=== PATIENT | male | born 1975 | race Caucasian/White ===

== ENCOUNTER 2019-02-08 04:47 | Emergency (ER) | payer MEDICARE, OTHER ==
[~2019-02-08] VITALS: Ht 170.2 cm; Wt 106.8 kg
[2019-02-08] MEDS ORDERED: DOXE150C PO (05:13)
[2019-02-08] MEDS ORDERED: INVE3TAB2 PO (05:13)
[2019-02-08] MEDS ORDERED: LAMO100T3 PO (05:13)
[2019-02-08] MEDS ORDERED: ESCI10TA2 PO (05:13)
[2019-02-08 06:04] LABS: HEMATOCRIT 41.2 % (42.0-52.0); HEMOGLOBIN 13.9 g/dl (13.5-17.5); MEAN CORPUSCULAR HEMOGLOBIN 30.1 pg (27.0-33.0); MEAN CORPUSCULAR HGB CONC 33.7 g/dl (32.0-36.5); MEAN CORPUSCULAR VOLUME 89.2 fl (80.0-96.0); PLATELET COUNT, AUTOMATED 274 10^3/uL (150-450); RED BLOOD COUNT 4.62 10^6/uL (4.30-6.10); WHITE BLOOD COUNT 7.4 10^3/uL (4.0-10.0)
[2019-02-08 06:33] LABS: AMPHETAMINES LEVEL URINE NEGATIVE (NEGATIVE); BARBITURATES URINE NEGATIVE (NEGATIVE); BENZODIAZEPINES URINE NEGATIVE (NEGATIVE); CANNABINOIDS URINE NEGATIVE (NEGATIVE); COCAINE METABOLITE URINE NEGATIVE (NEGATIVE); METHADONE URINE NEGATIVE (NEGATIVE); OPIATES URINE NEGATIVE (NEGATIVE); PHENCYCLIDINE URINE NEGATIVE (NEGATIVE)
[2019-02-08 06:37] LABS: ACETAMINOPHEN LEVEL < 2.0 UG/ML (10.0-30.0); ALBUMIN 3.9 GM/DL (3.2-5.2); ALT/SGPT 26 U/L (12-78); BILIRUBIN,DIRECT 0.1 MG/DL (0.0-0.2); BILIRUBIN,TOTAL 0.3 MG/DL (0.2-1.0); BLOOD UREA NITROGEN 10 MG/DL (7-18); CALCIUM LEVEL 8.5 MG/DL (8.5-10.1); CARBON DIOXIDE LEVEL 30 MEQ/L (21-32); CHLORIDE LEVEL 108 MEQ/L (98-107); CREATININE FOR GFR 0.95 MG/DL (0.70-1.30); ETHYL ALCOHOL (ETHANOL) < 0.003 % (0.000-0.010); GLOMERULAR FILTRATION RATE > 60.0 (>60); GLUCOSE, FASTING 95 MG/DL (70-100); POTASSIUM SERUM 4.1 MEQ/L (3.5-5.1); SALICYLATE LEVEL < 1.7 MG/DL (5.0-30.0); SODIUM LEVEL 143 MEQ/L (136-145); TOTAL PROTEIN 7.1 GM/DL (6.4-8.2)
[2019-02-08 10:02] VITALS: BP 127/77
--- NOTE | 2019-02-08 19:29 | ECGEPIP ---
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
[2019-03-22] MEDS ORDERED: LAMO150T3 PO (20:13)
== END 2019-02-08 10:06 ==
LOC: M ED 04:47
DX: R45.851 Suicidal ideations (principal); R44.0 Auditory hallucinations; F20.9 Schizophrenia, unspecified; Z79.899 Other long term (current) drug therapy; Z88.8 Allergy status to other drugs, medicaments and biological substances
CPT/HCPCS: 36415; 80048; 80076; 80307; 84443; 85027; 93005; 99285; G0480

== ENCOUNTER 2019-03-22 18:23 | Emergency (ER) | payer MEDICARE, OTHER ==
[~2019-03-22] VITALS: Ht 170.2 cm; Wt 113.6 kg
[~2019-03-22 18:23] MED LIST: DOXE150C PO; ESCI10TA2 PO; INVE3TAB2 PO; LAMO100T PO
[2019-03-22] MEDS ORDERED: BENZ-52 PO (18:41)
[2019-03-22] MEDS ORDERED: VITA500045 PO (18:41)
[2019-03-22] MEDS ORDERED: INVE117I IM (18:42)
[2019-03-22 19:01] LABS: HEMATOCRIT 40.4 % (42.0-52.0); HEMOGLOBIN 13.6 g/dl (13.5-17.5); MEAN CORPUSCULAR HEMOGLOBIN 30.7 pg (27.0-33.0); MEAN CORPUSCULAR HGB CONC 33.7 g/dl (32.0-36.5); MEAN CORPUSCULAR VOLUME 91.2 fl (80.0-96.0); PLATELET COUNT, AUTOMATED 294 10^3/uL (150-450); RED BLOOD COUNT 4.43 10^6/uL (4.30-6.10); WHITE BLOOD COUNT 8.7 10^3/uL (4.0-10.0)
[2019-03-22 19:28] LABS: AMPHETAMINES LEVEL URINE NEGATIVE (NEGATIVE); BARBITURATES URINE NEGATIVE (NEGATIVE); BENZODIAZEPINES URINE NEGATIVE (NEGATIVE); CANNABINOIDS URINE NEGATIVE (NEGATIVE); COCAINE METABOLITE URINE NEGATIVE (NEGATIVE); METHADONE URINE NEGATIVE (NEGATIVE); OPIATES URINE NEGATIVE (NEGATIVE); PHENCYCLIDINE URINE NEGATIVE (NEGATIVE)
[2019-03-22 19:41] LABS: ACETAMINOPHEN LEVEL < 2.0 UG/ML (10.0-30.0); ALBUMIN 4.1 GM/DL (3.2-5.2); ALT/SGPT 35 U/L (12-78); BILIRUBIN,DIRECT 0.1 MG/DL (0.0-0.2); BILIRUBIN,TOTAL 0.5 MG/DL (0.2-1.0); BLOOD UREA NITROGEN 8 MG/DL (7-18); CALCIUM LEVEL 9.4 MG/DL (8.5-10.1); CARBON DIOXIDE LEVEL 30 MEQ/L (21-32); CHLORIDE LEVEL 103 MEQ/L (98-107); CREATININE FOR GFR 1.04 MG/DL (0.70-1.30); ETHYL ALCOHOL (ETHANOL) < 0.003 % (0.000-0.010); GLOMERULAR FILTRATION RATE > 60.0 (>60); GLUCOSE, FASTING 91 MG/DL (70-100); POTASSIUM SERUM 3.9 MEQ/L (3.5-5.1); SALICYLATE LEVEL < 1.7 MG/DL (5.0-30.0); SODIUM LEVEL 140 MEQ/L (136-145); TOTAL PROTEIN 7.7 GM/DL (6.4-8.2)
[2019-03-22] MEDS ORDERED: LAMO150T2 PO (20:13)
[2019-03-22] MEDS ORDERED: DOXE50CA PO (20:14)
[2019-03-22] MEDS ORDERED: lamoTRIgine 100MG TAB PO ONE (22:45)
[2019-03-22] MEDS ORDERED: BENZTROPINE 1 MG TAB PO ONE (22:45)
[2019-03-22] MEDS ORDERED: DOXEPIN 25 MG CAP PO ONE (22:45)
[2019-03-22] MEDS ORDERED: ESCITALOPRAM OXALATE 10 MG TAB (LEXAPRO) PO ONE (22:45)
[2019-03-23 02:48] VITALS: BP 120/67
--- NOTE | 2019-03-24 08:19 | ECGEPIP ---
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
== END 2019-03-23 03:22 ==
LOC: M ED 18:23
DX: R45.851 Suicidal ideations (principal); R44.0 Auditory hallucinations; F33.9 Major depressive disorder, recurrent, unspecified; F43.10 Post-traumatic stress disorder, unspecified; F20.9 Schizophrenia, unspecified; Z91.5 Personal history of self-harm; Z79.899 Other long term (current) drug therapy; Z88.8 Allergy status to other drugs, medicaments and biological substances
CPT/HCPCS: 36415; 80048; 80076; 80307; 84443; 85027; 93005; 99284; G0480

== ENCOUNTER 2019-04-04 21:14 | Emergency (ER) | payer MEDICARE, OTHER ==
[~2019-04-04] VITALS: Ht 172.7 cm; Wt 115.9 kg
[~2019-04-04 21:14] MED LIST changes: +BENZ-52 PO; +DOXE50CA PO; +INVE117I IM; +LAMO150T2 PO; +VITA500045 PO
[2019-04-04] MEDS ORDERED: INVE3TAB2 PO (21:24)
[2019-04-04 22:13] LABS: HEMATOCRIT 40.9 % (42.0-52.0); HEMOGLOBIN 13.6 g/dl (13.5-17.5); MEAN CORPUSCULAR HGB CONC 33.3 g/dl (32.0-36.5); MEAN CORPUSCULAR VOLUME 93.2 fl (80.0-96.0); PLATELET COUNT, AUTOMATED 281 10^3/uL (150-450); RED BLOOD COUNT 4.39 10^6/uL (4.30-6.10); WHITE BLOOD COUNT 8.7 10^3/uL (4.0-10.0)
[2019-04-04 22:29] LABS: AMPHETAMINES LEVEL URINE NEGATIVE (NEGATIVE); BARBITURATES URINE NEGATIVE (NEGATIVE); BENZODIAZEPINES URINE NEGATIVE (NEGATIVE); CANNABINOIDS URINE NEGATIVE (NEGATIVE); COCAINE METABOLITE URINE NEGATIVE (NEGATIVE); METHADONE URINE NEGATIVE (NEGATIVE); OPIATES URINE NEGATIVE (NEGATIVE); PHENCYCLIDINE URINE NEGATIVE (NEGATIVE)
[2019-04-04 23:10] LABS: ACETAMINOPHEN LEVEL < 2.0 UG/ML (10.0-30.0); ALT/SGPT 37 U/L (12-78); BILIRUBIN,DIRECT < 0.1 MG/DL (0.0-0.2); BILIRUBIN,TOTAL 0.2 MG/DL (0.2-1.0); BLOOD UREA NITROGEN 10 MG/DL (7-18); CALCIUM LEVEL 8.9 MG/DL (8.5-10.1); CARBON DIOXIDE LEVEL 30 MEQ/L (21-32); CHLORIDE LEVEL 103 MEQ/L (98-107); ETHYL ALCOHOL (ETHANOL) < 0.003 % (0.000-0.010); GLOMERULAR FILTRATION RATE > 60.0 (>60); GLUCOSE, FASTING 121 MG/DL (70-100); POTASSIUM SERUM 3.5 MEQ/L (3.5-5.1); SALICYLATE LEVEL < 1.7 MG/DL (5.0-30.0); SODIUM LEVEL 141 MEQ/L (136-145); TOTAL PROTEIN 7.5 GM/DL (6.4-8.2)
[2019-04-05 09:05] VITALS: BP 137/92
--- NOTE | 2019-04-06 18:45 | ECGEPIP ---
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
== END 2019-04-05 09:09 | disposition short-term general hospital (02) ==
LOC: M ED 21:14
DX: R44.0 Auditory hallucinations (principal); R44.2 Other hallucinations; F31.9 Bipolar disorder, unspecified; F43.10 Post-traumatic stress disorder, unspecified; Z88.8 Allergy status to other drugs, medicaments and biological substances
CPT/HCPCS: 36415; 80048; 80076; 80307; 84443; 85027; 93005; 99285; G0480

== ENCOUNTER 2019-05-12 18:22 | Emergency (ER) | payer MEDICARE, OTHER ==
[~2019-05-12] VITALS: Ht 172.7 cm; Wt 120.0 kg
[2019-05-12] MEDS ORDERED: MIRT1TAB15 PO (18:39)
[2019-05-12] MEDS ORDERED: ESOM0.1C PO (18:39)
[2019-05-12 20:43] LABS: BASO # 0.1 10^3/uL (0.0-0.2); BASO % 0.9 % (0.0-1.0); EOS # 0.3 10^3/uL (0.0-0.5); EOS % 2.6 % (0.0-3.0); HEMATOCRIT 41.3 % (42.0-52.0); HEMOGLOBIN 13.7 g/dl (13.5-17.5); LYMPH # 2.3 10^3/uL (1.5-5.0); LYMPH % 24.1 % (24.0-44.0); MEAN CORPUSCULAR HEMOGLOBIN 30.4 pg (27.0-33.0); MEAN CORPUSCULAR HGB CONC 33.2 g/dl (32.0-36.5); MEAN CORPUSCULAR VOLUME 91.6 fl (80.0-96.0); MONO # 0.9 10^3/uL (0.0-0.8); MONO % 9.1 % (0.0-5.0); NEUTROPHILS # 5.9 10^3/uL (1.5-8.5); NEUTROPHILS % 62.5 % (36.0-66.0); PLATELET COUNT, AUTOMATED 300 10^3/uL (150-450); RED BLOOD COUNT 4.51 10^6/uL (4.30-6.10); WHITE BLOOD COUNT 9.5 10^3/uL (4.0-10.0)
[2019-05-12 21:09] LABS: ALBUMIN 4.3 GM/DL (3.2-5.2); ALT/SGPT 36 U/L (12-78); BILIRUBIN,DIRECT < 0.1 MG/DL (0.0-0.2); BILIRUBIN,TOTAL 0.4 MG/DL (0.2-1.0); BLOOD UREA NITROGEN 16 MG/DL (7-18); CALCIUM LEVEL 9.5 MG/DL (8.5-10.1); CARBON DIOXIDE LEVEL 30 MEQ/L (21-32); CHLORIDE LEVEL 102 MEQ/L (98-107); CREATININE FOR GFR 1.03 MG/DL (0.70-1.30); GLOMERULAR FILTRATION RATE > 60.0 (>60); GLUCOSE, FASTING 106 MG/DL (70-100); MAGNESIUM LEVEL 2.3 MG/DL (1.8-2.4); PHOSPHORUS LEVEL 3.4 MG/DL (2.5-4.9); POTASSIUM SERUM 3.8 MEQ/L (3.5-5.1); SODIUM LEVEL 139 MEQ/L (136-145); TOTAL PROTEIN 8.1 GM/DL (6.4-8.2)
--- NOTE | 2019-05-12 21:09 | REPVR ---
PROCEDURE INFORMATION: Exam: CT Head Without Contrast Exam date and time: 05/12/2019 8:03 PM Clinical history: 44 years old, male; Injury or trauma; Fall; Initial encounter; Blunt trauma (contusions or hematomas); Additional info: Trauma with shunt TECHNIQUE: Imaging protocol: Computed tomography of the head without contrast. Radiation optimization: All CT scans at this facility use at least one of these dose optimization techniques: automated exposure control; mA and/or kV adjustment per patient size (includes targeted exams where dose is matched to clinical indication); or iterative reconstruction. COMPARISON: No relevant prior studies available. FINDINGS: Tubes, catheters and devices: Right frontal shunt catheter tip in frontal horn of right lateral ventricle without apparent shunt tubing. Left parietal shunt catheter tip in body of left lateral ventricle with attached shunt tubing. 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 There is enlargement of the third and lateral ventricles. There is no acute cortical infarction, intracranial hemorrhage or mass. Brain: See Tubes, Catheters And Devices Finding. Ventricles: See Tubes, Catheters And Devices Finding. Bones/joints: Unremarkable. No acute fracture. Sinuses: Visualized sinuses are unremarkable. No fluid levels. Mastoid air cells: Visualized mastoid air cells are well aerated. Soft tissues: There is a 1.2 cm probable sebaceous cyst left occipital scalp. IMPRESSION: The right frontal shunt catheter does not appear to have attached tubing however the left parietal shunt catheter does have tubing. Comparison should be made with prior studies since there are non-radiopaque regions apparent. There are no acute intracranial findings. Electronically signed by: Melani Soriano On 05/12/2019 21:09:18 PM
--- NOTE | 2019-05-12 21:35 | REPVR ---
PROCEDURE INFORMATION: Exam: CT Pelvis Without Contrast; Skeletal Exam date and time: 05/12/2019 8:03 PM Clinical history: 44 years old, male; Injury or trauma; Fall; Initial encounter; Blunt trauma (contusions or hematomas); Does not apply; Hip TECHNIQUE: Imaging protocol: Computed tomography images of the pelvis without contrast. Exam focused on the skeletal structures. Radiation optimization: All CT scans at this facility use at least one of these dose optimization techniques: automated exposure control; mA and/or kV adjustment per patient size (includes targeted exams where dose is matched to clinical indication); or iterative reconstruction. COMPARISON: No relevant prior studies available. FINDINGS: Bladder: There are bladder is unremarkable. Reproductive: Prostate gland is not enlarged. Bones/joints: There is fusion of the anterior margin of the left sacroiliac joint. No sacral fracture is detected. No fracture seen in the portion lumbar spine included on the examination. Both hips appear intact. Soft tissues: There is a fat-containing umbilical hernia and bilateral fat-containing inguinal hernias. No body wall hematoma is apparent. IMPRESSION: No acute pelvic fractures are identified. Electronically signed by: Melani Soriano On 05/12/2019 21:35:29 PM
--- NOTE | 2019-05-12 21:37 | REPVR ---
PROCEDURE INFORMATION: Exam: CT Right Lower Extremity Without Contrast, Hip Exam date and time: 05/12/2019 8:03 PM Clinical history: 44 years old, male; Injury or trauma; Fall; Initial encounter; Blunt trauma; Hip; Right TECHNIQUE: Imaging protocol: CT of the Right lower extremity without contrast was performed. Exam focused on the hip. Radiation optimization: All CT scans at this facility use at least one of these dose optimization techniques: automated exposure control; mA and/or kV adjustment per patient size (includes targeted exams where dose is matched to clinical indication); or iterative reconstruction. COMPARISON: No relevant prior studies available. FINDINGS: Bones/joints: No acute fracture or dislocation. Soft tissues: No body wall hematoma. IMPRESSION: No right hip fracture is identified. Electronically signed by: Melani Soriano On 05/12/2019 21:37:20 PM
--- NOTE | 2019-05-12 21:43 | REPVR ---
PROCEDURE INFORMATION: Exam: CT Lumbar Spine Without Contrast Exam date and time: 05/12/2019 8:03 PM Clinical history: 44 years old, male; Injury or trauma; Fall; Initial encounter; Blunt trauma (contusions or hematomas) TECHNIQUE: Imaging protocol: Computed tomography images of the lumbar spine without contrast. Radiation optimization: All CT scans at this facility use at least one of these dose optimization techniques: automated exposure control; mA and/or kV adjustment per patient size (includes targeted exams where dose is matched to clinical indication); or iterative reconstruction. COMPARISON: No relevant prior studies available. FINDINGS: Vertebrae: There is no acute fracture in the lumbar spine through S2. No spondylolisthesis. L1-L2: No disc herniation. No spinal stenosis. No neural foraminal narrowing. L2-L3: No disc herniation. No spinal stenosis. No neural foraminal narrowing. L3-L4: No disc herniation. No spinal stenosis. No neural foraminal narrowing. L4-L5: No disc herniation. No spinal stenosis. No neural foraminal narrowing. L5-S1: No disc herniation. No spinal stenosis. No neural foraminal narrowing. Sacrum/coccyx: There is fusion of the anterior margin of the left sacroiliac joint. Soft tissues: Unremarkable. Other findings: There is no disc space narrowing. IMPRESSION: No compression fracture seen in the lumbar spine. Electronically signed by: Melani Soriano On 05/12/2019 21:43:06 PM
--- NOTE | 2019-05-12 22:04 | REPVR ---
PROCEDURE INFORMATION: Exam: XR Shunt Series With 4 XR Procedures Exam date and time: 05/12/2019 8:36 PM Clinical history: 44 years old, male; Other: Falls, ; dizziness; Other: Shunt series; Additional info: Falls, eval shunt TECHNIQUE: Imaging protocol: XR Shunt Series was performed with skull less than 4 views, neck 1 view, chest 1 view, and abdomen 1 view. COMPARISON: CT Head without contrast 05/12/2019 8:02 PM FINDINGS: Tubes, catheters and devices: Ventriculoperitoneal catheter is present. Ventricular catheter is seen on the left. The right frontal shunt catheter does not appear to have associated shunt tubing. The catheter is seen coursing through the neck and chest. The distal catheter tip in the left upper quadrant. No kinking however there is an area of lucency in the neck measuring 5 cm which could indicate shunt disruption. Sinuses: Visualized paranasal sinuses are well aerated. Airway: Upper airway and trachea are unremarkable in the neck and chest. Lungs: No consolidations. Gastrointestinal tract: Bowel is unremarkable. Bones/joints: Normal. No fracture. No dislocation. Soft tissues: Unremarkable. IMPRESSION: MODERN AND CONTEMPORARY ART CURATOR shunt has a lucency within the lower neck which could indicate shunt disruption. Suggest comparison with prior x-rays. Electronically signed by: Melani Soriano On 05/12/2019 22:04:25 PM
[2019-05-13 00:15] VITALS: BP 134/78
[2019-05-13] MEDS ORDERED: NS 1,000 ML IV SCH (00:22)
== END 2019-05-13 01:16 | disposition short-term general hospital (02) ==
LOC: M ED 18:22
DX: M53.3 Sacrococcygeal disorders, not elsewhere classified (principal); R26.9 Unspecified abnormalities of gait and mobility; T85.09XA Other mechanical complication of ventricular intracranial (communicating) shunt, initial encounter; G91.9 Hydrocephalus, unspecified; G47.33 Obstructive sleep apnea (adult) (pediatric); Z88.1 Allergy status to other antibiotic agents; Z88.9 Allergy status to unspecified drugs, medicaments and biological substances; Z79.810 Long term (current) use of selective estrogen receptor modulators (SERMs); Z79.84 Long term (current) use of oral hypoglycemic drugs; Z79.899 Other long term (current) drug therapy

== ENCOUNTER → 2019-06-13 | Outpatient (REF) | payer MEDICARE ==
[~2019-06-13] MED LIST changes: +ESCI20TA PO; +ESOM0.1C PO; +INVE234I IM; -LAMO100T PO; +LAMO100T3 PO; -LAMO150T2 PO; +LAMO150T3 PO; +LEXA1TAB2 PO; +MIRT1TAB15 PO; +PALI1TAB3 PO; +REME15TA PO; +VITA1CAP25 PO
[2019-06-13 13:41] LABS: CHLAMYDIA DNA AMPLIFICATION NEGATIVE (NEGATIVE); GC DNA AMPLIFICATION NEGATIVE (NEGATIVE)
== END ==
LOC: M SFHCPLAZ 11:21
PROVIDERS: ATTEND Student in an Organized Health Care Education/Training Program
DX: R30.0 Dysuria (principal)
CPT/HCPCS: 81002; 87086; 87661; G0463

== ENCOUNTER 2019-06-27 19:39 | Inpatient (IN) | payer MEDICARE ==
[~2019-06-27] VITALS: Ht 170.2 cm; Wt 118.3 kg
[~2019-06-27 19:39] MED LIST changes: -ESCI20TA PO; -INVE234I IM; -LEXA1TAB2 PO; -PALI1TAB3 PO; -REME15TA PO; -VITA1CAP25 PO
[2019-06-27 20:35] LABS: HEMATOCRIT 48.9 % (42.0-52.0); HEMOGLOBIN 15.3 g/dl (13.5-17.5); MEAN CORPUSCULAR HEMOGLOBIN 28.8 pg (27.0-33.0); MEAN CORPUSCULAR HGB CONC 31.3 g/dl (32.0-36.5); MEAN CORPUSCULAR VOLUME 92.1 fl (80.0-96.0); PLATELET COUNT, AUTOMATED 306 10^3/uL (150-450); RED BLOOD COUNT 5.31 10^6/uL (4.30-6.10)
[2019-06-27 20:41] LABS: AMPHETAMINES LEVEL URINE NEGATIVE (NEGATIVE); BARBITURATES URINE NEGATIVE (NEGATIVE); BENZODIAZEPINES URINE NEGATIVE (NEGATIVE); CANNABINOIDS URINE NEGATIVE (NEGATIVE); COCAINE METABOLITE URINE NEGATIVE (NEGATIVE); METHADONE URINE NEGATIVE (NEGATIVE); OPIATES URINE NEGATIVE (NEGATIVE); PHENCYCLIDINE URINE NEGATIVE (NEGATIVE)
[2019-06-27 21:05] LABS: ACETAMINOPHEN LEVEL < 2.0 UG/ML (10.0-30.0); ALBUMIN 4.3 GM/DL (3.2-5.2); ALT/SGPT 55 U/L (12-78); BILIRUBIN,DIRECT 0.1 MG/DL (0.0-0.2); BILIRUBIN,TOTAL 0.4 MG/DL (0.2-1.0); BLOOD UREA NITROGEN 14 MG/DL (7-18); CALCIUM LEVEL 9.4 MG/DL (8.5-10.1); CARBON DIOXIDE LEVEL 30 MEQ/L (21-32); CHLORIDE LEVEL 104 MEQ/L (98-107); CREATININE FOR GFR 1.04 MG/DL (0.70-1.30); ETHYL ALCOHOL (ETHANOL) < 0.003 % (0.000-0.010); GLOMERULAR FILTRATION RATE > 60.0 (>60); GLUCOSE, FASTING 87 MG/DL (70-100); POTASSIUM SERUM 3.8 MEQ/L (3.5-5.1); SALICYLATE LEVEL < 1.7 MG/DL (5.0-30.0); SODIUM LEVEL 140 MEQ/L (136-145); TOTAL PROTEIN 8.3 GM/DL (6.4-8.2)
[2019-06-27] MEDS ORDERED: MOM 30ML SUSPENSION UDC PO PRN (21:45)
[2019-06-27] MEDS ORDERED: traZODone 50 MG TAB PO PRN (21:45)
[2019-06-27] MEDS ORDERED: ACETAMINOPHEN TAB 650MG DOSE (2X325MG) PO PRN (21:45)
[2019-06-27] MEDS ORDERED: MAALOX 30 ML SUSP *UDC PO PRN (21:45)
[2019-06-27 23:10] VITALS: BP 141/95
[2019-06-27] MEDS ORDERED: VITA1CAP25 PO (23:32)
[2019-06-28] MEDS ORDERED: PILL CUTTER 1 EACH XX PRN (00:45)
[2019-06-28 06:43] VITALS: BP 140/92
[2019-06-28] MEDS: OMEPRAZOLE 20 MG CAP PO SCH (08:21)
[2019-06-28] MEDS: lamoTRIgine 100MG TAB PO SCH ×2 (08:21→20:57)
[2019-06-28 15:55] VITALS: BP 121/77
--- NOTE | 2019-06-28 17:49 | HPEPDOC ---
General Date of Admission Jun 27, 2019 at 21:45 Date of Service: Jun 28, 2019 Chief Complaint The patient is a 44-year-old male admitted with a reason for visit of Unspecified Psychotic Disorder. Source: Patient History of Present Illness This is a 44 year old male admitted to [facility] for Psychosis. He presented to the ED by himself complaining of visual hallucinations. Denied any auditory hallucinations. He was seeing robed people standing by him or passing him. he did not have any suicidal ideas. I am seeing the patient here for medical history and physical. He complains of intermittent heaachd and some itermittent diarrhea, without any abdominal pain, no nausea or vomiting. Today he did not have any diarrhea. Home Medications Scheduled Cholecalciferol (Vitamin D3) (Vitamin D3) 50,000 Unit Capsule, 50,000 UNIT PO 1XWK for , (Reported) TAKES ON SUNDAY Doxepin HCl (Doxepin HCl) 50 Mg Capsule, 50 MG PO QHS for , (Reported) Escitalopram Oxalate (Escitalopram Oxalate) 10 Mg Tablet, 20 MG PO QPM for , (Reported) Esomeprazole Magnesium (Esomeprazole Magnesium) 20 Mg Capsule.dr, 20 MG PO DAILY for acid reflux, (Reported) Lamotrigine (Lamotrigine) 150 Mg Tablet, 150 MG PO BID for , (Reported) Mirtazapine (Mirtazapine) 15 Mg Tab.rapdis, 15 MG PO QHS for , (Reported) Paliperidone (Invega) 3 Mg Tab.er.24, 3 MG PO QHS for , (Reported) Paliperidone Palmitate (Invega Sustenna) 117 Mg/0.75 Ml Syringe, 0.75 ML IM Q30D for , (Reported) Allergies Coded Allergies: divalproex sodium (Verified Allergy, Unknown, 02/08/19) benztropine (Verified Adverse Reaction, Intermediate, hallucinations, 04/04/19) Past Medical History Medical History Depression with suicidal attempts in the past with medication overdoses Hydrocephalus with SPA SUPERVISOR shunt since Obesity with JOHN. GERD PTSD Colitis h/o pancreatitis Paranoid schizophrenia anxiety Surgical History SPA SUPERVISOR shunt since Cholecystectomy Family History Significant Family History: Diabetes (mother) Social History * Smoker: Denies Alcohol: Denies Drugs: denies A-FIB/CHADSVASC A-FIB History Current/History of A-Fib/PAF?: No Review of Systems Constitutional: Denies: Chills, Fever, Night Sweats Eyes: Denies: Pain, Vision change ENT: Denies: Head Aches, Ear Pain, Dysphagia Skin: Denies: Rash, Lesions, Breakdown Pulmonary: Denies: Dyspnea, Cough Cardiovascular: Denies: Chest Pain, Palpitations, Orthopnea, Paroxysmal Noc. Dyspnea, Lt Headedness Gastrointestinal: Denies: Nausea, Vomiting, Abdominal Pain, Diarrhea Genitourinary: Denies: Dysuria, Frequency, Incontinence, Retention Hematologic: Denies: Bruising, Bleeding Excessively Musculoskeletal: Denies: Neck Pain, Back Pain, Joint Pain, Muscle Pain, Spasms Neurological: Denies: Weakness, Numbness, Change in speech, Confusion Physical Examination General Exam: Positive: Alert, Cooperative, No Acute Distress Eye Exam: Positive: PERRLA, Conjunctiva & lids normal, EOMI; Negative: Sclera icteric ENT Exam: Positive: Atraumatic, Mucous membr. moist/pink, Pharynx Normal Neck Exam: Positive: Supple; Negative: JVD, thyromegaly Chest Exam: Positive: Clear to auscultation, Normal air movement Heart Exam: Positive: Rate Normal, Regular Rhythm, Normal S1, Normal S2; Negative: Murmurs, Rubs Abdomen Exam: Positive: Normal bowel sounds, Soft, Other (obese); Negative: Tenderness, Hepatospenomegaly Extremity Exam: Positive: Normal pulses; Negative: Clubbing, Cyanosis, Edema Skin Exam: Positive: Nl turgor and temperature; Negative: Breakdown, Lesion Neuro Exam: Positive: Normal Gait, Normal Speech, Cranial Nerves 3-12 NL, Reflexes 2+ Vital Signs Vital Signs Date Time Temp Pulse Resp B/P (MAP) Pulse Ox O2 Delivery O2 Flow Rate FiO2 06/28/19 06:43 98.2 94 20 140/92 (108) 06/27/19 23:10 Room Air 06/27/19 19:54 98 Laboratory Data Labs 24H Laboratory Tests 2 06/27/19 20:01: Nucleated Red Blood Cells % (auto) 0.0, Anion Gap 6L, Glomerular Filtration Rate > 60.0, Calcium Level 9.4, Total Bilirubin 0.4, Direct Bilirubin 0.1, Aspartate Amino Transf (AST/SGOT) 21, Alanine Aminotransferase (ALT/SGPT) 55, Alkaline Phosphatase 93, Total Protein 8.3H, Albumin 4.3, Albumin/Globulin Ratio 1.08, Th yroid Stimulating Hormone (TSH) 1.420, Salicylates Level < 1.7L, Acetaminophen Level < 2.0L, Ethyl Alcohol Level < 0.003 06/27/19 20:06: Urine Color YELLOW, Urine Appearance CLEAR, Urine pH 6.0, Urine Specific Dolliver 1.006, Urine Protein NEGATIVE, Urine Glucose (UA) NEGATIVE, Urine Ketones NEGATIVE, Urine Blood NEGATIVE, Urine Nitrite NEGATIVE, Urine Bilirubin NEGATIVE, Urine Urobilinogen 0.2, Urine Leukocyte Esterase NEGATIVE, Urine WBC (Auto) 5H, Urine RBC (Auto) 1, Urine Hyaline Casts (Auto) 0, Urine Bacteria (Auto) NEGATIVE, Urine Squamous Epithelial Cells 0, Urine Mucus (Auto) SMALL, Urine Sperm (Auto) , Urine Opiates Screen NEGATIVE, Urine Methadone Screen NEGATIVE, Urine Barbiturates Screen NEGATIVE, Urine Phencyclidine Screen NEGATIVE, Urine Amphetamines Screen NEGATIVE, Urine Benzodiazepines Screen NEGATIVE, Urine Cocaine Metabolite Screen NEGATIVE, Urine Cannabinoids Screen NEGATIVE CBC/BMP Laboratory Tests 06/27/19 20:01 Assessment/Plan This is a 44 year old male admitted to [facility] for Psychosis. He presented to the ED by himself complaining of visual hallucinations. Denied any auditory hallucinations. He was seeing robed people standing by him or passing him. he did not have any suicidal ideas. I am seeing the patient here for medical history and physical. Psychosis as per psychiatry GERD continue omeprazole Headaches continue tylenol prn Plan / VTE VTE Prophylaxis Ordered?: No (freely ambulatory) J CARLOS SUN MD Jun 28, 2019 12:55
[2019-06-28] MEDS: MIRTAZAPINE 15 MG TAB PO SCH (20:57)
[2019-06-28] MEDS: PALIPERIDONE 3 MG ER TAB (INVEGA) PO SCH (20:58)
[2019-06-28] MEDS: DOXEPIN 25 MG CAP PO SCH (20:59)
[2019-06-28] MEDS: ESCITALOPRAM OXALATE 10 MG TAB (LEXAPRO) PO SCH (20:59)
--- NOTE | 2019-06-28 22:16 | MHHPE ---
Unspecified schizophreniaDATE OF ADMISSION: 06/27/2019 DATE OF EVALUATION: 06/28/2019 HISTORY OF PRESENT ILLNESS: This is a 44-year-old who has had many hospitalizations, mostly for problems with depression and suicidal thoughts; however, he says that over the past 2 months he has started to experience for the first time visual hallucinations, he sees people dressed in black and white robes moving around his apartment. He states that they have been worse over the past 4 to 5 days to the point where he started to be afraid that if they got any worse that he might impulsively try to hurt himself. He says that he had not been sleeping good for the last 3 to 4 nights. His appetite has been down. He has been having increased anxiety but states that he is not really depressed. The patient attends [facility] outpatient behavioral health clinic and he sees Dr. Sage, who prescribes Invega 234 mg intramuscular every month. He says that he received it last on 06/16/2019. He is also on oral Invega 30 mg daily, Lexapro 20 mg daily, Lamictal 150 mg four times a day, Remeron 15 mg at night. PAST PSYCHIATRIC HISTORY: He states that his first admission was about 6 years ago for depression and suicidal thoughts. He says that prior to that he had some suicidal thoughts but had never received psychiatric treatment. The patient states that in the past he has made some suicidal attempts via overdosing on medications but none of them were serious. FAMILY HISTORY: There is no psychiatric illness in the family or suicides in the family. MEDICAL HISTORY: The patient was born with congenital hydrocephalus and as a baby he did have a shunt placed in his brain. He says that he has always had some visual problems. 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 ABUSE HISTORY: He denies any history of any physical or sexual abuse. SUBSTANCE ABUSE HISTORY: He denies any problems with alcohol or drugs. REVIEW OF SYSTEMS: VITAL SIGNS: Blood pressure 140/92, pulse 94, respirations 20. APPEARANCE: He did not appear to be in any apparent distress. NEUROMUSCULAR SYSTEM: The patient's gait is normal. There are no involuntary movements. All other systems were reviewed and found to be negative. MENTAL STATUS EXAMINATION: This patient is alert and oriented times three. He is verbally spontaneous. Eye contact is fairly good. There is no formal thought disorder noted. Mood is anxious. He is having what he describes as visual hallucinations. He is stating that he is not suicidal or homicidal. Concentration is fair. Memory is intact. Insight and judgment poor. DIAGNOSES: 1. TREATMENT PLAN: At this point, we will continue to monitor the patient for elevation and stabilization of mood and for continued resolution of suicidal ideation. He is already on a very high dose of antipsychotic, so I would like to further evaluate him for the hallucinations before I further increase is antipsychotics. We will continue Lexapro 20 mg daily and Remeron 15 mg at night. The plan will be to discharge him with appropriate followup once stable. LINGD
[2019-06-29 06:41] VITALS: BP 106/75
[2019-06-29] MEDS: lamoTRIgine 100MG TAB PO SCH ×2 (08:17→21:12)
[2019-06-29] MEDS: OMEPRAZOLE 20 MG CAP PO SCH (08:17)
[2019-06-29 15:50] VITALS: BP 116/68
--- NOTE | 2019-06-29 19:48 | MHIPN ---
DATE: 06/29/2019 The patient today states that he is doing better. He is not experiencing hallucinations today. He said that he slept good and he is not suicidal. MENTAL STATUS EXAMINATION: He is alert and oriented times three. He is verbally spontaneous. Eye contact is fair. There is no formal though disorder noted. Mood better. Affect is full range and appropriate. He is not psychotic, suicidal or homicidal. Concentration is fair. Memory intact. Insight and judgment fair. DIAGNOSES: 1. Unspecified schizophrenia. 2. Other specified depressive disorder. TREATMENT PLAN: At this point, we will continue to monitor the patient for continued elevation and stabilization of his mood and resolution of suicidal ideations.
[2019-06-29] MEDS: PALIPERIDONE 3 MG ER TAB (INVEGA) PO SCH (21:10)
[2019-06-29] MEDS: ESCITALOPRAM OXALATE 10 MG TAB (LEXAPRO) PO SCH (21:11)
[2019-06-29] MEDS: MIRTAZAPINE 15 MG TAB PO SCH (21:11)
[2019-06-29] MEDS: DOXEPIN 25 MG CAP PO SCH (21:11)
[2019-06-30 06:21] VITALS: BP 106/78
[2019-06-30] MEDS: OMEPRAZOLE 20 MG CAP PO SCH (08:50)
[2019-06-30] MEDS: lamoTRIgine 100MG TAB PO SCH (08:51)
--- NOTE | 2019-06-30 09:55 | MHIPNPDOC ---
[facility] Progress Note Progress Note DATE OF SERVICE: 06/30/19 HISTORY: : This is a 44-year-old who has had many hospitalizations, mostly for problems with depression and suicidal thoughts; however, he says that over the past 2 months he has started to experience for the first time visual hallucinations, he sees people dressed in black and white robes moving around his apartment. He states that they have been worse over the past 4 to 5 days to the point where he started to be afraid that if they got any worse that he might impulsively try to hurt himself. He says that he had not been sleeping good for the last 3 to 4 nights. His appetite has been down. He has been having increased anxiety but states that he is not really depressed. The patient attends [facility] outpatient behavioral health clinic and he sees Dr. Sage, who prescribes Invega 234 mg intramuscular every month. He says that he received it last on 06/16/2019. He is also on oral Invega 30 mg daily, Lexapro 20 mg daily, Lamictal 150 mg four times a day, Remeron 15 mg at night. VITAL SIGNS: See below. NEW TEST RESULTS: See below. CURRENT MEDICATIONS: See below. MENTAL STATUS EXAMINATION: Denies hallucinations and is insightful and cooperative Patient is a 44-year old male, who is in unkempt and in hospital scrubs. Speech: Is normal volume, regular rate and rhythm. Language skills are intact. Thought processes including: logical and linear. Thought content: Denies SI, HI, AVH. Abstract reasoning, and computation: intact. Description of associations: denies. Description of abnormal or psychotic thoughts: denies. Judgment: fair. Insight: fair. Orientation: AAOx3. Recent and remote memory:intact. Attention span and concentration: intact. Language: intact. Fund of knowledge: intact. Mood: "Doing much better now that I have been able to sleep." Affect: appropriate. DIAGNOSES: 1. Unspecified schizophrenia. 2. Other specified depressive disorder ASSESSMENT: Pt seen and states he "feels much better now that I have been able to sleep." Pt endorses that he has been able to rest since being admitted and that he no longer is hallucinating. Prior to being admitted he stated he was hallucinating for four or five days and that he was worried about hurting hi mself. He stated that the figures he was seeing were telling him to hurt himself. He no longer hears or sees these figures and is cooperative and insightful. Pt is tolerating his medications and notes that "I had been taking my meds two to three hours before bed but I learned here I need to take them right before I sleep." He is encouraged to attend groups. He denies insomnia, SI/HI, hallucinations, and delusions. Pt feels safe here. MANAGEMENT PLAN: Continue Doxepin 50 mg qhs, Lexapro 20 mg qpm, Remeron 15 mg qhs, Invega 3 mg qhs, Lamictal 150 mg BID. TIME SPENT: 30 minutes. Agree with student note. Dr Mere Spear Vital Signs Vital Signs Date Time Temp Pulse Resp B/P (MAP) Pulse Ox O2 Delivery O2 Flow Rate FiO2 06/30/19 06:21 97.6 104 18 106/78 (87) 06/27/19 23:10 Room Air 06/27/19 19:54 98 Current Medications Current Medications Medications (Trade) Dose Ordered Sig/Rizwan Route PRN Reason Start Time Stop Time Status Last Admin Dose Admin Acetaminophen (Tylenol Tab) 650 mg Q6HP PRN PO HEADACHE or DISCOMFORT 06/27/19 21:45 Al Hydrox/Mg Hydrox/Simethicone (Mylanta) 30 ml Q4HP PRN PO HEARTBURN/INDIGESTION 06/27/19 21:45 Doxepin HCl (SINEquan) 50 mg QHS PO 06/28/19 21:00 06/29/19 21:11 Escitalopram Oxalate (Lexapro) 20 mg QPM PO 06/28/19 21:00 06/29/19 21:11 Home Med (Med Rec Complete!) ASDIRECTED XX 06/27/19 23:45 06/27/19 23:35 DC Lamotrigine (LaMICtal) 150 mg BID PO 06/28/19 09:00 06/30/19 08:51 Magnesium Hydroxide (Milk Of Magnesia) 30 ml DAILYPRN PRN PO CONSTIPATION 06/27/19 21:45 Mirtazapine (Remeron) 15 mg QHS PO 06/28/19 21:00 06/29/19 21:11 Omeprazole (PriLOSEC) 20 mg DAILY PO 06/28/19 09:00 06/30/19 08:50 Paliperidone (Invega) 3 mg QHS PO 06/28/19 21:00 06/29/19 21:10 Trazodone HCl (Desyrel) 50 mg QHSP PRN PO INSOMNIA 06/27/19 21:45 06/29/19 21:11 Allergies Coded Allergies: divalproex sodium (Verified Allergy, Unknown, 02/08/19) benztropine (Verified Adverse Reaction, Intermediate, hallucinations, 04/04/19) ALEJANDRA BOLES OMS-IV Jun 30, 2019 09:44 MERE SPEAR DO Jun 30, 2019 11:47
--- NOTE | 2019-06-30 13:44 | MHDSPDOC ---
[facility] Discharge Summary Discharge Summary DATE OF ADMISSION: Jun 27, 2019 at 21:45 DATE OF DISCHARGE: 06/30/19 Discharge Shaan Ross MRN: N/[id number] Date of : N/A Date of Service: 06/30/2019 Diagnoses Unspecified sleep-wake disorder. Schizophrenia. History of Present Illness The patient, a 44-year-old man who has a history of schizophrenia, well treated on injectable long-acting Invega who sees Dr. Sage as an outpatient, presents with an unusual new symptom of reported visual hallucinations after having difficulty sleeping for the last 4 to 5 days. He is quite concerned about this and he is brought in out of an abundance of caution. The patient, upon presenting to our unit, denied any overt suicidality. However, he was concerned that if his symptoms continued he might become suicidal. The patient does well on the inpatient unit with no modifications to his medication regimen after it was continued. Consultants Involved Hospitalist/PCP screening Treatment and Progress On The Unit The patient is admitted to the inpatient unit where he was observed after a good night of sleep. His visual hallucinations vanish and do not return over his weekend of observation. The patient does have some mild signs of negative symptoms, likely of chronic schizophrenia with some mild slowness in his thinking, which is a common sign of long-term schizophrenia, but does not appear to be demonstrating any psychotic symptoms while on our unit. The patient does well with little interventions and after a weekend of observation requests discharge. He has a fairly normal mental status, minus some mild thought blocking, however observations on our unit indicate that he attends to his ADLs without difficulty. He has been denying suicidal and homicidal ideation and thus must be discharged in good shell. It appears that the patient "as he had stated, needed some sleep." Discharge Assessment The patient, a 44-year-old man with a history of schizophrenia, presents with reported unusual symptoms of visual hallucinations. However, after one night of good sleep, the patient's visual hallucinations vanish without much problem. He has no medication changes and returns to his baseline level of thinking, per the previous charts I had read including his outpatient treatment with Dr. Donaldson. Appears to be primarily suffering from a sleep-wake disorder, likely in the setting of a hypnagogic hallucination or perhaps even a REM shifting disorder. However, his quick resolution highly suggests against a reemergence of schizo phrenia, especially given that these are atypical symptoms for him and in general are atypical for schizophrenia. On the day of discharge, he does not meet involuntary criteria due to the aforementioned factors above and declines voluntary, and is discharged in good shell. Mental Status Examination General: Well dressed with good hygiene Speech: Spontaneous and fluid Thought processes: Linear and logical MSK: Smooth and coordinated gait, no signs of tremors or involuntary orofacial movements Thought content: Future orientated Abstract reasoning, and computation: Intact Description of associations: Intact Description of abnormal or psychotic thoughts: Denies any suicidal or homicidal ideation. Denies any auditory or visual hallucinations. Does not appear to be responding to internal stimuli. Does not appear to be endorsing any bizarre or paranoid ideation. Judgment: fair Insight: fair Orientation: Alert and orientated 3 Cognition: Mild slowing but able to converse at regular speed Recent and remote memory: Intact Attention span and concentration: Intact Fund of knowledge: Adequate Mood: "okay" Affect: Euthymic with a full range Follow Up The social work team worked during the predischarge meeting in order to evaluate for further issues of lethality address them fully before discharge. They worked on safety planning with the patient's family members in order to ensure that the patient will have a safe and effective discharge. Time Spent The amount of time spent in the coordination of care for this patient was approximately 60 minutes. Sunday Vital Signs/I&Os Vital Signs Date Time Temp Pulse Resp B/P (MAP) Pulse Ox O2 Delivery O2 Flow Rate FiO2 06/30/19 06:21 97.6 104 18 106/78 (87) 06/27/19 23:10 Room Air 06/27/19 19:54 98 Medications Scheduled Cholecalciferol (Vitamin D3) (Vitamin D3) 50,000 Unit Capsule, 50,000 UNIT PO 1XWK for , (Reported) TAKES ON SUNDAY Doxepin HCl (Doxepin HCl) 50 Mg Capsule, 50 MG PO QHS for , (Reported) Escitalopram Oxalate (Escitalopram Oxalate) 10 Mg Tablet, 20 MG PO QPM for , (Reported) Esomeprazole Magnesium (Esomeprazole Magnesium) 20 Mg Capsule.dr, 20 MG PO DAILY for acid reflux, (Reported) Lamotrigine (Lamotrigine) 150 Mg Tablet, 150 MG PO BID for , (Reported) Mirtazapine (Mirtazapine) 15 Mg Tab.rapdis, 15 MG PO QHS for , (Reported) Paliperidone (Invega) 3 Mg Tab.er.24, 3 MG PO QHS for , (Reported) Paliperidone Palmitate (Invega Sustenna) 117 Mg/0.75 Ml Syringe, 0.75 ML IM Q30D for , (Reported) Allergies Coded Allergies: divalproex sodium (Verified Allergy, Unknown, 02/08/19) benztropine (Verified Adverse Reaction, Intermediate, hallucinations, 04/04/19) CATALINA GARCIA DO Jun 30, 2019 13:44
== END 2019-06-30 18:00 | disposition home or self-care (01) | DRG 885 ==
LOC: M ED 19:39 → M ED INP 21:45 → M PSY 23:09
PROVIDERS: ADMIT Psychiatry & Neurology Psychiatry; ATTEND Psychiatry & Neurology Psychiatry
DX: F20.9 Schizophrenia, unspecified (principal); F32.9 Major depressive disorder, single episode, unspecified; E66.9 Obesity, unspecified; G47.33 Obstructive sleep apnea (adult) (pediatric); K21.9 Gastro-esophageal reflux disease without esophagitis; F41.9 Anxiety disorder, unspecified; Z79.899 Other long term (current) drug therapy; Z88.8 Allergy status to other drugs, medicaments and biological substances; Q03.9 Congenital hydrocephalus, unspecified; F43.10 Post-traumatic stress disorder, unspecified; Z98.2 Presence of cerebrospinal fluid drainage device; F20.0 Paranoid schizophrenia

== ENCOUNTER 2019-07-09 20:00 | Emergency (ER) | payer MEDICARE ==
[~2019-07-09] VITALS: Ht 170.2 cm; Wt 120.0 kg
[~2019-07-09 20:00] MED LIST changes: +VITA1CAP25 PO
[2019-07-09] MEDS ORDERED: ESCI20TA PO (20:14)
[2019-07-09] MEDS ORDERED: NS 1,000 ML IV ONE (20:30)
[2019-07-09 20:44] LABS: BASO # 0.1 10^3/uL (0.0-0.2); BASO % 0.8 % (0.0-1.0); EOS # 0.3 10^3/uL (0.0-0.5); EOS % 3.9 % (0.0-3.0); HEMATOCRIT 41.3 % (42.0-52.0); HEMOGLOBIN 12.8 g/dl (13.5-17.5); LYMPH % 23.3 % (24.0-44.0); MEAN CORPUSCULAR HEMOGLOBIN 28.8 pg (27.0-33.0); MONO # 0.6 10^3/uL (0.0-0.8); MONO % 7.3 % (0.0-5.0); NEUTROPHILS # 5.4 10^3/uL (1.5-8.5); NEUTROPHILS % 63.6 % (36.0-66.0); PLATELET COUNT, AUTOMATED 283 10^3/uL (150-450); RED BLOOD COUNT 4.44 10^6/uL (4.30-6.10); WHITE BLOOD COUNT 8.4 10^3/uL (4.0-10.0)
[2019-07-09] MEDS ORDERED: ISOVUE-370 76% 100ML VIAL (Q9967) As Ordered ONE (20:56)
[2019-07-09 21:17] LABS: ALBUMIN 3.7 GM/DL (3.2-5.2); ALT/SGPT 32 U/L (12-78); BILIRUBIN,DIRECT < 0.1 MG/DL (0.0-0.2); BILIRUBIN,TOTAL 0.2 MG/DL (0.2-1.0); BLOOD UREA NITROGEN 14 MG/DL (7-18); CALCIUM LEVEL 9.1 MG/DL (8.5-10.1); CARBON DIOXIDE LEVEL 32 MEQ/L (21-32); CHLORIDE LEVEL 103 MEQ/L (98-107); CK-MB VALUE MASS < 1.0 NG/ML (<3.6); CPK CREATINE PHOSPHOKINASE 64 U/L (39-308); CREATININE FOR GFR 0.93 MG/DL (0.70-1.30); GLOMERULAR FILTRATION RATE > 60.0 (>60); GLUCOSE, FASTING 120 MG/DL (70-100); LIPASE 61 U/L (73-393); MB/CK RELATIVE INDEX 1.56 (< OR =4); SODIUM LEVEL 142 MEQ/L (136-145); TOTAL PROTEIN 7.1 GM/DL (6.4-8.2); TROPONIN I < 0.02 NG/ML (< 0.10)
--- NOTE | 2019-07-09 22:23 | REPVR ---
PROCEDURE INFORMATION: Exam: CT Abdomen And Pelvis With Contrast Exam date and time: 07/09/2019 9:04 PM Age: 44 years old Clinical indication: Abdominal pain; Additional info: Luq pain TECHNIQUE: Imaging protocol: Computed tomography of the abdomen and pelvis with intravenous contrast. Radiation optimization: All CT scans at this facility use at least one of these dose optimization techniques: automated exposure control; mA and/or kV adjustment per patient size (includes targeted exams where dose is matched to clinical indication); or iterative reconstruction. Contrast material: ISOVUE 370; Contrast volume: 100 ml; Contrast route: IV; COMPARISON: CT Pelvis without contrast 05/12/2019 8:04 PM FINDINGS: Tubes, catheters and devices: MANAGER PLACEMENT shunt extends from above the hbxij-hr-lhid, entering the upper abdomen just to the left of midline, with its tip in the left upper quadrant. There is no collection around the tip. Visualized portion of the shunt appears intact. Lungs: The visualized lung bases demonstrate minor dependent atelectasis. Pleural space: There are very small bibasilar pleural effusions. Heart: A small pericardial effusion is partially visualized. Liver: The liver is fatty in density. It appears otherwise unremarkable. Gallbladder and bile ducts: No gallstones are evident, but ultrasound would be more sensitive. No gross biliary ductal dilatation. Pancreas: Normal. No ductal dilation. Spleen: Normal. No splenomegaly. Adrenals: Normal. No mass. Kidneys and ureters: Normal. No hydronephrosis. Stomach and bowel: The unopacified small bowel is not significantly distended to suggest obstruction. Appendix: The appendix appears normal. Intraperitoneal space: No free air or significant free fluid. Vasculature: Unremarkable. No abdominal aortic aneurysm. Lymph nodes: There are a few mildly prominent but subcentimeter short axis mesenteric lymph nodes in the central abdomen, with faint haziness of the mesenteric fat in the region. No pathologic lymphadenopathy. Bladder: Grossly unremarkable. Reproductive: Unremarkable as visualized. Bones/joints: Degenerative changes involve the spine and hips. Soft tissues: There are small fat containing bilateral inguinal hernias. IMPRESSION: 1. Very small bibasilar pleural effusions. 2. MANAGER PLACEMENT shunt in the left upper quadrant as above, without collection around the tip. 3. Few mildly prominent but subcentimeter short axis mesenteric lymph nodes in the central abdomen, with faint haziness of the mesenteric fat in the region, could be reactive or related to mesenteric panniculitis/adenitis. 4. Small fat-containing bilateral inguinal hernias. 5. Small pericardial effusion, partially visualized. Electronically signed by: Alberto Felix On 07/09/2019 22:23:26 PM
[2019-07-09 22:46] VITALS: BP 117/80
--- NOTE | 2019-07-10 08:52 | ECGEPIP ---
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
== END 2019-07-09 23:01 | disposition home or self-care (01) ==
LOC: M ED 20:00
DX: I88.0 Nonspecific mesenteric lymphadenitis (principal); Z87.19 Personal history of other diseases of the digestive system; J90 Pleural effusion, not elsewhere classified; K40.20 Bilateral inguinal hernia, without obstruction or gangrene, not specified as recurrent; I31.3 Pericardial effusion (noninflammatory); Z88.8 Allergy status to other drugs, medicaments and biological substances; Z79.899 Other long term (current) drug therapy
CPT/HCPCS: 74177; 80048; 80076; 82550; 82553; 83605; 83690; 84484; 85025; 93005; 93041; 96360; 96361; 99285; Q9967

== ENCOUNTER 2019-07-14 20:11 | Inpatient (IN) | payer MEDICARE ==
[~2019-07-14] VITALS: Ht 172.7 cm; Wt 122.0 kg
[~2019-07-14 20:11] MED LIST changes: +ESCI20TA PO
[2019-07-14 21:02] LABS: HEMATOCRIT 45.8 % (42.0-52.0); HEMOGLOBIN 14.4 g/dl (13.5-17.5); MEAN CORPUSCULAR HGB CONC 31.4 g/dl (32.0-36.5); MEAN CORPUSCULAR VOLUME 92.3 fl (80.0-96.0); PLATELET COUNT, AUTOMATED 310 10^3/uL (150-450); RED BLOOD COUNT 4.96 10^6/uL (4.30-6.10); WHITE BLOOD COUNT 8.5 10^3/uL (4.0-10.0)
[2019-07-14 21:35] LABS: AMPHETAMINES LEVEL URINE NEGATIVE (NEGATIVE); BARBITURATES URINE NEGATIVE (NEGATIVE); BENZODIAZEPINES URINE NEGATIVE (NEGATIVE); CANNABINOIDS URINE NEGATIVE (NEGATIVE); COCAINE METABOLITE URINE NEGATIVE (NEGATIVE); METHADONE URINE NEGATIVE (NEGATIVE); OPIATES URINE NEGATIVE (NEGATIVE); PHENCYCLIDINE URINE NEGATIVE (NEGATIVE)
[2019-07-14 21:51] LABS: ACETAMINOPHEN LEVEL < 2.0 UG/ML (10.0-30.0); ALT/SGPT 38 U/L (12-78); BILIRUBIN,DIRECT < 0.1 MG/DL (0.0-0.2); BILIRUBIN,TOTAL 0.3 MG/DL (0.2-1.0); BLOOD UREA NITROGEN 20 MG/DL (7-18); CALCIUM LEVEL 8.6 MG/DL (8.5-10.1); CARBON DIOXIDE LEVEL 35 MEQ/L (21-32); CHLORIDE LEVEL 106 MEQ/L (98-107); CREATININE FOR GFR 0.98 MG/DL (0.70-1.30); ETHYL ALCOHOL (ETHANOL) < 0.003 % (0.000-0.010); GLOMERULAR FILTRATION RATE > 60.0 (>60); GLUCOSE, FASTING 115 MG/DL (70-100); POTASSIUM SERUM 3.7 MEQ/L (3.5-5.1); SALICYLATE LEVEL < 1.7 MG/DL (5.0-30.0); SODIUM LEVEL 144 MEQ/L (136-145); TOTAL PROTEIN 7.6 GM/DL (6.4-8.2)
[2019-07-14] MEDS ORDERED: INVE234I IM (22:29)
[2019-07-14] MEDS ORDERED: REME15TA PO (22:29)
[2019-07-14] MEDS ORDERED: PALI1TAB3 PO (22:29)
[2019-07-14] MEDS ORDERED: ACETAMINOPHEN TAB 650MG DOSE (2X325MG) PO PRN (22:30)
[2019-07-14] MEDS ORDERED: OLANZapine 5 MG TAB PO PRN (22:30)
[2019-07-14] MEDS ORDERED: MAALOX 30 ML SUSP *UDC PO PRN (22:30)
[2019-07-14] MEDS ORDERED: MOM 30ML SUSPENSION UDC PO PRN (22:30)
[2019-07-14] MEDS ORDERED: NICOTINE 21MG/24HR 1 EA TRANSDERMAL TD PRN (22:30)
[2019-07-14] MEDS ORDERED: traZODone 50 MG TAB PO PRN (22:30)
[2019-07-14 23:07] VITALS: BP 130/90
[2019-07-15 06:31] VITALS: BP 136/88
--- NOTE | 2019-07-15 09:05 | MHHPEPDOC ---
General Date Of Admission: Jul 14, 2019 Legal Status: 9.39 Chief Complaint "Last night I began hallucinating seeing my 6 year old daughter in my room with a suitcase that she was packing and telling me 'Caitlin lets go' after that I could not stop hearing her voice telling me to leave with her so I called crisis services who connected me to 911 and brought me here." History of Present Illness HISTORY OF THE PRESENT ILLNESS: Patient is a 44 -year-old , male, who was brought to the ED by law enforcement yesterday evening after calling crisis services stating he was hallucinating. He states that he is hearing the voice of his middle daughter telling him the he should "go with her" and reported seeing her standing in his room packing up a suitcase. He states that he has had these auditory and visual hallucinations in the past but they are more intense now and will not leave him. He states that the auditory hallucinations are still occurring and that they are quite bothersome to him. He states the voice of his daughter is coming from the outside world and are not his own thoughts. He states that later this week will be the one year anniversary of him seeing his daughter and that he has had significant stress over the thought of that anniversary. He admits that he has not been sleeping well since his last admission on 06/29/2019 for unspecified sleep-wake disorder. He states that on average he has been sleeping 3 to 4 hours a night with difficulty falling and staying asleep. Pt admits that he has had fleeting suicidal thoughts due to the distress of his hallucinations. He states that voices are not telling him to hurt himself but he has thought about killing himself to end the voices. Denies a suicidal plan. Denied homicidal ideation/plan. Psychiatric Review of Systems Depression (2 or more weeks): depressed mood, insomnia/hypersomnia (insomnia), feelings of excess/guilt (guilt), decreased energy, difficulty concentrating, psychomotor changes, suicidal thoughts Danika (4 or more days of): denies Psychosis: auditory hallucination, visual hallucination PTSD: intrusive memories Anxiety: stressor related anxiety Anxiety/ 6 months or more of: easily fatigued, difficulty concentrating, irritability, sleep disturbance Past Psychiatric History Previous Psychiatric Diagnosis: MDD, SAHARA, bipolar, PTSD, Schizophrenia, unspecified sleep-wake disorder Previous Psychiatric Admissions: 06/27/2019, 04/04/2019, 03/22/2019, 02/08/2019 to [facility] Suicide Attempts: No Psychiatric Follow-up: [facility] Psychiatric medications: remeron 15mg qhs, doxepin 50mg qhs, invega 6mg qhs, last received invega sustenna during last [facility] admission 06/27/2019, lexapro 20mg qhs Past Medical History Medical Problems Congenital Hydrocephalus w/ PROBATION AND PATROL AGENT shunt JOHN Obesity GERD H/o pancreatitis Head Injury: No Seizures: No Surgeries: Yes (PROBATION AND PATROL AGENT shunt, Cholecycectomy) Family Medical/Psychiatric HX Medical Problems Daughter with Mary Psychiatric Disorders: No Addiction: No Suicide Attemps/Completions: No Addiction History denies Social History Childhood: 2 parent household. Grew up in [place]. No longer in contact with parents or sister after a falling out 15yrs ago. Good, "normal" childhood. No in contact with his middle daughter for 1yr and anniversary on no contact this month Abuse/Trauma: Denies Current Living Situation: Alone Education: High school and community college. Employment: Unemployed, last worked 2yrs ago while living in [place] Social Support: Eldest daughter lives local, good support. Legal: Denied. Marital: Single. Mental Status Examination General Appearance: unkempt, disheveled, ds/not appear stated age (Older), hospital scubs/clothing Build: overweight Demeanor: average, withdrawn Eye Contact: avoidant, other (Horizontal nystagmus ) Activity: slowed Behavior: cooperative, withdrawn Speech: clear, spontaneous, reg/rate,rhythm,volume Mood: depressed, anxious Mood "Stressed about these hallucinations" Affect: constricted, flat Thought Process: logical/linear, concrete, depressed, slow Thought Content (Delusions): other (fleeting SI w/o plan, AH and VH of his middle daughter ) Thought Content (Other): appropriate, coherent Thought Content (Aggressive): none reported Perception (Hallucinations): auditory (of middle daughter outside of his head), visual (of middle daughter during the night) Perception (Other): none reported Cognition (Impairment of): none reported Cognition(Intelligence Est.): average Oriented: Awake, Alert, Oriented times three Insight: fair Judgment: Fair Psychosis: Psychotic Perceptions Diagnoses Schizophrenia undifferentiated type R/o major depressive d/o recurrent severe w/psychosis Unspecified sleep-wake disorder r/o complicated bereavement A-FIB/CHADSVASC A-FIB History Current/History of A-Fib/PAF?: No Assessment Pt seen and states he here b/c "I'm sick and tired of the hallucinations... I'm out of here a few weeks and then something happens and they're back." He appears to be a schizophrenic man who is having a decompensation secondary to the acute stress due to the upcoming anniversary of him being from his middle and youngest (6 and 4 yrs old) daughters who is in [place] with her mother currently and states he misses them. He also endorses sleep cycle irregularities. Endorses difficulties with his short term memory as is "think about my daughters a lot b/c I haven't seen them for over 2 years." States he's depressed. He reports that his auditory hallucinations are coming from outside of his head and do not appear to be his own thoughts. In addition his is having visual hallucinations in which he sees in good detail in the center of his visual field his daughter mostly at night. While in the ER pt was found to have an elevated TSH. Will order thyroid panel to R/o hypothyroidism causing depressive symptoms and psychosis. Pt states he's been complaint on his out patient meds but feels they aren't working as well as they were previously. He is agreeable to changing his lexapro to during the day dosing to see if that aids his nightly insomnia and increasing it to 30mg daily for mood. He is agreeable to increasing his remeron to 30mg qhs. Agreeable to restarting doxepin and invega. States he's tolerating all his medications well. Initial Treatment Plan 1. Patient was admitted on a 9.39 status. 2. Complete history was obtained. 3. With patients permission, family will be contacted and database will be expanded. 4. Patients medication regimen will be reviewed and changed accordingly. 5. Patient will be provided with protected environment. 6. Patient will be treated with individual, group, and milieu therapies. 7. Patient will receive supportive psych-education. 8. Discharge planning will commence immediately. 9. Outpatient follow-up treatment will be strongly recommended. 10. The initial treatment plan will focus initially on: * Depression. * Risk for suicide. * R/o thyroid dysfunction 11. thyroid profile, increase remeron to 30mg qhs, restart doxepin 50mg qhs and invega 6mg qhs, change lexapro to 30mg daily ESTIMATED LENGTH OF STAY: 7-10 DAYS. TIME SPENT COUNSELING AND COORDINATING INITIAL CARE: 60 minutes. Vital Signs Vital Signs Date Time Temp Pulse Resp B/P (MAP) Pulse Ox O2 Delivery O2 Flow Rate FiO2 07/15/19 06:31 99.2 104 18 136/88 (104) 07/14/19 23:07 100 Room Air Laboratory Data 24H Labs Laboratory Tests 2 07/14/19 20:50: Nucleated Red Blood Cells % (auto) 0.0, Anion Gap 3L, Glomerular Filtration Rate > 60.0, Calcium Level 8.6, Total Bilirubin 0.3, Direct Bilirubin < 0.1, Aspartate Amino Transf (AST/SGOT) 21, Alanine Aminotransferase (ALT/SGPT) 38, Alkaline Phosphatase 87, Total Protein 7.6, Albumin 4.0, Albumin/Globulin Ratio 1.11, Thyroid Stimulating Hormone (TSH) 7.080H, Salicylates Level < 1.7L, Urine Opiates Screen NEGATIVE, Urine Methadone Screen NEGATIVE, Acetaminophen Level < 2.0L, Urine Barbiturates Screen NEGATIVE, Urine Phencyclidine Screen NEGATIVE, Urine Amphetamines Screen NEGATIVE, Urine Benzodiazepines Screen NEGATIVE, Urine Cocaine Metabolite Screen NEGATIVE, Urine Cannabinoids Screen NEGATIVE, Ethyl Alcohol Level < 0.003 CBC/BMP Laboratory Tests 07/14/19 20:50 Medications Scheduled Doxepin HCl (Doxepin HCl) 50 Mg Capsule, 50 MG PO QHS, (Reported) Escitalopram Oxalate (Escitalopram Oxalate) 20 Mg Tablet, 20 MG PO QHS, (Reported) Esomeprazole Magnesium (Esomeprazole Magnesium) 20 Mg Capsule.dr, 20 MG PO DAILY, (Reported) Lamotrigine (Lamotrigine) 150 Mg Tablet, 150 MG PO BID, (Reported) Mirtazapine (Remeron) 15 Mg Tablet, 15 MG PO QHS, (Reported) Paliperidone (Paliperidone ER) 6 Mg Tab.er.24, 6 MG PO QHS, (Reported) Paliperidone Palmitate (Invega Sustenna) 234 Mg/1.5 Ml Syringe, 234 MG IM QMONTH, (Reported) LAST DOSE WAS AROUND 2018 Allergies Coded Allergies: divalproex sodium (Verified Allergy, Unknown, 07/09/19) benztropine (Verified Adverse Reaction, Intermediate, hallucinations, 07/09/19) GME ATTESTATION GME ATTESTATION My faculty preceptor for this patient encounter was physically present during the encounter and was fully available. All aspects of the patient interview, examination, medical decision making process, and medical care plan development were reviewed and approved by the faculty preceptor. The faculty preceptor is aware and concurs with the plan as stated in the body of this note and will attest to such by his/her cosignature. ATTENDING NOTE Pt seen with student and agree with student note. BANDAR SOLIZ OMS-3 Jul 15, 2019 9:05 am TONI CLARKE DO Jul 15, 2019 10:06 am
[2019-07-15] MEDS ORDERED: ESCITALOPRAM OXALATE 10 MG TAB (LEXAPRO) PO ONE (10:30)
[2019-07-15 11:39] LABS: FREE THYROXINE INDEX 2.6 % (1.4-3.8); THYROID STIMULATING HORMONE 6.84 uIU/ML (0.358-3.740); THYROXINE (T4) 8.9 UG/DL (4.5-12.0)
[2019-07-15 16:32] VITALS: BP 115/72
[2019-07-15] MEDS: DOXEPIN 25 MG CAP PO SCH (20:56)
[2019-07-15] MEDS: MIRTAZAPINE 15 MG TAB PO SCH (20:56)
[2019-07-15] MEDS: PALIPERIDONE 6 MG ER TAB (INVEGA) PO SCH (20:56)
[2019-07-15] MEDS ORDERED: MIRTAZAPINE 15 MG TAB PO SCH (21:00)
[2019-07-15] MEDS ORDERED: ESCITALOPRAM OXALATE 10 MG TAB (LEXAPRO) PO SCH (21:00)
[2019-07-16 06:07] VITALS: BP 125/69
[2019-07-16] MEDS: ESCITALOPRAM OXALATE 10 MG TAB (LEXAPRO) PO SCH (08:14)
--- NOTE | 2019-07-16 09:26 | MHIPNPDOC ---
[facility] Progress Note Progress Note DATE OF SERVICE: 07/16/19 HISTORY: Patient is a 44 -year-old , male, who was brought to the ED by law enforcement yesterday evening after calling crisis services stating he was hallucinating. He states that he is hearing the voice of his middle daughter telling him the he should "go with her" and reported seeing her standing in his room packing up a suitcase. He states that he has had these auditory and visual hallucinations in the past but they are more intense now and will not leave him. He states that the auditory hallucinations are still occurring and that they are quite bothersome to him. He states the voice of his daughter is coming from the outside world and are not his own thoughts. He states that later this week will be the one year anniversary of him seeing his daughter and that he has had sign ificant stress over the thought of that anniversary. He admits that he has not been sleeping well since his last admission on 06/29/2019 for unspecified sleep- wake disorder. He states that on average he has been sleeping 3 to 4 hours a night with difficulty falling and staying asleep. Pt admits that he has had fleeting suicidal thoughts due to the distress of his hallucinations. He states that voices are not telling him to hurt himself but he has thought about killing himself to end the voices. Denies a suicidal plan. Denied homicidal ideation/plan. Pt seen and states he here b/c "I'm sick and tired of the hallucinations... I'm out of here a few weeks and then something happens and they're back." He appears to be a schizophrenic man who is having a decompensation secondary to the acute stress due to the upcoming anniversary of him being from his middle and youngest (6 and 4 yrs old) daughters who is in [place] with her mother currently and states he misses them. He also endorses sleep cycle irreg ularities. Endorses difficulties with his short term memory as is "think about my daughters a lot b/c I haven't seen them for over 2 years." States he's depressed. He reports that his auditory hallucinations are coming from outside of his head and do not appear to be his own thoughts. In addition his is having visual hallucinations in which he sees in good detail in the center of his visual field his daughter mostly at night. While in the ER pt was found to have an elevated TSH. Will order thyroid panel to R/o hypothyroidism causing depressive symptoms and psychosis. Pt states he's been complaint on his out patient meds but feels they aren't working as well as they were previously. He is agreeable to changing his lexapro to during the day dosing to see if that aids his nightly insomnia and increasing it to 30mg daily for mood. He is agreeable to increasing his remeron to 30mg qhs. Agreeable to restarting doxepin and invega. States he's tolerating all his medications well. VITAL SIGNS: See below. NEW TEST RESULTS: Thyroid panel shows a high TSH: 6.840, normal T4 index: 2.6, normal thyroxine: 8.9, and a decreased T3 uptake: 29. CURRENT MEDICATIONS: See below. MENTAL STATUS EXAMINATION: General Appearance: unkempt, disheveled, ds/not appear stated age (Older), hospital scubs/clothing Build: overweight Demeanor: average, withdrawn Eye Contact: avoidant, other (Horizontal nystagmus) looks at the floor predominately Activity: slowed Behavior: cooperative Speech: clear, spontaneous, reg/rate,rhythm,volume Mood: less depressed, anxious Mood "Feeling better" Affect: constricted, flat Thought Process: logical/linear, concrete, depressed, slow Thought Content (Delusions): Denies SI/HI, improved AH and VH of his middle daughter) Thought Content (Other): appropriate, coherent Thought Content (Aggressive): none reported Perception (Hallucinations): improved auditory (of middle daughter outside of his head), visual (of middle daughter during the night) Perception (Other): none reported Cognition (Impairment of): none reported Cognition(Intelligence Est.): average Oriented: Awake, Alert, Oriented times three Insight: fair Judgment: Fair Psychosis: Psychotic Perceptions improved DIAGNOSES: Schizophrenia undifferentiated type R/o major depressive d/o recurrent severe w/psychosis R/o major depression secondary to medical illness:hypothyroidism Unspecified sleep-wake disorder r/o complicated bereavement ASSESSMENT: Shaan appears to be doing better today. He states that he was able to sleep for approximately 8 hours last night and had no difficulty falling asleep. He states that his hallucinations persisted until bed last night but that he has not had any the AM. He states that moving the lexapro to an AM dose allowed him to sleep better. He appeared in a better mood today and reports that he is enjoying not hearing any voices. Denies SI today. The adjustment to his lexapro dosing as schedule as well as the increase in remeron appear to have improved his sleep quality and mood. He reports no side effects from the medication. He states that he has more energy today. Pt will be monitored for today to see if the hallucinations return. Pt's lab values showed evidence of hypothyroidism. Medicine team will see be consulted for treatment of hypothyroidism. MANAGEMENT PLAN: continue plan. medicine to follow-up with pt today regarding treatment of hypothyroidism remeron 30mg qhs doxepin 50mg qhs invega 6mg qhs lexapro 30mg daily lamictal 150mg bid TIME SPENT: 30 minutes. Vital Signs Vital Signs Date Time Temp Pulse Resp B/P (MAP) Pulse Ox O2 Delivery O2 Flow Rate FiO2 07/16/19 06:07 97.8 84 12 125/69 (87) 07/14/19 23:07 100 Room Air Laboratory Data 24H Labs Laboratory Tests 2 07/15/19 10:31: Thyroid Stimulating Hormone (TSH) 6.840H, Free Thyroxine Index 2.6, Thyroxine (T4) 8.9, Triiodothyronine (T3) Uptake 29L Current Medications Current Medications Medications (Trade) Dose Ordered Sig/Rizwan Route PRN Reason Start Time Stop Time Status Last Admin Dose Admin Acetaminophen (Tylenol Tab) 650 mg Q6HP PRN PO HEADACHE or DISCOMFORT 07/14/19 22:30 Al Hydrox/Mg Hydrox/Simethicone (Mylanta) 30 ml Q4HP PRN PO HEARTBURN/INDIGESTION 07/14/19 22:30 Doxepin HCl (SINEquan) 50 mg QHS PO 07/15/19 21:00 07/15/19 20:56 Escitalopram Oxalate (Lexapro) 20 mg QHS PO 07/15/19 21:00 Cancel Escitalopram Oxalate (Lexapro) 30 mg DAILY PO 07/16/19 09:00 Home Med (Med Rec Complete!) ASDIRECTED XX 07/14/19 22:30 07/14/19 22:31 DC Magnesium Hydroxide (Milk Of Magnesia) 30 ml DAILYPRN PRN PO CONSTIPATION 07/14/19 22:30 Mirtazapine (Remeron) 15 mg QHS PO 07/15/19 21:00 Cancel Mirtazapine (Remeron) 30 mg QHS PO 07/15/19 21:00 07/15/19 20:56 Nicotine (Nicoderm Cq 21mg) 1 patch DAILY PRN TD Nicotine withdrawal 07/14/19 22:30 Cancel Olanzapine (ZyPREXA) 5 mg Q4HP PRN PO AGITATION 07/14/19 22:30 Paliperidone (Invega) 6 mg QHS PO 07/15/19 21:00 07/15/19 20:56 Trazodone HCl (Desyrel) 50 mg QHSP PRN PO INSOMNIA 07/14/19 22:30 Cancel Allergies Coded Allergies: divalproex sodium (Verified Allergy, Unknown, 07/09/19) benztropine (Verified Adverse Reaction, Intermediate, hallucinations, 07/09/19) GME ATTESTATION GME ATTESTATION My faculty preceptor for this patient encounter was physically present during the encounter and was fully available. All aspects of the patient interview, examination, medical decision making process, and medical care plan development were reviewed and approved by the faculty preceptor. The faculty preceptor is aware and concurs with the plan as stated in the body of this note and will attest to such by his/her cosignature. ATTENDING NOTE Pt seen with student and agree with student note. BANDAR SOLIZ-3 Jul 16, 2019 8:30 am TONI CLARKE DO Jul 16, 2019 9:26 am
[2019-07-16] MEDS ORDERED: lamoTRIgine 100MG TAB PO ONE (10:45)
--- NOTE | 2019-07-16 13:54 | HPEPDOC ---
General Date of Admission Jul 14, 2019 at 22:26 Date of Service: Jul 15, 2019 Chief Complaint The patient is a 44-year-old male admitted with a reason for visit of Schizophrenia. Source: Patient History of Present Illness 44 year old male [facility] with some suicidal thoughts from the distress of the hallucinations. Today he complained of some pain in the tail bone which has been bothering him for some time , dull aching about 3/10 in intensiy difficult to sit on it for long periods. Denied any fall or injury recently. does not have any problem walking. Home Medications Scheduled Doxepin HCl (Doxepin HCl) 50 Mg Capsule, 50 MG PO QHS, (Reported) Escitalopram Oxalate (Escitalopram Oxalate) 20 Mg Tablet, 20 MG PO QHS, (Reported) Esomeprazole Magnesium (Esomeprazole Magnesium) 20 Mg Capsule.dr, 20 MG PO DAILY, (Reported) Lamotrigine (Lamotrigine) 150 Mg Tablet, 150 MG PO BID, (Reported) Mirtazapine (Remeron) 15 Mg Tablet, 15 MG PO QHS, (Reported) Paliperidone (Paliperidone ER) 6 Mg Tab.er.24, 6 MG PO QHS, (Reported) Paliperidone Palmitate (Invega Sustenna) 234 Mg/1.5 Ml Syringe, 234 MG IM QMONTH, (Reported) LAST DOSE WAS AROUND 2018 Allergies Coded Allergies: divalproex sodium (Verified Allergy, Unknown, 07/09/19) benztropine (Verified Adverse Reaction, Intermediate, hallucinations, 07/09/19) Past Medical History Medical History Depression with suicidal attempts in the past with medication overdoses Hydrocephalus with [employer] shunt since Obesity with JOHN. GERD PTSD Colitis h/o pancreatitis Paranoid schizophrenia anxiety Cholecystectomy Family History Significant Family History: Diabetes (mother) Social History * Smoker: Denies Alcohol: Denies Drugs: denies A-FIB/CHADSVASC A-FIB History Current/History of A-Fib/PAF?: No Review of Systems Constitutional: Denies: Chills, Fever, Night Sweats Eyes: Denies: Pain, Vision change ENT: Denies: Head Aches, Ear Pain, Dysphagia Skin: Denies: Rash, Lesions, Breakdown Pulmonary: Denies: Dyspnea, Cough Cardiovascular: Denies: Chest Pain, Palpitations, Orthopnea, Paroxysmal Noc. Dyspnea, Lt Headedness Gastrointestinal: Denies: Nausea, Vomiting, Abdominal Pain, Diarrhea Hematologic: Denies: Bruising, Bleeding Excessively Musculoskeletal: Reports: Back Pain Neurological: Denies: Weakness, Numbness, Change in speech, Confusion Physical Examination General Exam: Positive: Alert, Cooperative, No Acute Distress Eye Exam: Positive: PERRLA, Conjunctiva & lids normal, EOMI; Negative: Sclera icteric ENT Exam: Positive: Atraumatic, Mucous membr. moist/pink, Pharynx Normal Neck Exam: Positive: Supple; Negative: JVD, thyromegaly Chest Exam: Positive: Clear to auscultation, Normal air movement Heart Exam: Positive: Rate Normal, Regular Rhythm, Normal S1, Normal S2; Negative: Murmurs, Rubs Abdomen Exam: Positive: Normal bowel sounds, Soft, Other (obese); Negative: Tenderness, Hepatospenomegaly Extremity Exam: Positive: Normal pulses; Negative: Clubbing, Cyanosis, Edema Skin Exam: Positive: Nl turgor and temperature; Negative: Breakdown, Lesion Vital Signs Vital Signs Date Time Temp Pulse Resp B/P (MAP) Pulse Ox O2 Delivery O2 Flow Rate FiO2 07/16/19 06:07 97.8 84 12 125/69 (87) 07/14/19 23:07 100 Room Air Laboratory Data Labs 24H Laboratory Tests 2 07/15/19 10:31: Thyroid Stimulating Hormone (TSH) 6.840H, Free Thyroxine Index 2.6, Thyroxine (T4) 8.9, Triiodothyronine (T3) Uptake 29L Assessment/Plan This is a 44 year old male [facility], Psychosis. I am seeing the patient here for medical history and physical. Psychosis as per psychiatry Pain in low back CT lumber spine in 04/2019 normal will get a sacum and coccygeal xray tylenol/ motrin prn GERD continue omeprazole Headaches continue tylenol prn Elevated TSH with normal F T4 and slightly low T3 patient has subclinical hypothyroidism we do not need to treat it if TSH<10 follow up with PMD with intermittent thyroid tests. Obesity discussed diet and exercise. follow up with PMD Plan / VTE VTE Prophylaxis Ordered?: No J CARLOS SUN MD Jul 16, 2019 07:42
--- NOTE | 2019-07-16 15:04 | REP ---
Sacrum and coccyx three views: On the lateral view the coccyx is mildly displaced posteriorly. This is nonspecific and could be congenital variation or could be post-traumatic. Correlation with clinical point tenderness is recommended. Mineralization is normal. There are pelvic calcifications on the left, nonspecific, phleboliths versus ureteral. The study is otherwise unremarkable. Electronically Signed by Jose Eduardo Post MD 07/16/2019 02:56 P
[2019-07-16 16:02] VITALS: BP 130/79
[2019-07-16] MEDS: PALIPERIDONE 6 MG ER TAB (INVEGA) PO SCH (20:49)
[2019-07-16] MEDS: DOXEPIN 25 MG CAP PO SCH (20:49)
[2019-07-16] MEDS: MIRTAZAPINE 15 MG TAB PO SCH (20:49)
[2019-07-16] MEDS: lamoTRIgine 100MG TAB PO SCH (20:49)
[2019-07-16] MEDS: PILL CUTTER 1 EACH XX PRN (20:50)
[2019-07-17 06:52] VITALS: BP 136/82
--- NOTE | 2019-07-17 07:53 | MHIPNPDOC ---
[facility] Progress Note Progress Note DATE OF SERVICE: 07/17/19 HISTORY:Patient is a 44 -year-old , male, who was brought to the ED by law enforcement yesterday evening after calling crisis services stating he was hallucinating. He states that he is hearing the voice of his middle daughter telling him the he should "go with her" and reported seeing her standing in his room packing up a suitcase. He states that he has had these auditory and visual hallucinations in the past but they are more intense now and will not leave him. He states that the auditory hallucinations are still occurring and that they are quite bothersome to him. He states the voice of his daughter is coming from the outside world and are not his own thoughts. He states that later this week will be the one year anniversary of him seeing his daughter and that he has had signi ficant stress over the thought of that anniversary. He admits that he has not been sleeping well since his last admission on 06/29/2019 for unspecified sleep- wake disorder. He states that on average he has been sleeping 3 to 4 hours a night with difficulty falling and staying asleep. Pt admits that he has had fleeting suicidal thoughts due to the distress of his hallucinations. He states that voices are not telling him to hurt himself but he has thought about killing himself to end the voices. Denies a suicidal plan. Denied homicidal ideation/plan. Pt seen and states he here b/c "I'm sick and tired of the hallucinations... I'm out of here a few weeks and then something happens and they're back." He appears to be a schizophrenic man who is having a decompensation secondary to the acute stress due to the upcoming anniversary of him being from his middle and youngest (6 and 4 yrs old) daughters who is in [place] with her mother currently and states he misses them. He also endorses sleep cycle irregu larities. Endorses difficulties with his short term memory as is "think about my daughters a lot b/c I haven't seen them for over 2 years." States he's depressed. He reports that his auditory hallucinations are coming from outside of his head and do not appear to be his own thoughts. In addition his is having visual hallucinations in which he sees in good detail in the center of his visual field his daughter mostly at night. While in the ER pt was found to have an elevated TSH. Thyroid panel showed subclinical hypothyroidism. Medicine team was consulted and elected not to treat at this current time and recommends follow up with PCP and repeat testing in the outpatient setting. Lexapro was increased to 30mg and switched to AM dosing in which the patient states has helped him sleep. In addition remeron was increased to 30mg qhs. Pt was restarted on his home medications including doxepin 50mg qhs, invega 6mg qhs, and lamictal 150mg bid. States he's tolerating all his medications well. VITAL SIGNS: See below. NEW TEST RESULTS: None CURRENT MEDICATIONS: See below. MENTAL STATUS EXAMINATION: General Appearance: unkempt, disheveled, ds/not appear stated age (Older), hospital scrubs/clothing Build: overweight Demeanor: average Eye Contact: fair, other (Horizontal nystagmus) Activity: more average Behavior: cooperative Speech: clear, spontaneous, reg/rate,rhythm,volume Mood: less depressed, less anxious Mood "Feeling better" Affect: less constricted, flat Thought Process: logical/linear, concrete, less depressed Thought Content (Delusions): Denies SI/HI, improved AH and VH of his middle daughter Thought Content (Other): appropriate, coherent Thought Content (Aggressive): none reported Perception (Hallucinations): improved auditory (of middle daughter outside of his head), visual (of middle daughter during the night) Perception (Other): none reported Cognition (Impairment of): none reported Cognition(Intelligence Est.): average Oriented: Awake, Alert, Oriented times three Insight: fair Judgment: Fair Psychosis: Psychotic Perceptions improved but still present DIAGNOSES: Schizophrenia undifferentiated type R/o major depressive d/o recurrent severe w/psychosis Unspecified sleep-wake disorder r/o complicated bereavement ASSESSMENT:Shaan appears to be doing better today. He states that he was able to sleep once again for proximately 8-9 hours last night and had no difficulty falling asleep. He states that his hallucinations reoccurred yesterday shortly after meeting with physician team but were not as bad. He states he was having both auditory and visual hallucinations between [id number] yesterday. States during the times he experiences AH and VH of his daughter occurring when he's think and remembering his daughter and that hallucinations may be related to just remembering and missing her. Denies SI today. States he's tolerating his medication and feels they are beneficial. Is sleeping well at night with increase in remeron. He states that he has more energy today. States he's attending groups and finds them beneficial especially the relaxation groups. Feels safe here. Pt will be monitored for today to see if the hallucinations return. Pt's lab values showed evidence of subclinical hypothyroidism. Medicine team will see be consulted who ruled that the pt's subclinical findings do not reach the threshold to treat currently and recommend follow up with PCP Dr. Schroeder and retesting in the future. MANAGEMENT PLAN: continue plan. remeron 30mg qhs doxepin 50mg qhs invega 6mg qhs lexapro 30mg daily lamictal 150mg bid TIME SPENT: 30 minutes. Vital Signs Vital Signs Date Time Temp Pulse Resp B/P (MAP) Pulse Ox O2 Delivery O2 Flow Rate FiO2 07/17/19 06:52 97.7 80 14 136/82 (100) Room Air 07/14/19 23:07 100 Current Medications Current Medications Medications (Trade) Dose Ordered Sig/Rizwan Route PRN Reason Start Time Stop Time Status Last Admin Dose Admin Acetaminophen (Tylenol Tab) 650 mg Q6HP PRN PO HEADACHE or DISCOMFORT 07/14/19 22:30 Al Hydrox/Mg Hydrox/Simethicone (Mylanta) 30 ml Q4HP PRN PO HEARTBURN/INDIGESTION 07/14/19 22:30 Doxepin HCl (SINEquan) 50 mg QHS PO 07/15/19 21:00 07/16/19 20:49 Escitalopram Oxalate (Lexapro) 20 mg QHS PO 07/15/19 21:00 Cancel Escitalopram Oxalate (Lexapro) 30 mg DAILY PO 07/16/19 09:00 07/16/19 08:14 Home Med (Med Rec Complete!) ASDIRECTED XX 07/14/19 22:30 07/14/19 22:31 DC Lamotrigine (LaMICtal) 150 mg BID PO 07/16/19 21:00 07/16/19 20:49 Magnesium Hydroxide (Milk Of Magnesia) 30 ml DAILYPRN PRN PO CONSTIPATION 07/14/19 22:30 Mirtazapine (Remeron) 15 mg QHS PO 07/15/19 21:00 Cancel Mirtazapine (Remeron) 30 mg QHS PO 07/15/19 21:00 07/16/19 20:49 Nicotine (Nicoderm Cq 21mg) 1 patch DAILY PRN TD Nicotine withdrawal 07/14/19 22:30 Cancel Olanzapine (ZyPREXA) 5 mg Q4HP PRN PO AGITATION 07/14/19 22:30 Paliperidone (Invega) 6 mg QHS PO 07/15/19 21:00 07/16/19 20:49 Trazodone HCl (Desyrel) 50 mg QHSP PRN PO INSOMNIA 07/14/19 22:30 Cancel Allergies Coded Allergies: divalproex sodium (Verified Allergy, Unknown, 07/09/19) benztropine (Verified Adverse Reaction, Intermediate, hallucinations, 07/09/19) GME ATTESTATION GME ATTESTATION My faculty preceptor for this patient encounter was physically present during the encounter and was fully available. All aspects of the patient interview, e xamination, medical decision making process, and medical care plan development were reviewed and approved by the faculty preceptor. The faculty preceptor is aware and concurs with the plan as stated in the body of this note and will attest to such by his/her cosignature. ATTENDING NOTE Pt seen with student and agree with note. BANDAR SOLIZ OMS-3 Jul 17, 2019 7:53 am TONI CLARKE DO Jul 17, 2019 10:31 am
[2019-07-17] MEDS: PILL CUTTER 1 EACH XX PRN ×2 (08:05→21:07)
[2019-07-17] MEDS: lamoTRIgine 100MG TAB PO SCH ×2 (08:05→21:06)
[2019-07-17] MEDS: ESCITALOPRAM OXALATE 10 MG TAB (LEXAPRO) PO SCH (08:06)
[2019-07-17 16:23] VITALS: BP 118/82
[2019-07-17] MEDS: PALIPERIDONE 6 MG ER TAB (INVEGA) PO SCH (21:05)
[2019-07-17] MEDS: DOXEPIN 25 MG CAP PO SCH (21:05)
[2019-07-17] MEDS: MIRTAZAPINE 15 MG TAB PO SCH (21:07)
[2019-07-18 07:07] VITALS: BP 128/72
[2019-07-18] MEDS: PILL CUTTER 1 EACH XX PRN ×2 (08:17→20:35)
[2019-07-18] MEDS: lamoTRIgine 100MG TAB PO SCH ×2 (08:17→20:36)
[2019-07-18] MEDS: ESCITALOPRAM OXALATE 10 MG TAB (LEXAPRO) PO SCH (08:17)
--- NOTE | 2019-07-18 10:40 | MHIPNPDOC ---
[facility] Progress Note Progress Note DATE OF SERVICE: 07/18/19 HISTORY:Patient is a 44 -year-old , male, who was brought to the ED by law enforcement yesterday evening after calling crisis services stating he was hallucinating. He states that he is hearing the voice of his middle daughter telling him the he should "go with her" and reported seeing her standing in his room packing up a suitcase. He states that he has had these auditory and visual hallucinations in the past but they are more intense now and will not leave him. He states that the auditory hallucinations are still occurring and that they are quite bothersome to him. He states the voice of his daughter is coming from the outside world and are not his own thoughts. He states that later this week will be the one year anniversary of him seeing his daughter and that he has had signi ficant stress over the thought of that anniversary. He admits that he has not been sleeping well since his last admission on 06/29/2019 for unspecified sleep- wake disorder. He states that on average he has been sleeping 3 to 4 hours a night with difficulty falling and staying asleep. Pt admits that he has had fleeting suicidal thoughts due to the distress of his hallucinations. He states that voices are not telling him to hurt himself but he has thought about killing himself to end the voices. Denies a suicidal plan. Denied homicidal ideation/plan. Pt seen and states he here b/c "I'm sick and tired of the hallucinations... I'm out of here a few weeks and then something happens and they're back." He appears to be a schizophrenic man who is having a decompensation secondary to the acute stress due to the upcoming anniversary of him being from his middle and youngest (6 and 4 yrs old) daughters who is in [place] with her mother currently and states he misses them. He also endorses sleep cycle irregu larities. Endorses difficulties with his short term memory as is "think about my daughters a lot b/c I haven't seen them for over 2 years." States he's depressed. He reports that his auditory hallucinations are coming from outside of his head and do not appear to be his own thoughts. In addition his is having visual hallucinations in which he sees in good detail in the center of his visual field his daughter mostly at night. While in the ER pt was found to have an elevated TSH. Thyroid panel showed subclinical hypothyroidism. Medicine team was consulted and elected not to treat at this current time and recommends follow up with PCP and repeat testing in the outpatient setting. Lexapro was increased to 30mg and switched to AM dosing in which the patient states has helped him sleep. In addition remeron was increased to 30mg qhs. Pt was restarted on his home medications including doxepin 50mg qhs, invega 6mg qhs, and lamictal 150mg bid. States he's tolerating all his medications well. Today pt states that his auditory and visual hallucinations have increased and he began conversing with them, which he had not been doing before. VITAL SIGNS: See below. NEW TEST RESULTS: None. CURRENT MEDICATIONS: See below. MENTAL STATUS EXAMINATION: General Appearance: clean, ds/not appear stated age (Older), hospital scrubs/clothing Build: overweight Demeanor: average Eye Contact: fair, other (Horizontal nystagmus), looks at ground during interview Activity: average Behavior: cooperative Speech: clear, spontaneous, reg/rate,rhythm,volume Mood: less depressed, less anxious Mood "Feeling ok" Affect: less constricted, flat Thought Process: logical/linear, concrete, less depressed Thought Content (Delusions): Denies SI/HI, improved AH and VH of his middle daughter Thought Content (Other): appropriate, coherent Thought Content (Aggressive): none reported Perception (Hallucinations): auditory have gotten worse. Began conversing with them yesterday. (of middle daughter outside of his head), visual (of middle daughter during the night) Perception (Other): none reported Cognition (Impairment of): none reported Cognition(Intelligence Est.): average Oriented: Awake, Alert, Oriented times three Insight: fair Judgment: Fair Psychosis: Psychotic Perceptions improved initial but have acutely gotten worse DIAGNOSES: Schizophrenia undifferentiated type R/o major depressive d/o recurrent severe w/psychosis Unspecified sleep-wake disorder r/o complicated bereavement ASSESSMENT:Shaan appears to be having worse hallucinations today and yesterday afternoon. He states that he was able to sleep once again for proximately 8-9 hours last night and had no difficulty falling asleep. He states that his hallucinations reoccurred yesterday afternoon. He states that for 2-3 minutes he was talking and conversing with his daughter during a hallucination. He reportedly never talked or engaged with his hallucinations but yesterday he felt compelled to. Denies SI today. States he's tolerating his medication and feels they are beneficial. Agreeable to increasing lexapro for mood today Is sleeping well at night. States he's attending groups and finds them beneficial especially the relaxation groups. Feels safe here. Pt will be monitored for today to see if the hallucinations return. Per [facility] outpatient behavioral health center his last Invega Sustenna 234mg injection was 06/19/2019. He is due for another dose which will be given today in hopes to decrease his hallucinations that are possibly related to his depression as worsen when pt more depressed and could be memories of his daughters rather than AH when pt describes them. MANAGEMENT PLAN: continue plan. give invega sustenna 234mg x1 today as it's due. increase lexapro for mood. remeron 30mg qhs doxepin 50mg qhs invega 6mg qhs lexapro 40mg daily lamictal 150mg bid Invega Sustenna injection 234mg once. TIME SPENT: 30 minutes. Vital Signs Vital Signs Date Time Temp Pulse Resp B/P (MAP) Pulse Ox O2 Delivery O2 Flow Rate FiO2 07/18/19 08:10 Room Air 07/18/19 07:07 97.5 85 14 128/72 (90) 07/14/19 23:07 100 Current Medications Current Medications Medications (Trade) Dose Ordered Sig/Rizwan Route PRN Reason Start Time Stop Time Status Last Admin Dose Admin Acetaminophen (Tylenol Tab) 650 mg Q6HP PRN PO HEADACHE or DISCOMFORT 07/14/19 22:30 Al Hydrox/Mg Hydrox/Simethicone (Mylanta) 30 ml Q4HP PRN PO HEARTBURN/INDIGESTION 07/14/19 22:30 Doxepin HCl (SINEquan) 50 mg QHS PO 07/15/19 21:00 07/17/19 21:05 Escitalopram Oxalate (Lexapro) 20 mg QHS PO 07/15/19 21:00 Cancel Escitalopram Oxalate (Lexapro) 30 mg DAILY PO 07/16/19 09:00 07/18/19 08:17 Home Med (Med Rec Complete!) ASDIRECTED XX 07/14/19 22:30 07/14/19 22:31 DC Lamotrigine (LaMICtal) 150 mg BID PO 07/16/19 21:00 07/18/19 08:17 Magnesium Hydroxide (Milk Of Magnesia) 30 ml DAILYPRN PRN PO CONSTIPATION 07/14/19 22:30 Mirtazapine (Remeron) 15 mg QHS PO 07/15/19 21:00 Cancel Mirtazapine (Remeron) 30 mg QHS PO 07/15/19 21:00 07/17/19 21:07 Nicotine (Nicoderm Cq 21mg) 1 patch DAILY PRN TD Nicotine withdrawal 07/14/19 22:30 Cancel Olanzapine (ZyPREXA) 5 mg Q4HP PRN PO AGITATION 07/14/19 22:30 Paliperidone (Invega) 6 mg QHS PO 07/15/19 21:00 07/17/19 21:05 Trazodone HCl (Desyrel) 50 mg QHSP PRN PO INSOMNIA 07/14/19 22:30 Cancel Allergies Coded Allergies: divalproex sodium (Verified Allergy, Unknown, 07/09/19) benztropine (Verified Adverse Reaction, Intermediate, hallucinations, 07/09/19) GME ATTESTATION GME ATTESTATION My faculty preceptor for this patient encounter was physically present during the encounter and was fully available. All aspects of the patient interview, examination, medical decision making process, and medical care plan development were reviewed and approved by the faculty preceptor. The faculty preceptor is aware and concurs with the plan as stated in the body of this note and will attest to such by his/her cosignature. ATTENDING NOTE Pt seen with student and agree with student note. BANDAR SOLIZ-3 Jul 18, 2019 10:40 am TONI CLARKE DO Jul 18, 2019 11:01 am
[2019-07-18] MEDS ORDERED: PALIPERIDONE PALMITATE 234MG/1.5ML INJ (INVEGA)(J2426)(FREE PSY INPT ONLY) IM ONE (11:00)
[2019-07-18] MEDS ORDERED: ESCITALOPRAM OXALATE 10 MG TAB (LEXAPRO) PO ONE (12:00)
[2019-07-18 17:09] VITALS: BP 120/73
[2019-07-18] MEDS: MIRTAZAPINE 15 MG TAB PO SCH (20:34)
[2019-07-18] MEDS: PALIPERIDONE 6 MG ER TAB (INVEGA) PO SCH (20:34)
[2019-07-18] MEDS: DOXEPIN 25 MG CAP PO SCH (20:35)
[2019-07-19 06:33] VITALS: BP 131/82
[2019-07-19] MEDS: lamoTRIgine 100MG TAB PO SCH ×2 (09:09→21:15)
[2019-07-19] MEDS: ESCITALOPRAM OXALATE 10 MG TAB (LEXAPRO) PO SCH (09:09)
[2019-07-19 16:32] VITALS: BP 135/77
[2019-07-19] MEDS: PILL CUTTER 1 EACH XX PRN (21:13)
[2019-07-19] MEDS: MIRTAZAPINE 15 MG TAB PO SCH (21:14)
[2019-07-19] MEDS: PALIPERIDONE 6 MG ER TAB (INVEGA) PO SCH (21:15)
[2019-07-19] MEDS: DOXEPIN 25 MG CAP PO SCH (21:15)
[2019-07-20 06:26] VITALS: BP 111/55
[2019-07-20] MEDS: PILL CUTTER 1 EACH XX PRN ×2 (08:08→20:35)
[2019-07-20] MEDS: lamoTRIgine 100MG TAB PO SCH ×2 (08:08→20:37)
[2019-07-20] MEDS: ESCITALOPRAM OXALATE 10 MG TAB (LEXAPRO) PO SCH (08:08)
[2019-07-20 16:51] VITALS: BP 118/78
[2019-07-20] MEDS: MIRTAZAPINE 15 MG TAB PO SCH (20:36)
[2019-07-20] MEDS: DOXEPIN 25 MG CAP PO SCH (20:36)
[2019-07-20] MEDS: PALIPERIDONE 6 MG ER TAB (INVEGA) PO SCH (20:37)
[2019-07-21 06:30] VITALS: BP 135/95
[2019-07-21] MEDS: lamoTRIgine 100MG TAB PO SCH ×2 (08:33→20:34)
[2019-07-21] MEDS: ESCITALOPRAM OXALATE 10 MG TAB (LEXAPRO) PO SCH (08:33)
--- NOTE | 2019-07-21 10:20 | MHIPNPDOC ---
[facility] Progress Note Progress Note DATE OF SERVICE: 07/21/19 HISTORY:Patient is a 44 -year-old , male, who was brought to the ED by law enforcement yesterday evening after calling crisis services stating he was hallucinating. He states that he is hearing the voice of his middle daughter telling him the he should "go with her" and reported seeing her standing in his room packing up a suitcase. He states that he has had these auditory and visual hallucinations in the past but they are more intense now and will not leave him. He states that the auditory hallucinations are still occurring and that they are quite bothersome to him. He states the voice of his daughter is coming from the outside world and are not his own thoughts. He states that later this week will be the one year anniversary of him seeing his daughter and that he has had signi ficant stress over the thought of that anniversary. He admits that he has not been sleeping well since his last admission on 06/29/2019 for unspecified sleep- wake disorder. He states that on average he has been sleeping 3 to 4 hours a night with difficulty falling and staying asleep. Pt admits that he has had fleeting suicidal thoughts due to the distress of his hallucinations. He states that voices are not telling him to hurt himself but he has thought about killing himself to end the voices. Denies a suicidal plan. Denied homicidal ideation/plan. Pt seen and states he here b/c "I'm sick and tired of the hallucinations... I'm out of here a few weeks and then something happens and they're back." He appears to be a schizophrenic man who is having a decompensation secondary to the acute stress due to the upcoming anniversary of him being from his middle and youngest (6 and 4 yrs old) daughters who is in [place] with her mother currently and states he misses them. He also endorses sleep cycle irregu larities. Endorses difficulties with his short term memory as is "think about my daughters a lot b/c I haven't seen them for over 2 years." States he's depressed. He reports that his auditory hallucinations are coming from outside of his head and do not appear to be his own thoughts. In addition his is having visual hallucinations in which he sees in good detail in the center of his visual field his daughter mostly at night. While in the ER pt was found to have an elevated TSH. Thyroid panel showed subclinical hypothyroidism. Medicine team was consulted and elected not to treat at this current time and recommends follow up with PCP and repeat testing in the outpatient setting. Lexapro was increased to 30mg and switched to AM dosing in which the patient states has helped him sleep. In addition remeron was increased to 30mg qhs. Pt was restarted on his home medications including doxepin 50mg qhs, invega 6mg qhs, and lamictal 150mg bid. States he's tolerating all his medications well. Today pt states that he has not had any auditory and visual hallucinations for the past three days. He states that he is relieved to know they are gone. He states that both his mood and sleep have continued to improve since the hallucinations went away. VITAL SIGNS: See below. NEW TEST RESULTS: None CURRENT MEDICATIONS: See below. MENTAL STATUS EXAMINATION: General Appearance: clean, ds/not appear stated age (Older), hospital scrubs/clothing Build: overweight Demeanor: average Eye Contact: fair, other (Horizontal nystagmus), looks at ground during interview Activity: average Behavior: cooperative Speech: clear, spontaneous, reg/rate,rhythm,volume Mood: less depressed, less anxious Mood: "Feeling good" Affect: appropriate Thought Process: logical/linear, concrete, less depressed Thought Content (Delusions): Denies SI/HI, improved AH and VH of his middle daughter. Hallucinations have not been present for 3 days. Thought Content (Other): appropriate, coherent Thought Content (Aggressive): none reported Perception (Hallucinations): Hallucinations have improved. Hallucinations have not been present for 3 days. Perception (Other): none reported Cognition (Impairment of): none reported Cognition(Intelligence Est.): average Oriented: Awake, Alert, Oriented times three Insight: good Judgment: good Psychosis: Psychotic Perceptions improved. DIAGNOSES: Schizophrenia undifferentiated type R/o major depressive d/o recurrent severe w/psychosis Unspecified sleep-wake disorder r/o complicated bereavement ASSESSMENT:[place] hallucinations have improved and are no longer present. He states that he has not had any hallucinations for the past three days. He appears to have improved substantially. His affect is more appropriate today and his mood is improved. He states that he has been able to sleep well and that he feels rested upon awakening. Currently denies SI today. States he's tolerating his medication and feels they are beneficial. He has been attending groups and finds them beneficial especially the relaxation groups. Denies SI/HI, hallucinations, delusions. Feels safe here. Pt will be monitored for today to see if the hallucinations return and plan for discharge tomorrow. MANAGEMENT PLAN: D/c planning for tomorrow remeron 30mg qhs doxepin 50mg qhs invega 6mg qhs lexapro 40mg daily lamictal 150mg bid TIME SPENT: 30 minutes. Vital Signs Vital Signs Date Time Temp Pulse Resp B/P (MAP) Pulse Ox O2 Delivery O2 Flow Rate FiO2 07/21/19 06:30 99.2 97 16 135/95 (108) 07/18/19 08:10 Room Air Current Medications Current Medications Medications (Trade) Dose Ordered Sig/Rizwan Route PRN Reason Start Time Stop Time Status Last Admin Dose Admin Acetaminophen (Tylenol Tab) 650 mg Q6HP PRN PO HEADACHE or DISCOMFORT 07/14/19 22:30 Al Hydrox/Mg Hydrox/Simethicone (Mylanta) 30 ml Q4HP PRN PO HEARTBURN/INDIGESTION 07/14/19 22:30 Doxepin HCl (SINEquan) 50 mg QHS PO 07/15/19 21:00 07/20/19 20:36 Escitalopram Oxalate (Lexapro) 20 mg QHS PO 07/15/19 21:00 Cancel Escitalopram Oxalate (Lexapro) 30 mg DAILY PO 07/16/19 09:00 07/18/19 11:56 DC 07/18/19 08:17 Escitalopram Oxalate (Lexapro) 40 mg DAILY PO 07/19/19 09:00 07/21/19 08:33 Home Med (Med Rec Complete!) ASDIRECTED XX 07/14/19 22:30 07/14/19 22:31 DC Lamotrigine (LaMICtal) 150 mg BID PO 07/16/19 21:00 07/21/19 08:33 Magnesium Hydroxide (Milk Of Magnesia) 30 ml DAILYPRN PRN PO CONSTIPATION 07/14/19 22:30 Mirtazapine (Remeron) 15 mg QHS PO 07/15/19 21:00 Cancel Mirtazapine (Remeron) 30 mg QHS PO 07/15/19 21:00 07/20/19 20:36 Nicotine (Nicoderm Cq 21mg) 1 patch DAILY PRN TD Nicotine withdrawal 07/14/19 22:30 Cancel Olanzapine (ZyPREXA) 5 mg Q4HP PRN PO AGITATION 07/14/19 22:30 Paliperidone (Invega) 6 mg QHS PO 07/15/19 21:00 07/20/19 20:37 Trazodone HCl (Desyrel) 50 mg QHSP PRN PO INSOMNIA 07/14/19 22:30 Cancel Allergies Coded Allergies: divalproex sodium (Verified Allergy, Unknown, 07/09/19) benztropine (Verified Adverse Reaction, Intermediate, hallucinations, 07/09/19) TONI CLARKE DO Jul 21, 2019 10:20 am
[2019-07-21 17:00] VITALS: BP 122/84
[2019-07-21] MEDS: PALIPERIDONE 6 MG ER TAB (INVEGA) PO SCH (20:34)
[2019-07-21] MEDS: DOXEPIN 25 MG CAP PO SCH (20:34)
[2019-07-21] MEDS: PILL CUTTER 1 EACH XX PRN (20:34)
[2019-07-21] MEDS: MIRTAZAPINE 15 MG TAB PO SCH (20:35)
[2019-07-22 06:14] VITALS: BP 122/75
[2019-07-22] MEDS ORDERED: INVE234I IM (08:35)
[2019-07-22] MEDS ORDERED: LAMO150T3 PO (08:35)
[2019-07-22] MEDS ORDERED: REME15TA PO (08:35)
[2019-07-22] MEDS ORDERED: DOXE50CA PO (08:35)
[2019-07-22] MEDS ORDERED: LEXA1TAB2 PO (08:35)
[2019-07-22] MEDS ORDERED: PALI1TAB3 PO (08:35)
[2019-07-22] MEDS: ESCITALOPRAM OXALATE 10 MG TAB (LEXAPRO) PO SCH (09:09)
[2019-07-22] MEDS: lamoTRIgine 100MG TAB PO SCH (09:09)
--- NOTE | 2019-07-22 10:43 | MHIPNPDOC ---
[facility] Progress Note Vital Signs Vital Signs Date Time Temp Pulse Resp B/P (MAP) Pulse Ox O2 Delivery O2 Flow Rate FiO2 07/22/19 08:24 Room Air 07/22/19 06:14 97.2 96 16 122/75 (91) Current Medications Current Medications Medications (Trade) Dose Ordered Sig/Rizwan Route PRN Reason Start Time Stop Time Status Last Admin Dose Admin Acetaminophen (Tylenol Tab) 650 mg Q6HP PRN PO HEADACHE or DISCOMFORT 07/14/19 22:30 Al Hydrox/Mg Hydrox/Simethicone (Mylanta) 30 ml Q4HP PRN PO HEARTBURN/INDIGESTION 07/14/19 22:30 Doxepin HCl (SINEquan) 50 mg QHS PO 07/15/19 21:00 07/21/19 20:34 Escitalopram Oxalate (Lexapro) 20 mg QHS PO 07/15/19 21:00 Cancel Escitalopram Oxalate (Lexapro) 30 mg DAILY PO 07/16/19 09:00 07/18/19 11:56 DC 07/18/19 08:17 Escitalopram Oxalate (Lexapro) 40 mg DAILY PO 07/19/19 09:00 07/22/19 09:09 Home Med (Med Rec Complete!) ASDIRECTED XX 07/14/19 22:30 07/14/19 22:31 DC Lamotrigine (LaMICtal) 150 mg BID PO 07/16/19 21:00 07/22/19 09:09 Magnesium Hydroxide (Milk Of Magnesia) 30 ml DAILYPRN PRN PO CONSTIPATION 07/14/19 22:30 Mirtazapine (Remeron) 15 mg QHS PO 07/15/19 21:00 Cancel Mirtazapine (Remeron) 30 mg QHS PO 07/15/19 21:00 07/21/19 20:35 Nicotine (Nicoderm Cq 21mg) 1 patch DAILY PRN TD Nicotine withdrawal 07/14/19 22:30 Cancel Olanzapine (ZyPREXA) 5 mg Q4HP PRN PO AGITATION 07/14/19 22:30 Paliperidone (Invega) 6 mg QHS PO 07/15/19 21:00 07/21/19 20:34 Trazodone HCl (Desyrel) 50 mg QHSP PRN PO INSOMNIA 07/14/19 22:30 Cancel Allergies Coded Allergies: divalproex sodium (Verified Allergy, Unknown, 07/09/19) benztropine (Verified Adverse Reaction, Intermediate, hallucinations, 07/09/19) CATALINA GARCIA DO Jul 22, 2019 10:43
== END 2019-07-22 10:20 | disposition home or self-care (01) | DRG 885 ==
LOC: M ED 20:11 → M ED INP 22:26 → M PSY 22:59
PROVIDERS: ADMIT Psychiatry & Neurology Psychiatry; ATTEND Psychiatry & Neurology Psychiatry
DX: F20.3 Undifferentiated schizophrenia (principal); F33.2 Major depressive disorder, recurrent severe without psychotic features; G47.33 Obstructive sleep apnea (adult) (pediatric); K21.9 Gastro-esophageal reflux disease without esophagitis; E66.9 Obesity, unspecified; Q03.9 Congenital hydrocephalus, unspecified; Z79.899 Other long term (current) drug therapy; Z88.8 Allergy status to other drugs, medicaments and biological substances; Z98.2 Presence of cerebrospinal fluid drainage device; Z63.4 Disappearance and death of family member; E02 Subclinical iodine-deficiency hypothyroidism

== ENCOUNTER 2019-09-29 17:21 | Emergency (ER) | payer MEDICARE ==
[~2019-09-29] VITALS: Ht 172.7 cm; Wt 124.8 kg
[~2019-09-29 17:21] MED LIST changes: -ESCI20TA; -INVE6TAB3; -LAMI1TAB8; -MIRT1TAB16
[2019-09-29] MEDS ORDERED: ESCI20TA (17:31)
[2019-09-29] MEDS ORDERED: MIRT1TAB16 (17:31)
[2019-09-29] MEDS ORDERED: INVE6TAB3 (17:31)
[2019-09-29] MEDS ORDERED: LAMI1TAB8 (17:31)
--- NOTE | 2019-09-29 18:40 | REP ---
Chest x-ray: Two views. History: Leg swelling. Comparison chest x-ray: July 07, 2019. Findings: The lungs are symmetrically aerated and free of infiltrate. Pleural angles are sharp. Heart size is normal. Pulmonary vasculature is not increased. No bony abnormality is appreciated. Impression: Negative chest x-ray. Electronically Signed by Nikhil De Luna MD 09/29/2019 07:17 P
--- NOTE | 2019-09-29 18:48 | REPVR ---
PROCEDURE INFORMATION: Exam: US Duplex Lower Extremity Veins Exam date and time: 09/29/2019 6:33 PM Age: 44 years old Clinical indication: Pain; Leg, lower; Bilateral; Additional info: Leg swelling, pain TECHNIQUE: Imaging protocol: Real-time duplex ultrasound of the Lower Extremities with 2-D guerrero scale, color Doppler flow and spectral waveform analysis with image documentation. Complete exam focused on the bilateral lower extremity veins. COMPARISON: No relevant prior studies available. FINDINGS: Right deep veins: Unremarkable. The common femoral, femoral, proximal profunda femoral and popliteal veins are patent without thrombus. Normal Doppler waveforms. Normal compressibility and/or augmentation response. Right superficial veins: Saphenofemoral junction is patent without thrombus. Left deep veins: Unremarkable. The common femoral, femoral, proximal profunda femoral and popliteal veins are patent without thrombus. Normal Doppler waveforms. Normal compressibility and/or augmentation response. Left superficial veins: Saphenofemoral junction is patent without thrombus. Soft tissues: Unremarkable. IMPRESSION: No deep venous thrombus demonstrated in either lower extremity. Electronically signed by: Alberto Felix On 09/29/2019 18:48:08 PM
[2019-09-29 18:50] LABS: BASO # 0.1 10^3/uL (0.0-0.2); BASO % 1.3 % (0.0-1.0); EOS # 0.6 10^3/uL (0.0-0.5); EOS % 5.4 % (0.0-3.0); HEMATOCRIT 40.9 % (42.0-52.0); HEMOGLOBIN 13.2 g/dl (13.5-17.5); LYMPH # 2.2 10^3/uL (1.5-5.0); MEAN CORPUSCULAR HEMOGLOBIN 29.1 pg (27.0-33.0); MEAN CORPUSCULAR HGB CONC 32.3 g/dl (32.0-36.5); MEAN CORPUSCULAR VOLUME 90.1 fl (80.0-96.0); MONO # 0.9 10^3/uL (0.0-0.8); MONO % 8.8 % (0.0-5.0); NEUTROPHILS # 6.6 10^3/uL (1.5-8.5); NEUTROPHILS % 61.6 % (36.0-66.0); PLATELET COUNT, AUTOMATED 277 10^3/uL (150-450); RED BLOOD COUNT 4.54 10^6/uL (4.30-6.10); WHITE BLOOD COUNT 10.6 10^3/uL (4.0-10.0)
[2019-09-29 19:14] LABS: CK-MB VALUE MASS < 1.0 NG/ML (<3.6); CPK CREATINE PHOSPHOKINASE 57 U/L (39-308); MB/CK RELATIVE INDEX 1.75 (< OR =4); TROPONIN I < 0.02 NG/ML (< 0.10)
[2019-09-29 19:41] VITALS: BP 132/81
--- NOTE | 2019-09-30 08:43 | ECGEPIP ---
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
== END 2019-09-29 19:43 | disposition home or self-care (01) ==
LOC: M ED 17:49
DX: I87.2 Venous insufficiency (chronic) (peripheral) (principal); R22.43 Localized swelling, mass and lump, lower limb, bilateral; G91.9 Hydrocephalus, unspecified; K52.9 Noninfective gastroenteritis and colitis, unspecified; F41.9 Anxiety disorder, unspecified; F20.9 Schizophrenia, unspecified; Z88.8 Allergy status to other drugs, medicaments and biological substances; Z79.899 Other long term (current) drug therapy
CPT/HCPCS: 36415; 71046; 80048; 82550; 82553; 83880; 84439; 84443; 84484; 85025; 93005; 93970; 99284; G0463

== ENCOUNTER → 2019-09-29 | Outpatient (REF) | payer MEDICARE ==
[~2019-09-29] MED LIST changes: +ESCI20TA; +INVE234I IM; +INVE6TAB3; +LAMI1TAB8; +LEXA1TAB2 PO; +MIRT1TAB16; +PALI1TAB3 PO; +REME15TA PO
[2019-09-29 14:43] LABS: BLOOD UREA NITROGEN 15 MG/DL (7-18); CALCIUM LEVEL 9.3 MG/DL (8.5-10.1); CARBON DIOXIDE LEVEL 31 MEQ/L (21-32); CHLORIDE LEVEL 104 MEQ/L (98-107); CREATININE FOR GFR 0.87 MG/DL (0.70-1.30); FREE T4 0.81 NG/DL (0.76-1.46); GLOMERULAR FILTRATION RATE > 60.0 (>60); GLUCOSE, FASTING 125 MG/DL (70-100); NT-PRO BNP < 5 PG/ML (<125); SODIUM LEVEL 138 MEQ/L (136-145)
== END ==
LOC: M SFHCPLAZ 10:19
PROVIDERS: ATTEND Internal Medicine
DX: M79.89 Other specified soft tissue disorders (principal); R00.0 Tachycardia, unspecified

== ENCOUNTER → 2019-10-24 | Outpatient (CLI) | payer MEDICARE ==
[~2019-10-24] MED LIST changes: +ESCI20TA; +INVE6TAB3; +LAMI1TAB8; +MIRT1TAB16
--- NOTE | 2019-10-24 10:20 | REPPI ---
LEFT FOOT, FOUR VIEWS: Four views of the left foot are performed. No acute fracture or dislocation is seen. Accessory ossicle is seen adjacent to the medial aspect of the navicular bone. There is very mild joint space narrowing and subchondral sclerosis at the first metatarsophalangeal joint. IMPRESSION: Very mild degenerative changes 1st metatarsophalangeal joint. Electronically Signed by Jose Eduardo Malin MD 10/24/2019 10:30 A
== END ==
LOC: M PLAIMG 09:36
PROVIDERS: ATTEND Family Medicine
DX: M19.072 Primary osteoarthritis, left ankle and foot (principal); M79.675 Pain in left toe(s)
CPT/HCPCS: 73630; G0463

== ENCOUNTER 2019-11-15 19:22 | Inpatient (IN) | payer MEDICARE ==
[~2019-11-15] VITALS: Ht 172.7 cm; Wt 128.5 kg
[~2019-11-15 19:22] MED LIST changes: -ESCI20TA; -INVE6TAB3; +INVE6TAB3 PO; -LAMI1TAB8; +LAMI1TAB8 PO; -MIRT1TAB16; +MIRT1TAB16 PO
[2019-11-15] MEDS ORDERED: CHARCOAL ACTIVATED LIQUID 25 GM/120 ML BTL PO ONE (19:45)
[2019-11-15 19:53] LABS: BASO # 0.1 10^3/uL (0.0-0.2); EOS # 0.3 10^3/uL (0.0-0.5); HEMATOCRIT 43.4 % (42.0-52.0); HEMOGLOBIN 14.3 g/dl (13.5-17.5); LYMPH # 2.4 10^3/uL (1.5-5.0); LYMPH % 27.7 % (24.0-44.0); MEAN CORPUSCULAR HEMOGLOBIN 29.9 pg (27.0-33.0); MEAN CORPUSCULAR HGB CONC 32.9 g/dl (32.0-36.5); MEAN CORPUSCULAR VOLUME 90.8 fl (80.0-96.0); MONO # 0.8 10^3/uL (0.0-0.8); MONO % 8.8 % (0.0-5.0); NEUTROPHILS # 5.1 10^3/uL (1.5-8.5); PLATELET COUNT, AUTOMATED 308 10^3/uL (150-450); RED BLOOD COUNT 4.78 10^6/uL (4.30-6.10); WHITE BLOOD COUNT 8.6 10^3/uL (4.0-10.0)
[2019-11-15 20:18] LABS: OSMOLALITY SERUM 291 MOSM/KG (275-295)
[2019-11-15 20:22] LABS: ACETAMINOPHEN LEVEL < 2.0 UG/ML (10.0-30.0); ALT/SGPT 33 U/L (12-78); BILIRUBIN,DIRECT 0.1 MG/DL (0.0-0.2); BILIRUBIN,TOTAL 0.3 MG/DL (0.2-1.0); BLOOD UREA NITROGEN 15 MG/DL (7-18); CALCIUM LEVEL 8.5 MG/DL (8.5-10.1); CARBON DIOXIDE LEVEL 28 MEQ/L (21-32); CHLORIDE LEVEL 103 MEQ/L (98-107); CPK CREATINE PHOSPHOKINASE 92 U/L (39-308); CREATININE FOR GFR 1.09 MG/DL (0.70-1.30); ETHYL ALCOHOL (ETHANOL) < 0.003 % (0.000-0.010); GLOMERULAR FILTRATION RATE > 60.0 (>60); GLUCOSE, FASTING 109 MG/DL (70-100); SALICYLATE LEVEL < 1.7 MG/DL (5.0-30.0); SODIUM LEVEL 140 MEQ/L (136-145); TOTAL PROTEIN 7.9 GM/DL (6.4-8.2)
[2019-11-15 20:36] LABS: AMPHETAMINES LEVEL URINE NEGATIVE (NEGATIVE); BARBITURATES URINE NEGATIVE (NEGATIVE); BENZODIAZEPINES URINE NEGATIVE (NEGATIVE); CANNABINOIDS URINE NEGATIVE (NEGATIVE); COCAINE METABOLITE URINE NEGATIVE (NEGATIVE); METHADONE URINE NEGATIVE (NEGATIVE); OPIATES URINE NEGATIVE (NEGATIVE); PHENCYCLIDINE URINE NEGATIVE (NEGATIVE)
[2019-11-15] MEDS ORDERED: REME15TA PO (21:29)
[2019-11-15] MEDS ORDERED: INVE234I IM (21:29)
--- NOTE | 2019-11-15 22:01 | HPEPDOC ---
[facility] Medical History & Physical Date of Admission November 15, 2019 Date of Service: November 15, 2019 Primary Care Physician: DARY DING DO Attending Physician: Cathy Braxton MD History and Physical CHIEF COMPLAINT: Overdose HISTORY OF PRESENT ILLNESS: Patient is a 44 M with PMH of depression with prior suicide attempts, PTSD, anxiety, bipolar disorder, paranoid schizophrenia, hydrocephalus with DIRECTOR MBA shunt, GERD who presented to ER after purposely taking multiple medications at home to kill himself. As per patient, he says that he got into an argument with his ex at 1-2 PM this afternoon. The argument was about him not seeing his children. At approx 6:30-7 PM the patient states he purposefully took lexapro (at least 20 pills), lamotrigine (7-8), mirtazipine (4-5). After he took the medications, he realized what he did and became regretful. He called 911. EMS then brought him to the ER. He has history of depression, suicidal ideation and attempts, prior admissions to [facility] here. Last suicide attempt according to him was 3-4 months. He has prior admission to the mental health unit. Patient denies feelings of increased hopelessness, crying often, homicidal ideation. Patient denies chest pain, shortness of breath, n/v/d, lightheadedness, dizziness, abdominal pain, fevers, chills, palpitations. In ER, patient's VS were stable. Labs unremarkable. He was given charcoal. Poison control was called. On exam, patient was AAOx3, regretful of decision to have taken medications. Patient was admitted for drug overdose, suicide attempt. Psychiatry consulted. PAST MEDICAL HISTORY: 1. Hydrocephalus with DIRECTOR MBA shunt 2. Depression with history of suicidal attempts in past, medication overdoses 3. Bipolar disorder 4. PTSD 5. Anxiety 6. Obesity 7. GERD 8. H/o pancreatitis 9. Paranoid schizophrenia 10. Hx of colitis PAST SURGICAL HISTORY: 1. Cholecystectomy 2. DIRECTOR MBA shunt at around SOCIAL HISTORY: Denies smoking, alcohol or drug use. Lives alone in the local area. PCP- Dr. Ding, [facility]- Dr. Sage, FAMILY HISTORY: Father: no medical issues, alive Mother: DM type II, alive ALLERGIES: Please see below. VITAL SIGNS: Please see below PHYSICAL EXAMINATION: CONSTITUTIONAL: No acute distress, resting comfortably, AAO x 3 EYES: PERRLA, chronic eye disorder HENT, MOUTH: Normocephalic, atraumatic, moist mucous membranes, NECK: SUPPLE, no JVD, no lymphadenopathy, no carotid bruit CV: Regular rate and rhythm, S1S2 normal, no murmurs/rubs/gallops RESPIRATORY: Clear to auscultation bilaterally, no rales/rhonchi/wheezes GI: BS positive in 4 quadrants, soft, nontender, nondistended, no rebound or guarding, no organomegaly : Deferred MUSCULOSKELETAL: Normal ROM. No cyanosis, clubbing, swelling, joint deformity, extremity edema INTEGUMENTARY: Intact, no rashes, no lesions, no erythema NEUROLOGIC: Cranial Nerves II-XII are intact, no focal deficits PSYCHIATRIC: Mood and affect are normal LABORATORY DATA: Please see below IMAGING: CXR: No acute findings Right LE doppler to r/o DVT: pending ASSESSMENT: 44 y/o M admitted for drug overdose, suicide attempt. PLAN: 1. Drug overdose with lexapro (at least 20 pills), lamotrigine (7-8 pills), mirtazipine (4-5 pills. ), suicide attempt. Hx of suicide attempts, depression in past with admission to [facility]. S/p charcoal administration today, currently AAOx 3 and HD stable. C/w IVFs at 125 cc/hr, monitor on tele, 1:1 sitter, seizure precautions, psychiatry consult. 2. RLE swelling, chronic per patient. No pain, erythema but noticeably larger than left. F/u doppler to r/o DVT. 3. Hydrocephalus with DIRECTOR MBA shunt. AAOx3. Stable. 4. Depression/Bipolar disorder/paranoid schizophrenia/anxiety/PTSD. Holding all meds for now. Pyschiatry consulted. 5. GERD. Not on home meds. 6. DVT px. SC lovenox. DISPOSITION: Admitted as acute inpatient. Psychiatry consult to be called in AM by oncoming provider. Plan is undetermined for discharge, as inpatient mental health stay may be offered to patient. Vital Signs Vital Signs Date Time Temp Pulse Resp B/P (MAP) Pulse Ox O2 Delivery O2 Flow Rate FiO2 11/15/19 21:22 85 18 92 Room Air 11/15/19 21:15 125/74 (91) 11/15/19 20:54 97.8 Laboratory Data Labs 24H Laboratory Tests 2 11/15/19 19:37: Immature Granulocyte % (Auto) 0.5, Neutrophils (%) (Auto) 59.0, Lymphocytes (%) (Auto) 27.7, Monocytes (%) (Auto) 8.8H, Eosinophils (%) (Auto) 3.0, Basophils (%) (Auto) 1.0, Neutrophils # (Auto) 5.1, Lymphocytes # (Auto) 2.4, Monocytes # (Auto) 0.8, Eosinophils # (Auto) 0.3, Basophils # (Auto) 0.1, Nucleated Red Blood Cells % (auto) 0.0, Anion Gap 9, Glomerular Filtration Rate > 60.0, Os molality 291, Calcium Level 8.5, Total Bilirubin 0.3, Direct Bilirubin 0.1, Aspartate Amino Transf (AST/SGOT) 14, Alanine Aminotransferase (ALT/SGPT) 33, Alkaline Phosphatase 80, Total Creatine Kinase 92, Total Protein 7.9, Albumin 4.0, Albumin/Globulin Ratio 1.0, Thyroid Stimulating Hormone (TSH) 1.730, Salicylates Level < 1.7L, Acetaminophen Level < 2.0L, Ethyl Alcohol Level < 0.003 11/15/19 19:38: Lactic Acid Level 2.6*H, Urine Opiates Screen NEGATIVE, Urine Methadone Screen NEGATIVE, Urine Barbiturates Screen NEGATIVE, Urine Phencyclidine Screen NEGATIVE, Urine Amphetamines Screen NEGATIVE, Urine Benzodiazepines Screen NEGATIVE, Urine Cocaine Metabolite Screen NEGATIVE, Urine Cannabinoids Screen NEGATIVE 11/15/19 19:54: Bedside Glucose (Misc Panel) 96 CBC/BMP Laboratory Tests 11/15/19 19:37 Home Medications Scheduled Escitalopram Oxalate (Escitalopram Oxalate) 20 Mg Tablet, 40 MG PO DAILY Lamotrigine (Lamictal) 150 Mg Tablet, 150 MG PO BID Mirtazapine (Mirtazapine) 30 Mg Tab.rapdis, 30 MG PO QHS Mirtazapine (Remeron) 15 Mg Tablet, 15 MG PO QHS Paliperidone (Invega) 6 Mg Tab.er.24, 6 MG PO QHS Paliperidone Palmitate (Invega Sustenna) 234 Mg/1.5 Ml Syringe, 234 MG IM QMONTH NEXT DOSE DUE AROUND 11/18/19 Allergies Coded Allergies: divalproex sodium (Verified Allergy, Unknown, 07/09/19) benztropine (Verified Adverse Reaction, Intermediate, hallucinations, 07/09/19) A-FIB/CHADSVASC A-FIB History Current/History of A-Fib/PAF?: No Current PO Anticoag Therapy: No Age/Risk Factor Scoring CHADSVASC: CHADSVASC Response (Comments) Value Age Risk Factor Age < 65 years old 0 Gender Risk Factor Male 0 Hx of CHF No 0 Hx of HTN No 0 Hx of Stroke/TIA/or VTE No 0 Hx of Diabetes No 0 Hx of Vascular Disease No 0 Total 0 Treatment Treatment ordered: Other Other anticoagulant ordered: enoxaparin Cathy Braxton MD November 15, 2019 22:01
[2019-11-15 22:54] VITALS: BP 139/83
[2019-11-15] MEDS: NS 1,000 ML IV SCH (23:13)
[2019-11-15 23:39] LABS: INR 0.99; PROTHROMBIN TIME 12.8 SECONDS (11.8-14.0)
[2019-11-15 23:40] LABS: PARTIAL THROMBOPLASTIN TIME 27.7 SECONDS (25.0-38.4)
--- NOTE | 2019-11-15 23:55 | REPVR ---
PROCEDURE INFORMATION: Exam: US Duplex Right Lower Extremity Veins, Limited Exam date and time: 11/15/2019 11:45 PM Age: 44 years old Clinical indication: Pain; Leg, lower; Right; Additional info: Rle swelling > R/O dvt TECHNIQUE: Imaging protocol: Real-time Duplex ultrasound of the Right Lower Extremity with 2-D guerrero scale, color Doppler flow and spectral waveform analysis with image documentation. Limited exam was focused on the right lower extremity veins. COMPARISON: US Duplex, Ext LOWER veins, bilat 09/29/2019 6:17 PM FINDINGS: Right deep veins: Unremarkable. The common femoral, femoral, and popliteal veins are patent without thrombus. Normal compressibility, augmentation response and Doppler waveforms. Right superficial veins: Unremarkable. Saphenofemoral junction is patent without thrombus. Soft tissues: Unremarkable. IMPRESSION: No deep vein thrombosis in the veins imaged in the right lower extremity. Electronically signed by: Atif Epps On 11/15/2019 23:54:25 PM
[2019-11-16 06:00] VITALS: BP 140/82
[2019-11-16 06:05] LABS: HEMATOCRIT 41.1 % (42.0-52.0); HEMOGLOBIN 13.7 g/dl (13.5-17.5); MEAN CORPUSCULAR HGB CONC 33.3 g/dl (32.0-36.5); MEAN CORPUSCULAR VOLUME 90.1 fl (80.0-96.0); PLATELET COUNT, AUTOMATED 277 10^3/uL (150-450); RED BLOOD COUNT 4.56 10^6/uL (4.30-6.10); WHITE BLOOD COUNT 7.4 10^3/uL (4.0-10.0)
[2019-11-16 06:30] LABS: ALBUMIN 3.7 GM/DL (3.2-5.2); ALT/SGPT 32 U/L (12-78); BILIRUBIN,TOTAL 0.4 MG/DL (0.2-1.0); BLOOD UREA NITROGEN 13 MG/DL (7-18); CALCIUM LEVEL 8.5 MG/DL (8.5-10.1); CARBON DIOXIDE LEVEL 28 MEQ/L (21-32); CHLORIDE LEVEL 106 MEQ/L (98-107); CREATININE FOR GFR 1.03 MG/DL (0.70-1.30); GLOMERULAR FILTRATION RATE > 60.0 (>60); GLUCOSE, FASTING 92 MG/DL (70-100); SODIUM LEVEL 139 MEQ/L (136-145); TOTAL PROTEIN 7.2 GM/DL (6.4-8.2)
[2019-11-16] MEDS: NS 1,000 ML IV SCH ×2 (07:38→16:01)
--- NOTE | 2019-11-16 08:12 | ECGEPIP ---
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
[2019-11-16] MEDS ORDERED: ENOXAPARIN 40MG/0.4ML SYRINGE (J1650 PER 10MG) SC SCH (09:00)
--- NOTE | 2019-11-16 10:50 | IPNPDOC ---
Subjective Date Seen The patient was seen on 11/16/19. Subjective Chief Complaint/HPI AMENDMENT Pt was assessed by Dr. Sage who accepted the pt transfer to [facility]; she has asked that he be resumed on his at-home medications and his Invega will be supplied to him as prescribed on Sunday when it is due. Mr. Ross is a 44 year old male who presented to [facility] ED following an overdose on 11/15/2019. Pt reportedly took Lexapro (at least 20 pills), Lamotrigine (7- 8) and Mirtazipine (4-5). Pt was treated with activated charcoal in the ED, poison control consulted, labs WNL. Pt seen sitting up in bed this morning with a sheepish look on his face. Pt reported he fully understands his actions were ill-advised. He has a history of suicide attempts; we discussed considering the consequences prior to making further attempts as he may suffer more severe consequences including . He is reportedly typically compliant with his medications Rx. Pt is willing to be assessed by [facility] and agrees to an inpatient stay should he need it. Pt denied HI/current SI. General: Denies: Chills, Night Sweats, Fatigue, Malaise Constitutional: Denies: Chills, Fever, Night Sweats Eyes: Denies: Pain, Vision change ENT: Denies: Head Aches, Ear Pain, Dysphagia Skin: Denies: Rash Pulmonary: Denies: Dyspnea, Cough Cardiovascular: Denies: Chest Pain, Palpitations, Orthopnea, Lt Headedness Gastrointestinal: Denies: Nausea, Vomiting, Abdominal Pain, Diarrhea, Constipation Genitourinary: Denies: Dysuria Hematologic: Denies: Bruising Musculoskeletal: Denies: Neck Pain, Back Pain Neurological: Denies: Weakness, Numbness Psych: Reports: Mood Normal, Depression; Denies: Thoughts of Self Harm, Thoughts of Harming Other Objective Physical Examination General Exam: Positive: Alert, Cooperative, No Acute Distress Eye Exam: Positive: PERRLA, Conjunctiva & lids normal, Other Eye Symptoms (strabismus ); Negative: Sclera icteric ENT Exam: Positive: Atraumatic, Mucous membr. moist/pink, Pharynx Normal Chest Exam: Positive: Clear to auscultation, Normal air movement Heart Exam: Positive: Rate Normal, Regular Rhythm, Normal S1, Normal S2; Negative: Murmurs, Rubs Telemetry: Positive: No significant arrhythmia Abdomen Exam: Positive: Normal bowel sounds, Soft; Negative: Tenderness Extremity Exam: Positive: Edema (2+ RLE; no pain, erythema ); Negative: Clubbing, Cyanosis Skin Exam: Positive: Nl turgor and temperature Neuro Exam: Positive: Normal Speech, Cranial Nerves 3-12 NL Psych Exam: Positive: Mood NL, Oriented x 3 Assessment /Plan Assessment 1. Suicidal Ideation, with drug overdose - s/p activated charcoal. Labs remain WNL. - continue NS 125mls/hour/1:1 sitter/telemetry/currently on seizure precautions - Consulted Dr. Sage who will Zoom with the pt around 3pm today. Appreciate recs. 2. Behavioral/Mental Health - history includes: Depression/Bipolar disorder/paranoid schizophrenia/anxiety/PTSD. - All medications remain on hold pending psych consultation 3. 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 Pedal edema, RLE - reportedly chronic per pt Duplex, Ext,LOWER veins,unilat RIGHT IMPRESSION: No deep vein thrombosis in the veins imaged in the right lower extremity. - continue SC Lovenox for DVT prophy. 5. GERD - Asymptomatic, no home medications. Plan/VTE VTE Prophylaxis Ordered?: Yes (Lovenox ) VS, I&O, 24H, Fishbone Vital Signs/I&O Vital Signs Date Time Temp Pulse Resp B/P (MAP) Pulse Ox O2 Delivery O2 Flow Rate FiO2 11/16/19 06:00 98.1 81 20 140/82 (101) 91 Room Air I&O- Last 24 Hours up to 6 AM 11/16/19 05:59 Intake Total 0 ml Output Total 300 ml Balance -300 ml Laboratory Data 24H LABS Laboratory Tests 2 11/15/19 19:37: Immature Granulocyte % (Auto) 0.5, Neutrophils (%) (Auto) 59.0, Lymphocytes (%) (Auto) 27.7, Monocytes (%) (Auto) 8.8H, Eosinophils (%) (Auto) 3.0, Basophils (%) (Auto) 1.0, Neutrophils # (Auto) 5.1, Lymphocytes # (Auto) 2.4, Monocytes # (Auto) 0.8, Eosinophils # (Auto) 0.3, Basophils # (Auto) 0.1, Nucleated Red Blood Cells % (auto) 0.0, Anion Gap 9, Glomerular Filtration Rate > 60.0, Osmolality 291, Calcium Level 8.5, Total Bilirubin 0.3, Direct Bilirubin 0.1, Aspartate Amino Transf (AST/SGOT) 14, Alanine Aminotransferase (ALT/SGPT) 33, Alkaline Phosphatase 80, Total Creatine Kinase 92, Total Protein 7.9, Albumin 4.0, Albumin/Globulin Ratio 1.0, Thyroid Stimulating Hormone (TSH) 1.730, Salicylates Level < 1.7L, Acetaminophen Level < 2.0L, Ethyl Alcohol Level < 0.003 11/15/19 19:38: Lactic Acid Level 2.6*H, Urine Opiates Screen NEGATIVE, Urine Methadone Screen NEGATIVE, Urine Barbiturates Screen NEGATIVE, Urine Phencyclidine Screen NEGATIVE, Urine Amphetamines Screen NEGATIVE, Urine Benzodiazepines Screen NEGATIVE, Urine Cocaine Metabolite Screen NEGATIVE, Urine Cannabinoids Screen NEGATIVE 11/15/19 19:54: Bedside Glucose (Misc Panel) 96 11/15/19 23:18: Prothrombin Time 12.8, Prothromb Time International Ratio 0.99, Activated Partial Thromboplast Time 27.7 11/16/19 00:40: Lactic Acid Followup at 4 Hours 2.1*H 11/16/19 05:38: Nucleated Red Blood Cells % (auto) 0.0, Anion Gap 5L, Glomerular Filtration Rate > 60.0, Calcium Level 8.5, Total Bilirubin 0.4, Aspartate Amino Transf (AST/SGOT) 18, Alanine Aminotransferase (ALT/SGPT) 32, Alkaline Phosphatase 74, Total Protein 7.2, Albumin 3.7, Albumin/Globulin Ratio 1.1 CBC/BMP Laboratory Tests 11/15/19 19:37 11/16/19 05:38 JO LINARES PA-C November 16, 2019 10:50
[2019-11-16 14:00] VITALS: BP 119/86
--- NOTE | 2019-11-16 18:07 | MHIPNPDOC ---
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 As per patient, he says that he got into an argument with his ex at 1-2 PM this afternoon. The argument was about him not seeing his children. At approx 6:30-7 PM the patient states he purposefully took lexapro (at least 20 pills), lamotrigine (7-8), mirtazipine (4-5). After he took the medications, he realized what he did and became regretful. He called 911. EMS then brought him to the ER. He has history of depression, suicidal ideation and attempts, prior admissions to [facility] here. Last suicide attempt according to him was 3-4 months. He has prior admission to the mental health unit. Patient denies feelings of increased hopelessness, crying often, homicidal ideation. Patient denies chest pain, shortness of breath, n/v/d, lightheadedness, dizziness, abdominal pain, fevers, chills, palpitations." VITAL SIGNS: See below. NEW TEST RESULTS: See below CURRENT MEDICATIONS: See below. MENTAL STATUS EXAMINATION: Patient is a 44-year old male, who is alert, dessed in hospital clothes, laying in bed, disheveled Speech: Is slow, normal tone and volume. Spontaneous. Language skills are fair Thought processes including: Slow, depressed, Thought content: Depressive thoughts, cognitive distortions, angry thoughts, guilty thoughts, thoughts of , fleeting suicidal ideation. Denies thought delusions. Description of associations: fair Description of abnormal or psychotic thoughts: he is still disorganized, he has cognitive decline as a result of his chronic psychotic disorder. He admits feeling paranoid at times and hearing voices occasionally. Judgment: Impaired Insight: Poor Orientation: X 3 Recent and remote memory: Limited Attention span and concentration: fair Language: adequate Fund of knowledge: average Mood: depressed, sad, frustrated Affect: congruent with mood DIAGNOSES: 1. Schizophrenia, paranoid type 2. R/O schizoaffective disorder 3. Depression ASSESSMENT: the patient recently overdosed, he has very little family and social support in this area. He is very vulnerable at this time. He needs to be transferred to [facility]. He realizes he made a big mistake by taking a handful of medications to overdose but the fact is, he has done it several times now. MANAGEMENT PLAN: Transfer to [facility] TIME SPENT: 10 minutes. Vital Signs Vital Signs Date Time Temp Pulse Resp B/P (MAP) Pulse Ox O2 Delivery O2 Flow Rate FiO2 11/16/19 14:00 98.1 83 17 119/86 (97) 93 Room Air Laboratory Data 24H Labs Laboratory Tests 2 11/15/19 19:37: Immature Granulocyte % (Auto) 0.5, Neutrophils (%) (Auto) 59.0, Lymphocytes (%) (Auto) 27.7, Monocytes (%) (Auto) 8.8H, Eosinophils (%) (Auto) 3.0, Basophils (%) (Auto) 1.0, Neutrophils # (Auto) 5.1, Lymphocytes # (Auto) 2.4, Monocytes # (Auto) 0.8, Eosinophils # (Auto) 0.3, Basophils # (Auto) 0.1, Nucleated Red Blood Cells % (auto) 0.0, Anion Gap 9, Glomerular Filtration Rate > 60.0, Osmolality 291, Calcium Level 8.5, Total Bilirubin 0.3, Direct Bilirubin 0.1, Aspartate Amino Transf (AST/SGOT) 14, Alanine Aminotransferase (ALT/SGPT) 33, Alkaline Phosphatase 80, Total Creatine Kinase 92, Total Protein 7.9, Albumin 4.0, Albumin/Globulin Ratio 1.0, Thyroid Stimulating Hormone (TSH) 1.730, Salicylates Level < 1.7L, Acetaminophen Level < 2.0L, Ethyl Alcohol Level < 0.003 11/15/19 19:38: Lactic Acid Level 2.6*H, Urine Opiates Screen NEGATIVE, Urine Methadone Screen NEGATIVE, Urine Barbiturates Screen NEGATIVE, Urine Phencyclidine Screen NEGATIVE, Urine Amphetamines Screen NEGATIVE, Urine Benzodiazepines Screen NEGATIVE, Urine Cocaine Metabolite Screen NEGATIVE, Urine Cannabinoids Screen NEGATIVE 11/15/19 19:54: Bedside Glucose (Misc Panel) 96 11/15/19 23:18: Prothrombin Time 12.8, Prothromb Time International Ratio 0.99, Activated Partial Thromboplast Time 27.7 11/16/19 00:40: Lactic Acid Followup at 4 Hours 2.1*H 11/16/19 05:38: Nucleated Red Blood Cells % (auto) 0.0, Anion Gap 5L, Glomerular Filtration Rate > 60.0, Calcium Level 8.5, Total Bilirubin 0.4, Aspartate Amino Transf (AST/SGOT) 18, Alanine Aminotransferase (ALT/SGPT) 32, Alkaline Phosphatase 74, Total Protein 7.2, Albumin 3.7, Albumin/Globulin Ratio 1.1 CBC/BMP Laboratory Tests 11/15/19 19:37 11/16/19 05:38 Current Medications Current Medications Medications (Trade) Dose Ordered Sig/Rizwan Route PRN Reason Start Time Stop Time Status Last Admin Dose Admin Enoxaparin Sodium (Lovenox) 40 mg DAILY SC 11/16/19 09:00 11/16/19 08:59 Home Med (Med Rec Complete!) ASDIRECTED XX 11/15/19 21:30 11/15/19 21:33 DC Sodium Chloride 1,000 ml @ 125 mls/hr Q8H IV 11/15/19 21:45 11/16/19 16:01 Allergies Coded Allergies: divalproex sodium (Verified Allergy, Unknown, 07/09/19) benztropine (Verified Adverse Reaction, Intermediate, hallucinations, 07/09/19) MULU CHAHAL MD November 16, 2019 17:17
[2019-11-16 21:00] VITALS: BP 125/86
[2019-11-16] MEDS ORDERED: lamoTRIgine 100MG TAB PO SCH (21:00)
[2019-11-16] MEDS ORDERED: MIRTAZAPINE 15 MG TAB PO SCH (21:00)
[2019-11-16] MEDS ORDERED: ESCITALOPRAM OXALATE 10 MG TAB (LEXAPRO) PO SCH (21:00)
[2019-11-16] MEDS ORDERED: PALIPERIDONE 6 MG ER TAB (INVEGA) PO SCH (21:00)
[2019-11-20] MEDS ORDERED: PALIPERIDONE PALMITATE 234MG/1.5ML INJ (INVEGA)(FREE PSY INPT ONLY) IM SCH (09:00)
== END 2019-11-16 21:29 | DRG 918 ==
LOC: EDBD 19:22 → M ED 19:22 → M ED INP 21:40 → ENRESERV 22:06 → M MSPAV 22:54
PROVIDERS: ADMIT Internal Medicine; ATTEND Internal Medicine
DX: T43.292A Poisoning by other antidepressants, intentional self-harm, initial encounter (principal); F20.0 Paranoid schizophrenia; G91.9 Hydrocephalus, unspecified; F31.9 Bipolar disorder, unspecified; K21.9 Gastro-esophageal reflux disease without esophagitis; Z98.2 Presence of cerebrospinal fluid drainage device; F43.10 Post-traumatic stress disorder, unspecified; Z79.899 Other long term (current) drug therapy; Z88.8 Allergy status to other drugs, medicaments and biological substances

== ENCOUNTER 2019-11-16 19:55 | Inpatient (IN) | payer MEDICARE ==
[2019-11-16] MEDS ORDERED: traZODone 50 MG TAB PO PRN (20:45)
[2019-11-16] MEDS ORDERED: MAALOX 30 ML SUSP *UDC PO PRN (20:45)
[2019-11-16] MEDS ORDERED: NICOTINE 21MG/24HR 1 EA TRANSDERMAL TD PRN (20:45)
[2019-11-16] MEDS ORDERED: MOM 30ML SUSPENSION UDC PO PRN (20:45)
[2019-11-16] MEDS ORDERED: ACETAMINOPHEN TAB 650MG DOSE (2X325MG) PO PRN (20:45)
[2019-11-16 21:28] VITALS: BP 134/90
[2019-11-17 05:52] VITALS: BP 132/97
[2019-11-17] MEDS: OLANZapine ORAL DISINTEGRATING TAB 5MG PO PRN ×3 (08:38→20:40)
--- NOTE | 2019-11-17 09:18 | MHHPEPDOC ---
General Legal Status: 9.39 Chief Complaint "I made a mistake" History of Present Illness The patient a 44-year-old man with a history of schizoaffective disorder presents after overdosing on several different medications. After discussion, the patient reveals that he had had multiple stressors in the form of his him from his children and him becoming fairly upset. He reported that after an argument related to his children he became upset and despondent overdosing on several different medications. He reports that this was an ill- advised action and realizes the gravity of his decision. He reports that he is other is been taking his medications and seeing his outpatient psychiatrist, he reports that his psychosis and other symptoms of schizoaffective have been under control at this time and that the presenting issue is primarily situational. Psychiatric Review of Systems Depression (2 or more weeks): depressed mood, insomnia/hypersomnia, feelings of excess/guilt, feelings of worthlesness Danika (4 or more days of): denies Psychosis: denies PTSD: denies Anxiety: situational anxiety Past Psychiatric History History of schizoafffective disorder, currently treated [facility] with multiple previouss admissions including most recent June 2019. Currently on a combbinnation of Lexapro, mirtazapine and and Acuna. Reports compliant. Past Medical History Medical Problems Cardiovascular comorbidities Addiction History denies Social History Current Living Situation: alone separate sabra children. Education: no changes. Employment: unemployed. Social Support: few. Legal: no significant changes. Marital: currently pending divorce.Current Living Situation: . Mental Status Examination General Appearance: well groomed Build: average Demeanor: average Eye Contact: average Activity: average Behavior: cooperative Speech: clear Mood: depressed Mood "I made a mistake" Thought Content (Delusions): none reported Thought Content (Other): none reported Thought Content (Aggressive): none reported Perception (Hallucinations): none reported Perception (Other): none reported Cognition (Impairment of): none reported Cognition(Intelligence Est.): average Oriented: Awake Insight: fair Judgment: Fair Assessment 44-year-old man with a history of schizoaffective disorder presents primarily for a situational problem, his schizoaffective disorder is well-controlled at this time and thus changed his medications would not be judicious. He would likely be well adjusted to treatment with addressing his social problems as a appear to be the primary reason for his presentation. His depression appears to be primarily situational. Problem List Problems: (1) Adjustment disorder Status: Acute Response to Treatment: Improving Discussed With: Nurse, Other Discussed With: (will discuss with outpatient on sunday ) Problem Specific Plan: Monitor Clinically Problem Text: Situational in nature, likely needs supportive care only (2) Stress due to family tension Status: Acute Response to Treatment: Controlled Problem Text: will attempt to determine how to mitgate these stressors to reduce risk of decompensation (3) Overdose Status: Resolved Response to Treatment: Improving Discussed With: Nurse, Patient Problem Text: monitor for EKG changes, resume meds slowly (4) Schizo-affective schizophrenia, in remission Status: Chronic Response to Treatment: Stable Discussed With: Nurse Problem Specific Plan: Monitor Clinically Problem Text: Stable with no signs of psychosis, will we continue medications once patient has washout and has a normal EKG. Initial Treatment Plan 1. Patient was admitted on a [9.39] status. 2. Complete history was obtained. 3. With patients permission, family will be contacted and database will be expanded. 4. Patients medication regimen will be reviewed and changed accordingly. 5. Patient will be provided with protected environment. 6. Patient will be treated with individual, group, and milieu therapies. 7. Patient will receive supportive psych-education. 8. Discharge planning will commence immediately. 9. Outpatient follow-up treatment will be strongly recommended. 10. The initial treatment plan will focus initially on: * Depression. * Risk for suicide. ESTIMATED LENGTH OF STAY: - DAYS. TIME SPENT COUNSELING AND COORDINATING INITIAL CARE: minutes. Vital Signs Vital Signs Date Time Temp Pulse Resp B/P (MAP) Pulse Ox O2 Delivery O2 Flow Rate FiO2 11/17/19 05:52 98.3 101 18 132/97 (109) 11/16/19 21:28 96 Room Air Medications Scheduled Escitalopram Oxalate (Escitalopram Oxalate) 20 Mg Tablet, 40 MG PO DAILY, (Reported) Lamotrigine (Lamictal) 150 Mg Tablet, 150 MG PO BID, (Reported) Mirtazapine (Mirtazapine) 30 Mg Tab.rapdis, 30 MG PO QHS, (Reported) Paliperidone (Invega) 6 Mg Tab.er.24, 6 MG PO QHS, (Reported) Paliperidone Palmitate (Invega Sustenna) 234 Mg/1.5 Ml Syringe, 234 MG IM QMONTH, (Reported) NEXT DOSE DUE AROUND 11/18/19 Allergies Coded Allergies: divalproex sodium (Verified Allergy, Unknown, 07/09/19) benztropine (Verified Adverse Reaction, Intermediate, hallucinations, 07/09/19) CATALINA GARCIA DO November 17, 2019 09:18
[2019-11-17 18:00] VITALS: BP 155/81
--- NOTE | 2019-11-17 19:04 | HPEPDOC ---
[facility] Medical History & Physical Date of Admission November 17, 2019 Date of Service: November 17, 2019 History and Physical CHIEF COMPLAINT: Admitted to inpatient mental health unit for suicide attempt HISTORY OF PRESENT ILLNESS: 44-year-old male with past medical history of schizophrenia, depression, bipolar, and hydrocephalus is admitted to inpatient went to health unit after suicide attempt by overdosing on his psychiatric medications. Patient was initially admitted to hospitalist service for observation, now transferred to inpatient with a half unit. Patient is without any complaints at this time, reports he overdosed because he had an argument with his ex. He has no suicidal ideation at this time, denies any short of breath, chest pain, nausea, vomiting, diarrhea or aspiration. 10 point review of systems is negative except for above PAST MEDICAL HISTORY: 1. Schizophrenia. 2. Bipolar depression. 3. Hydrocephalus. PAST SURGICAL HISTORY: 1. METAL TESTER shunt. SOCIAL HISTORY: Denies smoking. Denies alcohol use Denies drug use FAMILY HISTORY: Negative for cancer or heart disease ALLERGIES: Please see below. HOME MEDICATIONS: Please see below. PHYSICAL EXAMINATION: VITAL SIGNS: Please see below. GENERAL: No distress HEENT: Normocephalic, atraumatic, moist mucous membranes NECK: Supple CARDIOVASCULAR EXAMINATION: S1, S2, no murmurs RESPIRATORY EXAMINATION: Clear to auscultation, no wheezing ABDOMINAL EXAMINATION: Soft, nontender, nondistended, positive bowel sounds EXTREMITIES: Range of motion intact SKIN: No rash NEUROLOGICAL EXAMINATION: Alert and oriented 3, no focal deficits PSYCHIATRIC EXAMINATION: Calm and cooperative LABORATORY DATA: See below. MICROBIOLOGY: Please see below. ASSESSMENT: 44-year-old male with multiple psychiatric conditions is admitted to inpatient went to [facility] unit after suicide attempt by overdosing on medication. PLAN: 1. Suicide attempt. Overdosed on psychiatric medication, was admitted to medical service for observation, now medically stable, further management as per psychiatric team. Patient has no other active medical issues at this time, please reconsult as needed. Vital Signs Vital Signs Date Time Temp Pulse Resp B/P (MAP) Pulse Ox O2 Delivery O2 Flow Rate FiO2 11/17/19 18:00 97.8 99 16 155/81 (105) 11/16/19 21:28 96 Room Air Home Medications Scheduled Escitalopram Oxalate (Escitalopram Oxalate) 20 Mg Tablet, 40 MG PO DAILY Lamotrigine (Lamictal) 150 Mg Tablet, 150 MG PO BID Mirtazapine (Mirtazapine) 30 Mg Tab.rapdis, 30 MG PO QHS Paliperidone (Invega) 6 Mg Tab.er.24, 6 MG PO QHS Paliperidone Palmitate (Invega Sustenna) 234 Mg/1.5 Ml Syringe, 234 MG IM QMONTH NEXT DOSE DUE AROUND 11/18/19 Allergies Coded Allergies: divalproex sodium (Verified Allergy, Unknown, 07/09/19) benztropine (Verified Adverse Reaction, Intermediate, hallucinations, 07/09/19) A-FIB/CHADSVASC A-FIB History Current/History of A-Fib/PAF?: No DOMENIC REESE MD November 17, 2019 19:04
[2019-11-18 06:10] VITALS: BP 152/88
--- NOTE | 2019-11-18 09:05 | MHIPNPDOC ---
[facility] Progress Note Progress Note DATE OF SERVICE: 11/18/19 HISTORY: . VITAL SIGNS: See below. NEW TEST RESULTS: . CURRENT MEDICATIONS: See below. MENTAL STATUS EXAMINATION: Patient is a -year old male, who is . Speech: Is . Language skills are . Thought processes including: . Thought content: . Abstract reasoning, and computation: . Description of associ ations: . Description of abnormal or psychotic thoughts: . Judgment: . Insight: [very limited, good, fair. poor]. Orientation: . Recent and remote memory: . Attention span and concentration: . Language: . Fund of knowledge: . Mood: . Affect: . DIAGNOSES: 1. . 2. . 3. . ASSESSMENT: MANAGEMENT PLAN: . TIME SPENT: minutes. Vital Signs Vital Signs Date Time Temp Pulse Resp B/P (MAP) Pulse Ox O2 Delivery O2 Flow Rate FiO2 11/18/19 06:10 98.3 97 14 152/88 (109) 11/16/19 21:28 96 Room Air Current Medications Current Medications Medications (Trade) Dose Ordered Sig/Rizwan Route PRN Reason Start Time Stop Time Status Last Admin Dose Admin Acetaminophen (Tylenol Tab) 650 mg Q6HP PRN PO HEADACHE or DISCOMFORT 11/16/19 20:45 Al Hydrox/Mg Hydrox/Simethicone (Mylanta) 30 ml Q4HP PRN PO HEARTBURN/INDIGESTION 11/16/19 20:45 Magnesium Hydroxide (Milk Of Magnesia) 30 ml DAILYPRN PRN PO CONSTIPATION 11/16/19 20:45 Nicotine (Nicoderm Cq 21mg) 1 patch DAILY PRN TD Nicotine withdrawl 11/16/19 20:45 Olanzapine (ZyPREXA ZYDIS) 5 mg Q4HP PRN PO AGITATION 11/16/19 20:45 11/17/19 20:40 Trazodone HCl (Desyrel) 50 mg QHSP PRN PO INSOMNIA 11/16/19 20:45 11/17/19 20:40 Allergies Coded Allergies: divalproex sodium (Verified Allergy, Unknown, 07/09/19) benztropine (Verified Adverse Reaction, Intermediate, hallucinations, 07/09/19) CATALINA GARCIA DO November 18, 2019 09:05
[2019-11-18] MEDS: OLANZapine ORAL DISINTEGRATING TAB 5MG PO PRN (09:07)
--- NOTE | 2019-11-18 10:08 | MHDSPDOC ---
[facility] Discharge Summary Discharge Summary DATE OF ADMISSION: November 16, 2019 at 21:39 DATE OF DISCHARGE: November 18, 2019 at 14:55 DISCHARGE DIAGNOSES: 1. Adjustment disorder with disruption of mood and conduct 2. Schizoaffective disorder, in remission. REASON FOR ADMISSION: 44-year-old man with a history of schizoaffective disorder presents after entering a state of reactive depression and overdosing, in the setting of psychosocial stressor. The patient reports that he made a mistake and reports that the thoughts were ill advised. CONSULTANTS INVOLVED: hospitalist screening TREATMENT AND PROGRESS ON THE UNIT : patient was admitted to the inpatient unit and initially screened for any EKG problems, his EKG was normal. He was given his next dose of injection of paliperidone 234 mg. I discuss the case with his outpatient provider, Dr. Sage, who reported that the patient actually had been doing quite well and his psychosis had been under control. His observation of howard him doing better than he is done in quite some time with no psychotic symptoms, he demonstrated improved insight into the situation and no signs of behavioral problems her suicidal thoughts. After 48 hours of observation. He was discharged at his request as he no longer met involuntary criteria. He was recommended to continue with his outpatient medications, now that he had been observed off of them and had no ill effects from the overdose. DISCHARGE ASSESSMENT: 44-year-old man with history of schizoaffective disorder presents for overdose, it's likely adjustment reaction this time and not related to his underlying schizoaffective disorder. The patient at the time of discharge did not meet criteria for involuntary admission/extension due to having a normal mental status exam, fair insight into the situation, They are engaged in the discharge process, as well as being friendly and amenable in behavioral control and havent been engaging in any observed concerning behavior or ideation recently. They decline voluntary extension/admission at this time and must be discharged in good shell, as Im unable to make a case for holding the patient against their will. They may have historical risk factors of admissions and other interactions with psychiatry however, those are not modifiable from a clinical perspective. The patient will need to be discharged in good shell. MENTAL STATUS EXAMINATION ON DISCHARGE: General: Well dressed with good hygiene Speech: Spontaneous and fluid Thought processes: Linear and logical Thought content: Future orientated Abstract reasoning, and computation: Intact Description of associations: Intact Description of abnormal or psychotic thoughts:Denies any suicidal or homicidal ideation. Denies any auditory or visual hallucinations. Does not appear to be responding to internal stimuli. Does not appear to be endorsing any bizarre or paranoid ideation. Judgment: fair Insight: fair Orientation: Alert and orientated 3 Recent and remote memory: Intact Attention span and concentration: Intact Fund of knowledge: Adequate Mood: "okay" Affect: Euthymic with a full range PLAN/FOLLOWUP ARRANGEMENTS: follow-up with [facility]. The amount of time spent in the coordination of care for this patient was approximately 45 minutes. Vital Signs/I&Os Vital Signs Date Time Temp Pulse Resp B/P (MAP) Pulse Ox O2 Delivery O2 Flow Rate FiO2 11/18/19 06:10 98.3 97 14 152/88 (109) 11/16/19 21:28 96 Room Air Medications Scheduled Escitalopram Oxalate (Escitalopram Oxalate) 20 Mg Tablet, 40 MG PO DAILY, (R eported) Lamotrigine (Lamictal) 150 Mg Tablet, 150 MG PO BID, (Reported) Mirtazapine (Mirtazapine) 30 Mg Tab.rapdis, 30 MG PO QHS, (Reported) Paliperidone (Invega) 6 Mg Tab.er.24, 6 MG PO QHS, (Reported) Paliperidone Palmitate (Invega Sustenna) 234 Mg/1.5 Ml Syringe, 234 MG IM QMONTH, (Reported) NEXT DOSE DUE AROUND 11/18/19 Allergies Coded Allergies: divalproex sodium (Verified Allergy, Unknown, 07/09/19) benztropine (Verified Adverse Reaction, Intermediate, hallucinations, 07/09/19) CATALINA GARCIA DO November 18, 2019 10:07
[2019-11-18] MEDS ORDERED: PALIPERIDONE PALMITATE 234MG/1.5ML INJ (INVEGA)(FREE PSY INPT ONLY) IM ONE (14:30)
--- NOTE | 2019-11-18 18:44 | ECGEPIP ---
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 Electronically Signed on 11-18-2019 18:43:56 EDT by Jam Boone
== END 2019-11-18 14:55 | disposition home or self-care (01) | DRG 882 ==
LOC: M PSY 21:39
PROVIDERS: ADMIT Psychiatry & Neurology Psychiatry; ATTEND Psychiatry & Neurology Addiction Medicine
DX: F43.20 Adjustment disorder, unspecified (principal); G91.9 Hydrocephalus, unspecified; F31.9 Bipolar disorder, unspecified; Z98.2 Presence of cerebrospinal fluid drainage device; Z79.899 Other long term (current) drug therapy; Z88.8 Allergy status to other drugs, medicaments and biological substances; Z63.8 Other specified problems related to primary support group

== ENCOUNTER 2019-11-27 18:45 | Inpatient (IN) | payer MEDICARE ==
[~2019-11-27] VITALS: Ht 172.7 cm; Wt 127.5 kg
[2019-11-27 19:51] LABS: HEMATOCRIT 40.2 % (42.0-52.0); MEAN CORPUSCULAR HEMOGLOBIN 28.7 pg (27.0-33.0); MEAN CORPUSCULAR HGB CONC 32.3 g/dl (32.0-36.5); MEAN CORPUSCULAR VOLUME 88.7 fl (80.0-96.0); PLATELET COUNT, AUTOMATED 293 10^3/uL (150-450); RED BLOOD COUNT 4.53 10^6/uL (4.30-6.10); WHITE BLOOD COUNT 8.6 10^3/uL (4.0-10.0)
[2019-11-27 20:14] LABS: AMPHETAMINES LEVEL URINE NEGATIVE (NEGATIVE); BARBITURATES URINE NEGATIVE (NEGATIVE); BENZODIAZEPINES URINE NEGATIVE (NEGATIVE); CANNABINOIDS URINE NEGATIVE (NEGATIVE); COCAINE METABOLITE URINE NEGATIVE (NEGATIVE); METHADONE URINE NEGATIVE (NEGATIVE); OPIATES URINE NEGATIVE (NEGATIVE); PHENCYCLIDINE URINE NEGATIVE (NEGATIVE)
[2019-11-27 20:27] LABS: ALBUMIN 3.9 GM/DL (3.2-5.2); ALT/SGPT 29 U/L (12-78); BILIRUBIN,DIRECT 0.1 MG/DL (0.0-0.2); BILIRUBIN,TOTAL 0.2 MG/DL (0.2-1.0); BLOOD UREA NITROGEN 23 MG/DL (7-18); CARBON DIOXIDE LEVEL 28 MEQ/L (21-32); CHLORIDE LEVEL 106 MEQ/L (98-107); CREATININE FOR GFR 1.05 MG/DL (0.70-1.30); GLOMERULAR FILTRATION RATE > 60.0 (>60); GLUCOSE, FASTING 110 MG/DL (70-100); SALICYLATE LEVEL < 1.7 MG/DL (5.0-30.0); SODIUM LEVEL 142 MEQ/L (136-145); TOTAL PROTEIN 7.7 GM/DL (6.4-8.2)
[2019-11-27 20:28] LABS: ACETAMINOPHEN LEVEL < 2.0 UG/ML (10.0-30.0); ETHYL ALCOHOL (ETHANOL) < 0.003 % (0.000-0.010)
[2019-11-27] MEDS ORDERED: PALIPERIDONE 6 MG ER TAB (INVEGA) PO SCH (21:00)
[2019-11-27] MEDS ORDERED: MIRTAZAPINE 15 MG TAB PO SCH (21:00)
[2019-11-27] MEDS ORDERED: ACETAMINOPHEN TAB 650MG DOSE (2X325MG) PO PRN (21:15)
[2019-11-27] MEDS ORDERED: MOM 30ML SUSPENSION UDC PO PRN (21:15)
[2019-11-27] MEDS ORDERED: MAALOX 30 ML SUSP *UDC PO PRN (21:15)
[2019-11-27] MEDS ORDERED: traZODone 50 MG TAB PO PRN (21:15)
[2019-11-27 22:00] VITALS: BP 132/96
[2019-11-28] MEDS: lamoTRIgine 100MG TAB PO SCH ×3 (00:51→21:53)
[2019-11-28 06:17] VITALS: BP 142/88
[2019-11-28] MEDS ORDERED: ESCITALOPRAM OXALATE 10 MG TAB (LEXAPRO) PO SCH (09:00)
[2019-11-28] MEDS: BREXPIPRAZOLE 2MG TABLET (REXULTI) PO SCH (14:02)
--- NOTE | 2019-11-28 15:30 | HPEPDOC ---
General Date of Admission Nov 27, 2019 at 21:02 Date of Service: Nov 28, 2019 Chief Complaint The patient is a 44-year-old male who presented to the hospital was without radiation History of Present Illness Patient is a 44-year-old male with a past mental history of depression, bipolar, anxiety, schizophrenia, history of hydrocephalus status post shunt at who presented to the hospital after experiencing suicidal thoughts while at home. Patient was admitted to the inpatient mental health unit under the care of psychiatry. Hospitalist services consultation for medical screening evaluation. Currently patient denies any headache, nausea, vomiting, chest pain, chest breath, cough, palpitations, abdominal pain, constipation, diarrhea, urinary discomfort or any recent fevers or chills. Patient reports his appetite is fairly normal and denies any changes in his weight. Home Medications Scheduled Escitalopram Oxalate (Escitalopram Oxalate) 20 Mg Tablet, 40 MG PO DAILY, (Reported) Lamotrigine (Lamictal) 150 Mg Tablet, 150 MG PO BID, (Reported) Mirtazapine (Mirtazapine) 30 Mg Tab.rapdis, 30 MG PO QHS, (Reported) Paliperidone (Invega) 6 Mg Tab.er.24, 6 MG PO QHS, (Reported) Paliperidone Palmitate (Invega Sustenna) 234 Mg/1.5 Ml Syringe, 234 MG IM QMONTH, (Reported) Allergies Coded Allergies: divalproex sodium (Verified Allergy, Unknown, 07/09/19) benztropine (Verified Adverse Reaction, Intermediate, hallucinations, 07/09/19) Past Medical History Medical History Depression, bipolar, anxiety, schizophrenia, history of hydrocephalus status post shunt Surgical History Cholecystectomy Shunt placement for hydrocephalus as an infant Family History - Mother with history of diabetes Social History - Denies the use of alcohol, tobacco or illicit drugs - Denies recent travel or sick contacts - Lives alone - Occupation; on disability Review of Systems Other systems 10 point review of systems complete, all negative otherwise stated in HPI Vital Signs - Vitals: BP 142/88, HR 88, RR 18, Sat 95%RA, Temp 97.1F - General: Lying in bed, No acute distress, Speaking in full sentences, AAOx3 - HEENT: NC, AT, PERRLA, EOMI - CVS: RRR, +S1S2 - Lungs: Fair air entry bilaterally, No appreciable wheezing / rales / rhonchi - Abdomen: Soft, Non-distended, Non-tender - Extremities: No lower extremity edema, No calf tenderness - Neuro: No focal motor or sensory deficit - Skin: No visible rashes Laboratory Data Labs 24H Laboratory Tests 2 11/27/19 19:11: Urine Opiates Screen NEGATIVE, Urine Methadone Screen NEGATIVE, Urine Barbiturat es Screen NEGATIVE, Urine Phencyclidine Screen NEGATIVE, Urine Amphetamines Screen NEGATIVE, Urine Benzodiazepines Screen NEGATIVE, Urine Cocaine Metabolite Screen NEGATIVE, Urine Cannabinoids Screen NEGATIVE 11/27/19 19:38: Nucleated Red Blood Cells % (auto) 0.0, Anion Gap 8, Glomerular Filtration Rate > 60.0, Calcium Level 9.0, Total Bilirubin 0.2, Direct Bilirubin 0.1, Aspartate Amino Transf (AST/SGOT) 13, Alanine Aminotransferase (ALT/SGPT) 29, Alkaline Phosphatase 83, Total Protein 7.7, Albumin 3.9, Albumin/Globulin Ratio 1.0, Thyroid Stimulating Hormone (TSH) 2.920, Salicylates Level < 1.7L, Acetaminophen Level < 2.0L, Ethyl Alcohol Level < 0.003 CBC/BMP Laboratory Tests 11/27/19 19:38 Plan / VTE VTE Prophylaxis Ordered?: Yes Plan Plan Suicide ideation - History of depression, anxiety, bipolar and schizophrenia - Admitted to the inpatient mental health unit under the care of psychiatry - Currently being managed by psychiatry History of hydrocephalus as a child - s/p MANAGER VALUATION shunt as a child DVT prophylaxis - c/w early ambulation Female brand strategist was present throughout the duration of his history and physical examination Thank you for this consultation. Please reconsult as needed EMILI JORDAN MD Nov 28, 2019 15:30
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
[2019-11-28 17:58] VITALS: BP 137/87
[2019-11-28] MEDS: zolPIDEM TARTRATE 5 MG TAB PO SCH (21:52)
[2019-11-29 06:20] VITALS: BP 122/94
[2019-11-29] MEDS: BREXPIPRAZOLE 2MG TABLET (REXULTI) PO SCH (08:05)
[2019-11-29] MEDS: lamoTRIgine 100MG TAB PO SCH ×2 (08:05→20:39)
[2019-11-29] MEDS: ESCITALOPRAM OXALATE 10 MG TAB (LEXAPRO) PO SCH (08:05)
--- NOTE | 2019-11-29 10:21 | MHIPNPDOC ---
[facility] Progress Note Progress Note DOS 11/29/2019 Patient met with today with nurse present for telehealth evaluation due to COVID Crisis Events Overnight:[none] Group Attendance:: more frequent Symptom changes (psych ROS): Affective: reports improving depressed mood, loss of interest Psychotic: denies Anxiety: situational Staff Report: reports patient does scratch himself at times Medical ROS: [Gen: -fevers, chills] [Cardio: -chest pain, palpations] [[place]: -SOB, cough] [GI: -N,V,D,C] [Neuro: -tremors, msk stiffness] [Derm: -rash] MSE: Vitals: Below [General: Well dressed with good hygiene Speech: Spontaneous and fluid Thought processes: Linear and logical Thought content: Future orientated Abstract reasoning, and computation: Intact Description of associations: Intact Description of abnormal or psychotic thoughts:Denies any suicidal or homicidal ideation. Denies any auditory or visual hallucinations. Does not appear to be responding to internal stimuli. Does not appear to be endorsing any bizarre or paranoid ideation. Judgment: improving Insight: improving Orientation: Alert and orientated 3 Recent and remote memory: Intact Attention span and concentration: Intact Fund of knowledge: Adequate Mood: "okay" Affect: Euthymic with a full range] Vital Signs Vital Signs Date Time Temp Pulse Resp B/P (MAP) Pulse Ox O2 Delivery O2 Flow Rate FiO2 11/29/19 06:20 97.6 103 16 122/94 (103) 92 Room Air Current Medications Current Medications Medications (Trade) Dose Ordered Sig/Rizwan Route PRN Reason Start Time Stop Time Status Last Admin Dose Admin Acetaminophen (Tylenol Tab) 650 mg Q6HP PRN PO HEADACHE or DISCOMFORT 11/27/19 21:15 11/28/19 08:09 Al Hydrox/Mg Hydrox/Simethicone (Mylanta) 30 ml Q4HP PRN PO HEARTBURN/INDIGESTION 11/27/19 21:15 Brexpiprazole (Rexulti) 2 mg DAILY PO 11/28/19 09:00 11/29/19 08:05 Escitalopram Oxalate (Lexapro) 20 mg DAILY PO 11/29/19 09:00 11/29/19 08:05 Escitalopram Oxalate (Lexapro) 40 mg DAILY PO 11/28/19 09:00 11/28/19 13:39 DC 11/28/19 08:09 Home Med (Med Rec Complete!) ASDIRECTED XX 11/27/19 21:15 11/27/19 21:07 DC Lamotrigine (LaMICtal) 150 mg BID PO 11/27/19 21:00 11/29/19 08:05 Magnesium Hydroxide (Milk Of Magnesia) 30 ml DAILYPRN PRN PO CONSTIPATION 11/27/19 21:15 Mirtazapine (Remeron) 30 mg QHS PO 11/27/19 21:00 11/28/19 13:41 DC 11/28/19 00:50 Paliperidone (Invega) 6 mg QHS PO 11/27/19 21:00 11/28/19 13:39 DC 11/28/19 00:51 Trazodone HCl (Desyrel) 50 mg QHSP PRN PO INSOMNIA 11/27/19 21:15 Cancel Zolpidem Tartrate (Ambien) 5 mg QHS PO 11/28/19 21:00 11/28/19 21:52 Allergies Coded Allergies: divalproex sodium (Verified Allergy, Unknown, 07/09/19) benztropine (Verified Adverse Reaction, Intermediate, hallucinations, 07/09/19) Problems (1) Schizo-affective schizophrenia, in remission Status: Chronic Problem Text: continue previous plan from Dr. Sage (2) Adjustment disorder Status: Acute Response to Treatment: Stable Problem Text: connect to services (3) Stress due to family tension Status: Acute Response to Treatment: Stable Problem Text: supported living would be ideal Plan / VTE VTE Prophylaxis Ordered?: Yes Plan Diet: Continue Current Activity: Continue Current Anticipated Discharge: Other Anticipated D/C (referral to TLS) CATALINA GARCIA DO Nov 29, 2019 10:21
[2019-11-29 16:01] VITALS: BP 139/86
[2019-11-29] MEDS: zolPIDEM TARTRATE 5 MG TAB PO SCH (20:39)
[2019-11-30 06:13] VITALS: BP 150/80
[2019-11-30] MEDS: lamoTRIgine 100MG TAB PO SCH ×2 (08:05→20:12)
[2019-11-30] MEDS: ESCITALOPRAM OXALATE 10 MG TAB (LEXAPRO) PO SCH (08:05)
[2019-11-30] MEDS: BREXPIPRAZOLE 2MG TABLET (REXULTI) PO SCH (08:05)
--- NOTE | 2019-11-30 11:14 | MHIPNPDOC ---
[facility] Progress Note Progress Note DOS: 11/30/2019 Patient met with today with nurse present for telehealth evaluation due to COVID Crisis Events Overnight:[none] Group Attendance::[frequent] Symptom changes (psych ROS): Affective: reports improving depression Psychotic:[None today] Anxiety: improving Staff Report: reports that he is been talking staff about trying to improve his coping skills Medical ROS: [Gen: -fevers, chills] [Cardio: -chest pain, palpations] [[place]: -SOB, cough] [GI: -N,V,D,C] [Neuro: -tremors, msk stiffness] [Derm: -rash] MSE: Vitals: Below [General: Well dressed with good hygiene Speech: Spontaneous and fluid Thought processes: Linear and logical Thought content: Future orientated Abstract reasoning, and computation: Intact Description of associations: Intact Description of abnormal or psychotic thoughts:Denies any suicidal or homicidal ideation. Denies any auditory or visual hallucinations. Does not appear to be responding to internal stimuli. Does not appear to be endorsing any bizarre or paranoid ideation. Judgment: improving Insight: improving Orientation: Alert and orientated 3 Recent and remote memory: Intact Attention span and concentration: Intact Fund of knowledge: Adequate Mood: "okay" Affect: Euthymic with a full range] Vital Signs Vital Signs Date Time Temp Pulse Resp B/P (MAP) Pulse Ox O2 Delivery O2 Flow Rate FiO2 11/30/19 06:13 97.9 91 18 150/80 (103) 96 Room Air Current Medications Current Medications Medications (Trade) Dose Ordered Sig/Rizwan Route PRN Reason Start Time Stop Time Status Last Admin Dose Admin Acetaminophen (Tylenol Tab) 650 mg Q6HP PRN PO HEADACHE or DISCOMFORT 11/27/19 21:15 11/28/19 08:09 Al Hydrox/Mg Hydrox/Simethicone (Mylanta) 30 ml Q4HP PRN PO HEARTBURN/INDIGESTION 11/27/19 21:15 Brexpiprazole (Rexulti) 2 mg DAILY PO 11/28/19 09:00 11/30/19 08:05 Escitalopram Oxalate (Lexapro) 20 mg DAILY PO 11/29/19 09:00 11/30/19 08:05 Escitalopram Oxalate (Lexapro) 40 mg DAILY PO 11/28/19 09:00 11/28/19 13:39 DC 11/28/19 08:09 Home Med (Med Rec Complete!) ASDIRECTED XX 11/27/19 21:15 11/27/19 21:07 DC Lamotrigine (LaMICtal) 150 mg BID PO 11/27/19 21:00 11/30/19 08:05 Magnesium Hydroxide (Milk Of Magnesia) 30 ml DAILYPRN PRN PO CONSTIPATION 11/27/19 21:15 Mirtazapine (Remeron) 30 mg QHS PO 11/27/19 21:00 11/28/19 13:41 DC 11/28/19 00:50 Paliperidone (Invega) 6 mg QHS PO 11/27/19 21:00 11/28/19 13:39 DC 11/28/19 00:51 Trazodone HCl (Desyrel) 50 mg QHSP PRN PO INSOMNIA 11/27/19 21:15 Cancel Zolpidem Tartrate (Ambien) 5 mg QHS PO 11/28/19 21:00 11/29/19 20:39 Allergies Coded Allergies: divalproex sodium (Verified Allergy, Unknown, 07/09/19) benztropine (Verified Adverse Reaction, Intermediate, hallucinations, 07/09/19) Problems (1) Schizo-affective schizophrenia, in remission Status: Chronic Problem Text: continue previous plan from Dr. Sage (2) Adjustment disorder Status: Resolved Response to Treatment: Stable Problem Text: Discussed at length techniques for analyzing his problems (3) Stress due to family tension Status: Acute Response to Treatment: Stable Problem Text: supported living would be ideal Plan / VTE VTE Prophylaxis Ordered?: No Plan Diet: Continue Current Activity: Continue Current Anticipated Discharge: Other Anticipated D/C (referral to TLS) CATALINA GARCIA DO Nov 30, 2019 11:14
[2019-11-30 15:53] VITALS: BP 140/89
[2019-11-30] MEDS: PILL CUTTER 1 EACH XX PRN (20:11)
[2019-11-30] MEDS: zolPIDEM TARTRATE 5 MG TAB PO SCH (20:12)
[2019-12-01 06:00] VITALS: BP 130/83
[2019-12-01] MEDS: BREXPIPRAZOLE 2MG TABLET (REXULTI) PO SCH (08:13)
[2019-12-01] MEDS: PILL CUTTER 1 EACH XX PRN ×2 (08:13→20:24)
[2019-12-01] MEDS: lamoTRIgine 100MG TAB PO SCH ×2 (08:13→20:24)
[2019-12-01] MEDS: ESCITALOPRAM OXALATE 10 MG TAB (LEXAPRO) PO SCH (08:13)
[2019-12-01 16:50] VITALS: BP 140/90
--- NOTE | 2019-12-01 19:19 | MHIPNPDOC ---
[facility] Progress Note Progress Note DATE OF SERVICE: 12/01/19 HISTORY: 44 year old male with h/o paranid Schizophrenia, got recently admitted for suicidal ideation and he had another recent admission when he overdosed on Lamictal, Lexapro and Rmeron, was discharged and came back to the hospital with suicidal thoughts. VITAL SIGNS: See below. NEW TEST RESULTS: See below CURRENT MEDICATIONS: See below. MENTAL STATUS EXAMINATION: Patient is a 44 year old male, who is alert, dressed in hospital clothes, wearing a face mask. Speech: Is normal in tone, volume, a little bit slow. Language skills are good Thought processes including: . Thought content: He denies SI today but yesterday he had suicidal thoughts. He denies homicidal thoughts, he denies paranoid thoughts. Denies anxious thoughts, but reports depressed thoughts. Description of associations: somewhat loose today Description of abnormal or psychotic thoughts: Reports ideas of reference, reports some paranoid thoughts and occasional auditory hallucinations Judgment: Improving Insight: Improving Orientation: x 3. Recent and remote memory: fair. Attention span and concentration: fair. Language: adequate. Fund of knowledge: average. Mood: sad. Affect: congruent with mod, sad. DIAGNOSES: 1. Paranoid schizophrenia 2. MDD, recurrent, moderate ASSESSMENT:The patient seems to be responding to medications, he seems to think that Rexulti is working. I will not increase the dose at this time but I will assess tomorrow and if he is still depressed, I will increase it to 3 mgs PO daily MANAGEMENT PLAN: A above TIME SPENT: 20 minutes. Vital Signs Vital Signs Date Time Temp Pulse Resp B/P (MAP) Pulse Ox O2 Delivery O2 Flow Rate FiO2 12/01/19 06:00 98.9 93 14 130/83 (99) 11/30/19 06:13 96 Room Air Current Medications Current Medications Medications (Trade) Dose Ordered Sig/Rizwan Route PRN Reason Start Time Stop Time Status Last Admin Dose Admin Acetaminophen (Tylenol Tab) 650 mg Q6HP PRN PO HEADACHE or DISCOMFORT 11/27/19 21:15 11/28/19 08:09 Al Hydrox/Mg Hydrox/Simethicone (Mylanta) 30 ml Q4HP PRN PO HEARTBURN/INDIGESTION 11/27/19 21:15 Brexpiprazole (Rexulti) 2 mg DAILY PO 11/28/19 09:00 12/01/19 08:13 Escitalopram Oxalate (Lexapro) 20 mg DAILY PO 11/29/19 09:00 12/01/19 08:13 Escitalopram Oxalate (Lexapro) 40 mg DAILY PO 11/28/19 09:00 11/28/19 13:39 DC 11/28/19 08:09 Home Med (Med Rec Complete!) ASDIRECTED XX 11/27/19 21:15 11/27/19 21:07 DC Lamotrigine (LaMICtal) 150 mg BID PO 11/27/19 21:00 12/01/19 08:13 Magnesium Hydroxide (Milk Of Magnesia) 30 ml DAILYPRN PRN PO CONSTIPATION 11/27/19 21:15 Mirtazapine (Remeron) 30 mg QHS PO 11/27/19 21:00 11/28/19 13:41 DC 11/28/19 00:50 Paliperidone (Invega) 6 mg QHS PO 11/27/19 21:00 11/28/19 13:39 DC 11/28/19 00:51 Trazodone HCl (Desyrel) 50 mg QHSP PRN PO INSOMNIA 11/27/19 21:15 Cancel Zolpidem Tartrate (Ambien) 5 mg QHS PO 11/28/19 21:00 11/30/19 20:12 Allergies Coded Allergies: divalproex sodium (Verified Allergy, Unknown, 07/09/19) benztropine (Verified Adverse Reaction, Intermediate, hallucinations, 07/09/19) MULU CHAHAL MD Dec 01, 2019 10:14
[2019-12-01] MEDS: zolPIDEM TARTRATE 5 MG TAB PO SCH (20:23)
[2019-12-02 06:16] VITALS: BP 160/90
[2019-12-02] MEDS: ESCITALOPRAM OXALATE 10 MG TAB (LEXAPRO) PO SCH (08:19)
[2019-12-02] MEDS: BREXPIPRAZOLE 2MG TABLET (REXULTI) PO SCH (08:19)
[2019-12-02] MEDS: lamoTRIgine 100MG TAB PO SCH ×2 (08:19→20:03)
[2019-12-02] MEDS: PILL CUTTER 1 EACH XX PRN ×2 (08:19→20:03)
[2019-12-02 16:26] VITALS: BP 118/88
--- NOTE | 2019-12-02 19:22 | MHIPNPDOC ---
[facility] Progress Note Progress Note DATE OF SERVICE: 12/02/19 HISTORY: 44 year old male with h/o paranid Schizophrenia, got recently admitted for suicidal ideation and he had another recent admission when he overdosed on Lamictal, Lexapro and Remeron, was discharged and came back to the hospital with suicidal thoughts. VITAL SIGNS: See below. NEW TEST RESULTS: See below CURRENT MEDICATIONS: See below. MENTAL STATUS EXAMINATION: Patient is a 44 year old male, who is alert, dressed in hospital clothes, wearing a face mask. Speech: Is normal in tone, volume, still a little slow. Language skills are fair Thought processes including: . Thought content: He denies SI/HI. He denies paranoid thoughts. Reports anxious thoughts, depressed thoughts Description of associations: fair Description of abnormal or psychotic thoughts: Reports ideas of reference, worrisome thoughts about going back home and "doing something stupid" ( killing himself) Judgment: Improving Insight: Improving Orientation: x 3. Recent and remote memory: fair. Attention span and concentration: fair. Language: adequate. Fund of knowledge: average. Mood: anxious. Affect: congruent with mood DIAGNOSES: 1. Paranoid schizophrenia 2. MDD, recurrent, moderate ASSESSMENT: He reports anxiety about going back home and doing "something stupid". He says he feels Rexulti is working but I decided to increase the dose to 3 mgs PO daily. Tonight he will get an additional dose of 1 mg and as of tomorrow, he will start taking 3 mgs PO daily. He is lonely and has no support in this area. He says he talks to her daughter, who lives in this area, only once a week. MANAGEMENT PLAN: A above TIME SPENT: 30 minutes. Vital Signs Vital Signs Date Time Temp Pulse Resp B/P (MAP) Pulse Ox O2 Delivery O2 Flow Rate FiO2 12/02/19 16:26 97.9 92 17 118/88 (98) 12/02/19 06:16 Room Air 11/30/19 06:13 96 Current Medications Current Medications Medications (Trade) Dose Ordered Sig/Rizwan Route PRN Reason Start Time Stop Time Status Last Admin Dose Admin Acetaminophen (Tylenol Tab) 650 mg Q6HP PRN PO HEADACHE or DISCOMFORT 11/27/19 21:15 11/28/19 08:09 Al Hydrox/Mg Hydrox/Simethicone (Mylanta) 30 ml Q4HP PRN PO HEARTBURN/INDIGESTION 11/27/19 21:15 Brexpiprazole (Rexulti) 2 mg DAILY PO 11/28/19 09:00 12/02/19 19:11 DC 12/02/19 08:19 Brexpiprazole (Rexulti) 3 mg DAILY PO 12/03/19 09:00 UNV Escitalopram Oxalate (Lexapro) 20 mg DAILY PO 11/29/19 09:00 12/02/19 08:19 Escitalopram Oxalate (Lexapro) 40 mg DAILY PO 11/28/19 09:00 11/28/19 13:39 DC 11/28/19 08:09 Home Med (Med Rec Complete!) ASDIRECTED XX 11/27/19 21:15 11/27/19 21:07 DC Lamotrigine (LaMICtal) 150 mg BID PO 11/27/19 21:00 12/02/19 08:19 Magnesium Hydroxide (Milk Of Magnesia) 30 ml DAILYPRN PRN PO CONSTIPATION 11/27/19 21:15 Mirtazapine (Remeron) 30 mg QHS PO 11/27/19 21:00 11/28/19 13:41 DC 11/28/19 00:50 Paliperidone (Invega) 6 mg QHS PO 11/27/19 21:00 11/28/19 13:39 DC 11/28/19 00:51 Trazodone HCl (Desyrel) 50 mg QHSP PRN PO INSOMNIA 11/27/19 21:15 Cancel Zolpidem Tartrate (Ambien) 5 mg QHS PO 11/28/19 21:00 12/01/19 20:23 Allergies Coded Allergies: divalproex sodium (Verified Allergy, Unknown, 07/09/19) benztropine (Verified Adverse Reaction, Intermediate, hallucinations, 07/09/19) MULU CHAHAL MD Dec 02, 2019 19:22
[2019-12-02] MEDS: zolPIDEM TARTRATE 5 MG TAB PO SCH (20:03)
[2019-12-02] MEDS ORDERED: BREXPIPRAZOLE 0.5MG TABLET (REXULTI) PO ONE (21:00)
[2019-12-03 06:20] VITALS: BP 135/59
[2019-12-03] MEDS: BREXPIPRAZOLE 2MG TABLET (REXULTI) PO SCH (08:23)
[2019-12-03] MEDS: PILL CUTTER 1 EACH XX PRN (08:23)
[2019-12-03] MEDS: ESCITALOPRAM OXALATE 10 MG TAB (LEXAPRO) PO SCH (08:23)
[2019-12-03] MEDS: lamoTRIgine 100MG TAB PO SCH ×2 (08:23→20:28)
[2019-12-03 16:11] VITALS: BP 140/92
--- NOTE | 2019-12-03 18:38 | MHIPNPDOC ---
[facility] Progress Note Progress Note DATE OF SERVICE: 12/03/19 HISTORY: 44 year old male with h/o paranid Schizophrenia, got recently admitted for suicidal ideation and he had another recent admission when he overdosed on Lamictal, Lexapro and Remeron, was discharged and came back to the hospital with suicidal thoughts. VITAL SIGNS: See below. NEW TEST RESULTS: See below CURRENT MEDICATIONS: See below. MENTAL STATUS EXAMINATION: Patient is a 44 year old male, who is alert, dressed in hospital clothes, wearing a face mask. Speech: Is normal in tone, volume, still a little slow. Language skills are fair Thought processes including: linear and coherent Thought content: He denies SI/HI. He denies paranoid thoughts. Denies anxious/depressed thoughts Description of associations: fair Description of abnormal or psychotic thoughts: Reports ideas of reference, denies TAV hallucinations Judgment: Improving Insight: Improving Orientation: x 3. Recent and remote memory: fair. Attention span and concentration: fair. Language: adequate. Fund of knowledge: average. Mood: euthymic. Affect: congruent with mood DIAGNOSES: 1. Paranoid schizophrenia 2. MDD, recurrent, moderate ASSESSMENT: He is doing well with Rexultii, he is having a good response, he says he has more energy, he doesn't have medication side effects. He says he sleeps well, his appetite is good. Will zoom with him tomorrow. in the morning to assess for a possible discharge. MANAGEMENT PLAN: A above TIME SPENT: 30 minutes. Vital Signs Vital Signs Date Time Temp Pulse Resp B/P (MAP) Pulse Ox O2 Delivery O2 Flow Rate FiO2 12/03/19 16:11 97.5 86 16 140/92 (108) 12/03/19 06:20 Room Air 11/30/19 06:13 96 Current Medications Current Medications Medications (Trade) Dose Ordered Sig/Rizwan Route PRN Reason Start Time Stop Time Status Last Admin Dose Admin Acetaminophen (Tylenol Tab) 650 mg Q6HP PRN PO HEADACHE or DISCOMFORT 11/27/19 21:15 11/28/19 08:09 Al Hydrox/Mg Hydrox/Simethicone (Mylanta) 30 ml Q4HP PRN PO HEARTBURN/INDIGESTION 11/27/19 21:15 Brexpiprazole (Rexulti) 2 mg DAILY PO 11/28/19 09:00 12/02/19 19:11 DC 12/02/19 08:19 Brexpiprazole (Rexulti) 3 mg DAILY PO 12/03/19 09:00 12/03/19 08:23 Escitalopram Oxalate (Lexapro) 20 mg DAILY PO 11/29/19 09:00 12/03/19 08:23 Escitalopram Oxalate (Lexapro) 40 mg DAILY PO 11/28/19 09:00 11/28/19 13:39 DC 11/28/19 08:09 Home Med (Med Rec Complete!) ASDIRECTED XX 11/27/19 21:15 11/27/19 21:07 DC Lamotrigine (LaMICtal) 150 mg BID PO 11/27/19 21:00 12/03/19 08:23 Magnesium Hydroxide (Milk Of Magnesia) 30 ml DAILYPRN PRN PO CONSTIPATION 11/27/19 21:15 Mirtazapine (Remeron) 30 mg QHS PO 11/27/19 21:00 11/28/19 13:41 DC 11/28/19 00:50 Paliperidone (Invega) 6 mg QHS PO 11/27/19 21:00 11/28/19 13:39 DC 11/28/19 00:51 Trazodone HCl (Desyrel) 50 mg QHSP PRN PO INSOMNIA 11/27/19 21:15 Cancel Zolpidem Tartrate (Ambien) 5 mg QHS PO 11/28/19 21:00 12/02/19 20:03 Allergies Coded Allergies: divalproex sodium (Verified Allergy, Unknown, 07/09/19) benztropine (Verified Adverse Reaction, Intermediate, hallucinations, 07/09/19) MULU CHAHAL MD Dec 03, 2019 18:38
[2019-12-03] MEDS: zolPIDEM TARTRATE 5 MG TAB PO SCH (20:27)
[2019-12-04 06:34] VITALS: BP 125/77
[2019-12-04] MEDS: BREXPIPRAZOLE 2MG TABLET (REXULTI) PO SCH (08:02)
[2019-12-04] MEDS: ESCITALOPRAM OXALATE 10 MG TAB (LEXAPRO) PO SCH (08:02)
[2019-12-04] MEDS: lamoTRIgine 100MG TAB PO SCH (08:02)
[2019-12-04] MEDS ORDERED: ESCI10TA2 PO (11:32)
[2019-12-04] MEDS ORDERED: AMBI5TAB PO (11:32)
[2019-12-04] MEDS ORDERED: REXU1TAB5 PO (11:32)
--- NOTE | 2019-12-04 18:17 | MHDSPDOC ---
[facility] Discharge Summary Discharge Summary DATE OF ADMISSION: Nov 27, 2019 at 21:02 DATE OF DISCHARGE: Dec 04, 2019 at 13:51 DISCHARGE DIAGNOSES: 1. Paranoid schizophrenia 2. MDD, recurrent, moderate REASON FOR ADMISSION: As per ED report: "Pt is calm/cooperative, admits to calling 911 himself earlier due to feeling depressed/suicidal. Pt with recent admission to [facility] (11/15-11/17) for depression/suicide attempt, admitted to taking mixed medications at that time. Pt reports "I'm feeling like that now" admits to SI, adds that he had plan to take "all my medications" earlier but called instead. Pt denies ingesting any medications today, denies any substance abuse, reports he has been compliant with medications since d/c from [facility]. Pt reports "a lot of problems, a lot of things with my family", pt is fairly vague about stressors, also c/o isolating at home due to COVID as well. Pt continues to voice SI with plan, denies HI/VH, reports vague AH, voices telling pt that he "should have done a better job than last time", referring to overdose." CONSULTANTS INVOLVED: None TREATMENT AND PROGRESS ON THE UNIT : The patient has expressed fear of going back and feeling lonely again and it is true that he has very limited support in this area. This contract technical writer requested his Fire Prevention Captain to look for alternatives because patient doesn't have Medicaid and this limits his options. I decreased his Lexapro to 20 mgs Po daily, I started him on Rexulti. Initially he took 2 mgs and he had a good response w/o side effects and for that reason I increased the dose to 3 mgs. He continued taking Lamictal 150 mgs PO BID and discontinued Remeron. Instead, I started treatment with Ambien 5 mgs PO QHS. He reported improved energy levels, improved sleep. He has denied suicidal ideation/homicidl ideation. He says he is not delusional. Denies TAV hallucinations, he is not responding to internal stimuli and he is future orientated. HOSPITAL COURSE: As above DISCHARGE ASSESSMENT: The patient was alert, oriented x3, cooperative, future orientated, he said he was looking forward towards the weekend because his friend is coming to spend the weekend with him and is going to stay at his apartment until Sunday when he will be going back home. He is interested in treatment. He denied SI/HI or psychosis. He was not in danger to self or others at the time of his discharge, he had no suicidal ideation, plans or intents. MENTAL STATUS EXAMINATION ON DISCHARGE: Patient is a 44 year old male, who is alert, dressed in hospital clothes, cooperative Speech: Is normal in tone, volume, less slow, spontaneous and fluent Language skills are fair Thought processes including: linear and coherent Thought content: He denies SI/HI. He denies paranoid thoughts. Denies anxious/depressed thoughts Description of associations: fair Description of abnormal or psychotic thoughts: Denies thought delusions, denies TAV hallucinations, he is not respponding to internal stimuli Judgment: Improving Insight: Improving Orientation: x 3. Recent and remote memory: fair. Attention span and concentration: fair. Language: adequate. Fund of knowledge: average. Mood: euthymic. Affect: congruent with mood MEDICATIONS ON DISCHARGE: Scheduled Brexpiprazole (Rexulti) 3 Mg Tablet, 1 TAB PO DAILY for depression for 30 Days, #30 Escitalopram Oxalate (Escitalopram Oxalate) 10 Mg Tablet, 20 MG PO DAILY for depression, #14 Lamotrigine (Lamictal) 150 Mg Tablet, 150 MG PO BID, (Reported) Paliperidone Palmitate (Invega Sustenna) 234 Mg/1.5 Ml Syringe, 234 MG IM QMONTH, (Reported) Zolpidem Tartrate (Ambien) 5 Mg Tablet, 5 MG PO QHS for insomnia, #7 PLAN/FOLLOWUP ARRANGEMENTS: Follow Up Care Education Label * Medical * Medical Follow Up [facility] * Established With This Provider Yes * Therapist DR. DING * Date Dec 12, 2019 * Time 09:00 * Address of Clinic or Practice [address] [place] [address] * Follow Up Care Education Label * Mental Health Appt 1 * Mental Health [facility] * Established With This Provider Yes * Therapist ARCHIE * Date Dec 10, 2019 * Time 10:00 * Address of Clinic or Practice [address] [place] [address] * The amount of time spent in the coordination of care for this patient was approximately 30 minutes. Vital Signs/I&Os Vital Signs Date Time Temp Pulse Resp B/P (MAP) Pulse Ox O2 Delivery O2 Flow Rate FiO2 12/04/19 06:34 97.0 83 16 125/77 (93) 99 Room Air Medications Scheduled Brexpiprazole (Rexulti) 3 Mg Tablet, 1 TAB PO DAILY for depression for 30 Days, #30 Escitalopram Oxalate (Escitalopram Oxalate) 10 Mg Tablet, 20 MG PO DAILY for depression, #14 Lamotrigine (Lamictal) 150 Mg Tablet, 150 MG PO BID, (Reported) Paliperidone Palmitate (Invega Sustenna) 234 Mg/1.5 Ml Syringe, 234 MG IM QMONTH, (Reported) Zolpidem Tartrate (Ambien) 5 Mg Tablet, 5 MG PO QHS for insomnia, #7 Allergies Coded Allergies: divalproex sodium (Verified Allergy, Unknown, 07/09/19) benztropine (Verified Adverse Reaction, Intermediate, hallucinations, 07/09/19) MULU CHAHAL MD Dec 04, 2019 18:11
== END 2019-12-04 13:51 | disposition home or self-care (01) | DRG 885 ==
LOC: M ED 18:45 → M ED INP 21:02 → M PSY 21:58
PROVIDERS: ADMIT Psychiatry & Neurology Psychiatry; ATTEND Psychiatry & Neurology Addiction Medicine
DX: F20.0 Paranoid schizophrenia (principal); F33.1 Major depressive disorder, recurrent, moderate; R45.851 Suicidal ideations; Z79.899 Other long term (current) drug therapy; Z88.8 Allergy status to other drugs, medicaments and biological substances

== ENCOUNTER 2019-12-08 17:15 | Emergency (ER) | payer MEDICARE ==
[~2019-12-08] VITALS: Ht 172.7 cm; Wt 129.3 kg
[~2019-12-08 17:15] MED LIST changes: +AMBI5TAB PO; +REXU1TAB5 PO
[2019-12-08] MEDS ORDERED: KETOROLAC 60MG 2ML VIAL IM ONE (17:45)
[2019-12-08] MEDS ORDERED: LIDOCAINE 5% (LIDODERM) PATCH TD ONE (17:45)
[2019-12-08] MEDS ORDERED: LIDO5DIS41 TOP (18:24)
[2019-12-08 18:31] VITALS: BP 133/82
[2019-12-08] MEDS ORDERED: **NOTE PATIENT COMMENT** MISC XX SCH (21:00)
[2019-12-09] MEDS ORDERED: **NOTE PATIENT COMMENT** MISC XX ONE (06:00)
== END 2019-12-08 18:39 | disposition home or self-care (01) ==
LOC: M ED 17:15
DX: M54.5 Low back pain (principal); K21.9 Gastro-esophageal reflux disease without esophagitis; Z90.49 Acquired absence of other specified parts of digestive tract; Z79.899 Other long term (current) drug therapy; F32.9 Major depressive disorder, single episode, unspecified; F41.9 Anxiety disorder, unspecified; F43.10 Post-traumatic stress disorder, unspecified; F20.0 Paranoid schizophrenia; Z88.8 Allergy status to other drugs, medicaments and biological substances
CPT/HCPCS: 99283; J1885

== ENCOUNTER 2019-12-11 20:40 | Emergency (ER) | payer MEDICARE ==
[~2019-12-11] VITALS: Ht 172.7 cm; Wt 126.2 kg
[~2019-12-11 20:40] MED LIST changes: +LIDO5DIS41 TOP
[2019-12-11] MEDS ORDERED: ACETAMINOPHEN 325 MG TAB PO ONE (22:30)
[2019-12-11 23:02] LABS: BASO # 0.1 10^3/uL (0.0-0.2); BASO % 0.8 % (0.0-1.0); EOS # 0.2 10^3/uL (0.0-0.5); EOS % 1.8 % (0.0-3.0); HEMATOCRIT 43.2 % (42.0-52.0); LYMPH # 2.1 10^3/uL (1.5-5.0); LYMPH % 22.1 % (24.0-44.0); MEAN CORPUSCULAR HEMOGLOBIN 29.2 pg (27.0-33.0); MEAN CORPUSCULAR HGB CONC 32.4 g/dl (32.0-36.5); MONO # 0.7 10^3/uL (0.0-0.8); MONO % 7.1 % (0.0-5.0); NEUTROPHILS # 6.5 10^3/uL (1.5-8.5); NEUTROPHILS % 67.5 % (36.0-66.0); PLATELET COUNT, AUTOMATED 295 10^3/uL (150-450); WHITE BLOOD COUNT 9.6 10^3/uL (4.0-10.0)
[2019-12-11] MEDS ORDERED: ISOVUE-370 76% 100ML VIAL As Ordered ONE (23:28)
[2019-12-11 23:34] LABS: ALT/SGPT 28 U/L (12-78); BILIRUBIN,DIRECT 0.1 MG/DL (0.0-0.2); BILIRUBIN,TOTAL 0.4 MG/DL (0.2-1.0); BLOOD UREA NITROGEN 18 MG/DL (7-18); CALCIUM LEVEL 9.5 MG/DL (8.5-10.1); CARBON DIOXIDE LEVEL 31 MEQ/L (21-32); CHLORIDE LEVEL 103 MEQ/L (98-107); CK-MB VALUE MASS < 1.0 NG/ML (<3.6); CPK CREATINE PHOSPHOKINASE 106 U/L (39-308); CREATININE FOR GFR 1.01 MG/DL (0.70-1.30); GLOMERULAR FILTRATION RATE > 60.0 (>60); GLUCOSE, FASTING 92 MG/DL (70-100); LIPASE 63 U/L (73-393); MB/CK RELATIVE INDEX 0.94 (< OR =4); NT-PRO BNP 16 PG/ML (<125); POTASSIUM SERUM 3.9 MEQ/L (3.5-5.1); SODIUM LEVEL 138 MEQ/L (136-145); TOTAL PROTEIN 7.9 GM/DL (6.4-8.2); TROPONIN I < 0.02 NG/ML (< 0.10)
--- NOTE | 2019-12-12 00:03 | REPVR ---
PROCEDURE INFORMATION: Exam: CT Angiography Chest With Contrast Exam date and time: 12/11/2019 10:29 PM Age: 44 years old Clinical indication: Shortness of breath; Additional info: Chest tightness, SOB TECHNIQUE: Imaging protocol: Computed tomographic angiography of the chest with intravenous contrast. 3D rendering: MIP and/or 3D reconstructed images were created by the technologist. Radiation optimization: All CT scans at this facility use at least one of these dose optimization techniques: automated exposure control; mA and/or kV adjustment per patient size (includes targeted exams where dose is matched to clinical indication); or iterative reconstruction. Contrast material: ISO; Contrast volume: 75 ml; Contrast route: INTRAVENOUS (IV); COMPARISON: CT ANGIO CHEST 2019-07-07 17:50 FINDINGS: Limitations: Motion artifact does moderately limit the sensitivity of this examination. Limited by patient's body habitus. Pulmonary arteries: Suboptimal pulmonary artery contrast concentration for pulmonary emboli evaluation. No main or segmental central pulmonary emboli. Nondiagnostic for more peripheral pulmonary branches. Aorta: Unremarkable. No aortic aneurysm. No aortic dissection. Lungs: See "Pleural space" finding. Pleural space: Small bilateral pleural effusions with associated atelectasis. Heart: Unremarkable. No cardiomegaly. No pericardial effusion. Mediastinal space: Mild gastro-esophageal thickening. Question distal esophagitis. Lymph nodes: Unremarkable. No enlarged lymph nodes. Liver: Enlarged low attenuating liver, evidence of hepatic steatosis. Bones/joints: Unremarkable. No acute fracture. Soft tissues: Unremarkable. IMPRESSION: 1. Mild gastro-esophageal thickening. Question distal esophagitis. 2. Suboptimal pulmonary artery contrast concentration for pulmonary emboli evaluation. No main or segmental central pulmonary emboli. Nondiagnostic for more peripheral pulmonary branches. Electronically signed by: John Gifford On 12/12/2019 00:03:27 AM
[2019-12-12] MEDS ORDERED: GI COCKTAIL 50ML BTL(HYOSCYAMINE/MAALOX/LIDOCAINE VISCOUS)(1:3:1) PO ONE (00:15)
[2019-12-12 01:29] LABS: CK-MB VALUE MASS 1.3 NG/ML (<3.6); CPK CREATINE PHOSPHOKINASE 91 U/L (39-308); MB/CK RELATIVE INDEX 1.43 (< OR =4); TROPONIN I < 0.02 NG/ML (< 0.10)
[2019-12-12 01:30] VITALS: BP 121/78
--- NOTE | 2019-12-12 07:30 | ECGEPIP ---
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
--- NOTE | 2019-12-12 08:08 | REP ---
Chest x-ray: Two views. History: Dyspnea and cough. Comparison chest x-ray: November 15, 2019. 12/13/2019 prior study is also reviewed. Findings: A left-sided ventriculoperitoneal shunt catheter is again seen in place with associated avinash catheter mineralization and calcification. The catheters interrupted in the supraclavicular and neck soft tissues as before. The lungs are symmetrically aerated and clear. The pleural angles are sharp. Heart size is normal. Pulmonary vasculature is not increased. No acute bony abnormality is seen. Impression: No active cardiopulmonary disease. Discontinuous ventriculoperitoneal shunt catheter again noted. Electronically Signed by Nikhil De Luna MD 12/12/2019 07:59 A
--- NOTE | 2019-12-15 08:18 | ED PDOC ---
Post-Departure Follow-Up rima holman faxed formal report of cxr for fu Rosalio Rich MD Dec 15, 2019 08:18
== END 2019-12-12 01:48 | disposition home or self-care (01) ==
LOC: M ED 20:40
DX: K21.0 Gastro-esophageal reflux disease with esophagitis (principal); R07.9 Chest pain, unspecified; R06.02 Shortness of breath; Z79.899 Other long term (current) drug therapy; Z88.8 Allergy status to other drugs, medicaments and biological substances; Z98.2 Presence of cerebrospinal fluid drainage device
CPT/HCPCS: 36415; 71046; 71275; 80047; 80048; 80076; 82550; 82553; 83690; 83880; 84484; 85025; 93005; 93041; 94760; 99285; Q9967

== ENCOUNTER 2019-12-13 20:49 | Emergency (ER) | payer MEDICAID, MEDICARE ==
[~2019-12-13] VITALS: Ht 172.7 cm; Wt 125.0 kg
[2019-12-13 21:38] LABS: HEMATOCRIT 43.5 % (42.0-52.0); HEMOGLOBIN 14.1 g/dl (13.5-17.5); MEAN CORPUSCULAR HEMOGLOBIN 29.2 pg (27.0-33.0); MEAN CORPUSCULAR HGB CONC 32.4 g/dl (32.0-36.5); MEAN CORPUSCULAR VOLUME 90.1 fl (80.0-96.0); PLATELET COUNT, AUTOMATED 310 10^3/uL (150-450); RED BLOOD COUNT 4.83 10^6/uL (4.30-6.10); WHITE BLOOD COUNT 9.3 10^3/uL (4.0-10.0)
[2019-12-13 22:12] LABS: AMPHETAMINES LEVEL URINE NEGATIVE (NEGATIVE); BARBITURATES URINE NEGATIVE (NEGATIVE); BENZODIAZEPINES URINE NEGATIVE (NEGATIVE); CANNABINOIDS URINE NEGATIVE (NEGATIVE); COCAINE METABOLITE URINE NEGATIVE (NEGATIVE); METHADONE URINE NEGATIVE (NEGATIVE); OPIATES URINE NEGATIVE (NEGATIVE); PHENCYCLIDINE URINE NEGATIVE (NEGATIVE)
[2019-12-13 22:27] LABS: ALT/SGPT 25 U/L (12-78); BILIRUBIN,DIRECT < 0.1 MG/DL (0.0-0.2); BILIRUBIN,TOTAL 0.3 MG/DL (0.2-1.0); BLOOD UREA NITROGEN 23 MG/DL (7-18); CALCIUM LEVEL 9.2 MG/DL (8.5-10.1); CARBON DIOXIDE LEVEL 27 MEQ/L (21-32); CHLORIDE LEVEL 104 MEQ/L (98-107); ETHYL ALCOHOL (ETHANOL) < 0.003 % (0.000-0.010); GLOMERULAR FILTRATION RATE > 60.0 (>60); GLUCOSE, FASTING 136 MG/DL (70-100); POTASSIUM SERUM 3.9 MEQ/L (3.5-5.1); SALICYLATE LEVEL < 1.7 MG/DL (5.0-30.0); SODIUM LEVEL 137 MEQ/L (136-145); TOTAL PROTEIN 7.8 GM/DL (6.4-8.2)
[2019-12-13 22:28] LABS: ACETAMINOPHEN LEVEL < 2.0 UG/ML (10.0-30.0)
[2019-12-14] MEDS ORDERED: ESCITALOPRAM OXALATE 10 MG TAB (LEXAPRO) PO ONE (08:00)
[2019-12-14] MEDS ORDERED: lamoTRIgine 100MG TAB PO ONE (08:00)
[2019-12-14] MEDS ORDERED: PILL CUTTER 1 EACH XX ONE (08:54)
[2019-12-14] MEDS ORDERED: BREXPIPRAZOLE 2MG TABLET (REXULTI) PO ONE (09:00)
[2019-12-14 19:29] VITALS: BP 151/83
--- NOTE | 2019-12-15 15:27 | ECGEPIP ---
[facility] - ED Test Date: 2019-12-14 Pat Name: ROSALIO MOLINA Department: Room: - Gender: Male Protection Analyst: : 1975 Requested By: JIGAR Mott Order Number: [id number] Reading MD: John Snell Measurements Intervals [place] Rate: 85 P: 50 MT: 181 QRS: 67 QRSD: 90 T: 46 QT: 372 QTc: 445 Interpretive Statements SINUS RHYTHM NONSPECIFIC T-WAVE ABNORMALITY Similar to tracing done 07-09-19 Electronically Signed on 12-15-2019 15:26:50 EDT by John Snell
== END 2019-12-14 19:31 ==
LOC: M ED 20:49
DX: R45.851 Suicidal ideations (principal); F32.9 Major depressive disorder, single episode, unspecified; Z60.9 Problem related to social environment, unspecified; Z79.899 Other long term (current) drug therapy; Z88.8 Allergy status to other drugs, medicaments and biological substances
CPT/HCPCS: 36415; 80048; 80076; 80175; 80307; 84443; 85027; 93005; 99285; G0480

== ENCOUNTER 2020-05-03 17:58 | Inpatient (IN) | payer MEDICARE ==
[~2020-05-03] VITALS: Ht 170.2 cm; Wt 126.1 kg
[2020-05-03] MEDS ORDERED: ARIP1TAB PO (18:10)
[2020-05-03] MEDS ORDERED: LEXA1TAB2 PO (18:10)
[2020-05-03] MEDS ORDERED: REME15TA PO (18:10)
[2020-05-03 19:39] LABS: HEMOGLOBIN 14.3 g/dl (13.5-17.5); MEAN CORPUSCULAR HEMOGLOBIN 28.8 pg (27.0-33.0); MEAN CORPUSCULAR HGB CONC 31.8 g/dl (32.0-36.5); MEAN CORPUSCULAR VOLUME 90.7 fl (80.0-96.0); PLATELET COUNT, AUTOMATED 311 10^3/uL (150-450); RED BLOOD COUNT 4.96 10^6/uL (4.30-6.10); WHITE BLOOD COUNT 8.3 10^3/uL (4.0-10.0)
[2020-05-03 20:08] LABS: AMPHETAMINES LEVEL URINE NEGATIVE (NEGATIVE); BARBITURATES URINE NEGATIVE (NEGATIVE); BENZODIAZEPINES URINE NEGATIVE (NEGATIVE); CANNABINOIDS URINE NEGATIVE (NEGATIVE); COCAINE METABOLITE URINE NEGATIVE (NEGATIVE); METHADONE URINE NEGATIVE (NEGATIVE); OPIATES URINE NEGATIVE (NEGATIVE); PHENCYCLIDINE URINE NEGATIVE (NEGATIVE)
[2020-05-03 20:26] LABS: ACETAMINOPHEN LEVEL < 2.0 UG/ML (10.0-30.0); ALBUMIN 4.1 GM/DL (3.2-5.2); ALT/SGPT 26 U/L (12-78); BILIRUBIN,DIRECT 0.1 MG/DL (0.0-0.2); BILIRUBIN,TOTAL 0.3 MG/DL (0.2-1.0); BLOOD UREA NITROGEN 12 MG/DL (7-18); CALCIUM LEVEL 9.6 MG/DL (8.5-10.1); CARBON DIOXIDE LEVEL 32 MEQ/L (21-32); CHLORIDE LEVEL 103 MEQ/L (98-107); CREATININE FOR GFR 1.14 MG/DL (0.70-1.30); ETHYL ALCOHOL (ETHANOL) < 0.003 % (0.000-0.010); GLOMERULAR FILTRATION RATE > 60.0 (>60); GLUCOSE, FASTING 115 MG/DL (70-100); POTASSIUM SERUM 3.6 MEQ/L (3.5-5.1); SALICYLATE LEVEL < 1.7 MG/DL (5.0-30.0); SODIUM LEVEL 140 MEQ/L (136-145); TOTAL PROTEIN 7.6 GM/DL (6.4-8.2)
[2020-05-03] MEDS ORDERED: ZOLP5TAB PO (20:30)
[2020-05-03] MEDS ORDERED: ACETAMINOPHEN TAB 650MG DOSE (2X325MG) PO PRN (21:30)
[2020-05-03] MEDS ORDERED: MOM 30ML SUSPENSION UDC PO PRN (21:30)
[2020-05-03] MEDS ORDERED: MAALOX 30 ML SUSP *UDC PO PRN (21:30)
[2020-05-04 00:08] VITALS: BP 135/92
[2020-05-04 06:39] VITALS: BP 127/81
[2020-05-04] MEDS: lamoTRIgine 100MG TAB PO SCH ×2 (08:17→21:53)
[2020-05-04] MEDS: PILL CUTTER 1 EACH XX PRN (08:17)
[2020-05-04] MEDS: ESCITALOPRAM OXALATE 10 MG TAB (LEXAPRO) PO SCH (08:18)
[2020-05-04] MEDS ORDERED: ARIPiprazole 10 MG TAB PO SCH (09:00)
--- NOTE | 2020-05-04 10:41 | MHHPEPDOC ---
[facility] History & Physical History and Physical DATE OF ADMISSION: May 03, 2020 at 21:21 HPI: The patient was admitted to the inpatient mental health unit after reportedly having depression and suicidal thoughts. Patient reported that he had not been able to see his daughters and as the holidays came up, he became more depressed and suicidal. He reported becoming more despondent with auditory hallucinations bringing him to the inpatient mental health unit. He reports having auditory hallucinations that are mood congruent and primarily occur during depression and consist of negative voices talking to him. He doesn't screen positive for significant manic episodes. Continues to be generally negative. MEDICATIONS: On a combination of Invega, Abilify, and Mirtazapine. MEDICAL HISTORY: Past medical history includes diagnosis of schizoaffective disorder by Dr. Sage at outpatient [facility]. Has a history of suicide attempts in the past. Patient has significant past admissions last being several months ago. FAMILY HISTORY: Family history no changes from previous admission. SOCIAL HISTORY - LIVING SITUATION: Still lives alone with poor social supports. He's unemployed. He's currently disabled. SOCIAL HISTORY - SUBSTANCE USE: No changes in substance abuse. Continues to deny and toxicology. Objective Thought Form: Linear and goal directed. Thought Content: No evidence of suicidal ideation. No evidence of delusions. No evidence of aggressive or homicidal ideation. No thoughts of self harm. Judgement: Fair to poor. Insight: Fair to poor. Assessment F32.3 Major depressive disorder, single episode, severe with psychotic features Plan Increase Abilify to 15 mg. He's on a combination of multiple different medications. Could be adjustment versus severe depression with psychotic features versus pers onality. Will treat judiciously. Treatment priorities are altered thoughts and risks for suicide. Estimated length of stay is 2-5 days. Vital Signs Vital Signs Date Time Temp Pulse Resp B/P (MAP) Pulse Ox O2 Delivery O2 Flow Rate FiO2 05/04/20 06:39 98.4 104 18 127/81 (96) 05/04/20 00:08 94 Room Air Laboratory Data 24H Labs Laboratory Tests 2 05/03/20 19:22: Nucleated Red Blood Cells % (auto) 0.0, Anion Gap 5L, Glomerular Filtration Rate > 60.0, Calcium Level 9.6, Total Bilirubin 0.3, Direct Bilirubin 0.1, Aspartate Amino Transf (AST/SGOT) 9, Alanine Aminotransferase (ALT/SGPT) 26, Alkaline Phosphatase 96, Total Protein 7.6, Albumin 4.1, Albumin/Globulin Ratio 1.2, Thyr oid Stimulating Hormone (TSH) 4.420H, Salicylates Level < 1.7L, Urine Opiates Screen NEGATIVE, Urine Methadone Screen NEGATIVE, Acetaminophen Level < 2.0L, Urine Barbiturates Screen NEGATIVE, Urine Phencyclidine Screen NEGATIVE, Urine Amphetamines Screen NEGATIVE, Urine Benzodiazepines Screen NEGATIVE, Urine Cocaine Metabolite Screen NEGATIVE, Urine Cannabinoids Screen NEGATIVE, Ethyl Alcohol Level < 0.003, Coronavirus (COVID-19)(PCR) NEGATIVE CBC/BMP Laboratory Tests 05/03/20 19:22 Medications Scheduled Aripiprazole (Aripiprazole) 10 Mg Tablet, 10 MG PO DAILY, (Reported) Escitalopram Oxalate (Lexapro) 20 Mg Tablet, 20 MG PO DAILY, (Reported) Lamotrigine (Lamictal) 150 Mg Tablet, 150 MG PO BID, (Reported) Mirtazapine (Remeron) 15 Mg Tablet, 15 MG PO QHS, (Reported) Paliperidone Palmitate (Invega Sustenna) 234 Mg/1.5 Ml Syringe, 234 MG IM QMONTH, (Reported) HAD APPT SCHEDULED FOR 05/06 Zolpidem Tartrate (Zolpidem Tartrate) 5 Mg Tablet, 5 MG PO QHS, (Reported) Allergies Coded Allergies: divalproex sodium (Verified Allergy, Unknown, 07/09/19) benztropine (Verified Adverse Reaction, Intermediate, hallucinations, 07/09/19) CATALINA GARCIA DO May 04, 2020 10:41
[2020-05-04 16:29] VITALS: BP 114/82
--- NOTE | 2020-05-04 18:10 | HPEPDOC ---
[facility] Medical History & Physical Date of Admission May 04, 2020 Date of Service: May 04, 2020 Attending Physician: MUNA NELSON MD History and Physical CHIEF COMPLAINT: Auditory and visual hallucinations, suicidal ideation HISTORY OF PRESENT ILLNESS: 59 male with a history of depression, bipolar disorder, anxiety, schizophrenia, hydrocephalus status post ROUTE PROCESS ADMINISTRATOR shunt at , presented to behavioral health after experiencing suicidal ideation as well as auditory and visual hallucination. Hospitalist service consulted from medical comanagement. Patient states that he feels well, has no physical complaints. He denies headache, nausea, vomiting, chest pain, shortness of breath, palpitatio ns, subjective fevers or chills. PAST MEDICAL HISTORY: Depression Bipolar disorder Anxiety Schizophrenia Hydrocephalus s/p ROUTE PROCESS ADMINISTRATOR shunt PAST SURGICAL HISTORY: Cholecystecomy ROUTE PROCESS ADMINISTRATOR shunt SOCIAL HISTORY: Patient denies smoking Patient denies etoh use Patient denies illicit drug use FAMILY HISTORY: Motherdiabetes ALLERGIES: Please see below. REVIEW OF SYSTEMS: CONSTITUTIONAL: patient denies fevers, chills HEENT: patient denies blurred vision, loss of vision, headache,. CARDIOVASCULAR: patient denies chest pain, palpitations. RESPIRATORY: patient denies shortness of breath, cough, hemoptysis. GASTROINTESTINAL: patient denies abdominal pain, n/v/d, blood in stool. GENITOURINARY: patient denies dysuria, discharge. SKIN: patient denies rashes. MUSCULOSKELETAL: patient denies joint pain, neck pain. NEUROLOGICAL: patient denies focal weakness, numbness, seizures. PSYCHIATRIC: Reports auditory and visual hallucinations, suicidal ideation ENDOCRINE: patient denies polyuria, heat intolerance, cold intolerance. HEMATOLOGIC/LYMPHATIC: patient denies easy bruising. HOME MEDICATIONS: Please see below. PHYSICAL EXAMINATION: VITAL SIGNS: please see below General: NAD, comfortable HEENT: PERRLA, EOMI, sclerae clear Neck: supple, normal ROM, no JVD Respiratory: lungs CTAB, no wheeze, no rales, no crackles CVS: RRR, normal S1, S2, no murmurs Abdo: soft, no masses, no hepatosplenomegaly, BS+, no rebound tenderness Extremities: no edema, pulses 2+ MSK: no joint deformities, normal ROM Neuro: no focal neuro deficits, moving all 4 extremities, CN2-12 intact. Strength 5/5 in all 4 extremities. No nystagmus. Psych: calm, cooperative, AAO x 3 LABORATORY DATA: See below. MICROBIOLOGY: Please see below. PLAN: Suicidal ideation: Per psychiatry, being managed by psychiatry. History of depression, anxiety, bipolar and schizophrenia. History of hydrocephalus as a child: Status post ROUTE PROCESS ADMINISTRATOR shunt. Elevated TSH: 4.4. Check free T4. Outpatient follow-up DVT PPI. Ex: Early ambulation. Vital Signs Vital Signs Date Time Temp Pulse Resp B/P (MAP) Pulse Ox O2 Delivery O2 Flow Rate FiO2 05/04/20 16:29 98.5 95 18 114/82 (93) 05/04/20 00:08 94 Room Air Laboratory Data Labs 24H Laboratory Tests 2 05/03/20 19:22: Nucleated Red Blood Cells % (auto) 0.0, Anion Gap 5L, Glomerular Filtration Rate > 60.0, Calcium Level 9.6, Total Bilirubin 0.3, Direct Bilirubin 0.1, Aspartate Amino Transf (AST/SGOT) 9, Alanine Aminotransferase (ALT/SGPT) 26, Alkaline Phosphatase 96, Total Protein 7.6, Albumin 4.1, Albumin/Globulin Ratio 1.2, Thyroid Stimulating Hormone (TSH) 4.420H, Salicylates Level < 1.7L, Urine Opiates Screen NEGATIVE, Urine Methadone Screen NEGATIVE, Acetaminophen Level < 2.0L, Urine Barbiturates Screen NEGATIVE, Urine Phencyclidine Screen NEGATIVE, Urine Amphetamines Screen NEGATIVE, Urine Benzodiazepines Screen NEGATIVE, Urine Cocaine Metabolite Screen NEGATIVE, Urine Cannabinoids Screen NEGATIVE, Ethyl Alcohol Level < 0.003, Coronavirus (COVID-19)(PCR) NEGATIVE CBC/BMP Laboratory Tests 05/03/20 19:22 Home Medications Scheduled Aripiprazole (Aripiprazole) 10 Mg Tablet, 10 MG PO DAILY Escitalopram Oxalate (Lexapro) 20 Mg Tablet, 20 MG PO DAILY Lamotrigine (Lamictal) 150 Mg Tablet, 150 MG PO BID Mirtazapine (Remeron) 15 Mg Tablet, 15 MG PO QHS Paliperidone Palmitate (Invega Sustenna) 234 Mg/1.5 Ml Syringe, 234 MG IM QMONTH HAD APPT SCHEDULED FOR 05/06 Zolpidem Tartrate (Zolpidem Tartrate) 5 Mg Tablet, 5 MG PO QHS Allergies Coded Allergies: divalproex sodium (Verified Allergy, Unknown, 07/09/19) benztropine (Verified Adverse Reaction, Intermediate, hallucinations, 07/09/19) A-FIB/CHADSVASC A-FIB History Current/History of A-Fib/PAF?: No Current PO Anticoag Therapy: No MUNA NELSON MD May 04, 2020 18:09
[2020-05-04 18:36] LABS: FREE T4 0.82 NG/DL (0.76-1.46)
[2020-05-04] MEDS: zolPIDEM TARTRATE 5 MG TAB PO SCH (21:53)
[2020-05-04] MEDS: MIRTAZAPINE 15 MG TAB PO SCH (21:53)
[2020-05-05 07:17] VITALS: BP 129/95
[2020-05-05] MEDS: ARIPiprazole 15 MG TAB (AbiLIFY) PO SCH (08:16)
[2020-05-05] MEDS: PILL CUTTER 1 EACH XX PRN (08:16)
[2020-05-05] MEDS: ESCITALOPRAM OXALATE 10 MG TAB (LEXAPRO) PO SCH (08:16)
[2020-05-05] MEDS: lamoTRIgine 100MG TAB PO SCH ×2 (08:17→22:13)
--- NOTE | 2020-05-05 10:38 | MHIPNPDOC ---
[facility] Progress Note Progress Note DATE OF SERVICE: 05/05/20 Subjective HPI: Shaan presents today for his psych issues. The patient per nursing staff has been generally doing well without any significant problems and has no Suicidal Thoughts per nursing chart. Objective Appearance: Unable to meet as he was unavailable. Assessment F32.2 Major depressive disorder, single episode, severe without psychotic features Plan The patient has been doing well on the unit. He's more engaged. Was not able to meet with him as he was unavailable during rounding. Plan is to continue current medications Mirtazapine 15 mg, Abilify 15 mg. Will slowly increase or alter medications as he has a long history. Some conceptualization of his diff of his treatment could reveal MDD severe psychotic symptoms or adjustment or related personality. Psychological testing would not be unreasonable in his case. To further understand is he has multiple missions it definitely appears that his social situation is provoking factor but the diagnosis schizo affect it might be leading a treatment to be more heavy on antipsychotics rather than an augmentation of depression treatment. He still likely will continue to need inpatient treatment as he has multiple risk factors. Vital Signs Vital Signs Date Time Temp Pulse Resp B/P (MAP) Pulse Ox O2 Delivery O2 Flow Rate FiO2 05/05/20 07:17 97.5 90 18 129/95 (106) 05/04/20 00:08 94 Room Air Current Medications Current Medications Medications (Trade) Dose Ordered Sig/Rizwan Route PRN Reason Start Time Stop Time Status Last Admin Dose Admin Acetaminophen (Tylenol Tab) 650 mg Q6HP PRN PO HEADACHE or DISCOMFORT 05/03/20 21:30 Al Hydrox/Mg Hydrox/Simethicone (Mylanta) 30 ml Q4HP PRN PO HEARTBURN/INDIGESTION 05/03/20 21:30 Aripiprazole (AbiLIFY) 10 mg DAILY PO 05/04/20 09:00 05/04/20 13:56 DC 05/04/20 08:17 Aripiprazole (AbiLIFY) 15 mg DAILY PO 05/05/20 09:00 05/05/20 08:16 Escitalopram Oxalate (Lexapro) 20 mg DAILY PO 05/04/20 09:00 05/05/20 08:16 Home Med (Med Rec Complete!) ASDIRECTED XX 05/03/20 20:45 05/03/20 20:34 DC Hydroxyzine HCl (Atarax) 25 mg Q4HP PRN PO ANXIETY/AGITATION 05/03/20 23:15 Lamotrigine (LaMICtal) 150 mg BID PO 05/04/20 09:00 05/05/20 08:17 Magnesium Hydroxide (Milk Of Magnesia) 30 ml DAILYPRN PRN PO CONSTIPATION 05/03/20 21:30 Mirtazapine (Remeron) 15 mg QHS PO 05/04/20 21:00 05/04/20 21:53 Zolpidem Tartrate (Ambien) 5 mg QHS PO 05/04/20 21:00 05/04/20 21:53 Allergies Coded Allergies: divalproex sodium (Verified Allergy, Unknown, 07/09/19) benztropine (Verified Adverse Reaction, Intermediate, hallucinations, 07/09/19) CATALINA GARCIA DO May 05, 2020 10:38
[2020-05-05 16:43] VITALS: BP 142/86
[2020-05-05] MEDS: zolPIDEM TARTRATE 5 MG TAB PO SCH (22:12)
[2020-05-05] MEDS: MIRTAZAPINE 15 MG TAB PO SCH (22:13)
[2020-05-06 06:42] VITALS: BP 116/74
[2020-05-06] MEDS: ESCITALOPRAM OXALATE 10 MG TAB (LEXAPRO) PO SCH (08:48)
[2020-05-06] MEDS: lamoTRIgine 100MG TAB PO SCH ×2 (08:48→20:37)
[2020-05-06] MEDS: ARIPiprazole 15 MG TAB (AbiLIFY) PO SCH (08:49)
[2020-05-06] MEDS: hydrOXYzine 25 MG TAB PO PRN ×3 (08:50→20:37)
--- NOTE | 2020-05-06 11:13 | MHIPNPDOC ---
[facility] Progress Note Progress Note DATE OF SERVICE: 05/06/20 Subjective HPI: The patient has met with today who reports his depression is starting to lift and the suicidal thought have improved. He reports otherwise he is doing better and feeling improved. The patient otherwise has no complaints on objective exam. MEDICATIONS: The patient describes that he feels whether its a situation or Abilify that one is producing a good response. Objective Appearance: Hygiene is fair. Behavior: Associations intact. Eye contact better. Thought Form: Linear. Logical. More reactive. Less Dysthymic. Judgement: Improved. Insight: Improved. Assessment F33.3 Major depressive disorder, recurrent, severe with psychotic symptoms Plan Continue current Abilify, Mirtazapine, and other medications without change Adapting quite well, hopefully well be ready for discharge on Sunday. Vital Signs Vital Signs Date Time Temp Pulse Resp B/P (MAP) Pulse Ox O2 Delivery O2 Flow Rate FiO2 05/06/20 06:42 97.8 98 16 116/74 (88) 96 Room Air Current Medications Current Medications Medications (Trade) Dose Ordered Sig/Rizwan Route PRN Reason Start Time Stop Time Status Last Admin Dose Admin Acetaminophen (Tylenol Tab) 650 mg Q6HP PRN PO HEADACHE or DISCOMFORT 05/03/20 21:30 Al Hydrox/Mg Hydrox/Simethicone (Mylanta) 30 ml Q4HP PRN PO HEARTBURN/INDIGESTION 05/03/20 21:30 Aripiprazole (AbiLIFY) 10 mg DAILY PO 05/04/20 09:00 05/04/20 13:56 DC 05/04/20 08:17 Aripiprazole (AbiLIFY) 15 mg DAILY PO 05/05/20 09:00 05/06/20 08:49 Escitalopram Oxalate (Lexapro) 20 mg DAILY PO 05/04/20 09:00 05/06/20 08:48 Home Med (Med Rec Complete!) ASDIRECTED XX 05/03/20 20:45 05/03/20 20:34 DC Hydroxyzine HCl (Atarax) 25 mg Q4HP PRN PO ANXIETY/AGITATION 05/03/20 23:15 05/06/20 08:50 Lamotrigine (LaMICtal) 150 mg BID PO 05/04/20 09:00 05/06/20 08:48 Magnesium Hydroxide (Milk Of Magnesia) 30 ml DAILYPRN PRN PO CONSTIPATION 05/03/20 21:30 Mirtazapine (Remeron) 15 mg QHS PO 05/04/20 21:00 05/05/20 22:13 Zolpidem Tartrate (Ambien) 5 mg QHS PO 05/04/20 21:00 05/05/20 22:12 Allergies Coded Allergies: divalproex sodium (Verified Allergy, Unknown, 07/09/19) benztropine (Verified Adverse Reaction, Intermediate, hallucinations, 07/09/19) CATALINA GARCIA DO May 06, 2020 11:12
[2020-05-06 17:25] VITALS: BP 129/71
[2020-05-06] MEDS: zolPIDEM TARTRATE 5 MG TAB PO SCH (20:37)
[2020-05-06] MEDS: MIRTAZAPINE 15 MG TAB PO SCH (20:37)
[2020-05-07 06:48] VITALS: BP 118/94
[2020-05-07] MEDS: PILL CUTTER 1 EACH XX PRN ×2 (08:14→20:24)
[2020-05-07] MEDS: lamoTRIgine 100MG TAB PO SCH ×2 (08:15→20:23)
[2020-05-07] MEDS: ARIPiprazole 15 MG TAB (AbiLIFY) PO SCH (08:15)
[2020-05-07] MEDS: hydrOXYzine 25 MG TAB PO PRN (08:15)
[2020-05-07] MEDS: ESCITALOPRAM OXALATE 10 MG TAB (LEXAPRO) PO SCH (08:15)
--- NOTE | 2020-05-07 10:14 | MHIPNPDOC ---
[facility] Progress Note Progress Note DATE OF SERVICE: 05/07/20 Subjective HPI: Shaan presents today for a follow-up on his depression. He reports that he is doing much better and has made great improvements. He states that his depression has been improving since the Abilify increase and that he has no complaints at this time. He reports he feels much more engaged and less down. He's notably more social on the unit. He denies any homicidal or suicidal ideation. Objective Appearance: Well groomed. Well nourished. Appears to be stated age. Affect: Affect improved, less dysthymic. Appropriate to context. Full range. Thought Form: Linear and goal directed. Thought Content: No evidence of suicidal ideation. No thoughts of self harm. No evidence of delusions. No evidence of aggressive or homicidal ideation. Judgement: Intact as evidenced by decision making in the recent past. Assessment F33.3 Major depressive disorder, recurrent, severe with psychotic symptoms Plan Continue Abilify, Mirtazapine, and other medicines at current dose. We will likely observe over the week and see if he has improved and then send back to outpatient. He's due for his Invega Sustenna injection that has been scheduled by the on- call provider for the , when he will be due next. Vital Signs Vital Signs Date Time Temp Pulse Resp B/P (MAP) Pulse Ox O2 Delivery O2 Flow Rate FiO2 05/07/20 06:48 97.2 102 16 118/94 (102) 92 Room Air Current Medications Current Medications Medications (Trade) Dose Ordered Sig/Rizwan Route PRN Reason Start Time Stop Time Status Last Admin Dose Admin Acetaminophen (Tylenol Tab) 650 mg Q6HP PRN PO HEADACHE or DISCOMFORT 05/03/20 21:30 Al Hydrox/Mg Hydrox/Simethicone (Mylanta) 30 ml Q4HP PRN PO HEARTBURN/INDIGESTION 05/03/20 21:30 Aripiprazole (AbiLIFY) 10 mg DAILY PO 05/04/20 09:00 05/04/20 13:56 DC 05/04/20 08:17 Aripiprazole (AbiLIFY) 15 mg DAILY PO 05/05/20 09:00 05/07/20 08:15 Escitalopram Oxalate (Lexapro) 20 mg DAILY PO 05/04/20 09:00 05/07/20 08:15 Home Med (Med Rec Complete!) ASDIRECTED XX 05/03/20 20:45 05/03/20 20:34 DC Hydroxyzine HCl (Atarax) 25 mg Q4HP PRN PO ANXIETY/AGITATION 05/03/20 23:15 05/07/20 08:15 Lamotrigine (LaMICtal) 150 mg BID PO 05/04/20 09:00 05/07/20 08:15 Magnesium Hydroxide (Milk Of Magnesia) 30 ml DAILYPRN PRN PO CONSTIPATION 05/03/20 21:30 Mirtazapine (Remeron) 15 mg QHS PO 05/04/20 21:00 05/06/20 20:37 Zolpidem Tartrate (Ambien) 5 mg QHS PO 05/04/20 21:00 05/06/20 20:37 Allergies Coded Allergies: divalproex sodium (Verified Allergy, Unknown, 07/09/19) benztropine (Verified Adverse Reaction, Intermediate, hallucinations, 07/09/19) CATALINA GARCIA DO May 07, 2020 10:14
[2020-05-07 16:06] VITALS: BP 136/80
[2020-05-07] MEDS: zolPIDEM TARTRATE 5 MG TAB PO SCH (20:23)
[2020-05-07] MEDS: MIRTAZAPINE 15 MG TAB PO SCH (20:23)
[2020-05-08 06:05] VITALS: BP 134/86
[2020-05-08] MEDS: ESCITALOPRAM OXALATE 10 MG TAB (LEXAPRO) PO SCH (08:29)
[2020-05-08] MEDS: PILL CUTTER 1 EACH XX PRN ×2 (08:29→19:57)
[2020-05-08] MEDS: hydrOXYzine 25 MG TAB PO PRN ×2 (08:30→14:50)
[2020-05-08] MEDS: ARIPiprazole 15 MG TAB (AbiLIFY) PO SCH (08:30)
[2020-05-08] MEDS: lamoTRIgine 100MG TAB PO SCH ×2 (08:30→19:57)
[2020-05-08] MEDS ORDERED: PALIPERIDONE PALMITATE 234MG/1.5ML INJ (INVEGA)(FREE PSY INPT ONLY) IM ONE (09:00)
[2020-05-08 16:21] VITALS: BP 130/81
[2020-05-08] MEDS: MIRTAZAPINE 15 MG TAB PO SCH (19:57)
[2020-05-08] MEDS: zolPIDEM TARTRATE 5 MG TAB PO SCH (19:57)
[2020-05-09 06:00] VITALS: BP 156/88
[2020-05-09] MEDS: PILL CUTTER 1 EACH XX PRN (08:23)
[2020-05-09] MEDS: ARIPiprazole 15 MG TAB (AbiLIFY) PO SCH (08:24)
[2020-05-09] MEDS: ESCITALOPRAM OXALATE 10 MG TAB (LEXAPRO) PO SCH (08:24)
[2020-05-09] MEDS: lamoTRIgine 100MG TAB PO SCH ×2 (08:24→21:27)
[2020-05-09 16:23] VITALS: BP 130/71
[2020-05-09] MEDS: zolPIDEM TARTRATE 5 MG TAB PO SCH (21:27)
[2020-05-09] MEDS: MIRTAZAPINE 15 MG TAB PO SCH (21:27)
[2020-05-10 06:26] VITALS: BP 143/81
[2020-05-10] MEDS: PILL CUTTER 1 EACH XX PRN (08:13)
[2020-05-10] MEDS: ARIPiprazole 15 MG TAB (AbiLIFY) PO SCH (08:13)
[2020-05-10] MEDS: lamoTRIgine 100MG TAB PO SCH ×2 (08:13→20:41)
[2020-05-10] MEDS: ESCITALOPRAM OXALATE 10 MG TAB (LEXAPRO) PO SCH (08:14)
[2020-05-10] MEDS: hydrOXYzine 25 MG TAB PO PRN (08:57)
--- NOTE | 2020-05-10 11:09 | MHDSPDOC ---
[facility] Discharge Summary Discharge Summary DATE OF ADMISSION: May 03, 2020 at 21:21 DATE OF DISCHARGE: DISCHARGE DIAGNOSES: 1. . 2. . REASON FOR ADMISSION: CONSULTANTS INVOLVED: TREATMENT AND PROGRESS ON THE UNIT : . HOSPITAL COURSE: DISCHARGE ASSESSMENT: MENTAL STATUS EXAMINATION ON DISCHARGE: Patient is a -year old male, who is . Speech is . Language skills are . Thought processes including: . Thought content: . Abstract reasoning, and computation: . Description of associations: . Description of abnormal or psychotic thoughts: . Judgment: . Insight: . Orientation to . Recent and remote memory: . Attention span and concentration: . Language: . Fund of knowledge: . Mood: . Affect: . MEDICATIONS ON DISCHARGE: - for . - for . - for . PLAN/FOLLOWUP ARRANGEMENTS: . The amount of time spent in the coordination of care for this patient was approximately minutes. Vital Signs/I&Os Vital Signs Date Time Temp Pulse Resp B/P (MAP) Pulse Ox O2 Delivery O2 Flow Rate FiO2 05/10/20 06:26 98.4 92 14 143/81 (101) Room Air 05/09/20 06:00 96 Medications Scheduled Aripiprazole (Aripiprazole) 10 Mg Tablet, 10 MG PO DAILY, (Reported) Escitalopram Oxalate (Lexapro) 20 Mg Tablet, 20 MG PO DAILY, (Reported) Lamotrigine (Lamictal) 150 Mg Tablet, 150 MG PO BID, (Reported) Mirtazapine (Remeron) 15 Mg Tablet, 15 MG PO QHS, (Reported) Paliperidone Palmitate (Invega Sustenna) 234 Mg/1.5 Ml Syringe, 234 MG IM QMONTH, (Reported) HAD APPT SCHEDULED FOR 05/06 Zolpidem Tartrate (Zolpidem Tartrate) 5 Mg Tablet, 5 MG PO QHS, (Reported) Allergies Coded Allergies: divalproex sodium (Verified Allergy, Unknown, 07/09/19) benztropine (Verified Adverse Reaction, Intermediate, hallucinations, 07/09/19) CATALINA GARCIA DO May 10, 2020 11:09
--- NOTE | 2020-05-10 12:16 | MHIPNPDOC ---
[facility] Progress Note Progress Note DATE OF SERVICE: 05/10/20 HISTORY: . VITAL SIGNS: See below. NEW TEST RESULTS: . CURRENT MEDICATIONS: See below. MENTAL STATUS EXAMINATION: Patient is a -year old male, who is . Speech: Is . Language skills are . Thought processes including: . Thought content: . Abstract reasoning, and computation: . Description of assoc iations: . Description of abnormal or psychotic thoughts: . Judgment: . Insight: [very limited, good, fair. poor]. Orientation: . Recent and remote memory: . Attention span and concentration: . Language: . Fund of knowledge: . Mood: . Affect: . DIAGNOSES: 1. . 2. . 3. . ASSESSMENT: MANAGEMENT PLAN: . TIME SPENT: minutes. Vital Signs Vital Signs Date Time Temp Pulse Resp B/P (MAP) Pulse Ox O2 Delivery O2 Flow Rate FiO2 05/10/20 06:26 98.4 92 14 143/81 (101) Room Air 05/09/20 06:00 96 Current Medications Current Medications Medications (Trade) Dose Ordered Sig/Riwzan Route PRN Reason Start Time Stop Time Status Last Admin Dose Admin Acetaminophen (Tylenol Tab) 650 mg Q6HP PRN PO HEADACHE or DISCOMFORT 05/03/20 21:30 Al Hydrox/Mg Hydrox/Simethicone (Mylanta) 30 ml Q4HP PRN PO HEARTBURN/INDIGESTION 05/03/20 21:30 Aripiprazole (AbiLIFY) 10 mg DAILY PO 05/04/20 09:00 05/04/20 13:56 DC 05/04/20 08:17 Aripiprazole (AbiLIFY) 15 mg DAILY PO 05/05/20 09:00 05/10/20 08:13 Escitalopram Oxalate (Lexapro) 20 mg DAILY PO 05/04/20 09:00 05/10/20 08:14 Home Med (Med Rec Complete!) ASDIRECTED XX 05/03/20 20:45 05/03/20 20:34 DC Hydroxyzine HCl (Atarax) 25 mg Q4HP PRN PO ANXIETY/AGITATION 05/03/20 23:15 05/10/20 08:57 Lamotrigine (LaMICtal) 150 mg BID PO 05/04/20 09:00 05/10/20 08:13 Magnesium Hydroxide (Milk Of Magnesia) 30 ml DAILYPRN PRN PO CONSTIPATION 05/03/20 21:30 Mirtazapine (Remeron) 15 mg QHS PO 05/04/20 21:00 05/09/20 21:27 Zolpidem Tartrate (Ambien) 5 mg QHS PO 05/04/20 21:00 05/09/20 21:27 Allergies Coded Allergies: divalproex sodium (Verified Allergy, Unknown, 07/09/19) benztropine (Verified Adverse Reaction, Intermediate, hallucinations, 07/09/19) CATALINA GARCIA DO May 10, 2020 12:16
[2020-05-10 17:51] VITALS: BP 145/82
[2020-05-10] MEDS: zolPIDEM TARTRATE 5 MG TAB PO SCH (20:41)
[2020-05-10] MEDS: MIRTAZAPINE 15 MG TAB PO SCH (20:41)
[2020-05-11 06:47] VITALS: BP 143/97
[2020-05-11] MEDS: PILL CUTTER 1 EACH XX PRN (08:10)
[2020-05-11] MEDS: ESCITALOPRAM OXALATE 10 MG TAB (LEXAPRO) PO SCH (08:11)
[2020-05-11] MEDS: ARIPiprazole 15 MG TAB (AbiLIFY) PO SCH (08:11)
[2020-05-11] MEDS: lamoTRIgine 100MG TAB PO SCH (08:12)
[2020-05-11] MEDS ORDERED: LAMI1TAB8 PO (12:57)
[2020-05-11] MEDS ORDERED: INVE234I IM (12:57)
[2020-05-11] MEDS ORDERED: ARIP1TAB10 PO (12:58)
[2020-05-11] MEDS ORDERED: REME15TA PO (12:58)
[2020-05-11] MEDS ORDERED: ZOLP5TAB PO (12:58)
[2020-05-11] MEDS ORDERED: HYDR-3363 PO (12:58)
[2020-05-11] MEDS ORDERED: LEXA1TAB2 PO (12:58)
--- NOTE | 2020-05-11 15:21 | MHDSPDOC ---
[facility] Discharge Summary Discharge Summary DATE OF ADMISSION: May 03, 2020 at 21:21 DATE OF DISCHARGE: May 11, 2020 1301 DISCHARGE DIAGNOSES: F33.3 Major depressive disorder, recurrent, severe with psychotic symptoms REASON FOR ADMISSION: The patient is a 45 year old , Disabled, Domiciled, Male who was admitted to the inpatient mental health unit after reportedly having depression and suicidal thoughts. Patient reported that he had not been able to see his daughters and as the holidays came up, he became more depressed and suicidal. He reported becoming more despondent with auditory hallucinations bringing him to the inpatient mental health unit. He reports havi ng auditory hallucinations that are mood congruent and primarily occur during depression and consist of negative voices talking to him. He doesn't screen positive for significant manic episodes. Continues to be generally negative. CONSULTANTS INVOLVED: See Medical H + P by Hospitalist TREATMENT AND PROGRESS ON THE UNIT: Patient was admitted to the [facility] on a 9.39 legal status he was afforded the following treatment modalities: 1) Individual Therapy 2) Group Therapy 3) Medication Management 4) Milieu Therapy 5) Safe Environment HOSPITAL COURSE: Patient was admitted to [facility] on a 9.39 legal status, he was started on medications that were targeting his reported symptoms. He is in the milieu, social with peers, attending group and was reported to be ready for discharge yesterday at his session with his assigned provider. DISCHARGE ASSESSMENT: In today's interview, patient was reporting that medications were effective, reported mild depression and anxiety that were manageable at home. He denied suicidal ideation, planning or intent and was relieved to be going home. He has a normal mental status and he meets criteria for discharge today and requesting it. He reports that he may attempt to save his money and see his daughters sometime, I encouraged the patient to consider the travel restrictions due to COVID and to use technology ([employer]) for com municating with his children MENTAL STATUS EXAMINATION ON DISCHARGE: Patient is a 45 year old , Disabled, Domiciled, Male, who is admitted to the inpatient mental health unit after reportedly having depression and suicidal thought. He is disheveled but calm and cooperative in the interview. Patient is obese, appears older than his stated age, makes good eye contact, and is not observed with psychomotor changes. Speech: Is fluid, conversant, normal rate, tone and volume Language skills are intact Thought processes including: linear and goal oriented Thought content: reports mild depression and anxiety, but no suicidal ideation. Abstract reasoning, and computation: fair Description of associations: denies, none observed Description of abnormal or psychotic thoughts: denies, none observed. Judgment: fair Insight: fair Orientation: alert and oriented to person, place, time and situation Recent and remote memory: intact Attention span and concentration: good Language: expansive Fund of knowledge: below average Mood: reports mild depression rates it 2/ Affect: flat MEDICATIONS ON DISCHARGE: See Medication Reconciliation PLAN/FOLLOWUP ARRANGEMENTS: See Discharge Planners notes The amount of time spent in the coordination of care for this patient was approximately 20 minutes. Vital Signs/I&Os Vital Signs Date Time Temp Pulse Resp B/P (MAP) Pulse Ox O2 Delivery O2 Flow Rate FiO2 05/11/20 06:47 98.9 77 12 143/97 (112) 05/10/20 06:26 Room Air 05/09/20 06:00 96 Medications Scheduled Aripiprazole (Aripiprazole) 15 Mg Tablet, 15 MG PO DAILY for Antipsychotic, #7 Escitalopram Oxalate (Lexapro) 20 Mg Tablet, 20 MG PO DAILY for Depression, #7 Lamotrigine (Lamictal) 150 Mg Tablet, 150 MG PO BID for Mood Stabilizer, #14 Mirtazapine (Remeron) 15 Mg Tablet, 15 MG PO QHS for Sleep, #7 Paliperidone Palmitate (Invega Sustenna) 234 Mg/1.5 Ml Syringe, 234 MG IM QMONTH for Antipsychotic, #1 Next dose due 06/04/20 Zolpidem Tartrate (Zolpidem Tartrate) 5 Mg Tablet, 5 MG PO QHS for Sleep, #7 Scheduled PRN Hydroxyzine HCl (Hydroxyzine HCl) 25 Mg Tablet, 25 MG PO BIDP PRN for ANXIETY/AGITATION, #14 Allergies Coded Allergies: divalproex sodium (Verified Allergy, Unknown, 07/09/19) benztropine (Verified Adverse Reaction, Intermediate, hallucinations, 07/09/19) MY BOLAÑOS SHEET TURNER May 11, 2020 13:02
== END 2020-05-11 15:10 | disposition home or self-care (01) | DRG 885 ==
LOC: M ED 17:58 → M ED INP 21:21 → M PSY 23:33
PROVIDERS: ADMIT Psychiatry & Neurology Psychiatry; ATTEND Psychiatry & Neurology Addiction Medicine
DX: F33.3 Major depressive disorder, recurrent, severe with psychotic symptoms (principal); Z79.899 Other long term (current) drug therapy; Z88.8 Allergy status to other drugs, medicaments and biological substances; F41.9 Anxiety disorder, unspecified

== ENCOUNTER 2020-05-14 21:51 | Inpatient (IN) | payer MEDICARE ==
[~2020-05-14] VITALS: Ht 172.7 cm; Wt 131.0 kg
[~2020-05-14 21:51] MED LIST changes: +ARIP1TAB PO; +ARIP1TAB10 PO; +HYDR-3363 PO; +MIRT-62 PO; -REME15TA PO; +ZOLP5TAB PO; +lamoTRIgine 100MG TAB PO SCH
[2020-05-14 23:10] LABS: HEMATOCRIT 39.7 % (42.0-52.0); MEAN CORPUSCULAR HEMOGLOBIN 29.1 pg (27.0-33.0); MEAN CORPUSCULAR HGB CONC 32.7 g/dl (32.0-36.5); MEAN CORPUSCULAR VOLUME 88.8 fl (80.0-96.0); PLATELET COUNT, AUTOMATED 279 10^3/uL (150-450); RED BLOOD COUNT 4.47 10^6/uL (4.30-6.10)
[2020-05-14 23:31] LABS: AMPHETAMINES LEVEL URINE NEGATIVE (NEGATIVE); BARBITURATES URINE NEGATIVE (NEGATIVE); BENZODIAZEPINES URINE NEGATIVE (NEGATIVE); CANNABINOIDS URINE NEGATIVE (NEGATIVE); COCAINE METABOLITE URINE NEGATIVE (NEGATIVE); METHADONE URINE NEGATIVE (NEGATIVE); OPIATES URINE NEGATIVE (NEGATIVE); PHENCYCLIDINE URINE NEGATIVE (NEGATIVE)
[2020-05-14 23:57] LABS: ACETAMINOPHEN LEVEL < 2.0 UG/ML (10.0-30.0); ALBUMIN 3.7 GM/DL (3.2-5.2); ALT/SGPT 36 U/L (12-78); BILIRUBIN,DIRECT 0.1 MG/DL (0.0-0.2); BILIRUBIN,TOTAL 0.4 MG/DL (0.2-1.0); BLOOD UREA NITROGEN 19 MG/DL (7-18); CALCIUM LEVEL 8.7 MG/DL (8.5-10.1); CARBON DIOXIDE LEVEL 32 MEQ/L (21-32); CHLORIDE LEVEL 100 MEQ/L (98-107); CREATININE FOR GFR 1.07 MG/DL (0.70-1.30); ETHYL ALCOHOL (ETHANOL) < 0.003 % (0.000-0.010); GLOMERULAR FILTRATION RATE > 60.0 (>60); GLUCOSE, FASTING 110 MG/DL (70-100); POTASSIUM SERUM 3.8 MEQ/L (3.5-5.1); SALICYLATE LEVEL < 1.7 MG/DL (5.0-30.0); SODIUM LEVEL 138 MEQ/L (136-145)
[2020-05-15] MEDS ORDERED: MIRT-62 PO (00:51)
[2020-05-15] MEDS ORDERED: LAMO150T3 PO (00:51)
[2020-05-15] MEDS ORDERED: ARIP1TAB10 PO (00:51)
[2020-05-15] MEDS ORDERED: INVE234I IM (00:51)
[2020-05-15] MEDS ORDERED: HYDR-3363 PO (00:51)
[2020-05-15] MEDS ORDERED: ZOLP5TAB PO (00:51)
[2020-05-15] MEDS ORDERED: ESCI20TA PO (00:51)
[2020-05-15] MEDS ORDERED: MAALOX 30 ML SUSP *UDC PO PRN (01:45)
[2020-05-15] MEDS ORDERED: MOM 30ML SUSPENSION UDC PO PRN (01:45)
[2020-05-15 02:37] VITALS: BP 128/80
[2020-05-15] MEDS: zolPIDEM TARTRATE 5 MG TAB PO SCH ×2 (04:18→20:10)
[2020-05-15] MEDS: MIRTAZAPINE 15 MG TAB PO SCH ×2 (04:19→20:10)
[2020-05-15] MEDS: lamoTRIgine 100MG TAB PO SCH ×3 (04:19→20:10)
[2020-05-15] MEDS: ARIPiprazole 15 MG TAB (AbiLIFY) PO SCH (08:11)
[2020-05-15] MEDS: ESCITALOPRAM OXALATE 10 MG TAB (LEXAPRO) PO SCH (08:11)
[2020-05-15] MEDS: hydrOXYzine 25 MG TAB PO PRN ×2 (08:14→20:11)
--- NOTE | 2020-05-15 10:19 | HPEPDOC ---
[facility] Medical History & Physical Date of Admission May 15, 2020 Date of Service: May 15, 2020 History and Physical CHIEF COMPLAINT: Routine Medical exam HISTORY OF PRESENT ILLNESS: 45-year-old morbidly obese male. BMI 41.8. Hydrocephalus status post OR FIRST ASSIST REGISTERED NURSE shunt, must follow-up for the past 2 years, anxiety, schizophrenia, bipolar disorder, depression, schizoaffective disorder, admitted to the inpatient mental health unit now complains of urinary incontinence noted last night when he went to bed without any dysuria, urgency, frequency, fever, chills, flank pain, hematuria, gait abnormality, or headaches. Hospitalist was called for routine medical examination and history and physical. He otherwise denies any fever, sore throat, changes in vision, blurred vision, ear pain, tinnitus, vertigo, shortness of breath, chest pain, pressure, tightness, lightheadedness, near syncope, cough productive of sputum, hemoptysis, nausea, vomiting, diarrhea, abdominal pain, hematuria, bright red blood per rectum, melena, black tarry stools, bilateral upper or lower extremity weakness. No other complaints PAST MEDICAL HISTORY: morbidly obese male. BMI 41.8. Hydrocephalus status post OR FIRST ASSIST REGISTERED NURSE shunt, must follow- up for the past 2 years, anxiety, schizophrenia, bipolar disorder, depression, schizoaffective disorder PAST SURGICAL HISTORY: Cholecystectomy, OR FIRST ASSIST REGISTERED NURSE shunt SOCIAL HISTORY: Denies cigarette tobacco, alcohol or recreational drug use FAMILY HISTORY: . Mother alive with diabetes HOME MEDICATIONS: SEE BELOW ALLERGIES: Please see below. REVIEW OF SYSTEMS: 10 point review of systems negative aside from positive findings in HPI PHYSICAL EXAMINATION: VITAL SIGNS: See below GENERAL APPEARANCE: Morbidly obese. No respiratory distress. Face is symmetric. Disheveled, unshaven with maharaj HEENT: Pupils round, reactive to light. Extra muscles intact. Normocephalic, atraumatic. No thyromegaly, cervical lymphadenopathy. Moist mucous membranes. No pharyngeal erythema. No JVD. No stridor CARDIOVASCULAR: S1, S2, sinus rhythm LUNGS: Clear to auscultation. Wheezing or rales. Air entry is equal bilaterally ABDOMEN: Obese, soft, nontender, nondistended, positive bowel sounds in 4 quadrants EXTREMITIES: Trace edema bilateral lower extremities LABORATORY DATA: See below. ASSESSMENT: 45-year-old morbidly obese male. BMI 41.8. Hydrocephalus status post OR FIRST ASSIST REGISTERED NURSE shunt, must follow-up for the past 2 years, anxiety, schizophrenia, bipolar disorder, depression, schizoaffective disorder, admitted to the inpatient mental health unit now complains of urinary incontinence noted last night when he went to bed without any dysuria, urgency, frequency, fever, chills, flank pain, hematuria, gait abnormality, or headaches. Hospitalist was called for routine medical examination and history and physical. He otherwise denies any fever, sore throat, changes in vision, blurred vision, ear pain, tinnitus, vertigo, shortness of breath, chest pain, pressure, tightness, lightheadedness, near syncope, cough productive of sputum, hemoptysis, nausea, vomiting, diarrhea, abdominal pain, hematuria, bright red blood per rectum, melena, black tarry stools, bilateral upper or lower extremity weakness. No other complaints Urine incontinence History of hydrocephalus with OR FIRST ASSIST REGISTERED NURSE shunt Bipolar disorder Anxiety, depression Schizoaffective disorder PLAN: Patient has been lost to follow-up for his hydrocephalus status post OR FIRST ASSIST REGISTERED NURSE shunt. He now complains of some urinary incontinence despite not having any fever, chills, flank pain, malodorous urine, dysuria, urgency or frequency, flank pain and hematuria. Patient will be checked for urinary tract infection. If the patient develops gait ataxia, headache and worsening urinary incontinence may need a CT of the head, noncontrast, to further evaluate his hydrocephalus and may needreferral to neurosurgery. Since the patient is not having any other symptoms related to his hydrocephalus such as gait ataxia, headache, confusion aside from urine incontinence, further evaluation and CT of the head without contrast can be done as outpatient. Check UA, urine C&S. Hospitalist will sign off. Please reconsult for any acute medical issues. Vital Signs Vital Signs Date Time Temp Pulse Resp B/P (MAP) Pulse Ox O2 Delivery O2 Flow Rate FiO2 05/15/20 08:10 Room Air 05/15/20 02:37 97.7 102 18 128/80 (96) 95 Laboratory Data Labs 24H Laboratory Tests 2 05/14/20 22:48: Nucleated Red Blood Cells % (auto) 0.0, Anion Gap 6L, Glomerular Filtration Rate > 60.0, Calcium Level 8.7, Total Bilirubin 0.4, Direct Bilirubin 0.1, Aspartate Amino Transf (AST/SGOT) 21, Alanine Aminotransferase (ALT/SGPT) 36, Alkaline Phosphatase 78, Total Protein 7.0, Albumin 3.7, Albumin/Globulin Ratio 1.1, T hyroid Stimulating Hormone (TSH) 5.110H, Salicylates Level < 1.7L, Urine Opiates Screen NEGATIVE, Urine Methadone Screen NEGATIVE, Acetaminophen Level < 2.0L, Urine Barbiturates Screen NEGATIVE, Urine Phencyclidine Screen NEGATIVE, Urine Amphetamines Screen NEGATIVE, Urine Benzodiazepines Screen NEGATIVE, Urine Cocaine Metabolite Screen NEGATIVE, Urine Cannabinoids Screen NEGATIVE, Ethyl Alcohol Level < 0.003 05/14/20 23:14: Coronavirus (COVID-19)(PCR) NEGATIVE CBC/BMP Laboratory Tests 05/14/20 22:48 Home Medications Scheduled Aripiprazole (Aripiprazole) 15 Mg Tablet, 15 MG PO DAILY Escitalopram Oxalate (Escitalopram Oxalate) 20 Mg Tablet, 20 MG PO DAILY Lamotrigine (Lamotrigine) 150 Mg Tablet, 150 MG PO BID Mirtazapine (Remeron) 15 Mg Tablet, 15 MG PO QHS Paliperidone Palmitate (Invega Sustenna) 234 Mg/1.5 Ml Syringe, 234 MG IM QMONTH Zolpidem Tartrate (Zolpidem Tartrate) 5 Mg Tablet, 5 MG PO QHS Scheduled PRN Hydroxyzine HCl (Hydroxyzine HCl) 25 Mg Tablet, 25 MG PO BID PRN for ANXIETY Allergies Coded Allergies: divalproex sodium (Verified Allergy, Unknown, 07/09/19) benztropine (Verified Adverse Reaction, Intermediate, hallucinations, 07/09/19) A-FIB/CHADSVASC A-FIB History Current/History of A-Fib/PAF?: No Current PO Anticoag Therapy: No Age/Risk Factor Scoring CHADSVASC: CHADSVASC Response (Comments) Value Age Risk Factor Age < 65 years old 0 Gender Risk Factor Male 0 Hx of CHF No 0 Hx of HTN No 0 Hx of Stroke/TIA/or VTE No 0 Hx of Diabetes No 0 Hx of Vascular Disease No 0 Total 0 Treatment Treatment ordered: NONE DENEEN REYNOSO MD May 15, 2020 10:19
[2020-05-15] MEDS: ACETAMINOPHEN TAB 650MG DOSE (2X325MG) PO PRN (12:55)
[2020-05-15 16:00] VITALS: BP 180/92
[2020-05-16 07:03] VITALS: BP 141/76
[2020-05-16] MEDS: ARIPiprazole 15 MG TAB (AbiLIFY) PO SCH (08:24)
[2020-05-16] MEDS: PILL CUTTER 1 EACH XX PRN (08:25)
[2020-05-16] MEDS: hydrOXYzine 25 MG TAB PO PRN ×2 (08:25→21:49)
[2020-05-16] MEDS: lamoTRIgine 100MG TAB PO SCH ×2 (08:25→21:48)
[2020-05-16] MEDS: ESCITALOPRAM OXALATE 10 MG TAB (LEXAPRO) PO SCH (08:25)
[2020-05-16] MEDS ORDERED: INFLUENZA QUADRIVALENT PF VACCINE 0.5ML SYRINGE IM ONE (09:00)
[2020-05-16 18:00] VITALS: BP 142/86
[2020-05-16] MEDS: MIRTAZAPINE 15 MG TAB PO SCH (21:47)
[2020-05-16] MEDS: zolPIDEM TARTRATE 5 MG TAB PO SCH (21:47)
[2020-05-17 07:03] VITALS: BP 159/95
[2020-05-17] MEDS: PILL CUTTER 1 EACH XX PRN (08:25)
[2020-05-17] MEDS: ARIPiprazole 15 MG TAB (AbiLIFY) PO SCH (08:25)
[2020-05-17] MEDS: lamoTRIgine 100MG TAB PO SCH ×2 (08:25→20:53)
[2020-05-17] MEDS: ESCITALOPRAM OXALATE 10 MG TAB (LEXAPRO) PO SCH (08:25)
[2020-05-17] MEDS: hydrOXYzine 25 MG TAB PO PRN (08:26)
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
[2020-05-17 16:55] VITALS: BP 130/70
[2020-05-17] MEDS: MIRTAZAPINE 15 MG TAB PO SCH (20:53)
[2020-05-17] MEDS: zolPIDEM TARTRATE 5 MG TAB PO SCH (20:53)
[2020-05-18] MEDS: ARIPiprazole 15 MG TAB (AbiLIFY) PO SCH (08:31)
[2020-05-18] MEDS: PILL CUTTER 1 EACH XX PRN (08:31)
[2020-05-18] MEDS: lamoTRIgine 100MG TAB PO SCH ×2 (08:31→20:33)
[2020-05-18] MEDS: ESCITALOPRAM OXALATE 10 MG TAB (LEXAPRO) PO SCH (08:31)
--- NOTE | 2020-05-18 09:59 | MHIPNPDOC ---
[facility] Progress Note Progress Note DATE OF SERVICE: 05/18/20 HISTORY: the patient is met with today, he reports he is feeling somewhat better but still has quite a bit of worry about his situation on the outside. He re ports that he still feels the social support is a critical part of him doing well as an outpatient. Discussed with him about the treatment plan for pursuing TLS placement, he appears to do well in the inpatient unit and socializes without issue. He reports the voices and depression are improving without any saving medication changes. He reports that he feels that the loneliness is a major problem, especially when this time of year. VITAL SIGNS: See below. NEW TEST RESULTS: NA. CURRENT MEDICATIONS: See below. MENTAL STATUS EXAMINATION: General: [Well dressed with good hygiene] Speech: [Spontaneous and fluid] Thought processes: [Linear and logical] Thought content: [Future orientated] Abstract reasoning, and computation: [Intact] Description of associations: [Intact] Description of abnormal or psychotic thoughts: Denies any SI at this time, reports voices intermittently Judgment: [Fair] Insight: [Fair] Orientation: [Alert and orientated 3] Recent and remote memory: [Intact] Attention span and concentration: [Intact] Fund of knowledge: [Adequate] Mood: "Okay" Affect: Dysthymic, but less constricted than yesterday DIAGNOSES: 1. Adjustment disorder with a disruption of mood and conduct. 2. Major depressive disorder recurrent, severe in unspecified remission. (With psychotic symptoms) ASSESSMENT: the patient is making progress, adjustment is likely I am a differential, however his loneliness appears to be a major provoker multiple admissions and suicidal thoughts, referral to TLS could yield a much more s uccessful discharge plan MANAGEMENT PLAN: Continue Abilify, Lamictal, Ambien and Lexapro at current dose below, pursuing TLS as potential option, especially the community residence TIME SPENT: 15 minutes. Vital Signs Vital Signs Date Time Temp Pulse Resp B/P (MAP) Pulse Ox O2 Delivery O2 Flow Rate FiO2 05/18/20 09:13 Room Air 05/17/20 16:55 97.5 82 16 130/70 (90) 05/17/20 07:03 98 Current Medications Current Medications Medications (Trade) Dose Ordered Sig/Rizwan Route PRN Reason Start Time Stop Time Status Last Admin Dose Admin Acetaminophen (Tylenol Tab) 650 mg Q6HP PRN PO HEADACHE or DISCOMFORT 05/15/20 01:45 05/15/20 12:55 Al Hydrox/Mg Hydrox/Simethicone (Mylanta) 30 ml Q4HP PRN PO HEARTBURN/INDIGESTION 05/15/20 01:45 Aripiprazole (AbiLIFY) 15 mg DAILY PO 05/15/20 09:00 05/18/20 08:31 Escitalopram Oxalate (Lexapro) 20 mg DAILY PO 05/15/20 09:00 05/18/20 08:31 Home Med (Med Rec Complete!) ASDIRECTED XX 05/15/20 01:00 05/15/20 00:54 DC Hydroxyzine HCl (Atarax) 25 mg BID PRN PO ANXIETY 05/15/20 01:45 05/16/20 11:39 DC 05/16/20 08:25 Hydroxyzine HCl (Atarax) 25 mg Q8HP PRN PO ANXIETY/AGITATION 05/16/20 11:45 05/18/20 08:00 DC 05/17/20 08:26 Lamotrigine (LaMICtal) 100 mg BID PO 05/14/20 21:00 05/15/20 02:00 DC Lamotrigine (LaMICtal) 150 mg BID PO 05/14/20 21:00 05/18/20 08:31 Magnesium Hydroxide (Milk Of Magnesia) 30 ml DAILYPRN PRN PO CONSTIPATION 05/15/20 01:45 Mirtazapine (Remeron) 15 mg QHS PO 05/14/20 21:00 05/17/20 20:53 Paliperidone Palmitate (Invega Sustenna) 234 mg Q30D IM 06/07/20 09:00 Zolpidem Tartrate (Ambien) 5 mg QHS PO 05/14/20 21:00 05/17/20 20:53 Allergies Coded Allergies: divalproex sodium (Verified Allergy, Unknown, 07/09/19) benztropine (Verified Adverse Reaction, Intermediate, hallucinations, 07/09/19) CATALINA GARCIA DO May 18, 2020 09:58
[2020-05-18 16:23] VITALS: BP 140/72
[2020-05-18] MEDS: zolPIDEM TARTRATE 5 MG TAB PO SCH (20:32)
[2020-05-18] MEDS: MIRTAZAPINE 15 MG TAB PO SCH (20:32)
[2020-05-19 06:38] VITALS: BP 137/79
[2020-05-19] MEDS: PILL CUTTER 1 EACH XX PRN (08:09)
[2020-05-19] MEDS: ARIPiprazole 15 MG TAB (AbiLIFY) PO SCH (08:09)
[2020-05-19] MEDS: ESCITALOPRAM OXALATE 10 MG TAB (LEXAPRO) PO SCH (08:10)
[2020-05-19] MEDS: lamoTRIgine 100MG TAB PO SCH ×2 (08:10→20:00)
--- NOTE | 2020-05-19 10:49 | MHIPNPDOC ---
[facility] Progress Note Progress Note DATE OF SERVICE: 05/19/20 HISTORY: the patient is met with today, he reports that he's doing better and feels more supported on the unit, discussed with the patient about his previous issues and things that had led him to his multiple admissions, where he described loneliness and lack of social support being major parts. He reports that his stressors at home still remain VITAL SIGNS: See below. NEW TEST RESULTS: NA. CURRENT MEDICATIONS: See below. MENTAL STATUS EXAMINATION: General: [Well dressed with good hygiene] Speech: [Spontaneous and fluid] Thought processes: [Linear and logical] Thought content: [Future orientated] Abstract reasoning, and computation: [Intact] Description of associations: [Intact] Description of abnormal or psychotic thoughts: Denies any SI at this time, reports voices intermittently Judgment: [Fair] Insight: [Fair] Orientation: [Alert and orientated 3] Recent and remote memory: [Intact] Attention span and concentration: [Intact] Fund of knowledge: [Adequate] Mood: "Okay" Affect: Dysthymic, but less constricted DIAGNOSES: 1. Adjustment disorder with a disruption of mood and conduct. 2. Major depressive disorder recurrent, severe in unspecified remission. (With psychotic symptoms) ASSESSMENT: addressing the underlying issues appear to be helping the patient into supported housing as this will likely produce a noticeable drop in his admissions and symptoms MANAGEMENT PLAN: Continue Abilify, Lamictal, Ambien and Lexapro at current dose below, pursuing TLS as potential option, especially the community residence TIME SPENT: 15 minutes. Vital Signs Vital Signs Date Time Temp Pulse Resp B/P (MAP) Pulse Ox O2 Delivery O2 Flow Rate FiO2 05/19/20 06:38 98.6 79 16 137/79 (98) 96 Room Air Current Medications Current Medications Medications (Trade) Dose Ordered Sig/Rizwan Route PRN Reason Start Time Stop Time Status Last Admin Dose Admin Acetaminophen (Tylenol Tab) 650 mg Q6HP PRN PO HEADACHE or DISCOMFORT 05/15/20 01:45 05/15/20 12:55 Al Hydrox/Mg Hydrox/Simethicone (Mylanta) 30 ml Q4HP PRN PO HEARTBURN/INDIGESTION 05/15/20 01:45 Aripiprazole (AbiLIFY) 15 mg DAILY PO 05/15/20 09:00 05/19/20 08:09 Escitalopram Oxalate (Lexapro) 20 mg DAILY PO 05/15/20 09:00 05/19/20 08:10 Home Med (Med Rec Complete!) ASDIRECTED XX 05/15/20 01:00 05/15/20 00:54 DC Hydroxyzine HCl (Atarax) 25 mg BID PRN PO ANXIETY 05/15/20 01:45 05/16/20 11:39 DC 05/16/20 08:25 Hydroxyzine HCl (Atarax) 25 mg Q8HP PRN PO ANXIETY/AGITATION 05/16/20 11:45 05/18/20 08:00 DC 05/17/20 08:26 Lamotrigine (LaMICtal) 100 mg BID PO 05/14/20 21:00 05/15/20 02:00 DC Lamotrigine (LaMICtal) 150 mg BID PO 05/14/20 21:00 05/19/20 08:10 Magnesium Hydroxide (Milk Of Magnesia) 30 ml DAILYPRN PRN PO CONSTIPATION 05/15/20 01:45 Mirtazapine (Remeron) 15 mg QHS PO 05/14/20 21:00 05/18/20 20:32 Paliperidone Palmitate (Invega Sustenna) 234 mg Q30D IM 06/07/20 09:00 Zolpidem Tartrate (Ambien) 5 mg QHS PO 05/14/20 21:00 05/18/20 20:32 Allergies Coded Allergies: divalproex sodium (Verified Allergy, Unknown, 07/09/19) benztropine (Verified Adverse Reaction, Intermediate, hallucinations, 07/09/19) CATALINA GARCIA DO May 19, 2020 10:49
[2020-05-19 16:00] VITALS: BP 127/80
[2020-05-19] MEDS: MIRTAZAPINE 15 MG TAB PO SCH (20:00)
[2020-05-19] MEDS: hydrOXYzine 50 MG TAB PO PRN (20:00)
[2020-05-19] MEDS: zolPIDEM TARTRATE 5 MG TAB PO SCH (20:00)
[2020-05-20 06:39] VITALS: BP 141/92
[2020-05-20] MEDS: ESCITALOPRAM OXALATE 10 MG TAB (LEXAPRO) PO SCH (08:11)
[2020-05-20] MEDS: ARIPiprazole 15 MG TAB (AbiLIFY) PO SCH (08:12)
[2020-05-20] MEDS: lamoTRIgine 100MG TAB PO SCH ×2 (08:12→20:50)
[2020-05-20 17:58] VITALS: BP 162/86
[2020-05-20] MEDS: MIRTAZAPINE 15 MG TAB PO SCH (20:49)
[2020-05-20] MEDS: zolPIDEM TARTRATE 5 MG TAB PO SCH (20:49)
[2020-05-21 06:57] VITALS: BP 151/73
[2020-05-21] MEDS: lamoTRIgine 100MG TAB PO SCH ×2 (08:19→20:22)
[2020-05-21] MEDS: ESCITALOPRAM OXALATE 10 MG TAB (LEXAPRO) PO SCH (08:19)
[2020-05-21] MEDS: ARIPiprazole 15 MG TAB (AbiLIFY) PO SCH (08:19)
[2020-05-21] MEDS: PILL CUTTER 1 EACH XX PRN (08:19)
--- NOTE | 2020-05-21 09:57 | MHIPNPDOC ---
[facility] Progress Note Progress Note DATE OF SERVICE: 05/21/20 HISTORY: The patient's met with today, he reports that he is feeling better and more engaged when unit, he reports that he definitely feels the group outside it would be the best option, he reports that he feels stable here but subsequently when he goes home and is alone for longer to time his depression becomes worse and he requires need come back. Discussed with patient about staying here until transfer or close thereof, due to his recent multiple readmissions and suicidality shortly after he leaves. VITAL SIGNS: See below. NEW TEST RESULTS: NA. CURRENT MEDICATIONS: See below. MENTAL STATUS EXAMINATION: General: [Well dressed with good hygiene] Speech: [Spontaneous and fluid] Thought processes: [Linear and logical] Thought content: [Future orientated] Abstract reasoning, and computation: [Intact] Description of associations: [Intact] Description of abnormal or psychotic thoughts: Denies any SI at this time, reports voices intermittently Judgment: [Fair] Insight: [Fair] Orientation: [Alert and orientated 3] Recent and remote memory: [Intact] Attention span and concentration: [Intact] Fund of knowledge: [Adequate] Mood: "Okay" Affect: More euthymic DIAGNOSES: 1. Adjustment disorder with a disruption of mood and conduct. 2. Major depressive disorder recurrent, severe in unspecified remission. (With psychotic symptoms) ASSESSMENT: We will continue with referral, the underlying social issue appears to be the velázquez part to keeping him stable. MANAGEMENT PLAN: Continue Abilify, Lamictal, Ambien and Lexapro at current dose below, pursuing TLS as potential option, especially the community residence Vital Signs Vital Signs Date Time Temp Pulse Resp B/P (MAP) Pulse Ox O2 Delivery O2 Flow Rate FiO2 05/21/20 06:57 97.5 80 18 151/73 (99) 97 Room Air Current Medications Current Medications Medications (Trade) Dose Ordered Sig/Rizwan Route PRN Reason Start Time Stop Time Status Last Admin Dose Admin Acetaminophen (Tylenol Tab) 650 mg Q6HP PRN PO HEADACHE or DISCOMFORT 05/15/20 01:45 05/15/20 12:55 Al Hydrox/Mg Hydrox/Simethicone (Mylanta) 30 ml Q4HP PRN PO HEARTBURN/INDIGESTION 05/15/20 01:45 Aripiprazole (AbiLIFY) 15 mg DAILY PO 05/15/20 09:00 05/21/20 08:19 Escitalopram Oxalate (Lexapro) 20 mg DAILY PO 05/15/20 09:00 05/21/20 08:19 Home Med (Med Rec Complete!) ASDIRECTED XX 05/15/20 01:00 05/15/20 00:54 DC Hydroxyzine HCl (Atarax) 25 mg BID PRN PO ANXIETY 05/15/20 01:45 05/16/20 11:39 DC 05/16/20 08:25 Hydroxyzine HCl (Atarax) 25 mg Q8HP PRN PO ANXIETY/AGITATION 05/16/20 11:45 05/18/20 08:00 DC 05/17/20 08:26 Hydroxyzine HCl (Atarax) 50 mg Q4HP PRN PO anxiety 05/19/20 14:30 05/19/20 20:00 Lamotrigine (LaMICtal) 100 mg BID PO 05/14/20 21:00 05/15/20 02:00 DC Lamotrigine (LaMICtal) 150 mg BID PO 05/14/20 21:00 05/21/20 08:19 Magnesium Hydroxide (Milk Of Magnesia) 30 ml DAILYPRN PRN PO CONSTIPATION 05/15/20 01:45 Mirtazapine (Remeron) 15 mg QHS PO 05/14/20 21:00 05/20/20 20:49 Paliperidone Palmitate (Invega Sustenna) 234 mg Q30D IM 06/07/20 09:00 Zolpidem Tartrate (Ambien) 5 mg QHS PO 05/14/20 21:00 05/20/20 20:49 Allergies Coded Allergies: divalproex sodium (Verified Allergy, Unknown, 07/09/19) benztropine (Verified Adverse Reaction, Intermediate, hallucinations, 07/09/19) CATALINA GARCIA DO May 21, 2020 09:57
[2020-05-21 17:41] VITALS: BP 132/86
[2020-05-21] MEDS: zolPIDEM TARTRATE 5 MG TAB PO SCH (20:21)
[2020-05-21] MEDS: MIRTAZAPINE 15 MG TAB PO SCH (20:21)
[2020-05-21] MEDS: hydrOXYzine 50 MG TAB PO PRN (20:22)
[2020-05-22 06:36] VITALS: BP 141/73
[2020-05-22] MEDS: ESCITALOPRAM OXALATE 10 MG TAB (LEXAPRO) PO SCH (08:03)
[2020-05-22] MEDS: PILL CUTTER 1 EACH XX PRN ×2 (08:03→21:35)
[2020-05-22] MEDS: ARIPiprazole 15 MG TAB (AbiLIFY) PO SCH (08:04)
[2020-05-22] MEDS: lamoTRIgine 100MG TAB PO SCH ×2 (08:04→21:35)
[2020-05-22 16:18] VITALS: BP 121/75
[2020-05-22 16:20] VITALS: BP 131/74
[2020-05-22] MEDS: MIRTAZAPINE 15 MG TAB PO SCH (21:34)
[2020-05-22] MEDS: zolPIDEM TARTRATE 5 MG TAB PO SCH (21:35)
[2020-05-23 06:32] VITALS: BP 149/69
[2020-05-23] MEDS: PILL CUTTER 1 EACH XX PRN ×2 (08:05→20:20)
[2020-05-23] MEDS: ESCITALOPRAM OXALATE 10 MG TAB (LEXAPRO) PO SCH (08:06)
[2020-05-23] MEDS: lamoTRIgine 100MG TAB PO SCH ×2 (08:06→20:20)
[2020-05-23] MEDS: ARIPiprazole 15 MG TAB (AbiLIFY) PO SCH (08:06)
[2020-05-23 16:15] VITALS: BP 136/74
[2020-05-23] MEDS: MIRTAZAPINE 15 MG TAB PO SCH (20:20)
[2020-05-23] MEDS: zolPIDEM TARTRATE 5 MG TAB PO SCH (20:20)
[2020-05-24 06:36] VITALS: BP 136/72
[2020-05-24] MEDS: ESCITALOPRAM OXALATE 10 MG TAB (LEXAPRO) PO SCH (09:31)
[2020-05-24] MEDS: lamoTRIgine 100MG TAB PO SCH ×2 (09:31→20:55)
[2020-05-24] MEDS: ARIPiprazole 15 MG TAB (AbiLIFY) PO SCH (09:31)
--- NOTE | 2020-05-24 10:34 | MHIPNPDOC ---
[facility] Progress Note Progress Note DATE OF SERVICE: 05/24/20 HISTORY: the patient is met with today, where he reports that he is doing much better and he contemplates what will happen if he has to return home in between before TLS. He reports that much of his admissions are related to loneliness and stressors in his current living situation with little support. The patient otherwise has no complaints is talking his medications well. VITAL SIGNS: See below. NEW TEST RESULTS: NA. CURRENT MEDICATIONS: See below. MENTAL STATUS EXAMINATION: General: [Well dressed with good hygiene] Speech: [Spontaneous and fluid] Thought processes: [Linear and logical] Thought content: [Future orientated] Abstract reasoning, and computation: [Intact] Description of associations: [Intact] Description of abnormal or psychotic thoughts: Denies any SI at this time, reports voices intermittently Judgment: [Fair] Insight: [Fair] Orientation: [Alert and orientated 3] Recent and remote memory: [Intact] Attention span and concentration: [Intact] Fund of knowledge: [Adequate] Mood: "Okay" Affect: More euthymic DIAGNOSES: 1. Adjustment disorder with a disruption of mood and conduct. 2. Major depressive disorder recurrent, severe in unspecified remission. (With psychotic symptoms) ASSESSMENT: We will continue with referral, the underlying social issue appears to be the velázquez part to keeping him stable. MANAGEMENT PLAN: Continue Abilify, Lamictal, Ambien and Lexapro at current dose below, pursuing TLS as potential option, especially the community residence Vital Signs Vital Signs Date Time Temp Pulse Resp B/P (MAP) Pulse Ox O2 Delivery O2 Flow Rate FiO2 05/24/20 06:36 97.6 92 18 136/72 (93) 05/23/20 16:15 94 Room Air Current Medications Current Medications Medications (Trade) Dose Ordered Sig/Rizwan Route PRN Reason Start Time Stop Time Status Last Admin Dose Admin Acetaminophen (Tylenol Tab) 650 mg Q6HP PRN PO HEADACHE or DISCOMFORT 05/15/20 01:45 05/15/20 12:55 Al Hydrox/Mg Hydrox/Simethicone (Mylanta) 30 ml Q4HP PRN PO HEARTBURN/INDIGESTION 05/15/20 01:45 Aripiprazole (AbiLIFY) 15 mg DAILY PO 05/15/20 09:00 05/24/20 09:31 Escitalopram Oxalate (Lexapro) 20 mg DAILY PO 05/15/20 09:00 05/24/20 09:31 Home Med (Med Rec Complete!) ASDIRECTED XX 05/15/20 01:00 05/15/20 00:54 DC Hydroxyzine HCl (Atarax) 25 mg BID PRN PO ANXIETY 05/15/20 01:45 05/16/20 11:39 DC 05/16/20 08:25 Hydroxyzine HCl (Atarax) 25 mg Q8HP PRN PO ANXIETY/AGITATION 05/16/20 11:45 05/18/20 08:00 DC 05/17/20 08:26 Hydroxyzine HCl (Atarax) 50 mg Q4HP PRN PO anxiety 05/19/20 14:30 05/21/20 20:22 Lamotrigine (LaMICtal) 100 mg BID PO 05/14/20 21:00 05/15/20 02:00 DC Lamotrigine (LaMICtal) 150 mg BID PO 05/14/20 21:00 05/24/20 09:31 Magnesium Hydroxide (Milk Of Magnesia) 30 ml DAILYPRN PRN PO CONSTIPATION 05/15/20 01:45 Mirtazapine (Remeron) 15 mg QHS PO 05/14/20 21:00 05/23/20 20:20 Paliperidone Palmitate (Invega Sustenna) 234 mg Q30D IM 06/07/20 09:00 Zolpidem Tartrate (Ambien) 5 mg QHS PO 05/14/20 21:00 05/23/20 20:20 Allergies Coded Allergies: divalproex sodium (Verified Allergy, Unknown, 07/09/19) benztropine (Verified Adverse Reaction, Intermediate, hallucinations, 07/09/19) CATALINA GARCIA DO May 24, 2020 10:34
[2020-05-24 18:00] VITALS: BP 141/86
[2020-05-24] MEDS: zolPIDEM TARTRATE 5 MG TAB PO SCH (20:54)
[2020-05-24] MEDS: MIRTAZAPINE 15 MG TAB PO SCH (20:54)
[2020-05-25 06:33] VITALS: BP 144/84
[2020-05-25] MEDS: ARIPiprazole 15 MG TAB (AbiLIFY) PO SCH (08:17)
[2020-05-25] MEDS: PILL CUTTER 1 EACH XX PRN ×2 (08:17→20:10)
[2020-05-25] MEDS: ESCITALOPRAM OXALATE 10 MG TAB (LEXAPRO) PO SCH (08:18)
[2020-05-25] MEDS: lamoTRIgine 100MG TAB PO SCH ×2 (08:18→20:08)
--- NOTE | 2020-05-25 10:45 | MHIPNPDOC ---
[facility] Progress Note Progress Note DATE OF SERVICE: 05/25/20 HISTORY: the patient is met with today, he reports he is generally doing well, he reports that it's difficult to think of what life would be like if he had to return home prior TLS, he reports that the loneliness and stressors at home had rubbed majority of submissions. Discussion related to his care what discharge hires reports that his lack of Medicaid seems to be a barrier, however he appears to be doing very well the unit coping and engaging without much issue. VITAL SIGNS: See below. NEW TEST RESULTS: NA. CURRENT MEDICATIONS: See below. MENTAL STATUS EXAMINATION: General: [Well dressed with good hygiene] Speech: [Spontaneous and fluid] Thought processes: [Linear and logical] Thought content: [Future orientated] Abstract reasoning, and computation: [Intact] Description of associations: [Intact] Description of abnormal or psychotic thoughts: denies any SI/HI, AVH Judgment: [Fair] Insight: [Fair] Orientation: [Alert and orientated 3] Recent and remote memory: [Intact] Attention span and concentration: [Intact] Fund of knowledge: [Adequate] Mood: "Okay" Affect: euthymic, mildly constricted DIAGNOSES: 1. Adjustment disorder with a disruption of mood and conduct. 2. Major depressive disorder recurrent, severe in unspecified remission. (With psychotic symptoms) ASSESSMENT: We will continue with referral, the underlying social issue appears to be the velázquez part to keeping him stable. MANAGEMENT PLAN: Continue Abilify, Lamictal, Ambien and Lexapro at current dose below, Feel very strongly that continued admission is appropriate to attempt to get him into [facility] residents or at least as close to possible or even considering a alternative community option, as it appears that this forms a strong force for him to return and as well as his suicidal thoughts come with multiple previous admissions that his identified stressors quite clear and will need to be remedied Time spent: 15 minutes Vital Signs Vital Signs Date Time Temp Pulse Resp B/P (MAP) Pulse Ox O2 Delivery O2 Flow Rate FiO2 05/25/20 06:33 98.5 91 18 144/84 (104) 05/23/20 16:15 94 Room Air Current Medications Current Medications Medications (Trade) Dose Ordered Sig/Rizwan Route PRN Reason Start Time Stop Time Status Last Admin Dose Admin Acetaminophen (Tylenol Tab) 650 mg Q6HP PRN PO HEADACHE or DISCOMFORT 05/15/20 01:45 05/15/20 12:55 Al Hydrox/Mg Hydrox/Simethicone (Mylanta) 30 ml Q4HP PRN PO HEARTBURN/INDIGESTION 05/15/20 01:45 Aripiprazole (AbiLIFY) 15 mg DAILY PO 05/15/20 09:00 05/25/20 08:17 Escitalopram Oxalate (Lexapro) 20 mg DAILY PO 05/15/20 09:00 05/25/20 08:18 Home Med (Med Rec Complete!) ASDIRECTED XX 05/15/20 01:00 05/15/20 00:54 DC Hydroxyzine HCl (Atarax) 25 mg BID PRN PO ANXIETY 05/15/20 01:45 05/16/20 11:39 DC 05/16/20 08:25 Hydroxyzine HCl (Atarax) 25 mg Q8HP PRN PO ANXIETY/AGITATION 05/16/20 11:45 05/18/20 08:00 DC 05/17/20 08:26 Hydroxyzine HCl (Atarax) 50 mg Q4HP PRN PO anxiety 05/19/20 14:30 05/21/20 20:22 Lamotrigine (LaMICtal) 100 mg BID PO 05/14/20 21:00 05/15/20 02:00 DC Lamotrigine (LaMICtal) 150 mg BID PO 05/14/20 21:00 05/25/20 08:18 Magnesium Hydroxide (Milk Of Magnesia) 30 ml DAILYPRN PRN PO CONSTIPATION 05/15/20 01:45 Mirtazapine (Remeron) 15 mg QHS PO 05/14/20 21:00 05/24/20 20:54 Paliperidone Palmitate (Invega Sustenna) 234 mg Q30D IM 06/07/20 09:00 Zolpidem Tartrate (Ambien) 5 mg QHS PO 05/14/20 21:00 05/24/20 20:54 Allergies Coded Allergies: divalproex sodium (Verified Allergy, Unknown, 07/09/19) benztropine (Verified Adverse Reaction, Intermediate, hallucinations, 07/09/19) CATALINA GARCIA DO May 25, 2020 10:45
[2020-05-25 18:00] VITALS: BP 143/68
[2020-05-25] MEDS: zolPIDEM TARTRATE 5 MG TAB PO SCH (20:07)
[2020-05-25] MEDS: MIRTAZAPINE 15 MG TAB PO SCH (20:07)
[2020-05-26 06:32] VITALS: BP 142/86
[2020-05-26] MEDS: ARIPiprazole 15 MG TAB (AbiLIFY) PO SCH (08:22)
[2020-05-26] MEDS: PILL CUTTER 1 EACH XX PRN ×2 (08:22→20:09)
[2020-05-26] MEDS: lamoTRIgine 100MG TAB PO SCH ×2 (08:23→20:06)
[2020-05-26] MEDS: ESCITALOPRAM OXALATE 10 MG TAB (LEXAPRO) PO SCH (08:23)
--- NOTE | 2020-05-26 10:00 | MHIPNPDOC ---
[facility] Progress Note Progress Note DATE OF SERVICE: 05/26/20 HISTORY: the patient has been doing well without any major problems, he continues to discuss the difficulties that led to his previous admissions. He otherwise does not have any complaints, he reports that he has been going to groups and exploring his stressors. VITAL SIGNS: See below. NEW TEST RESULTS: NA. CURRENT MEDICATIONS: See below. MENTAL STATUS EXAMINATION: General: [Well dressed with good hygiene] Speech: [Spontaneous and fluid] Thought processes: [Linear and logical] Thought content: [Future orientated] Abstract reasoning, and computation: [Intact] Description of associations: [Intact] Description of abnormal or psychotic thoughts: denies any SI/HI, AVH Judgment: [Fair] Insight: [Fair] Orientation: [Alert and orientated 3] Recent and remote memory: [Intact] Attention span and concentration: [Intact] Fund of knowledge: [Adequate] Mood: "Okay" Affect: euthymic, mildly constricted DIAGNOSES: 1. Adjustment disorder with a disruption of mood and conduct. 2. Major depressive disorder recurrent, severe in unspecified remission. (With psychotic symptoms) ASSESSMENT: We will continue with referral, the underlying social issue appears to be the velázquez part to keeping him stable. MANAGEMENT PLAN: Continue Abilify, Lamictal, Ambien and Lexapro at current dose below, Continue with TLS referral, CR team to meet soon Time spent: 15 minutes Vital Signs Vital Signs Date Time Temp Pulse Resp B/P (MAP) Pulse Ox O2 Delivery O2 Flow Rate FiO2 05/26/20 06:32 98.4 82 18 142/86 (104) 05/23/20 16:15 94 Room Air Current Medications Current Medications Medications (Trade) Dose Ordered Sig/Rizwan Route PRN Reason Start Time Stop Time Status Last Admin Dose Admin Acetaminophen (Tylenol Tab) 650 mg Q6HP PRN PO HEADACHE or DISCOMFORT 05/15/20 01:45 05/15/20 12:55 Al Hydrox/Mg Hydrox/Simethicone (Mylanta) 30 ml Q4HP PRN PO HEARTBURN/INDIGESTION 05/15/20 01:45 Aripiprazole (AbiLIFY) 15 mg DAILY PO 05/15/20 09:00 05/26/20 08:22 Escitalopram Oxalate (Lexapro) 20 mg DAILY PO 05/15/20 09:00 05/26/20 08:23 Home Med (Med Rec Complete!) ASDIRECTED XX 05/15/20 01:00 05/15/20 00:54 DC Hydroxyzine HCl (Atarax) 25 mg BID PRN PO ANXIETY 05/15/20 01:45 05/16/20 11:39 DC 05/16/20 08:25 Hydroxyzine HCl (Atarax) 25 mg Q8HP PRN PO ANXIETY/AGITATION 05/16/20 11:45 05/18/20 08:00 DC 05/17/20 08:26 Hydroxyzine HCl (Atarax) 50 mg Q4HP PRN PO anxiety 05/19/20 14:30 05/21/20 20:22 Lamotrigine (LaMICtal) 100 mg BID PO 05/14/20 21:00 05/15/20 02:00 DC Lamotrigine (LaMICtal) 150 mg BID PO 05/14/20 21:00 05/26/20 08:23 Magnesium Hydroxide (Milk Of Magnesia) 30 ml DAILYPRN PRN PO CONSTIPATION 05/15/20 01:45 Mirtazapine (Remeron) 15 mg QHS PO 05/14/20 21:00 05/25/20 20:07 Paliperidone Palmitate (Invega Sustenna) 234 mg Q30D IM 06/07/20 09:00 Zolpidem Tartrate (Ambien) 5 mg QHS PO 05/14/20 21:00 05/25/20 20:07 Allergies Coded Allergies: divalproex sodium (Verified Allergy, Unknown, 07/09/19) benztropine (Verified Adverse Reaction, Intermediate, hallucinations, 07/09/19) CATALINA GARCIA DO May 26, 2020 10:00
[2020-05-26] MEDS: hydrOXYzine 50 MG TAB PO PRN (18:49)
[2020-05-26 19:53] VITALS: BP 127/63
[2020-05-26] MEDS: zolPIDEM TARTRATE 5 MG TAB PO SCH (20:06)
[2020-05-26] MEDS: MIRTAZAPINE 15 MG TAB PO SCH (20:06)
[2020-05-27 06:49] VITALS: BP 142/83
[2020-05-27] MEDS: ESCITALOPRAM OXALATE 10 MG TAB (LEXAPRO) PO SCH (08:07)
[2020-05-27] MEDS: ARIPiprazole 15 MG TAB (AbiLIFY) PO SCH (08:11)
[2020-05-27] MEDS: lamoTRIgine 100MG TAB PO SCH ×2 (08:11→20:02)
--- NOTE | 2020-05-27 10:42 | MHIPNPDOC ---
[facility] Progress Note Progress Note DATE OF SERVICE: 05/27/20 HISTORY: the patient is met with today, he reports these had some chronic problems with bedwetting and wants to ask about that, he reports that he is still interested in the CR and believe still be quite helpful for the issues that brought him in. He reports that he feels he's doing better and coping better but still yields that the difficulties that had been an outpatient prior will still be there and will likely report provoke his symptoms. VITAL SIGNS: See below. NEW TEST RESULTS: NA. CURRENT MEDICATIONS: See below. MENTAL STATUS EXAMINATION: General: [Well dressed with good hygiene] Speech: [Spontaneous and fluid] Thought processes: [Linear and logical] Thought content: [Future orientated] Abstract reasoning, and computation: [Intact] Description of associations: [Intact] Description of abnormal or psychotic thoughts: denies any SI/HI, AVH Judgment: [Fair] Insight: [Fair] Orientation: [Alert and orientated 3] Recent and remote memory: [Intact] Attention span and concentration: [Intact] Fund of knowledge: [Adequate] Mood: "Okay" Affect: euthymic, mildly constricted DIAGNOSES: 1. Adjustment disorder with a disruption of mood and conduct. 2. Major depressive disorder recurrent, severe in unspecified remission. (With psychotic symptoms) ASSESSMENT: We will continue with referral, the underlying social issue appears to be the velázquez part to keeping him stable. MANAGEMENT PLAN: Continue Abilify, Lamictal, Ambien and Lexapro at current dose below, Continue with TLS referral, CR team to meet soon Will see about consult hospitalist regarding chronic intermittent enuresis, doesn't appear to be an overt side effect of some of his medications, recent urinalysis was unremarkable Time spent: 15 minutes Vital Signs Vital Signs Date Time Temp Pulse Resp B/P (MAP) Pulse Ox O2 Delivery O2 Flow Rate FiO2 05/27/20 06:49 98.4 83 16 142/83 (102) 96 Room Air Current Medications Current Medications Medications (Trade) Dose Ordered Sig/Rizwan Route PRN Reason Start Time Stop Time Status Last Admin Dose Admin Acetaminophen (Tylenol Tab) 650 mg Q6HP PRN PO HEADACHE or DISCOMFORT 05/15/20 01:45 05/15/20 12:55 Al Hydrox/Mg Hydrox/Simethicone (Mylanta) 30 ml Q4HP PRN PO HEARTBURN/INDIGESTION 05/15/20 01:45 Aripiprazole (AbiLIFY) 15 mg DAILY PO 05/15/20 09:00 05/27/20 08:11 Escitalopram Oxalate (Lexapro) 20 mg DAILY PO 05/15/20 09:00 05/27/20 08:07 Home Med (Med Rec Complete!) ASDIRECTED XX 05/15/20 01:00 05/15/20 00:54 DC Hydroxyzine HCl (Atarax) 25 mg BID PRN PO ANXIETY 05/15/20 01:45 05/16/20 11:39 DC 05/16/20 08:25 Hydroxyzine HCl (Atarax) 25 mg Q8HP PRN PO ANXIETY/AGITATION 05/16/20 11:45 05/18/20 08:00 DC 05/17/20 08:26 Hydroxyzine HCl (Atarax) 50 mg Q4HP PRN PO anxiety 05/19/20 14:30 05/26/20 18:49 Lamotrigine (LaMICtal) 100 mg BID PO 05/14/20 21:00 05/15/20 02:00 DC Lamotrigine (LaMICtal) 150 mg BID PO 05/14/20 21:00 05/27/20 08:11 Magnesium Hydroxide (Milk Of Magnesia) 30 ml DAILYPRN PRN PO CONSTIPATION 05/15/20 01:45 Mirtazapine (Remeron) 15 mg QHS PO 05/14/20 21:00 05/26/20 20:06 Paliperidone Palmitate (Invega Sustenna) 234 mg Q30D IM 06/07/20 09:00 Zolpidem Tartrate (Ambien) 5 mg QHS PO 05/14/20 21:00 05/26/20 20:06 Allergies Coded Allergies: divalproex sodium (Verified Allergy, Unknown, 07/09/19) benztropine (Verified Adverse Reaction, Intermediate, hallucinations, 07/09/19) CATALINA GARCIA DO May 27, 2020 10:42
[2020-05-27 16:55] VITALS: BP 132/88
[2020-05-27 16:58] VITALS: BP 86/50
[2020-05-27] MEDS: MIRTAZAPINE 15 MG TAB PO SCH (20:02)
[2020-05-27] MEDS: zolPIDEM TARTRATE 5 MG TAB PO SCH (20:02)
[2020-05-28 06:38] VITALS: BP 130/81
[2020-05-28] MEDS: lamoTRIgine 100MG TAB PO SCH ×2 (08:07→20:08)
[2020-05-28] MEDS: ARIPiprazole 15 MG TAB (AbiLIFY) PO SCH (08:07)
[2020-05-28] MEDS: ESCITALOPRAM OXALATE 10 MG TAB (LEXAPRO) PO SCH (08:07)
--- NOTE | 2020-05-28 09:45 | MHIPNPDOC ---
[facility] Progress Note Progress Note DATE OF SERVICE: 05/28/20 HISTORY: The patient has met with today, he reports he is doing well, he reports the stabilized environment is quite helpful, he describes that his loneliness and socialization issues at this time especially around the holidays form the majority of his suicidal thoughts and depression. He reports he is doing well and he is open to staying longer to try to do the CR intake as he reports that this has been helpful for him in the past. He reports medications helpful and the groups are generally good for him. VITAL SIGNS: See below. NEW TEST RESULTS: NA. CURRENT MEDICATIONS: See below. MENTAL STATUS EXAMINATION: General: [Well dressed with good hygiene] Speech: [Spontaneous and fluid] Thought processes: [Linear and logical] Thought content: [Future orientated] Abstract reasoning, and computation: [Intact] Description of associations: [Intact] Description of abnormal or psychotic thoughts: denies any SI/HI, AVH Judgment: [Fair] Insight: [Fair] Orientation: [Alert and orientated 3] Recent and remote memory: [Intact] Attention span and concentration: [Intact] Fund of knowledge: [Adequate] Mood: "Okay" Affect: euthymic, mildly constricted DIAGNOSES: 1. Adjustment disorder with a disruption of mood and conduct. 2. Major depressive disorder recurrent, severe in unspecified remission. (With psychotic symptoms) ASSESSMENT: We will continue with referral, the underlying social issue appears to be the velázquez part to keeping him stable. MANAGEMENT PLAN: Continue Abilify, Lamictal, Ambien and Lexapro at current dose below, We will have CR interview on Sunday, still feel very strongly that attempting to get him into group house or better supported living will significantly curtail his chances of admission, although even if this is not feasible this is the generally the most difficult time for him during the year so alternatives would need to be explored for the immediate term if this was not a reasonable alternative Time spent: 15 minutes Vital Signs Vital Signs Date Time Temp Pulse Resp B/P (MAP) Pulse Ox O2 Delivery O2 Flow Rate FiO2 05/28/20 06:38 98.1 78 16 130/81 (97) 97 Room Air Current Medications Current Medications Medications (Trade) Dose Ordered Sig/Rizwan Route PRN Reason Start Time Stop Time Status Last Admin Dose Admin Acetaminophen (Tylenol Tab) 650 mg Q6HP PRN PO HEADACHE or DISCOMFORT 05/15/20 01:45 05/15/20 12:55 Al Hydrox/Mg Hydrox/Simethicone (Mylanta) 30 ml Q4HP PRN PO HEARTBURN/INDIGESTION 05/15/20 01:45 Aripiprazole (AbiLIFY) 15 mg DAILY PO 05/15/20 09:00 05/28/20 08:07 Escitalopram Oxalate (Lexapro) 20 mg DAILY PO 05/15/20 09:00 05/28/20 08:07 Home Med (Med Rec Complete!) ASDIRECTED XX 05/15/20 01:00 05/15/20 00:54 DC Hydroxyzine HCl (Atarax) 25 mg BID PRN PO ANXIETY 05/15/20 01:45 05/16/20 11:39 DC 05/16/20 08:25 Hydroxyzine HCl (Atarax) 25 mg Q8HP PRN PO ANXIETY/AGITATION 05/16/20 11:45 05/18/20 08:00 DC 05/17/20 08:26 Hydroxyzine HCl (Atarax) 50 mg Q4HP PRN PO anxiety 05/19/20 14:30 05/26/20 18:49 Lamotrigine (LaMICtal) 100 mg BID PO 05/14/20 21:00 05/15/20 02:00 DC Lamotrigine (LaMICtal) 150 mg BID PO 05/14/20 21:00 05/28/20 08:07 Magnesium Hydroxide (Milk Of Magnesia) 30 ml DAILYPRN PRN PO CONSTIPATION 05/15/20 01:45 Mirtazapine (Remeron) 15 mg QHS PO 05/14/20 21:00 05/27/20 20:02 Paliperidone Palmitate (Invega Sustenna) 234 mg Q30D IM 06/07/20 09:00 Zolpidem Tartrate (Ambien) 5 mg QHS PO 05/14/20 21:00 05/27/20 20:02 Allergies Coded Allergies: divalproex sodium (Verified Allergy, Unknown, 07/09/19) benztropine (Verified Adverse Reaction, Intermediate, hallucinations, 07/09/19) CATALINA GARCIA DO May 28, 2020 09:45
[2020-05-28 16:00] VITALS: BP 140/80
[2020-05-28] MEDS: zolPIDEM TARTRATE 5 MG TAB PO SCH (20:09)
[2020-05-28] MEDS: MIRTAZAPINE 15 MG TAB PO SCH (20:09)
[2020-05-29 06:09] VITALS: BP 158/58
[2020-05-29] MEDS: hydrOXYzine 50 MG TAB PO PRN ×2 (08:06→12:28)
[2020-05-29] MEDS: lamoTRIgine 100MG TAB PO SCH ×2 (08:07→21:29)
[2020-05-29] MEDS: ESCITALOPRAM OXALATE 10 MG TAB (LEXAPRO) PO SCH (08:07)
[2020-05-29] MEDS: ARIPiprazole 15 MG TAB (AbiLIFY) PO SCH (08:07)
[2020-05-29 17:52] VITALS: BP 148/91
[2020-05-29] MEDS: MIRTAZAPINE 15 MG TAB PO SCH (21:28)
[2020-05-29] MEDS: zolPIDEM TARTRATE 5 MG TAB PO SCH (21:30)
[2020-05-30 06:38] VITALS: BP 108/58
[2020-05-30] MEDS: lamoTRIgine 100MG TAB PO SCH ×2 (08:09→20:12)
[2020-05-30] MEDS: ARIPiprazole 15 MG TAB (AbiLIFY) PO SCH (08:09)
[2020-05-30] MEDS: ESCITALOPRAM OXALATE 10 MG TAB (LEXAPRO) PO SCH (08:09)
[2020-05-30 17:40] VITALS: BP 121/86
[2020-05-30] MEDS: PILL CUTTER 1 EACH XX PRN (20:12)
[2020-05-30] MEDS: MIRTAZAPINE 15 MG TAB PO SCH (20:12)
[2020-05-30] MEDS: zolPIDEM TARTRATE 5 MG TAB PO SCH (20:12)
[2020-05-31 06:29] VITALS: BP 147/85
[2020-05-31] MEDS: ESCITALOPRAM OXALATE 10 MG TAB (LEXAPRO) PO SCH (08:16)
[2020-05-31] MEDS: lamoTRIgine 100MG TAB PO SCH ×2 (08:16→20:04)
[2020-05-31] MEDS: PILL CUTTER 1 EACH XX PRN ×2 (08:17→20:04)
[2020-05-31] MEDS: ARIPiprazole 15 MG TAB (AbiLIFY) PO SCH (08:17)
--- NOTE | 2020-05-31 09:57 | MHIPNPDOC ---
[facility] Progress Note Progress Note DATE OF SERVICE: 05/31/20 HISTORY: The patient reports that he had the meeting with the CR committee, he reports that he felt it went well and that this could be a good option for him, he reports that he does feel somewhat worried that he would not be able to be placed prior to his discharge, but ultimately reports he is feeling more motivated and engaged. Discharge planners report that the [facility] team that works with him is primarily concerned with this time of year as this is the most difficult and lonely time for him, even if we were unable to get him into this ER if we are able to get him through this. He would likely be stable for several months allowing him to be placed more properly in this CR. VITAL SIGNS: See below. NEW TEST RESULTS: NA. CURRENT MEDICATIONS: See below. MENTAL STATUS EXAMINATION: General: [Well dressed with good hygiene] Speech: [Spontaneous and fluid] Thought processes: [Linear and logical] Thought content: [Future orientated] Abstract reasoning, and computation: [Intact] Description of associations: [Intact] Description of abnormal or psychotic thoughts: denies any SI/HI, AVH Judgment: [Fair] Insight: [Fair] Orientation: [Alert and orientated 3] Recent and remote memory: [Intact] Attention span and concentration: [Intact] Fund of knowledge: [Adequate] Mood: "Okay" Affect: euthymic, mildly constricted DIAGNOSES: 1. Adjustment disorder with a disruption of mood and conduct. 2. Major depressive disorder recurrent, severe in unspecified remission. (With psychotic symptoms) ASSESSMENT: We will continue with referral, the underlying social issue appears to be the velázquez part to keeping him stable. MANAGEMENT PLAN: Continue Abilify, Lamictal, Ambien and Lexapro at current dose below, CR meeting will be on , will wait to determine if he has bed if not we will attempt to create a discharge plan, likely increasing his support as an outpatient with either friends or other supports could help him feel more supp orted and engaged during the holiday, the Covid crisis obviously makes that much more difficult and could form a focus of difficulty bringing him back to the hospital Time spent: 15 minutes Vital Signs Vital Signs Date Time Temp Pulse Resp B/P (MAP) Pulse Ox O2 Delivery O2 Flow Rate FiO2 05/31/20 06:29 99.1 95 18 147/85 (105) 05/30/20 17:40 93 Room Air Current Medications Current Medications Medications (Trade) Dose Ordered Sig/Rizwan Route PRN Reason Start Time Stop Time Status Last Admin Dose Admin Acetaminophen (Tylenol Tab) 650 mg Q6HP PRN PO HEADACHE or DISCOMFORT 05/15/20 01:45 05/15/20 12:55 Al Hydrox/Mg Hydrox/Simethicone (Mylanta) 30 ml Q4HP PRN PO HEARTBURN/INDIGESTION 05/15/20 01:45 Aripiprazole (AbiLIFY) 15 mg DAILY PO 05/15/20 09:00 05/31/20 08:17 Escitalopram Oxalate (Lexapro) 20 mg DAILY PO 05/15/20 09:00 05/31/20 08:16 Home Med (Med Rec Complete!) ASDIRECTED XX 05/15/20 01:00 05/15/20 00:54 DC Hydroxyzine HCl (Atarax) 25 mg BID PRN PO ANXIETY 05/15/20 01:45 05/16/20 11:39 DC 05/16/20 08:25 Hydroxyzine HCl (Atarax) 25 mg Q8HP PRN PO ANXIETY/AGITATION 05/16/20 11:45 05/18/20 08:00 DC 05/17/20 08:26 Hydroxyzine HCl (Atarax) 50 mg Q4HP PRN PO anxiety 05/19/20 14:30 05/29/20 12:28 Lamotrigine (LaMICtal) 100 mg BID PO 05/14/20 21:00 05/15/20 02:00 DC Lamotrigine (LaMICtal) 150 mg BID PO 05/14/20 21:00 05/31/20 08:16 Magnesium Hydroxide (Milk Of Magnesia) 30 ml DAILYPRN PRN PO CONSTIPATION 05/15/20 01:45 Mirtazapine (Remeron) 15 mg QHS PO 05/14/20 21:00 05/30/20 20:12 Paliperidone Palmitate (Invega Sustenna) 234 mg Q30D IM 06/07/20 09:00 Zolpidem Tartrate (Ambien) 5 mg QHS PO 05/14/20 21:00 05/30/20 20:12 Allergies Coded Allergies: divalproex sodium (Verified Allergy, Unknown, 07/09/19) benztropine (Verified Adverse Reaction, Intermediate, hallucinations, 07/09/19) CATALINA GARCIA DO May 31, 2020 09:57
[2020-05-31 16:00] VITALS: BP 140/92
[2020-05-31] MEDS: zolPIDEM TARTRATE 5 MG TAB PO SCH (20:04)
[2020-05-31] MEDS: MIRTAZAPINE 15 MG TAB PO SCH (20:04)
[2020-06-01 06:23] VITALS: BP 142/98
[2020-06-01] MEDS: lamoTRIgine 100MG TAB PO SCH ×2 (08:10→20:41)
[2020-06-01] MEDS: PILL CUTTER 1 EACH XX PRN (08:10)
[2020-06-01] MEDS: ESCITALOPRAM OXALATE 10 MG TAB (LEXAPRO) PO SCH (08:11)
[2020-06-01] MEDS: ARIPiprazole 15 MG TAB (AbiLIFY) PO SCH (08:11)
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
[2020-06-01 16:21] VITALS: BP 136/80
[2020-06-01] MEDS: MIRTAZAPINE 15 MG TAB PO SCH (20:41)
[2020-06-01] MEDS: zolPIDEM TARTRATE 5 MG TAB PO SCH (20:41)
[2020-06-02 06:27] VITALS: BP 128/82
[2020-06-02] MEDS: ARIPiprazole 15 MG TAB (AbiLIFY) PO SCH (08:15)
[2020-06-02] MEDS: ESCITALOPRAM OXALATE 10 MG TAB (LEXAPRO) PO SCH (08:15)
[2020-06-02] MEDS: lamoTRIgine 100MG TAB PO SCH ×2 (08:16→20:24)
[2020-06-02] MEDS: PILL CUTTER 1 EACH XX PRN (08:16)
--- NOTE | 2020-06-02 12:47 | MHIPNPDOC ---
[facility] Progress Note Progress Note DATE OF SERVICE: 06/02/20 HISTORY: The patient is met with today, he reports some low mood that has become more present, he describes this time of year being very difficult for him sign ificant loneliness and missing of his family. He reports that since he had from his he had not has much interactions with his children and he has become more depressed. He reports some passive ideation last night, he reports that he feels that he primarily focuses on that and that this is become more of an issue for him at this time. VITAL SIGNS: See below. NEW TEST RESULTS: NA. CURRENT MEDICATIONS: See below. MENTAL STATUS EXAMINATION: General: [Well dressed with good hygiene] Speech: [Spontaneous and fluid] Thought processes: [Linear and logical] Thought content: More hopeless Abstract reasoning, and computation: [Intact] Description of associations: [Intact] Description of abnormal or psychotic thoughts: Passive ideation last night Judgment: [Fair] Insight: [Fair] Orientation: [Alert and orientated 3] Recent and remote memory: [Intact] Attention span and concentration: [Intact] Fund of knowledge: [Adequate] Mood: "Okay" Affect: Dysthymic, constricted DIAGNOSES: 1. Adjustment disorder with a disruption of mood and conduct. 2. Major depressive disorder recurrent, severe in unspecified remission. (With psychotic symptoms) ASSESSMENT: We will continue to observe, likely result of his adjustment rather than overt MDD, will await the results of the CR placement MANAGEMENT PLAN: Continue Abilify, Lamictal, Ambien and Lexapro at current dose below, Awaiting the results of the CR meeting Time spent: 15 minutes Vital Signs Vital Signs Date Time Temp Pulse Resp B/P (MAP) Pulse Ox O2 Delivery O2 Flow Rate FiO2 06/02/20 06:27 99.1 91 16 128/82 (97) 95 Room Air Current Medications Current Medications Medications (Trade) Dose Ordered Sig/Rizwan Route PRN Reason Start Time Stop Time Status Last Admin Dose Admin Acetaminophen (Tylenol Tab) 650 mg Q6HP PRN PO HEADACHE or DISCOMFORT 05/15/20 01:45 05/15/20 12:55 Al Hydrox/Mg Hydrox/Simethicone (Mylanta) 30 ml Q4HP PRN PO HEARTBURN/INDIGESTION 05/15/20 01:45 Aripiprazole (AbiLIFY) 15 mg DAILY PO 05/15/20 09:00 06/02/20 08:15 Escitalopram Oxalate (Lexapro) 20 mg DAILY PO 05/15/20 09:00 06/02/20 08:15 Home Med (Med Rec Complete!) ASDIRECTED XX 05/15/20 01:00 05/15/20 00:54 DC Hydroxyzine HCl (Atarax) 25 mg BID PRN PO ANXIETY 05/15/20 01:45 05/16/20 11:39 DC 05/16/20 08:25 Hydroxyzine HCl (Atarax) 25 mg Q8HP PRN PO ANXIETY/AGITATION 05/16/20 11:45 05/18/20 08:00 DC 05/17/20 08:26 Hydroxyzine HCl (Atarax) 50 mg Q4HP PRN PO anxiety 05/19/20 14:30 05/29/20 12:28 Lamotrigine (LaMICtal) 100 mg BID PO 05/14/20 21:00 05/15/20 02:00 DC Lamotrigine (LaMICtal) 150 mg BID PO 05/14/20 21:00 06/02/20 08:16 Magnesium Hydroxide (Milk Of Magnesia) 30 ml DAILYPRN PRN PO CONSTIPATION 05/15/20 01:45 Mirtazapine (Remeron) 15 mg QHS PO 05/14/20 21:00 06/01/20 20:41 Paliperidone Palmitate (Invega Sustenna) 234 mg Q30D IM 06/07/20 09:00 Zolpidem Tartrate (Ambien) 5 mg QHS PO 05/14/20 21:00 06/01/20 20:41 Allergies Coded Allergies: divalproex sodium (Verified Allergy, Unknown, 07/09/19) benztropine (Verified Adverse Reaction, Intermediate, hallucinations, 07/09/19) CATALINA GARCIA DO Jun 02, 2020 12:47
[2020-06-02 16:27] VITALS: BP 142/92
[2020-06-02] MEDS: zolPIDEM TARTRATE 5 MG TAB PO SCH (20:23)
[2020-06-02] MEDS: MIRTAZAPINE 15 MG TAB PO SCH (20:24)
[2020-06-03 06:08] VITALS: BP 127/85
[2020-06-03] MEDS: ARIPiprazole 15 MG TAB (AbiLIFY) PO SCH (08:10)
[2020-06-03] MEDS: ESCITALOPRAM OXALATE 10 MG TAB (LEXAPRO) PO SCH (08:10)
[2020-06-03] MEDS: lamoTRIgine 100MG TAB PO SCH ×2 (08:10→20:02)
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
[2020-06-03 16:27] VITALS: BP 146/68
[2020-06-03] MEDS: zolPIDEM TARTRATE 5 MG TAB PO SCH (20:02)
[2020-06-03] MEDS: MIRTAZAPINE 15 MG TAB PO SCH (20:02)
[2020-06-03] MEDS: PILL CUTTER 1 EACH XX PRN (20:03)
[2020-06-04 06:34] VITALS: BP 136/87
[2020-06-04] MEDS: PILL CUTTER 1 EACH XX PRN (08:27)
[2020-06-04] MEDS: ESCITALOPRAM OXALATE 10 MG TAB (LEXAPRO) PO SCH (08:27)
[2020-06-04] MEDS: ARIPiprazole 15 MG TAB (AbiLIFY) PO SCH (08:28)
[2020-06-04] MEDS: lamoTRIgine 100MG TAB PO SCH ×2 (08:28→20:25)
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
[2020-06-04 17:08] VITALS: BP 120/87
[2020-06-04] MEDS: MIRTAZAPINE 15 MG TAB PO SCH (20:25)
[2020-06-04] MEDS: zolPIDEM TARTRATE 5 MG TAB PO SCH (20:26)
[2020-06-05 06:00] VITALS: BP 136/77
[2020-06-05] MEDS: lamoTRIgine 100MG TAB PO SCH ×2 (08:33→20:04)
[2020-06-05] MEDS: PILL CUTTER 1 EACH XX PRN (08:33)
[2020-06-05] MEDS: ESCITALOPRAM OXALATE 10 MG TAB (LEXAPRO) PO SCH (08:33)
[2020-06-05] MEDS: ARIPiprazole 15 MG TAB (AbiLIFY) PO SCH (08:33)
[2020-06-05] MEDS: hydrOXYzine 50 MG TAB PO PRN ×2 (11:49→19:06)
[2020-06-05 16:31] VITALS: BP 137/78
[2020-06-05] MEDS: zolPIDEM TARTRATE 5 MG TAB PO SCH (20:04)
[2020-06-05] MEDS: MIRTAZAPINE 15 MG TAB PO SCH (20:04)
[2020-06-06 06:51] VITALS: BP 159/89
[2020-06-06] MEDS: lamoTRIgine 100MG TAB PO SCH ×2 (08:07→20:01)
[2020-06-06] MEDS: PILL CUTTER 1 EACH XX PRN ×2 (08:07→20:01)
[2020-06-06] MEDS: ESCITALOPRAM OXALATE 10 MG TAB (LEXAPRO) PO SCH (08:08)
[2020-06-06] MEDS: ARIPiprazole 15 MG TAB (AbiLIFY) PO SCH (08:08)
[2020-06-06] MEDS: hydrOXYzine 50 MG TAB PO PRN (08:11)
[2020-06-06 17:40] VITALS: BP 131/89
[2020-06-06] MEDS: MIRTAZAPINE 15 MG TAB PO SCH (20:01)
[2020-06-06] MEDS: zolPIDEM TARTRATE 5 MG TAB PO SCH (20:01)
[2020-06-07 06:31] VITALS: BP 146/76
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
[2020-06-07] MEDS: PILL CUTTER 1 EACH XX PRN (08:14)
[2020-06-07] MEDS: lamoTRIgine 100MG TAB PO SCH ×2 (08:14→20:08)
[2020-06-07] MEDS: ARIPiprazole 15 MG TAB (AbiLIFY) PO SCH (08:14)
[2020-06-07] MEDS: ESCITALOPRAM OXALATE 10 MG TAB (LEXAPRO) PO SCH (08:14)
[2020-06-07] MEDS ORDERED: PALIPERIDONE PALMITATE 234 MG/1.5 ML IM SCH (09:00)
[2020-06-07 17:58] VITALS: BP 142/90
[2020-06-07] MEDS: zolPIDEM TARTRATE 5 MG TAB PO SCH (20:08)
[2020-06-07] MEDS: MIRTAZAPINE 15 MG TAB PO SCH (20:08)
[2020-06-08 06:33] VITALS: BP 126/84
[2020-06-08] MEDS: ARIPiprazole 15 MG TAB (AbiLIFY) PO SCH (08:10)
[2020-06-08] MEDS: PILL CUTTER 1 EACH XX PRN (08:10)
[2020-06-08] MEDS: ESCITALOPRAM OXALATE 10 MG TAB (LEXAPRO) PO SCH (08:11)
[2020-06-08] MEDS: lamoTRIgine 100MG TAB PO SCH ×2 (08:11→20:19)
--- NOTE | 2020-06-08 09:14 | MHIPNPDOC ---
[facility] Progress Note Progress Note DATE OF SERVICE: 06/08/20 HISTORY: The patient is met with today, he reports that he still amenable to working on TLS, but is more open to the idea that he might have to return home and is trying to figure out how he would handle that stress shea. He describes that the medications will helpful and that his depression remains quite well controlled, even with the unfazed. He reports that he has been working on building his coping skills and feels much improved. VITAL SIGNS: See below. NEW TEST RESULTS: NA. CURRENT MEDICATIONS: See below. MENTAL STATUS EXAMINATION: General: [Well dressed with good hygiene] Speech: [Spontaneous and fluid] Thought processes: [Linear and logical] Thought content: Less hopelessness Abstract reasoning, and computation: [Intact] Description of associations: [Intact] Description of abnormal or psychotic thoughts: Denies SI/HI, AVH at this time Judgment: [Fair] Insight: [Fair] Orientation: [Alert and orientated 3] Recent and remote memory: [Intact] Attention span and concentration: [Intact] Fund of knowledge: [Adequate] Mood: "Okay" Affect: More euthymic DIAGNOSES: 1. Adjustment disorder with a disruption of mood and conduct. 2. Major depressive disorder recurrent, severe in unspecified remission. (With psychotic symptoms) ASSESSMENT: Patient was apparently rejected from CR, will attempt to help him get into the apartment program of which has ready availability and he would do much better with the supportive environment although I do not understand the rationale for his rejection from the CR MANAGEMENT PLAN: Continue Abilify, Lamictal, Ambien and Lexapro at current dose below, Time spent: 15 minutes Vital Signs Vital Signs Date Time Temp Pulse Resp B/P (MAP) Pulse Ox O2 Delivery O2 Flow Rate FiO2 06/08/20 06:33 98.1 90 16 126/84 (98) 92 Room Air Current Medications Current Medications Medications (Trade) Dose Ordered Sig/Rizwan Route PRN Reason Start Time Stop Time Status Last Admin Dose Admin Acetaminophen (Tylenol Tab) 650 mg Q6HP PRN PO HEADACHE or DISCOMFORT 05/15/20 01:45 05/15/20 12:55 Al Hydrox/Mg Hydrox/Simethicone (Mylanta) 30 ml Q4HP PRN PO HEARTBURN/INDIGESTION 05/15/20 01:45 Aripiprazole (AbiLIFY) 15 mg DAILY PO 05/15/20 09:00 06/08/20 08:10 Escitalopram Oxalate (Lexapro) 20 mg DAILY PO 05/15/20 09:00 06/08/20 08:11 Home Med (Med Rec Complete!) ASDIRECTED XX 05/15/20 01:00 05/15/20 00:54 DC Hydroxyzine HCl (Atarax) 25 mg BID PRN PO ANXIETY 05/15/20 01:45 05/16/20 11:39 DC 05/16/20 08:25 Hydroxyzine HCl (Atarax) 25 mg Q8HP PRN PO ANXIETY/AGITATION 05/16/20 11:45 05/18/20 08:00 DC 05/17/20 08:26 Hydroxyzine HCl (Atarax) 50 mg Q4HP PRN PO anxiety 05/19/20 14:30 06/06/20 08:11 Lamotrigine (LaMICtal) 100 mg BID PO 05/14/20 21:00 05/15/20 02:00 DC Lamotrigine (LaMICtal) 150 mg BID PO 05/14/20 21:00 06/08/20 08:11 Magnesium Hydroxide (Milk Of Magnesia) 30 ml DAILYPRN PRN PO CONSTIPATION 05/15/20 01:45 Mirtazapine (Remeron) 15 mg QHS PO 05/14/20 21:00 06/07/20 20:08 Miscellaneous (Unresolved Clarification Entry) SEE LABEL COMMENTS DAILY XX 06/07/20 09:00 06/07/20 13:37 DC Paliperidone Palmitate (Invega Sustenna) 234 mg Q30D IM 06/07/20 09:00 06/07/20 12:57 Zolpidem Tartrate (Ambien) 5 mg QHS PO 05/14/20 21:00 06/07/20 20:08 Allergies Coded Allergies: divalproex sodium (Verified Allergy, Unknown, 07/09/19) benztropine (Verified Adverse Reaction, Intermediate, hallucinations, 07/09/19) CATALINA GARCIA DO Jun 08, 2020 09:14
[2020-06-08 16:00] VITALS: BP 152/90
[2020-06-08] MEDS: zolPIDEM TARTRATE 5 MG TAB PO SCH (20:19)
[2020-06-08] MEDS: MIRTAZAPINE 15 MG TAB PO SCH (20:19)
[2020-06-09 06:00] VITALS: BP 110/63
[2020-06-09] MEDS: ARIPiprazole 15 MG TAB (AbiLIFY) PO SCH (08:04)
[2020-06-09] MEDS: PILL CUTTER 1 EACH XX PRN (08:04)
[2020-06-09] MEDS: ACETAMINOPHEN TAB 650MG DOSE (2X325MG) PO PRN (08:06)
[2020-06-09] MEDS: lamoTRIgine 100MG TAB PO SCH ×2 (08:06→21:11)
[2020-06-09] MEDS: ESCITALOPRAM OXALATE 10 MG TAB (LEXAPRO) PO SCH (08:06)
--- NOTE | 2020-06-09 11:19 | MHIPNPDOC ---
[facility] Progress Note Progress Note DATE OF SERVICE: 06/09/20 HISTORY: The patient is met with today he reports he is doing well, he is a little bit displeased about the rejection from TLS, however he reports that he feels like he is coping well in the setting. He reports that he is open to trying to stay a little longer to see we might build to get him at least triaged to the apartment program. He describes the stressors of the holidays being a major provoking factor but describes his environment has fairly helpful for him and he has had no symptoms of depression and no suicidal thoughts reporting his medications doing well without side effects. VITAL SIGNS: See below. NEW TEST RESULTS: NA. CURRENT MEDICATIONS: See below. MENTAL STATUS EXAMINATION: General: [Well dressed with good hygiene] Speech: [Spontaneous and fluid] Thought processes: [Linear and logical] Thought content: Less hopelessness Abstract reasoning, and computation: [Intact] Description of associations: [Intact] Description of abnormal or psychotic thoughts: Denies SI/HI, AVH at this time Judgment: [Fair] Insight: [Fair] Orientation: [Alert and orientated 3] Recent and remote memory: [Intact] Attention span and concentration: [Intact] Fund of knowledge: [Adequate] Mood: "Okay" Affect: euthymic DIAGNOSES: 1. Adjustment disorder with a disruption of mood and conduct. 2. Major depressive disorder recurrent, severe in unspecified remission. (With psychotic symptoms) ASSESSMENT:Will attempt to triage for TLS apartment, if this really does fail we may have to try to see if we can have patient have a friend or other family member can support him during the holidays, as this appears to be a primary stress it leads to his depression and suicidal thinking MANAGEMENT PLAN: Continue Abilify, Lamictal, Ambien and Lexapro at current dose below, Time spent: 15 minutes Vital Signs Vital Signs Date Time Temp Pulse Resp B/P (MAP) Pulse Ox O2 Delivery O2 Flow Rate FiO2 06/09/20 06:00 98.4 106 20 110/63 (79) 98 Room Air Current Medications Current Medications Medications (Trade) Dose Ordered Sig/Rizwan Route PRN Reason Start Time Stop Time Status Last Admin Dose Admin Acetaminophen (Tylenol Tab) 650 mg Q6HP PRN PO HEADACHE or DISCOMFORT 05/15/20 01:45 06/09/20 08:06 Al Hydrox/Mg Hydrox/Simethicone (Mylanta) 30 ml Q4HP PRN PO HEARTBURN/INDIGESTION 05/15/20 01:45 Aripiprazole (AbiLIFY) 15 mg DAILY PO 05/15/20 09:00 06/09/20 08:04 Escitalopram Oxalate (Lexapro) 20 mg DAILY PO 05/15/20 09:00 06/09/20 08:06 Home Med (Med Rec Complete!) ASDIRECTED XX 05/15/20 01:00 05/15/20 00:54 DC Hydroxyzine HCl (Atarax) 25 mg BID PRN PO ANXIETY 05/15/20 01:45 05/16/20 11:39 DC 05/16/20 08:25 Hydroxyzine HCl (Atarax) 25 mg Q8HP PRN PO ANXIETY/AGITATION 05/16/20 11:45 05/18/20 08:00 DC 05/17/20 08:26 Hydroxyzine HCl (Atarax) 50 mg Q4HP PRN PO anxiety 05/19/20 14:30 06/06/20 08:11 Lamotrigine (LaMICtal) 100 mg BID PO 05/14/20 21:00 05/15/20 02:00 DC Lamotrigine (LaMICtal) 150 mg BID PO 05/14/20 21:00 06/09/20 08:06 Magnesium Hydroxide (Milk Of Magnesia) 30 ml DAILYPRN PRN PO CONSTIPATION 05/15/20 01:45 Mirtazapine (Remeron) 15 mg QHS PO 05/14/20 21:00 06/08/20 20:19 Miscellaneous (Unresolved Clarification Entry) SEE LABEL COMMENTS DAILY XX 06/07/20 09:00 06/07/20 13:37 DC Paliperidone Palmitate (Invega Sustenna) 234 mg Q30D IM 06/07/20 09:00 06/07/20 12:57 Zolpidem Tartrate (Ambien) 5 mg QHS PO 05/14/20 21:00 06/08/20 20:19 Allergies Coded Allergies: divalproex sodium (Verified Allergy, Unknown, 07/09/19) benztropine (Verified Adverse Reaction, Intermediate, hallucinations, 07/09/19) CATALINA GARCIA DO Jun 09, 2020 11:19
[2020-06-09] MEDS: MIRTAZAPINE 15 MG TAB PO SCH (21:11)
[2020-06-09] MEDS: zolPIDEM TARTRATE 5 MG TAB PO SCH (21:11)
[2020-06-10 06:49] VITALS: BP 134/87
[2020-06-10] MEDS: lamoTRIgine 100MG TAB PO SCH ×2 (09:49→21:38)
[2020-06-10] MEDS: ARIPiprazole 15 MG TAB (AbiLIFY) PO SCH (09:49)
[2020-06-10] MEDS: ESCITALOPRAM OXALATE 10 MG TAB (LEXAPRO) PO SCH (09:52)
--- NOTE | 2020-06-10 14:25 | MHIPNPDOC ---
[facility] Progress Note Progress Note DATE OF SERVICE: 06/10/20 HISTORY: The patient has generally been doing well, he reports the isolation while being on quarantine due to being specific coping is somewhat problematic, but otherwise has no complaints and reports the medication helpful and has been learning to cope better with stressors he doesn't have any significant complaints other than he is open to waiting to see a TLS will take him. NEW TEST RESULTS: NA. CURRENT MEDICATIONS: See below. MENTAL STATUS EXAMINATION: General: [Well dressed with good hygiene] Speech: [Spontaneous and fluid] Thought processes: [Linear and logical] Thought content: Less hopelessness Abstract reasoning, and computation: [Intact] Description of associations: [Intact] Description of abnormal or psychotic thoughts: Denies SI/HI, AVH at this time Judgment: [Fair] Insight: [Fair] Orientation: [Alert and orientated 3] Recent and remote memory: [Intact] Attention span and concentration: [Intact] Fund of knowledge: [Adequate] Mood: "Okay" Affect: euthymic DIAGNOSES: 1. Adjustment disorder with a disruption of mood and conduct. 2. Major depressive disorder recurrent, severe in unspecified remission. (With psychotic symptoms) ASSESSMENT: Will continue to see if TLS might be a reasonable option, if he needs to be kept over the holidays at a potential for not able to decrease safe discharge plan, his chronic loneliness and lack of social direction, which could be helped with his [employer] worker or others, could be a reasonable option otherwise he appears to be doing quite well however his stability will likely be precarious at this time as he is known to have difficulty around the holidays. MANAGEMENT PLAN: Continue Abilify, Lamictal, Ambien and Lexapro at current dose below, Time spent: 15 minutes Vital Signs Vital Signs Date Time Temp Pulse Resp B/P (MAP) Pulse Ox O2 Delivery O2 Flow Rate FiO2 06/10/20 06:49 97.3 89 16 134/87 (103) 98 Room Air Current Medications Current Medications Medications (Trade) Dose Ordered Sig/Rizwan Route PRN Reason Start Time Stop Time Status Last Admin Dose Admin Acetaminophen (Tylenol Tab) 650 mg Q6HP PRN PO HEADACHE or DISCOMFORT 05/15/20 01:45 06/09/20 08:06 Al Hydrox/Mg Hydrox/Simethicone (Mylanta) 30 ml Q4HP PRN PO HEARTBURN/INDIGESTION 11/21/20 01:45 Aripiprazole (AbiLIFY) 15 mg DAILY PO 05/15/20 09:00 06/10/20 09:49 Escitalopram Oxalate (Lexapro) 20 mg DAILY PO 05/15/20 09:00 06/10/20 09:52 Home Med (Med Rec Complete!) ASDIRECTED XX 05/15/20 01:00 05/15/20 00:54 DC Hydroxyzine HCl (Atarax) 25 mg BID PRN PO ANXIETY 05/15/20 01:45 05/16/20 11:39 DC 05/16/20 08:25 Hydroxyzine HCl (Atarax) 25 mg Q8HP PRN PO ANXIETY/AGITATION 05/16/20 11:45 05/18/20 08:00 DC 05/17/20 08:26 Hydroxyzine HCl (Atarax) 50 mg Q4HP PRN PO anxiety 05/19/20 14:30 06/06/20 08:11 Lamotrigine (LaMICtal) 100 mg BID PO 05/14/20 21:00 05/15/20 02:00 DC Lamotrigine (LaMICtal) 150 mg BID PO 05/14/20 21:00 06/10/20 09:49 Magnesium Hydroxide (Milk Of Magnesia) 30 ml DAILYPRN PRN PO CONSTIPATION 05/15/20 01:45 Mirtazapine (Remeron) 15 mg QHS PO 05/14/20 21:00 06/09/20 21:11 Miscellaneous (Unresolved Clarification Entry) SEE LABEL COMMENTS DAILY XX 06/07/20 09:00 06/07/20 13:37 DC Paliperidone Palmitate (Invega Sustenna) 234 mg Q30D IM 06/07/20 09:00 06/07/20 12:57 Zolpidem Tartrate (Ambien) 5 mg QHS PO 05/14/20 21:00 06/09/20 21:11 Allergies Coded Allergies: divalproex sodium (Verified Allergy, Unknown, 07/09/19) benztropine (Verified Adverse Reaction, Intermediate, hallucinations, 07/09/19) CATALINA GARCIA DO Jun 10, 2020 14:25
[2020-06-10 16:00] VITALS: BP 143/90
[2020-06-10] MEDS: MIRTAZAPINE 15 MG TAB PO SCH (21:38)
[2020-06-10] MEDS: zolPIDEM TARTRATE 5 MG TAB PO SCH (21:38)
[2020-06-11 06:53] VITALS: BP 109/78
[2020-06-11] MEDS: ARIPiprazole 15 MG TAB (AbiLIFY) PO SCH (08:42)
[2020-06-11] MEDS: ESCITALOPRAM OXALATE 10 MG TAB (LEXAPRO) PO SCH (08:42)
[2020-06-11] MEDS: lamoTRIgine 100MG TAB PO SCH ×2 (08:42→20:52)
[2020-06-11] MEDS: PILL CUTTER 1 EACH XX PRN (08:43)
--- NOTE | 2020-06-11 12:15 | MHIPNPDOC ---
[facility] Progress Note Progress Note DATE OF SERVICE: 06/11/20 HISTORY:The patient is met with today, he reports he is doing well and feeling much improved. He describes no problems from his medications and describes that he is feeling good about the potential for [facility] is open to returning home if there is a transition. But appears to have made good progress even in isolation he reports that just the small interactions are helpful for him NEW TEST RESULTS: NA. CURRENT MEDICATIONS: See below. MENTAL STATUS EXAMINATION: General: [Well dressed with good hygiene] Speech: [Spontaneous and fluid] Thought processes: [Linear and logical] Thought content: Less hopelessness Abstract reasoning, and computation: [Intact] Description of associations: [Intact] Description of abnormal or psychotic thoughts: Denies SI/HI, AVH at this time Judgment: [Fair] Insight: [Fair] Orientation: [Alert and orientated 3] Recent and remote memory: [Intact] Attention span and concentration: [Intact] Fund of knowledge: [Adequate] Mood: "Okay" Affect: euthymic DIAGNOSES: 1. Adjustment disorder with a disruption of mood and conduct. 2. Major depressive disorder recurrent, severe in unspecified remission. (With psychotic symptoms) ASSESSMENT: Will continue to see if TLS might be a reasonable option, if he needs to be kept over the holidays at a potential for not able to decrease safe discharge plan, his chronic loneliness and lack of social direction, which could be helped with his [employer] worker or others, could be a reasonable option otherwise he appears to be doing quite well however his stability will likely be precarious at this time as he is known to have difficulty around the holidays. MANAGEMENT PLAN: Continue Abilify, Lamictal, Ambien and Lexapro at current dose below, Time spent: 15 minutes Vital Signs Vital Signs Date Time Temp Pulse Resp B/P (MAP) Pulse Ox O2 Delivery O2 Flow Rate FiO2 06/11/20 06:53 99.0 96 18 109/78 (88) 95 Room Air Current Medications Current Medications Medications (Trade) Dose Ordered Sig/Rizwan Route PRN Reason Start Time Stop Time Status Last Admin Dose Admin Acetaminophen (Tylenol Tab) 650 mg Q6HP PRN PO HEADACHE or DISCOMFORT 05/15/20 01:45 06/09/20 08:06 Al Hydrox/Mg Hydrox/Simethicone (Mylanta) 30 ml Q4HP PRN PO HEARTBURN/INDIGESTION 05/15/20 01:45 Aripiprazole (AbiLIFY) 15 mg DAILY PO 05/15/20 09:00 06/11/20 08:42 Escitalopram Oxalate (Lexapro) 20 mg DAILY PO 05/15/20 09:00 06/11/20 08:42 Home Med (Med Rec Complete!) ASDIRECTED XX 05/15/20 01:00 05/15/20 00:54 DC Hydroxyzine HCl (Atarax) 25 mg BID PRN PO ANXIETY 05/15/20 01:45 05/16/20 11:39 DC 05/16/20 08:25 Hydroxyzine HCl (Atarax) 25 mg Q8HP PRN PO ANXIETY/AGITATION 05/16/20 11:45 05/18/20 08:00 DC 05/17/20 08:26 Hydroxyzine HCl (Atarax) 50 mg Q4HP PRN PO anxiety 05/19/20 14:30 06/06/20 08:11 Lamotrigine (LaMICtal) 100 mg BID PO 05/14/20 21:00 05/15/20 02:00 DC Lamotrigine (LaMICtal) 150 mg BID PO 05/14/20 21:00 06/11/20 08:42 Magnesium Hydroxide (Milk Of Magnesia) 30 ml DAILYPRN PRN PO CONSTIPATION 05/15/20 01:45 Mirtazapine (Remeron) 15 mg QHS PO 05/14/20 21:00 06/10/20 21:38 Miscellaneous (Unresolved Clarification Entry) SEE LABEL COMMENTS DAILY XX 06/07/20 09:00 06/07/20 13:37 DC Paliperidone Palmitate (Invega Sustenna) 234 mg Q30D IM 06/07/20 09:00 06/07/20 12:57 Zolpidem Tartrate (Ambien) 5 mg QHS PO 05/14/20 21:00 06/10/20 21:38 Allergies Coded Allergies: divalproex sodium (Verified Allergy, Unknown, 07/09/19) benztropine (Verified Adverse Reaction, Intermediate, hallucinations, 07/09/19) CATALINA GARCIA DO Jun 11, 2020 12:15
[2020-06-11] MEDS: MIRTAZAPINE 15 MG TAB PO SCH (20:54)
[2020-06-11] MEDS: zolPIDEM TARTRATE 5 MG TAB PO SCH (20:54)
[2020-06-12 06:42] VITALS: BP 134/90
[2020-06-12] MEDS: ARIPiprazole 15 MG TAB (AbiLIFY) PO SCH (09:20)
[2020-06-12] MEDS: ESCITALOPRAM OXALATE 10 MG TAB (LEXAPRO) PO SCH (09:21)
[2020-06-12] MEDS: PILL CUTTER 1 EACH XX PRN (09:21)
[2020-06-12] MEDS: lamoTRIgine 100MG TAB PO SCH ×2 (09:21→20:25)
[2020-06-12] MEDS: MIRTAZAPINE 15 MG TAB PO SCH (20:26)
[2020-06-12] MEDS: zolPIDEM TARTRATE 5 MG TAB PO SCH (20:26)
[2020-06-13 06:33] VITALS: BP 134/89
[2020-06-13] MEDS: PILL CUTTER 1 EACH XX PRN (09:36)
[2020-06-13] MEDS: ARIPiprazole 15 MG TAB (AbiLIFY) PO SCH (09:36)
[2020-06-13] MEDS: lamoTRIgine 100MG TAB PO SCH (09:37)
[2020-06-13] MEDS: ESCITALOPRAM OXALATE 10 MG TAB (LEXAPRO) PO SCH (09:37)
--- NOTE | 2020-06-13 12:48 | CR.PDOC ---
General Date of Consultation: Jun 13, 2020 Consultation REASON FOR CONSULTATION/CHIEF COMPLAINT: Derm consultation was requested for patient complaints of pruritus. HISTORY OF PRESENT ILLNESS: Patient is a 45 year old male with c/o mild pruritus x a few days. He denies having used any medications or otc moisturizers thus fa r. ALLERGIES: Please see below. PE: -a few scattered erythematous papules and pustules on back -asteatotic patches and plaques on abdomen and bilateral lower extremities -antecubital creases and popliteal fossae clear A/P: 1. Mild Acne Vulgaris on back -monitor 2. Asteatotic Eczema abdomen and lower legs -Suggest Triamcinolone 0.1% cream twice daily (suggest 15grams daily) 3. No evidence of infestation Vital Signs/I&O Vital Signs Date Time Temp Pulse Resp B/P (MAP) Pulse Ox O2 Delivery O2 Flow Rate FiO2 06/13/20 06:33 98.0 107 20 134/89 (104) 95 Room Air Allergies Coded Allergies: divalproex sodium (Verified Allergy, Unknown, 07/09/19) benztropine (Verified Adverse Reaction, Intermediate, hallucinations, 07/09/19) Home Medications Scheduled Aripiprazole (Aripiprazole) 15 Mg Tablet, 15 MG PO DAILY, (Reported) Escitalopram Oxalate (Escitalopram Oxalate) 20 Mg Tablet, 20 MG PO DAILY, (Reported) Lamotrigine (Lamotrigine) 150 Mg Tablet, 150 MG PO BID, (Reported) Mirtazapine (Remeron) 15 Mg Tablet, 15 MG PO QHS, (Reported) Paliperidone Palmitate (Invega Sustenna) 234 Mg/1.5 Ml Syringe, 234 MG IM QMONTH, (Reported) Zolpidem Tartrate (Zolpidem Tartrate) 5 Mg Tablet, 5 MG PO QHS, (Reported) Scheduled PRN Hydroxyzine HCl (Hydroxyzine HCl) 25 Mg Tablet, 25 MG PO BID PRN for ANXIETY, (R eported) Judith Bhatia PA-C Jun 13, 2020 12:48
[2020-06-13 18:00] VITALS: BP 147/81
[2020-06-13] MEDS: zolPIDEM TARTRATE 5 MG TAB PO SCH (21:28)
[2020-06-14 06:19] VITALS: BP 140/74
--- NOTE | 2020-06-14 10:00 | MHIPNPDOC ---
[facility] Progress Note Progress Note DATE OF SERVICE: 06/14/20 HISTORY:Patient is met with today he reports that he is feeling better, although he is open to the idea of potentially returning home early before TLS, they have accepted the program but have not given a specific date. Explored with patient about returning home early and the difficulties and stressors, he reports that he is more open to attempting a discharge tomorrow or Sunday so that he might prepare for TLS. The patient reports no problems with his medications, no side effects and generally that he has been engaging well even on precautionary quarantine. NEW TEST RESULTS: NA. CURRENT MEDICATIONS: See below. MENTAL STATUS EXAMINATION: General: [Well dressed with good hygiene] Speech: [Spontaneous and fluid] Thought processes: [Linear and logical] Thought content: Less hopelessness Abstract reasoning, and computation: [Intact] Description of associations: [Intact] Description of abnormal or psychotic thoughts: Denies SI/HI, AVH at this time Judgment: [Fair] Insight: [Fair] Orientation: [Alert and orientated 3] Recent and remote memory: [Intact] Attention span and concentration: [Intact] Fund of knowledge: [Adequate] Mood: "Okay" Affect: euthymic DIAGNOSES: 1. Adjustment disorder with a disruption of mood and conduct. 2. Major depressive disorder recurrent, severe in unspecified remission. (With psychotic symptoms) ASSESSMENT: Possibly will discharge patient to previous apartment to prepare for transferring his things to TLS apartment, he would do best in that situation and it is likely that we might be able to give him some period of time in between MANAGEMENT PLAN: Continue Abilify, Lamictal, Ambien and Lexapro at current dose below, Time spent: 15 minutes Vital Signs Vital Signs Date Time Temp Pulse Resp B/P (MAP) Pulse Ox O2 Delivery O2 Flow Rate FiO2 06/14/20 06:19 98.3 87 14 140/74 (96) Room Air 06/13/20 06:33 95 Current Medications Current Medications Medications (Trade) Dose Ordered Sig/Rizwan Route PRN Reason Start Time Stop Time Status Last Admin Dose Admin Acetaminophen (Tylenol Tab) 650 mg Q6HP PRN PO HEADACHE or DISCOMFORT 05/15/20 01:45 06/14/20 01:44 DC 06/09/20 08:06 Al Hydrox/Mg Hydrox/Simethicone (Mylanta) 30 ml Q4HP PRN PO HEARTBURN/INDIGESTION 05/15/20 01:45 06/14/20 01:44 DC Aripiprazole (AbiLIFY) 15 mg DAILY PO 05/15/20 09:00 06/14/20 08:59 DC 06/13/20 09:36 Escitalopram Oxalate (Lexapro) 20 mg DAILY PO 05/15/20 09:00 06/14/20 08:59 DC 06/13/20 09:37 Home Med (Med Rec Complete!) ASDIRECTED XX 05/15/20 01:00 05/15/20 00:54 DC Hydroxyzine HCl (Atarax) 25 mg BID PRN PO ANXIETY 05/15/20 01:45 05/16/20 11:39 DC 05/16/20 08:25 Hydroxyzine HCl (Atarax) 25 mg Q8HP PRN PO ANXIETY/AGITATION 05/16/20 11:45 05/18/20 08:00 DC 05/17/20 08:26 Hydroxyzine HCl (Atarax) 50 mg Q4HP PRN PO anxiety 05/19/20 14:30 06/06/20 08:11 Lamotrigine (LaMICtal) 100 mg BID PO 05/14/20 21:00 05/15/20 02:00 DC Lamotrigine (LaMICtal) 150 mg BID PO 05/14/20 21:00 06/13/20 20:59 DC 06/13/20 09:37 Magnesium Hydroxide (Milk Of Magnesia) 30 ml DAILYPRN PRN PO CONSTIPATION 05/15/20 01:45 06/14/20 01:44 DC Mirtazapine (Remeron) 15 mg QHS PO 05/14/20 21:00 06/13/20 20:59 DC 06/12/20 20:26 Miscellaneous (Unresolved Clarification Entry) SEE LABEL COMMENTS DAILY XX 06/07/20 09:00 06/07/20 13:37 DC Miscellaneous (Unresolved Clarification Entry) SEE LABEL COMMENTS DAILY XX 06/13/20 09:00 Paliperidone Palmitate (Invega Sustenna) 234 mg Q30D IM 06/07/20 09:00 06/07/20 12:57 Zolpidem Tartrate (Ambien) 5 mg QHS PO 05/14/20 21:00 06/13/20 21:28 Allergies Coded Allergies: divalproex sodium (Verified Allergy, Unknown, 07/09/19) benztropine (Verified Adverse Reaction, Intermediate, hallucinations, 07/09/19) CATALINA GARCIA DO Jun 14, 2020 10:00
[2020-06-14] MEDS ORDERED: ACETAMINOPHEN TAB 650MG DOSE (2X325MG) PO PRN (11:00)
[2020-06-14] MEDS ORDERED: MAALOX 30 ML SUSP *UDC PO PRN (11:00)
[2020-06-14] MEDS ORDERED: MOM 30ML SUSPENSION UDC PO PRN (11:00)
[2020-06-14] MEDS: ARIPiprazole 15 MG TAB (AbiLIFY) PO SCH (11:51)
[2020-06-14] MEDS: ESCITALOPRAM OXALATE 10 MG TAB (LEXAPRO) PO SCH (11:52)
[2020-06-14] MEDS: lamoTRIgine 100MG TAB PO SCH ×2 (11:52→20:50)
[2020-06-14] MEDS: PILL CUTTER 1 EACH XX PRN (11:52)
[2020-06-14 16:00] VITALS: BP 144/90
[2020-06-14] MEDS: zolPIDEM TARTRATE 5 MG TAB PO SCH (20:49)
[2020-06-14] MEDS: MIRTAZAPINE 15 MG TAB PO SCH (20:49)
[2020-06-15 06:22] VITALS: BP 148/74
[2020-06-15] MEDS: ARIPiprazole 15 MG TAB (AbiLIFY) PO SCH (09:03)
[2020-06-15] MEDS: ESCITALOPRAM OXALATE 10 MG TAB (LEXAPRO) PO SCH (09:03)
[2020-06-15] MEDS: lamoTRIgine 100MG TAB PO SCH ×2 (09:04→20:42)
--- NOTE | 2020-06-15 10:31 | MHDSPDOC ---
[facility] Discharge Summary Discharge Summary DATE OF ADMISSION: May 15, 2020 at 01:42 DATE OF DISCHARGE: DISCHARGE DIAGNOSES: 1. . 2. . REASON FOR ADMISSION: CONSULTANTS INVOLVED: TREATMENT AND PROGRESS ON THE UNIT : . HOSPITAL COURSE: DISCHARGE ASSESSMENT: MENTAL STATUS EXAMINATION ON DISCHARGE: Patient is a -year old male, who is . Speech is . Language skills are . Thought processes including: . Thought content: . Abstract reasoning, and computation: . Description of associations: . Description of abnormal or psychotic thoughts: . Judgment: . Insight: . Orientation to . Recent and remote memory: . Attention span and concentration: . Language: . Fund of knowledge: . Mood: . Affect: . MEDICATIONS ON DISCHARGE: - for . - for . - for . PLAN/FOLLOWUP ARRANGEMENTS: . The amount of time spent in the coordination of care for this patient was approximately minutes. Vital Signs/I&Os Vital Signs Date Time Temp Pulse Resp B/P (MAP) Pulse Ox O2 Delivery O2 Flow Rate FiO2 06/15/20 06:22 98.6 81 18 148/74 (98) 98 Room Air Medications Scheduled Aripiprazole (Aripiprazole) 15 Mg Tablet, 15 MG PO DAILY, (Reported) Escitalopram Oxalate (Escitalopram Oxalate) 20 Mg Tablet, 20 MG PO DAILY, (Re ported) Lamotrigine (Lamotrigine) 150 Mg Tablet, 150 MG PO BID, (Reported) Mirtazapine (Remeron) 15 Mg Tablet, 15 MG PO QHS, (Reported) Paliperidone Palmitate (Invega Sustenna) 234 Mg/1.5 Ml Syringe, 234 MG IM QMONTH, (Reported) Zolpidem Tartrate (Zolpidem Tartrate) 5 Mg Tablet, 5 MG PO QHS, (Reported) Scheduled PRN Hydroxyzine HCl (Hydroxyzine HCl) 25 Mg Tablet, 25 MG PO BID PRN for ANXIETY, (Reported) Allergies Coded Allergies: divalproex sodium (Verified Allergy, Unknown, 07/09/19) benztropine (Verified Adverse Reaction, Intermediate, hallucinations, 07/09/19) CATALINA GARCIA DO Jun 15, 2020 10:31
[2020-06-15 16:40] VITALS: BP 132/75
--- NOTE | 2020-06-15 18:08 | MHIPNPDOC ---
[facility] Progress Note Progress Note DATE OF SERVICE: 06/15/20 HISTORY:The patient is met with today, he reports that he is generally doing well but worries about going to early, he is ambivalent no about returning to his apartment too soon and wants to wait to hear from TLS as to when he would have a bed date as he reports that this is a significant stressor for him he otherwise has no complaints, he reports the medication has been helpful without any major issues and generally has been engaging even while on isolation although he notably has stated that his isolation at home is much worse and is difficult for him to deal with at times. But he reports that he feels much improved here NEW TEST RESULTS: NA. CURRENT MEDICATIONS: See below. MENTAL STATUS EXAMINATION: General: [Well dressed with good hygiene] Speech: [Spontaneous and fluid] Thought processes: [Linear and logical] Thought content: Less hopelessness Abstract reasoning, and computation: [Intact] Description of associations: [Intact] Description of abnormal or psychotic thoughts: Denies SI/HI, AVH at this time Judgment: [Fair] Insight: [Fair] Orientation: [Alert and orientated 3] Recent and remote memory: [Intact] Attention span and concentration: [Intact] Fund of knowledge: [Adequate] Mood: "Okay" Affect: euthymic DIAGNOSES: 1. Adjustment disorder with a disruption of mood and conduct. 2. Major depressive disorder recurrent, severe in unspecified remission. (With psychotic symptoms) ASSESSMENT: Will wait for the formal answer from TLS to help coax patient towards discharge as he appears to have made some progress but his transition w ill likely be velázquez to reducing his chance for readmission especially given his long history of presenting for readmission for primarily loneliness MANAGEMENT PLAN: Continue Abilify, Lamictal, Ambien and Lexapro at current dose below, Time spent: 15 minutes Vital Signs Vital Signs Date Time Temp Pulse Resp B/P (MAP) Pulse Ox O2 Delivery O2 Flow Rate FiO2 06/15/20 16:40 98.1 97 18 132/75 (94) 99 Room Air Current Medications Current Medications Medications (Trade) Dose Ordered Sig/Rizwan Route PRN Reason Start Time Stop Time Status Last Admin Dose Admin Acetaminophen (Tylenol Tab) 650 mg Q6HP PRN PO HEADACHE or DISCOMFORT 05/15/20 01:45 06/14/20 01:44 DC 06/09/20 08:06 Acetaminophen (Tylenol Tab) 650 mg Q6HP PRN PO PAIN / FEVER 06/14/20 11:00 Al Hydrox/Mg Hydrox/Simethicone (Mylanta) 30 ml Q4HP PRN PO HEARTBURN/INDIGESTION 05/15/20 01:45 06/14/20 01:44 DC Al Hydrox/Mg Hydrox/Simethicone (Mylanta) 30 ml Q4HP PRN PO HEARTBURN 06/14/20 11:00 Aripiprazole (AbiLIFY) 15 mg DAILY PO 05/15/20 09:00 06/14/20 08:59 DC 06/13/20 09:36 Aripiprazole (AbiLIFY) 15 mg DAILY PO 06/14/20 09:00 06/15/20 09:03 Escitalopram Oxalate (Lexapro) 20 mg DAILY PO 05/15/20 09:00 06/14/20 08:59 DC 06/13/20 09:37 Escitalopram Oxalate (Lexapro) 20 mg DAILY PO 06/14/20 09:00 06/15/20 09:03 Home Med (Med Rec Complete!) ASDIRECTED XX 05/15/20 01:00 05/15/20 00:54 DC Hydroxyzine HCl (Atarax) 25 mg BID PRN PO ANXIETY 05/15/20 01:45 05/16/20 11:39 DC 05/16/20 08:25 Hydroxyzine HCl (Atarax) 25 mg Q8HP PRN PO ANXIETY/AGITATION 05/16/20 11:45 05/18/20 08:00 DC 05/17/20 08:26 Hydroxyzine HCl (Atarax) 50 mg Q4HP PRN PO anxiety 05/19/20 14:30 06/06/20 08:11 Lamotrigine (LaMICtal) 100 mg BID PO 05/14/20 21:00 05/15/20 02:00 DC Lamotrigine (LaMICtal) 150 mg BID PO 05/14/20 21:00 06/13/20 20:59 DC 06/13/20 09:37 Lamotrigine (LaMICtal) 150 mg BID PO 06/14/20 09:00 06/15/20 09:04 Magnesium Hydroxide (Milk Of Magnesia) 30 ml DAILYPRN PRN PO CONSTIPATION 05/15/20 01:45 06/14/20 01:44 DC Magnesium Hydroxide (Milk Of Magnesia) 30 ml DAILYPRN PRN PO CONSTIPATION 06/14/20 11:00 Mirtazapine (Remeron) 15 mg QHS PO 05/14/20 21:00 06/13/20 20:59 DC 06/12/20 20:26 Mirtazapine (Remeron) 15 mg QHS PO 06/14/20 21:00 06/14/20 20:49 Miscellaneous (Unresolved Clarification Entry) SEE LABEL COMMENTS DAILY XX 06/07/20 09:00 06/07/20 13:37 DC Miscellaneous (Unresolved Clarification Entry) SEE LABEL COMMENTS DAILY XX 06/13/20 09:00 06/14/20 11:03 DC Paliperidone Palmitate (Invega Sustenna) 234 mg Q30D IM 06/07/20 09:00 06/07/20 12:57 Zolpidem Tartrate (Ambien) 5 mg QHS PO 05/14/20 21:00 06/14/20 20:49 Allergies Coded Allergies: divalproex sodium (Verified Allergy, Unknown, 07/09/19) benztropine (Verified Adverse Reaction, Intermediate, hallucinations, 07/09/19) CATALINA GARCIA DO Jun 15, 2020 18:08
[2020-06-15] MEDS: zolPIDEM TARTRATE 5 MG TAB PO SCH (20:42)
[2020-06-15] MEDS: MIRTAZAPINE 15 MG TAB PO SCH (20:42)
[2020-06-16 06:17] VITALS: BP 139/96
--- NOTE | 2020-06-16 09:26 | MHIPNPDOC ---
[facility] Progress Note Progress Note DATE OF SERVICE: 06/16/20 HISTORY: The patient is met with today, he reports that he is doing well he's waiting for that decision from TLS, he reports he is doing well to isolation and has expressed medications. He reports that this is a difficult time of year for him. NEW TEST RESULTS: NA. CURRENT MEDICATIONS: See below. MENTAL STATUS EXAMINATION: General: [Well dressed with good hygiene] Speech: [Spontaneous and fluid] Thought processes: [Linear and logical] Thought content: Less hopelessness Abstract reasoning, and computation: [Intact] Description of associations: [Intact] Description of abnormal or psychotic thoughts: Denies SI/HI, AVH at this time Judgment: [Fair] Insight: [Fair] Orientation: [Alert and orientated 3] Recent and remote memory: [Intact] Attention span and concentration: [Intact] Fund of knowledge: [Adequate] Mood: "Okay" Affect: euthymic DIAGNOSES: 1. Adjustment disorder with a disruption of mood and conduct. 2. Major depressive disorder recurrent, severe in unspecified remission. (With psychotic symptoms) ASSESSMENT: Will wait for the formal answer from TLS to help coax patient towards discharge as he appears to have made some progress but his transition will likely be velázquez to reducing his chance for readmission especially given his long history of presenting for readmission for primarily loneliness MANAGEMENT PLAN: Continue Abilify, Lamictal, Ambien and Lexapro at current dose below, Time spent: 15 minutes Vital Signs Vital Signs Date Time Temp Pulse Resp B/P (MAP) Pulse Ox O2 Delivery O2 Flow Rate FiO2 06/16/20 06:17 99.0 79 16 139/96 (110) 98 Room Air Current Medications Current Medications Medications (Trade) Dose Ordered Sig/Rizwan Route PRN Reason Start Time Stop Time Status Last Admin Dose Admin Acetaminophen (Tylenol Tab) 650 mg Q6HP PRN PO HEADACHE or DISCOMFORT 05/15/20 01:45 06/14/20 01:44 DC 06/09/20 08:06 Acetaminophen (Tylenol Tab) 650 mg Q6HP PRN PO PAIN / FEVER 06/14/20 11:00 Al Hydrox/Mg Hydrox/Simethicone (Mylanta) 30 ml Q4HP PRN PO HEARTBURN/INDIGESTION 05/15/20 01:45 06/14/20 01:44 DC Al Hydrox/Mg Hydrox/Simethicone (Mylanta) 30 ml Q4HP PRN PO HEARTBURN 06/14/20 11:00 Aripiprazole (AbiLIFY) 15 mg DAILY PO 05/15/20 09:00 06/14/20 08:59 DC 06/13/20 09:36 Aripiprazole (AbiLIFY) 15 mg DAILY PO 06/14/20 09:00 06/15/20 09:03 Escitalopram Oxalate (Lexapro) 20 mg DAILY PO 05/15/20 09:00 06/14/20 08:59 DC 06/13/20 09:37 Escitalopram Oxalate (Lexapro) 20 mg DAILY PO 06/14/20 09:00 06/15/20 09:03 Home Med (Med Rec Complete!) ASDIRECTED XX 05/15/20 01:00 05/15/20 00:54 DC Hydroxyzine HCl (Atarax) 25 mg BID PRN PO ANXIETY 05/15/20 01:45 05/16/20 11:39 DC 05/16/20 08:25 Hydroxyzine HCl (Atarax) 25 mg Q8HP PRN PO ANXIETY/AGITATION 05/16/20 11:45 05/18/20 08:00 DC 05/17/20 08:26 Hydroxyzine HCl (Atarax) 50 mg Q4HP PRN PO anxiety 05/19/20 14:30 06/06/20 08:11 Lamotrigine (LaMICtal) 100 mg BID PO 05/14/20 21:00 05/15/20 02:00 DC Lamotrigine (LaMICtal) 150 mg BID PO 05/14/20 21:00 06/13/20 20:59 DC 06/13/20 09:37 Lamotrigine (LaMICtal) 150 mg BID PO 06/14/20 09:00 06/15/20 20:42 Magnesium Hydroxide (Milk Of Magnesia) 30 ml DAILYPRN PRN PO CONSTIPATION 05/15/20 01:45 06/14/20 01:44 DC Magnesium Hydroxide (Milk Of Magnesia) 30 ml DAILYPRN PRN PO CONSTIPATION 06/14/20 11:00 Mirtazapine (Remeron) 15 mg QHS PO 05/14/20 21:00 06/13/20 20:59 DC 06/12/20 20:26 Mirtazapine (Remeron) 15 mg QHS PO 06/14/20 21:00 06/15/20 20:42 Miscellaneous (Unresolved Clarification Entry) SEE LABEL COMMENTS DAILY XX 06/07/20 09:00 06/07/20 13:37 DC Miscellaneous (Unresolved Clarification Entry) SEE LABEL COMMENTS DAILY XX 06/13/20 09:00 06/14/20 11:03 DC Paliperidone Palmitate (Invega Sustenna) 234 mg Q30D IM 06/07/20 09:00 06/07/20 12:57 Zolpidem Tartrate (Ambien) 5 mg QHS PO 05/14/20 21:00 06/15/20 20:42 Allergies Coded Allergies: divalproex sodium (Verified Allergy, Unknown, 07/09/19) benztropine (Verified Adverse Reaction, Intermediate, hallucinations, 07/09/19) CATALINA GARCIA DO Jun 16, 2020 09:26
[2020-06-16] MEDS: lamoTRIgine 100MG TAB PO SCH ×2 (09:27→20:20)
[2020-06-16] MEDS: ARIPiprazole 15 MG TAB (AbiLIFY) PO SCH (09:27)
[2020-06-16] MEDS: ESCITALOPRAM OXALATE 10 MG TAB (LEXAPRO) PO SCH (09:27)
[2020-06-16] MEDS: PILL CUTTER 1 EACH XX PRN (09:27)
[2020-06-16 16:24] VITALS: BP 115/66
[2020-06-16] MEDS: MIRTAZAPINE 15 MG TAB PO SCH (20:20)
[2020-06-16] MEDS: zolPIDEM TARTRATE 5 MG TAB PO SCH (20:20)
[2020-06-17 06:05] VITALS: BP 146/92
[2020-06-17] MEDS: ESCITALOPRAM OXALATE 10 MG TAB (LEXAPRO) PO SCH (08:52)
[2020-06-17] MEDS: ARIPiprazole 15 MG TAB (AbiLIFY) PO SCH (08:52)
[2020-06-17] MEDS: lamoTRIgine 100MG TAB PO SCH ×2 (08:52→21:01)
--- NOTE | 2020-06-17 10:36 | MHIPNPDOC ---
[facility] Progress Note Progress Note DATE OF SERVICE: 06/17/20 HISTORY: The patient is met with today, reports that he is doing well without major problems, otherwise has no complaints describes is willing for TLS to deci de and then determine if he wants to go home in between, reports this is the most difficult time of year but feels well supported in our unit. NEW TEST RESULTS: NA. CURRENT MEDICATIONS: See below. MENTAL STATUS EXAMINATION: General: [Well dressed with good hygiene] Speech: [Spontaneous and fluid] Thought processes: [Linear and logical] Thought content: Less hopelessness Abstract reasoning, and computation: [Intact] Description of associations: [Intact] Description of abnormal or psychotic thoughts: Denies SI/HI, AVH at this time Judgment: [Fair] Insight: [Fair] Orientation: [Alert and orientated 3] Recent and remote memory: [Intact] Attention span and concentration: [Intact] Fund of knowledge: [Adequate] Mood: "Okay" Affect: euthymic DIAGNOSES: 1. Adjustment disorder with a disruption of mood and conduct. 2. Major depressive disorder recurrent, severe in unspecified remission. (With psychotic symptoms) ASSESSMENT: Likely discharge after the holidays, as this is his highest wrist time for readmission, given his loneliness and specific holiday related difficulties. MANAGEMENT PLAN: Continue Abilify, Lamictal, Ambien and Lexapro at current dose below, Time spent: 15 minutes Vital Signs Vital Signs Date Time Temp Pulse Resp B/P (MAP) Pulse Ox O2 Delivery O2 Flow Rate FiO2 06/17/20 06:05 99.0 88 18 146/92 (110) 94 Room Air Current Medications Current Medications Medications (Trade) Dose Ordered Sig/Rizwan Route PRN Reason Start Time Stop Time Status Last Admin Dose Admin Acetaminophen (Tylenol Tab) 650 mg Q6HP PRN PO HEADACHE or DISCOMFORT 05/15/20 01:45 06/14/20 01:44 DC 06/09/20 08:06 Acetaminophen (Tylenol Tab) 650 mg Q6HP PRN PO PAIN / FEVER 06/14/20 11:00 Al Hydrox/Mg Hydrox/Simethicone (Mylanta) 30 ml Q4HP PRN PO HEARTBURN/INDIGESTION 05/15/20 01:45 06/14/20 01:44 DC Al Hydrox/Mg Hydrox/Simethicone (Mylanta) 30 ml Q4HP PRN PO HEARTBURN 06/14/20 11:00 Aripiprazole (AbiLIFY) 15 mg DAILY PO 05/15/20 09:00 06/14/20 08:59 DC 06/13/20 09:36 Aripiprazole (AbiLIFY) 15 mg DAILY PO 06/14/20 09:00 06/17/20 08:52 Escitalopram Oxalate (Lexapro) 20 mg DAILY PO 05/15/20 09:00 06/14/20 08:59 DC 06/13/20 09:37 Escitalopram Oxalate (Lexapro) 20 mg DAILY PO 06/14/20 09:00 06/17/20 08:52 Home Med (Med Rec Complete!) ASDIRECTED XX 05/15/20 01:00 05/15/20 00:54 DC Hydroxyzine HCl (Atarax) 25 mg BID PRN PO ANXIETY 05/15/20 01:45 05/16/20 11:39 DC 05/16/20 08:25 Hydroxyzine HCl (Atarax) 25 mg Q8HP PRN PO ANXIETY/AGITATION 05/16/20 11:45 05/18/20 08:00 DC 05/17/20 08:26 Hydroxyzine HCl (Atarax) 50 mg Q4HP PRN PO anxiety 05/19/20 14:30 06/06/20 08:11 Lamotrigine (LaMICtal) 100 mg BID PO 05/14/20 21:00 05/15/20 02:00 DC Lamotrigine (LaMICtal) 150 mg BID PO 05/14/20 21:00 06/13/20 20:59 DC 06/13/20 09:37 Lamotrigine (LaMICtal) 150 mg BID PO 06/14/20 09:00 06/17/20 08:52 Magnesium Hydroxide (Milk Of Magnesia) 30 ml DAILYPRN PRN PO CONSTIPATION 05/15/20 01:45 06/14/20 01:44 DC Magnesium Hydroxide (Milk Of Magnesia) 30 ml DAILYPRN PRN PO CONSTIPATION 06/14/20 11:00 Mirtazapine (Remeron) 15 mg QHS PO 05/14/20 21:00 06/13/20 20:59 DC 06/12/20 20:26 Mirtazapine (Remeron) 15 mg QHS PO 06/14/20 21:00 06/16/20 20:20 Miscellaneous (Unresolved Clarification Entry) SEE LABEL COMMENTS DAILY XX 06/07/20 09:00 06/07/20 13:37 DC Miscellaneous (Unresolved Clarification Entry) SEE LABEL COMMENTS DAILY XX 06/13/20 09:00 06/14/20 11:03 DC Paliperidone Palmitate (Invega Sustenna) 234 mg Q30D IM 06/07/20 09:00 06/07/20 12:57 Zolpidem Tartrate (Ambien) 5 mg QHS PO 05/14/20 21:00 06/16/20 20:20 Allergies Coded Allergies: divalproex sodium (Verified Allergy, Unknown, 07/09/19) benztropine (Verified Adverse Reaction, Intermediate, hallucinations, 07/09/19) CATALINA GARCIA DO Jun 17, 2020 10:36
[2020-06-17 16:49] VITALS: BP 137/95
[2020-06-17] MEDS: MIRTAZAPINE 15 MG TAB PO SCH (21:01)
[2020-06-17] MEDS: zolPIDEM TARTRATE 5 MG TAB PO SCH (21:01)
[2020-06-18 06:31] VITALS: BP 140/80
[2020-06-18] MEDS: lamoTRIgine 100MG TAB PO SCH ×2 (08:12→20:01)
[2020-06-18] MEDS: ARIPiprazole 15 MG TAB (AbiLIFY) PO SCH (08:12)
[2020-06-18] MEDS: PILL CUTTER 1 EACH XX PRN (08:12)
[2020-06-18] MEDS: ESCITALOPRAM OXALATE 10 MG TAB (LEXAPRO) PO SCH (08:12)
[2020-06-18 16:53] VITALS: BP 123/82
[2020-06-18] MEDS: MIRTAZAPINE 15 MG TAB PO SCH (20:01)
[2020-06-18] MEDS: zolPIDEM TARTRATE 5 MG TAB PO SCH (20:01)
[2020-06-19 06:25] VITALS: BP 140/81
[2020-06-19] MEDS: ESCITALOPRAM OXALATE 10 MG TAB (LEXAPRO) PO SCH (08:41)
[2020-06-19] MEDS: ARIPiprazole 15 MG TAB (AbiLIFY) PO SCH (08:41)
[2020-06-19] MEDS: lamoTRIgine 100MG TAB PO SCH ×2 (08:41→20:02)
[2020-06-19] MEDS: PILL CUTTER 1 EACH XX PRN ×2 (08:41→20:03)
[2020-06-19 16:52] VITALS: BP 132/87
[2020-06-19] MEDS: zolPIDEM TARTRATE 5 MG TAB PO SCH (20:03)
[2020-06-19] MEDS: MIRTAZAPINE 15 MG TAB PO SCH (20:03)
[2020-06-20 06:25] VITALS: BP 133/92
[2020-06-20] MEDS: ARIPiprazole 15 MG TAB (AbiLIFY) PO SCH (08:37)
[2020-06-20] MEDS: ESCITALOPRAM OXALATE 10 MG TAB (LEXAPRO) PO SCH (08:37)
[2020-06-20] MEDS: lamoTRIgine 100MG TAB PO SCH ×2 (08:40→21:19)
[2020-06-20 14:42] VITALS: BP 146/77
[2020-06-20] MEDS: MIRTAZAPINE 15 MG TAB PO SCH (21:18)
[2020-06-20] MEDS: zolPIDEM TARTRATE 5 MG TAB PO SCH (21:19)
[2020-06-21 06:50] VITALS: BP 124/79
[2020-06-21] MEDS: ESCITALOPRAM OXALATE 10 MG TAB (LEXAPRO) PO SCH (08:33)
[2020-06-21] MEDS: PILL CUTTER 1 EACH XX PRN (08:33)
[2020-06-21] MEDS: lamoTRIgine 100MG TAB PO SCH ×2 (08:33→21:03)
[2020-06-21] MEDS: ARIPiprazole 15 MG TAB (AbiLIFY) PO SCH (08:33)
--- NOTE | 2020-06-21 10:14 | MHIPNPDOC ---
[facility] Progress Note Progress Note DATE OF SERVICE: 06/21/20 HISTORY: The patient is met with today, he reports that he is doing well has no side effects from any medications. It appears the TLS has had some issues and is now opposing his acceptance to the program program, coordination with the Department of social studies department chair as well as his [employer] worker will hopefully yield better results. He reports otherwise he is positive and open leaving sooner than the apartment date, once we secured, he reports that he feels he's made some good progress and otherwise has no other complaints. He has been in his room without any major problems. NEW TEST RESULTS: NA. CURRENT MEDICATIONS: See below. MENTAL STATUS EXAMINATION: General: [Well dressed with good hygiene] Speech: [Spontaneous and fluid] Thought processes: [Linear and logical] Thought content: [Future orientated] Abstract reasoning, and computation: [Intact] Description of associations: [Intact] Description of abnormal or psychotic thoughts:[Denies any suicidal or homicidal ideation. Denies any auditory or visual hallucinations. Does not appear to be r esponding to internal stimuli. Does not appear to be endorsing any bizarre or paranoid ideation.] Judgment: [Fair] Insight: [Fair] Orientation: [Alert and orientated 3] Recent and remote memory: [Intact] Attention span and concentration: [Intact] Fund of knowledge: [Adequate] Mood: "" Affect: [Euthymic with a full range] DIAGNOSES: 1. Adjustment disorder with a disruption of mood and conduct. 2. Major depressive disorder recurrent, severe in unspecified remission. (With psychotic symptoms) ASSESSMENT: Will likely discharge patient this week, once we sort out the TLS situation ensure a safe discharge but he has been doing well and hopefully this will prevent readmissions MANAGEMENT PLAN: Continue Abilify, Lamictal, Ambien and Lexapro at current dose below, Time spent: 15 minutes Vital Signs Vital Signs Date Time Temp Pulse Resp B/P (MAP) Pulse Ox O2 Delivery O2 Flow Rate FiO2 06/21/20 06:50 98.2 90 20 124/79 (94) 95 Room Air Current Medications Current Medications Medications (Trade) Dose Ordered Sig/Rizwan Route PRN Reason Start Time Stop Time Status Last Admin Dose Admin Acetaminophen (Tylenol Tab) 650 mg Q6HP PRN PO HEADACHE or DISCOMFORT 05/15/20 01:45 06/14/20 01:44 DC 06/09/20 08:06 Acetaminophen (Tylenol Tab) 650 mg Q6HP PRN PO PAIN / FEVER 06/14/20 11:00 Al Hydrox/Mg Hydrox/Simethicone (Mylanta) 30 ml Q4HP PRN PO HEARTBURN/INDIGESTION 05/15/20 01:45 06/14/20 01:44 DC Al Hydrox/Mg Hydrox/Simethicone (Mylanta) 30 ml Q4HP PRN PO HEARTBURN 06/14/20 11:00 Aripiprazole (AbiLIFY) 15 mg DAILY PO 05/15/20 09:00 06/14/20 08:59 DC 06/13/20 09:36 Aripiprazole (AbiLIFY) 15 mg DAILY PO 06/14/20 09:00 06/21/20 08:33 Escitalopram Oxalate (Lexapro) 20 mg DAILY PO 05/15/20 09:00 06/14/20 08:59 DC 06/13/20 09:37 Escitalopram Oxalate (Lexapro) 20 mg DAILY PO 06/14/20 09:00 06/21/20 08:33 Home Med (Med Rec Complete!) ASDIRECTED XX 05/15/20 01:00 05/15/20 00:54 DC Hydroxyzine HCl (Atarax) 25 mg BID PRN PO ANXIETY 05/15/20 01:45 05/16/20 11:39 DC 05/16/20 08:25 Hydroxyzine HCl (Atarax) 25 mg Q8HP PRN PO ANXIETY/AGITATION 05/16/20 11:45 05/18/20 08:00 DC 05/17/20 08:26 Hydroxyzine HCl (Atarax) 50 mg Q4HP PRN PO anxiety 05/19/20 14:30 06/06/20 08:11 Lamotrigine (LaMICtal) 100 mg BID PO 05/14/20 21:00 05/15/20 02:00 DC Lamotrigine (LaMICtal) 150 mg BID PO 05/14/20 21:00 06/13/20 20:59 DC 06/13/20 09:37 Lamotrigine (LaMICtal) 150 mg BID PO 06/14/20 09:00 06/21/20 08:33 Magnesium Hydroxide (Milk Of Magnesia) 30 ml DAILYPRN PRN PO CONSTIPATION 05/15/20 01:45 06/14/20 01:44 DC Magnesium Hydroxide (Milk Of Magnesia) 30 ml DAILYPRN PRN PO CONSTIPATION 06/14/20 11:00 Mirtazapine (Remeron) 15 mg QHS PO 05/14/20 21:00 06/13/20 20:59 DC 06/12/20 20:26 Mirtazapine (Remeron) 15 mg QHS PO 06/14/20 21:00 06/20/20 21:18 Miscellaneous (Unresolved Clarification Entry) SEE LABEL COMMENTS DAILY XX 06/07/20 09:00 06/07/20 13:37 DC Miscellaneous (Unresolved Clarification Entry) SEE LABEL COMMENTS DAILY XX 06/13/20 09:00 06/14/20 11:03 DC Miscellaneous (Unresolved Clarification Entry) SEE LABEL COMMENTS DAILY XX 06/17/20 09:00 06/18/20 07:01 DC Miscellaneous (Unresolved Clarification Entry) SEE LABEL COMMENTS DAILY XX 06/20/20 09:00 06/20/20 16:56 DC Paliperidone Palmitate (Invega Sustenna) 234 mg Q30D IM 06/07/20 09:00 06/07/20 12:57 Zolpidem Tartrate (Ambien) 5 mg QHS PO 05/14/20 21:00 06/20/20 21:19 Allergies Coded Allergies: divalproex sodium (Verified Allergy, Unknown, 07/09/19) benztropine (Verified Adverse Reaction, Intermediate, hallucinations, 07/09/19) CATALINA GARCIA DO Jun 21, 2020 10:14
[2020-06-21 17:57] VITALS: BP 140/90
[2020-06-21] MEDS: MIRTAZAPINE 15 MG TAB PO SCH (21:02)
[2020-06-21] MEDS: zolPIDEM TARTRATE 5 MG TAB PO SCH (21:02)
[2020-06-22 06:22] VITALS: BP 130/85
[2020-06-22] MEDS: lamoTRIgine 100MG TAB PO SCH ×2 (09:35→20:31)
[2020-06-22] MEDS: ESCITALOPRAM OXALATE 10 MG TAB (LEXAPRO) PO SCH (09:35)
[2020-06-22] MEDS: ARIPiprazole 15 MG TAB (AbiLIFY) PO SCH (09:35)
--- NOTE | 2020-06-22 10:23 | MHIPNPDOC ---
[facility] Progress Note Progress Note DATE OF SERVICE: 06/22/20 HISTORY: The patient is met with today, he reports he is doing well and feeling good on the medications, he reports that he is amenable to staying another day or so to establish the TLS referral and then be triaged back to outpatient. He reports that he feels much more supported and his [employer] worker has been quite helpful in making sure that his housing situation is sorted out. He reports that he is doing well and has no complaints as tolerated and the isolation well and has no other complaints or physical symptoms to endorse at this time. NEW TEST RESULTS: NA. CURRENT MEDICATIONS: See below. MENTAL STATUS EXAMINATION: General: [Well dressed with good hygiene] Speech: [Spontaneous and fluid] Thought processes: [Linear and logical] Thought content: [Future orientated] Abstract reasoning, and computation: [Intact] Description of associations: [Intact] Description of abnormal or psychotic thoughts:[Denies any suicidal or homicidal ideation. Denies any auditory or visual hallucinations. Does not appear to be responding to internal stimuli. Does not appear to be endorsing any bizarre or paranoid ideation.] Judgment: [Fair] Insight: [Fair] Orientation: [Alert and orientated 3] Recent and remote memory: [Intact] Attention span and concentration: [Intact] Fund of knowledge: [Adequate] Mood: "" Affect: [Euthymic with a full range] DIAGNOSES: 1. Adjustment disorder with a disruption of mood and conduct. 2. Major depressive disorder recurrent, severe in unspecified remission. (With psychotic symptoms) ASSESSMENT: Plan to discharge mid week, TLS has been established and [employer] worker will be able to hopefully help the patient stay stable, holidays tend to be the most difficult time for him as he feels really lonely which leads to depression and suicidal thoughts, which have passed over for the most part and his remission risk has likely dropped quite a bit, holding him until TLS has would not likely be necessary at this time as he is passed over his high risk time. MANAGEMENT PLAN: Continue Abilify, Lamictal, Ambien and Lexapro at current dose below, Time spent: 15 minutes Vital Signs Vital Signs Date Time Temp Pulse Resp B/P (MAP) Pulse Ox O2 Delivery O2 Flow Rate FiO2 06/22/20 06:22 98.0 80 20 130/85 (100) 97 Room Air Current Medications Current Medications Medications (Trade) Dose Ordered Sig/Rizwan Route PRN Reason Start Time Stop Time Status Last Admin Dose Admin Acetaminophen (Tylenol Tab) 650 mg Q6HP PRN PO HEADACHE or DISCOMFORT 05/15/20 01:45 06/14/20 01:44 DC 06/09/20 08:06 Acetaminophen (Tylenol Tab) 650 mg Q6HP PRN PO PAIN / FEVER 06/14/20 11:00 Al Hydrox/Mg Hydrox/Simethicone (Mylanta) 30 ml Q4HP PRN PO HEARTBURN/INDIGESTION 05/15/20 01:45 06/14/20 01:44 DC Al Hydrox/Mg Hydrox/Simethicone (Mylanta) 30 ml Q4HP PRN PO HEARTBURN 06/14/20 11:00 Aripiprazole (AbiLIFY) 15 mg DAILY PO 05/15/20 09:00 06/14/20 08:59 DC 06/13/20 09:36 Aripiprazole (AbiLIFY) 15 mg DAILY PO 06/14/20 09:00 06/22/20 09:35 Escitalopram Oxalate (Lexapro) 20 mg DAILY PO 05/15/20 09:00 06/14/20 08:59 DC 06/13/20 09:37 Escitalopram Oxalate (Lexapro) 20 mg DAILY PO 06/14/20 09:00 06/22/20 09:35 Home Med (Med Rec Complete!) ASDIRECTED XX 05/15/20 01:00 05/15/20 00:54 DC Hydroxyzine HCl (Atarax) 25 mg BID PRN PO ANXIETY 05/15/20 01:45 05/16/20 11:39 DC 05/16/20 08:25 Hydroxyzine HCl (Atarax) 25 mg Q8HP PRN PO ANXIETY/AGITATION 05/16/20 11:45 05/18/20 08:00 DC 05/17/20 08:26 Hydroxyzine HCl (Atarax) 50 mg Q4HP PRN PO anxiety 05/19/20 14:30 06/06/20 08:11 Lamotrigine (LaMICtal) 100 mg BID PO 05/14/20 21:00 05/15/20 02:00 DC Lamotrigine (LaMICtal) 150 mg BID PO 05/14/20 21:00 06/13/20 20:59 DC 06/13/20 09:37 Lamotrigine (LaMICtal) 150 mg BID PO 06/14/20 09:00 06/22/20 09:35 Magnesium Hydroxide (Milk Of Magnesia) 30 ml DAILYPRN PRN PO CONSTIPATION 05/15/20 01:45 06/14/20 01:44 DC Magnesium Hydroxide (Milk Of Magnesia) 30 ml DAILYPRN PRN PO CONSTIPATION 06/14/20 11:00 Mirtazapine (Remeron) 15 mg QHS PO 05/14/20 21:00 06/13/20 20:59 DC 06/12/20 20:26 Mirtazapine (Remeron) 15 mg QHS PO 06/14/20 21:00 06/21/20 21:02 Miscellaneous (Unresolved Clarification Entry) SEE LABEL COMMENTS DAILY XX 06/07/20 09:00 06/07/20 13:37 DC Miscellaneous (Unresolved Clarification Entry) SEE LABEL COMMENTS DAILY XX 06/13/20 09:00 06/14/20 11:03 DC Miscellaneous (Unresolved Clarification Entry) SEE LABEL COMMENTS DAILY XX 06/17/20 09:00 06/18/20 07:01 DC Miscellaneous (Unresolved Clarification Entry) SEE LABEL COMMENTS DAILY XX 06/20/20 09:00 06/20/20 16:56 DC Paliperidone Palmitate (Invega Sustenna) 234 mg Q30D IM 06/07/20 09:00 06/07/20 12:57 Zolpidem Tartrate (Ambien) 5 mg QHS PO 05/14/20 21:00 06/21/20 21:02 Allergies Coded Allergies: divalproex sodium (Verified Allergy, Unknown, 07/09/19) benztropine (Verified Adverse Reaction, Intermediate, hallucinations, 07/09/19) CATALINA GARCIA DO Jun 22, 2020 10:23
[2020-06-22 18:00] VITALS: BP 134/86
[2020-06-22] MEDS: MIRTAZAPINE 15 MG TAB PO SCH (20:31)
[2020-06-22] MEDS: zolPIDEM TARTRATE 5 MG TAB PO SCH (20:31)
[2020-06-23 05:50] VITALS: BP 129/77
[2020-06-23] MEDS: lamoTRIgine 100MG TAB PO SCH ×2 (08:55→21:11)
[2020-06-23] MEDS: PILL CUTTER 1 EACH XX PRN (08:55)
[2020-06-23] MEDS: ARIPiprazole 15 MG TAB (AbiLIFY) PO SCH (08:56)
[2020-06-23] MEDS: ESCITALOPRAM OXALATE 10 MG TAB (LEXAPRO) PO SCH (08:57)
--- NOTE | 2020-06-23 11:32 | MHIPNPDOC ---
[facility] Progress Note Progress Note DATE OF SERVICE: 06/23/20 HISTORY: The patient is met with today, he reports that he feels ready to return home and feels much more euthymic, he feels positive about TLS accepting him and that he can work on sorting out his affairs to be transferred. His [employer] worker engaged and can help him with this, he reports he feels as though he got a lot from this experience feels like he wants to try to return home. He's been doing well even isolation engaged to the maximum degree and generally fairly pleasant. NEW TEST RESULTS: NA. CURRENT MEDICATIONS: See below. MENTAL STATUS EXAMINATION: General: [Well dressed with good hygiene] Speech: [Spontaneous and fluid] Thought processes: [Linear and logical] Thought content: [Future orientated] Abstract reasoning, and computation: [Intact] Description of associations: [Intact] Description of abnormal or psychotic thoughts:[Denies any suicidal or homicidal ideation. Denies any auditory or visual hallucinations. Does not appear to be responding to internal stimuli. Does not appear to be endorsing any bizarre or paranoid ideation.] Judgment: [Fair] Insight: [Fair] Orientation: [Alert and orientated 3] Recent and remote memory: [Intact] Attention span and concentration: [Intact] Fund of knowledge: [Adequate] Mood: "Great" Affect: [Euthymic with a full range] DIAGNOSES: 1. Adjustment disorder with a disruption of mood and conduct. 2. Major depressive disorder recurrent, severe in unspecified remission. (With psychotic symptoms) ASSESSMENT: Observe overnight, will start the discharge planning in which we will make sure that his current situation is safe enough for him to return before sending him back. Will observe for any suicidal thoughts or decompensat ion sending MANAGEMENT PLAN: Continue Abilify, Lamictal, Ambien and Lexapro at current dose below, Time spent: 15 minutes Vital Signs Vital Signs Date Time Temp Pulse Resp B/P (MAP) Pulse Ox O2 Delivery O2 Flow Rate FiO2 06/23/20 05:50 98.3 81 20 129/77 (94) 94 Room Air Current Medications Current Medications Medications (Trade) Dose Ordered Sig/Rizwan Route PRN Reason Start Time Stop Time Status Last Admin Dose Admin Acetaminophen (Tylenol Tab) 650 mg Q6HP PRN PO HEADACHE or DISCOMFORT 05/15/20 01:45 06/14/20 01:44 DC 06/09/20 08:06 Acetaminophen (Tylenol Tab) 650 mg Q6HP PRN PO PAIN / FEVER 06/14/20 11:00 Al Hydrox/Mg Hydrox/Simethicone (Mylanta) 30 ml Q4HP PRN PO HEARTBURN/INDIGESTION 05/15/20 01:45 06/14/20 01:44 DC Al Hydrox/Mg Hydrox/Simethicone (Mylanta) 30 ml Q4HP PRN PO HEARTBURN 06/14/20 11:00 Aripiprazole (AbiLIFY) 15 mg DAILY PO 05/15/20 09:00 06/14/20 08:59 DC 06/13/20 09:36 Aripiprazole (AbiLIFY) 15 mg DAILY PO 06/14/20 09:00 06/23/20 08:56 Escitalopram Oxalate (Lexapro) 20 mg DAILY PO 05/15/20 09:00 06/14/20 08:59 DC 06/13/20 09:37 Escitalopram Oxalate (Lexapro) 20 mg DAILY PO 06/14/20 09:00 06/23/20 08:57 Home Med (Med Rec Complete!) ASDIRECTED XX 05/15/20 01:00 05/15/20 00:54 DC Hydroxyzine HCl (Atarax) 25 mg BID PRN PO ANXIETY 05/15/20 01:45 05/16/20 11:39 DC 05/16/20 08:25 Hydroxyzine HCl (Atarax) 25 mg Q8HP PRN PO ANXIETY/AGITATION 05/16/20 11:45 05/18/20 08:00 DC 05/17/20 08:26 Hydroxyzine HCl (Atarax) 50 mg Q4HP PRN PO anxiety 05/19/20 14:30 06/06/20 08:11 Lamotrigine (LaMICtal) 100 mg BID PO 05/14/20 21:00 05/15/20 02:00 DC Lamotrigine (LaMICtal) 150 mg BID PO 05/14/20 21:00 06/13/20 20:59 DC 06/13/20 09:37 Lamotrigine (LaMICtal) 150 mg BID PO 06/14/20 09:00 06/23/20 08:55 Magnesium Hydroxide (Milk Of Magnesia) 30 ml DAILYPRN PRN PO CONSTIPATION 05/15/20 01:45 06/14/20 01:44 DC Magnesium Hydroxide (Milk Of Magnesia) 30 ml DAILYPRN PRN PO CONSTIPATION 06/14/20 11:00 Mirtazapine (Remeron) 15 mg QHS PO 05/14/20 21:00 06/13/20 20:59 DC 06/12/20 20:26 Mirtazapine (Remeron) 15 mg QHS PO 06/14/20 21:00 06/22/20 20:31 Miscellaneous (Unresolved Clarification Entry) SEE LABEL COMMENTS DAILY XX 06/07/20 09:00 06/07/20 13:37 DC Miscellaneous (Unresolved Clarification Entry) SEE LABEL COMMENTS DAILY XX 06/13/20 09:00 06/14/20 11:03 DC Miscellaneous (Unresolved Clarification Entry) SEE LABEL COMMENTS DAILY XX 06/17/20 09:00 06/18/20 07:01 DC Miscellaneous (Unresolved Clarification Entry) SEE LABEL COMMENTS DAILY XX 06/20/20 09:00 06/20/20 16:56 DC Paliperidone Palmitate (Invega Sustenna) 234 mg Q30D IM 06/07/20 09:00 06/07/20 12:57 Zolpidem Tartrate (Ambien) 5 mg QHS PO 05/14/20 21:00 06/22/20 20:31 Allergies Coded Allergies: divalproex sodium (Verified Allergy, Unknown, 07/09/19) benztropine (Verified Adverse Reaction, Intermediate, hallucinations, 07/09/19) CATALINA GARCIA DO Jun 23, 2020 11:32
[2020-06-23 18:01] VITALS: BP 148/74
[2020-06-23] MEDS: zolPIDEM TARTRATE 5 MG TAB PO SCH (21:10)
[2020-06-23] MEDS: MIRTAZAPINE 15 MG TAB PO SCH (21:11)
[2020-06-24 05:45] VITALS: BP 147/75
[2020-06-24] MEDS: ESCITALOPRAM OXALATE 10 MG TAB (LEXAPRO) PO SCH (08:39)
[2020-06-24] MEDS: ARIPiprazole 15 MG TAB (AbiLIFY) PO SCH (08:40)
[2020-06-24] MEDS: lamoTRIgine 100MG TAB PO SCH (08:40)
--- NOTE | 2020-06-24 10:54 | MHDSPDOC ---
[facility] Discharge Summary Discharge Summary DATE OF ADMISSION: May 15, 2020 at 01:42 DATE OF DISCHARGE: Jun 24, 2020 at 12:55 DISCHARGE DIAGNOSES: Adjustment disorder Major depressive disorder recurrent in full remission CONSULTANTS INVOLVED:[ None (basic hospitalist screening)] REASON FOR ADMISSION & TREATMENT AND PROGRESS ON THE UNIT : The patient was admitted to the inpatient mental health unit with recurrent depression especially in the setting of loneliness and dealing with loss, he was restarted on his home Abilify mirtazapine Ambien with range. He did well and generally improved over time especially as he was able to interact with groups and was able to experience more support. Difficulty during the holidays has been a chronic problem for him, we triaged him for TLS and after a protracted process he was ultimately excepted to the apartment program, he eventually did very well made great improvement and was stable for a number weeks prior to his discharge, he had requested discharge and has been doing exceptionally well with a fairly good discharge plan and past his most dangerous time i.e. the holidays he was deemed appropriate for discharge. DISCHARGE ASSESSMENT[improved] Legal status considerations: The patient at the time of discharge did not meet criteria for involuntary admission/extension due to having a [normal] mental status exam, [fair] insight into the situation, They are engaged in the discharge process, as well as being friendly and amenable in behavioral control and havent been engaging in any observed concerning behavior or ideation recently. They decline voluntary e xtension/admission at this time and must be discharged in good shell, as Im unable to make a case for holding the patient against their will. They may have historical risk factors of admissions and other interactions with psychiatry however, those are not modifiable from a clinical perspective. The patient will need to be discharged in good shell. MENTAL STATUS EXAMINATION ON DISCHARGE: [General: Well dressed with good hygiene Speech: Spontaneous and fluid Thought processes: Linear and logical Thought content: Future orientated Abstract reasoning, and computation: Intact Description of associations: Intact Description of abnormal or psychotic thoughts:Denies any suicidal or homicidal ideation. Denies any auditory or visual hallucinations. Does not appear to be responding to internal stimuli. Does not appear to be endorsing any bizarre or paranoid ideation. Judgment: fair Insight: fair Orientation: Alert and orientated 3 Recent and remote memory: Intact Attention span and concentration: Intact Fund of knowledge: Adequate Mood: "okay" Affect: Euthymic with a full range] PLAN/FOLLOWUP ARRANGEMENTS: Follow up appointments made (PCP and MH in 5 days of D/C date) and safety plan completed. Safety Planning aspects completed prior to discharge Patient did not need any refills of his medications Coordinated with case mgr [RN reviewed crisis hotline information and other aspects to empower patient to access care in interim before next appointment.] The amount of time spent in the coordination of care for this patient was approximately 30 minutes. Vital Signs/I&Os Vital Signs Date Time Temp Pulse Resp B/P (MAP) Pulse Ox O2 Delivery O2 Flow Rate FiO2 06/24/20 08:00 Room Air 06/24/20 05:45 99.0 78 20 147/75 (99) 95 Medications Scheduled Aripiprazole (Aripiprazole) 15 Mg Tablet, 15 MG PO DAILY, (Reported) Escitalopram Oxalate (Escitalopram Oxalate) 20 Mg Tablet, 20 MG PO DAILY, (Reported) Lamotrigine (Lamotrigine) 150 Mg Tablet, 150 MG PO BID, (Reported) Mirtazapine (Remeron) 15 Mg Tablet, 15 MG PO QHS, (Reported) Paliperidone Palmitate (Invega Sustenna) 234 Mg/1.5 Ml Syringe, 234 MG IM QMONTH, (Reported) Zolpidem Tartrate (Zolpidem Tartrate) 5 Mg Tablet, 5 MG PO QHS, (Reported) Scheduled PRN Hydroxyzine HCl (Hydroxyzine HCl) 25 Mg Tablet, 25 MG PO BID PRN for ANXIETY, (Reported) Allergies Coded Allergies: divalproex sodium (Verified Allergy, Unknown, 07/09/19) benztropine (Verified Adverse Reaction, Intermediate, hallucinations, 07/09/19) CATALINA GARCIA DO Jun 24, 2020 10:54
== END 2020-06-24 12:55 | disposition home or self-care (01) | DRG 885 ==
LOC: M ED 21:51 → M ED INP 05-15 01:42 → M PSY 05-15 02:25
PROVIDERS: ADMIT Psychiatry & Neurology Psychiatry; ATTEND Psychiatry & Neurology Addiction Medicine
DX: F33.9 Major depressive disorder, recurrent, unspecified (principal); Z68.41 Body mass index [BMI] 40.0-44.9, adult; Z79.899 Other long term (current) drug therapy; Z88.8 Allergy status to other drugs, medicaments and biological substances; E66.01 Morbid (severe) obesity due to excess calories

== ENCOUNTER → 2020-06-29 | Outpatient (REF) | payer MEDICARE ==
[~2020-06-29] MED LIST changes: +ESCI10TA16 PO; -ESCI10TA2 PO; -ESCI20TA PO; +ESCI20TA16 PO; -lamoTRIgine 100MG TAB PO SCH
[2020-06-29 18:59] LABS: CHOLESTEROL RISK RATIO 5.864 (<5); THYROID STIMULATING HORMONE 2.06 uIU/ML (0.358-3.740)
== END ==
LOC: M SFHCPLAZ 14:55
PROVIDERS: ATTEND Family Medicine
DX: R79.89 Other specified abnormal findings of blood chemistry (principal); F20.9 Schizophrenia, unspecified; Z79.899 Other long term (current) drug therapy
CPT/HCPCS: 36415; 80061; 84443; G0463

== ENCOUNTER → 2020-07-16 | Outpatient (CLI) | payer MEDICARE ==
--- NOTE | 2020-07-20 16:45 | SLEEPHOME ---
DATE: 07/16/2020 ORDERED BY: Israel Schroeder DO Diagnostic home sleep testing was performed due to concern for the obstructive sleep apnea syndrome in this patient with a history of snoring. For testing, a nocturnal T3 respiratory monitoring device was used. Continuous record was made of pulse, oxygen saturation, air flow, chest and abdominal strain, and body position. Eleven hours and 47 minutes of data were reviewed. There were 9 hours and 54 minutes marked as time in bed. During the interval marked time in bed, there were 626 respiratory events identified of 10 seconds in duration or greater for a respiratory event index of 63.2 per hour. The events were primarily obstructive. However, 172 mixed and central apneas were also seen. The events were not exclusive to sleep position. The patient's baseline pulse rate was 75 beats per minute. Pulse rate ranged 51 to 105. Baseline saturation was 90%. Saturations were seen to 68%. Testing was performed in both the supine and nonsupine positions. IMPRESSION: Abnormal home sleep testing with repetitive respiratory events and oxygen desaturations to 68% with a respiratory event index of 63.2 is consistent with the obstructive sleep apnea syndrome. RECOMMENDATION: The patient should be encouraged to undergo a formal sleep evaluation. Given the frequency of mixed and central events, complex sleep apnea may also be present and bilevel pressure therapy and backup rate may be needed.
== END ==
LOC: M SLEEP HO 08:44
PROVIDERS: ATTEND Family Medicine
DX: R06.83 Snoring (principal)

== ENCOUNTER → 2020-08-09 | Outpatient (CLI) | payer MEDICARE ==
--- NOTE | 2020-08-09 15:20 | REPPI ---
INDICATION: PAIN. COMPARISON: 07/16/2019. TECHNIQUE: Four views FINDINGS: AP inlet and outlet views of the pelvis showed pelvic ring intact with pubic rami, symphysis pubis and SI joints symmetric. Sacral jose and foramina intact. Iliac wings symmetric. There are small marginal osteophytes at the acetabular roof but no hip joint space narrowing, fracture, flattening of the femoral heads or AVN. The lateral view shows the coccyx displaced posteriorly for its complete width, previously only a few mm. I do not see any other signs of acute abnormality. There is some minor degenerative disc and facet arthritic change in the lower lumbar spine without significant disc space narrowing, spondylolysis or spondylolisthesis. IMPRESSION: 1. Posterior displacement of the coccyx representing acute injury as it is full width is posterior to the segment just above. No other evidence of acute injury. This represents coccygeal fracture. <Electronically signed by Danny Allen > 08/09/20 [id number]
== END ==
LOC: M PLAIMG 13:58
PROVIDERS: ATTEND Family Medicine
DX: S32.2XXA Fracture of coccyx, initial encounter for closed fracture (principal); M53.3 Sacrococcygeal disorders, not elsewhere classified; X58.XXXA Exposure to other specified factors, initial encounter; Y92.9 Unspecified place or not applicable; Y99.9 Unspecified external cause status
CPT/HCPCS: 72220; G0463

== ENCOUNTER 2020-09-13 10:15 | Outpatient (RCR) | payer MEDICARE | END 2020-09-22 | LOC: M PT 10:15 | PROVIDERS: ATTEND Family Medicine | DX: M53.3 Sacrococcygeal disorders, not elsewhere classified (principal) ==

== ENCOUNTER → 2020-09-27 | Outpatient (CLI) | payer MEDICARE ==
--- NOTE | 2020-09-28 15:34 | SLEEPCENT ---
DATE: 09/27/2020 ORDERED BY: Faby Jensen Nocturnal polysomnography was performed for evaluation of sleep physiology in this patient with a clinical diagnosis of obstructive sleep apnea supported by home testing. There was 8 hours and 5 minutes of data reviewed. There was 558.5 minutes of sleep identified. Sleep latency was short at 2 minutes. REM sleep was delayed at 306 minutes. Sleep architecture showed poor progression. There were two REM cycles late in the study. Overall sleep efficiency 95.9%. The electrocardiogram showed a sinus rhythm with an average heart rate of 80 beats per minute. EEG showed coarsening in background, otherwise normal waveforms for wake and sleep. There were 609 respiratory events identified of 10 seconds in duration or greater for an apnea-hypopnea index of 79.7. Forty-five of these were central in character. The remaining apneas were obstructive. The events were not exclusive to sleep stage nor body posture. Arousals from respiratory events occurred 5.5 times per hour. Oxygen desaturations were seen into the 70s. There was minimal activity in the limb leads. Snoring was noted throughout the study. IMPRESSION: Severe obstructive sleep apnea syndrome (G47.33). Apnea-hypopnea index 79.7. RECOMMENDATION: The patient should be encouraged to return to the sleep disorder center for pressure therapy. In the interim, alcohol and sedative avoidance should be practiced and caution exercised during the operation of motor vehicles.
== END ==
LOC: M SLEEP 20:00
PROVIDERS: ATTEND Nurse Practitioner Family
DX: G47.33 Obstructive sleep apnea (adult) (pediatric) (principal)

== ENCOUNTER → 2020-09-28 | Outpatient (CLI) | payer MEDICARE ==
--- NOTE | 2020-09-28 17:31 | REPPI ---
INDICATION: M25.561 RIGHT ANTERIOR KNEE PAIN COMPARISON: None. TECHNIQUE: Five views right knee. FINDINGS: There is no evidence of acute fracture, dislocation, or intrinsic bone disease.There is mild lateral patellofemoral compartment narrowing. There is a moderate joint effusion. IMPRESSION: No fracture or dislocation. Mild patellofemoral compartment narrowing laterally. Moderate joint effusion. <Electronically signed by Jose Eduardo Malin > 09/28/20 [id number]
== END ==
LOC: M PLAIMG 14:33
PROVIDERS: ATTEND Family Medicine
DX: M25.461 Effusion, right knee (principal); M25.561 Pain in right knee
CPT/HCPCS: 73564; G0463

== ENCOUNTER → 2020-10-12 | Outpatient (CLI) | payer MEDICARE ==
--- NOTE | 2020-10-13 14:38 | SLEEPCENT ---
NOCTURNAL POLYSOMNOGRAPHY CPAP TITRATION DATE: 10/12/2020 ORDERED BY: ANNE Maurer Nocturnal polysomnography was performed for the titration of pressure therapy in this patient with obstructive sleep apnea syndrome with apnea-hypopnea index of 79.7. For testing a ResMed AirFit F20 full face mask of standard size was used, 5 cm of water pressure were applied to the circuit, and the lights were extinguished. 8 hours and 14 minutes of data were reviewed. There were 470.5 minutes of sleep identified. Sleep latency was normal at 8 minutes. REM latency was delayed at 144 minutes. Sleep architecture improved with pressure therapy and there was evidence of REM rebound. Overall sleep efficiency was 90.4%. The electrocardiogram showed a sinus rhythm with an average heart rate of 72 beats per minute. EEG showed reasonably normal waveforms for wake and sleep. Best sleep was seen on a CPAP pressure of 14 and remaining measures of sleep physiology were normal. IMPRESSION: Obstructive sleep apnea syndrome (G47.33). RECOMMENDATION: Nightly use of pressure therapy 14 cm of water.
== END ==
LOC: M SLEEP 20:00
PROVIDERS: ATTEND Nurse Practitioner Family
DX: G47.33 Obstructive sleep apnea (adult) (pediatric) (principal)

== ENCOUNTER 2020-12-05 21:45 | Inpatient (IN) | payer MEDICARE ==
[~2020-12-05 21:45] MED LIST changes: +ARIP10TA32 PO; -ARIP1TAB PO
[2020-12-06] MEDS ORDERED: LEXA1TAB2 PO (00:14)
[2020-12-06] MEDS ORDERED: MED REC COMMENT (00:58)
[2020-12-06 01:10] LABS: HEMATOCRIT 41.9 % (42.0-52.0); HEMOGLOBIN 13.6 g/dl (13.5-17.5); MEAN CORPUSCULAR HEMOGLOBIN 28.8 pg (27.0-33.0); MEAN CORPUSCULAR HGB CONC 32.5 g/dl (32.0-36.5); MEAN CORPUSCULAR VOLUME 88.8 fl (80.0-96.0); PLATELET COUNT, AUTOMATED 268 10^3/uL (150-450); RED BLOOD COUNT 4.72 10^6/uL (4.30-6.10); WHITE BLOOD COUNT 10.9 10^3/uL (4.0-10.0)
[2020-12-06 01:59] LABS: BLOOD UREA NITROGEN 12 MG/DL (7-18); CARBON DIOXIDE LEVEL 29 MEQ/L (21-32); CHLORIDE LEVEL 103 MEQ/L (98-107); CREATININE FOR GFR 0.87 MG/DL (0.70-1.30); GLOMERULAR FILTRATION RATE > 60.0 (>60); GLUCOSE, FASTING 95 MG/DL (70-100); POTASSIUM SERUM 3.9 MEQ/L (3.5-5.1); SODIUM LEVEL 138 MEQ/L (136-145)
[2020-12-06 02:00] LABS: ACETAMINOPHEN LEVEL < 2.0 UG/ML (10.0-30.0); ALBUMIN 3.4 GM/DL (3.2-5.2); ALT/SGPT 31 U/L (12-78); BILIRUBIN,DIRECT < 0.1 MG/DL (0.0-0.2); BILIRUBIN,TOTAL 0.5 MG/DL (0.2-1.0); CALCIUM LEVEL 8.2 MG/DL (8.5-10.1); ETHYL ALCOHOL (ETHANOL) < 0.003 % (0.000-0.010); SALICYLATE LEVEL < 1.7 MG/DL (5.0-30.0); TOTAL PROTEIN 6.8 GM/DL (6.4-8.2)
[2020-12-06] MEDS ORDERED: lamoTRIgine 100MG TAB PO ONE ×2 (07:25→07:40)
[2020-12-06] MEDS ORDERED: ESCITALOPRAM OXALATE 10 MG TAB (LEXAPRO) PO ONE (07:25)
[2020-12-06] MEDS ORDERED: ARIPiprazole 10 MG TAB PO ONE (07:25)
[2020-12-06] MEDS ORDERED: ARIPiprazole 15 MG TAB (AbiLIFY) PO ONE (07:40)
[2020-12-06] MEDS ORDERED: lamoTRIgine 25MG TAB PO ONE (07:40)
[2020-12-06 11:42] LABS: AMPHETAMINES LEVEL URINE NEGATIVE (NEGATIVE); BARBITURATES URINE NEGATIVE (NEGATIVE); BENZODIAZEPINES URINE NEGATIVE (NEGATIVE); CANNABINOIDS URINE NEGATIVE (NEGATIVE); COCAINE METABOLITE URINE NEGATIVE (NEGATIVE); METHADONE URINE NEGATIVE (NEGATIVE); OPIATES URINE NEGATIVE (NEGATIVE); PHENCYCLIDINE URINE NEGATIVE (NEGATIVE)
[2020-12-06 12:00] LABS: RSV AMPLIFICATION NEGATIVE (NEGATIVE)
[2020-12-06] MEDS ORDERED: ACETAMINOPHEN TAB 650MG DOSE (2X325MG) PO PRN (14:55)
[2020-12-06] MEDS ORDERED: MAALOX 30 ML SUSP *UDC PO PRN (14:55)
[2020-12-06] MEDS ORDERED: traZODone 50 MG TAB PO PRN (14:55)
[2020-12-06] MEDS ORDERED: MOM 30ML SUSPENSION UDC PO PRN (14:55)
[2020-12-06] MEDS ORDERED: hydrOXYzine 25 MG TAB PO PRN (14:55)
[2020-12-06 15:58] VITALS: BP 114/84
[2020-12-06] MEDS: zolPIDEM TARTRATE 5 MG TAB PO SCH (20:20)
[2020-12-06] MEDS: MIRTAZAPINE 15 MG TAB PO SCH (20:20)
[2020-12-07 06:00] VITALS: BP 134/75
[2020-12-07] MEDS: ARIPiprazole 15 MG TAB (AbiLIFY) PO SCH (08:04)
[2020-12-07] MEDS: ESCITALOPRAM OXALATE 10 MG TAB (LEXAPRO) PO SCH (08:04)
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
[2020-12-07 16:14] VITALS: BP 143/82
[2020-12-07] MEDS: zolPIDEM TARTRATE 5 MG TAB PO SCH (20:15)
[2020-12-07] MEDS: MIRTAZAPINE 15 MG TAB PO SCH (20:15)
[2020-12-08 06:27] VITALS: BP 156/92
[2020-12-08] MEDS: ARIPiprazole 15 MG TAB (AbiLIFY) PO SCH (08:09)
[2020-12-08] MEDS: ESCITALOPRAM OXALATE 10 MG TAB (LEXAPRO) PO SCH (08:10)
[2020-12-08] MEDS ORDERED: PILL CUTTER 1 EACH XX PRN (11:40)
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
[2020-12-08] MEDS: lamoTRIgine 100MG TAB PO SCH ×2 (12:15→20:02)
--- NOTE | 2020-12-08 13:40 | HPEPDOC ---
General Date of Admission Dec 06, 2020 at 14:54 Date of Service: Dec 07, 2020 Chief Complaint The patient is a 45-year-old male admitted with a reason for visit of Major Depresive Do. 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 He denied any complaints today. Reports has his CPAP here. Home Medications Scheduled Aripiprazole (Aripiprazole) 15 Mg Tablet, 15 MG PO DAILY, (Reported) Escitalopram Oxalate (Lexapro) 20 Mg Tablet, 20 MG PO DAILY, (Reported) Lamotrigine (Lamotrigine) 150 Mg Tablet, 150 MG PO BID, (Reported) Mirtazapine (Remeron) 15 Mg Tablet, 15 MG PO QHS, (Reported) Paliperidone Palmitate (Invega Sustenna) 234 Mg/1.5 Ml Syringe, 234 MG IM QMONTH, (Reported) Zolpidem Tartrate (Zolpidem Tartrate) 5 Mg Tablet, 5 MG PO QHS, (Reported) Scheduled PRN Hydroxyzine HCl (Hydroxyzine HCl) 25 Mg Tablet, 25 MG PO BID PRN for ANXIETY, (Reported) Allergies Coded Allergies: divalproex sodium (Verified Allergy, Unknown, 07/09/19) benztropine (Verified Adverse Reaction, Intermediate, hallucinations, 07/09/19) Past Medical History Medical History JOHN, Morbidly obesity male. BMI 41.8, congenital Hydrocephalus status post [employer] shunt at , h/o ulcerative colitis used to be on Humira off it for 1.5 years, anxiety, schizophrenia, Major depressive disorder with psychotic symptoms, schizoaffective disorder, Surgical History Cholecystectomy, [employer] TE[employer] shunt Family History Significant Family History: COPD (father), Diabetes (mother) Social History * Smoker: Denies Alcohol: Denies Drugs: denies A-FIB/CHADSVASC A-FIB History Current/History of A-Fib/PAF?: No Review of Systems Constitutional: Denies: Chills, Fever, Night Sweats ENT: Denies: Head Aches, Ear Pain, Dysphagia Skin: Denies: Rash, Lesions, Breakdown Pulmonary: Denies: Dyspnea, Cough Cardiovascular: Denies: Chest Pain, Palpitations, Orthopnea, Paroxysmal Noc. Dyspnea, Lt Headedness Gastrointestinal: Denies: Nausea, Vomiting, Abdominal Pain, Diarrhea Genitourinary: Denies: Dysuria, Frequency, Incontinence, Retention Physical Examination General Exam: Positive: Alert, Cooperative, No Acute Distress ENT Exam: Positive: Atraumatic, Mucous membr. moist/pink, Pharynx Normal Chest Exam: Positive: Clear to auscultation, Diminished (overall diminished breath sounds) Heart Exam: Positive: Rate Normal, Regular Rhythm, Normal S1, Normal S2; Negative: Murmurs, Rubs Abdomen Exam: Positive: Normal bowel sounds, Soft, Other (very obese); Negative: Tenderness Extremity Exam: Negative: Clubbing, Cyanosis, Edema Vital Signs Vital Signs Date Time Temp Pulse Resp B/P (MAP) Pulse Ox O2 Delivery O2 Flow Rate FiO2 12/07/20 06:00 98.6 73 20 134/75 (94) 94 Room Air Assessment/Plan 45 year old morbidly obese male with JOHN, schizoaffective disorder, schizoph michael, major depressive disorder, 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 Schizophrenia/schizoaffective disorder/ MDD as per psychiatry Morbid obesity with JOHN Last BMI was 41.8 continue CPAP Plan / VTE VTE Prophylaxis Ordered?: No (freely ambulatory) J CARLOS SUN MD Dec 07, 2020 12:14
[2020-12-08 15:11] VITALS: BP 148/89
[2020-12-08] MEDS: zolPIDEM TARTRATE 5 MG TAB PO SCH (20:02)
[2020-12-08] MEDS: MIRTAZAPINE 15 MG TAB PO SCH (20:03)
[2020-12-09 06:36] VITALS: BP 140/80
[2020-12-09] MEDS: lamoTRIgine 100MG TAB PO SCH ×2 (08:24→20:08)
[2020-12-09] MEDS: ESCITALOPRAM OXALATE 10 MG TAB (LEXAPRO) PO SCH (08:24)
[2020-12-09] MEDS: ARIPiprazole 15 MG TAB (AbiLIFY) PO SCH (08:25)
[2020-12-09 09:32] LABS: CHOLESTEROL RISK RATIO 5.648 (<5)
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
[2020-12-09 17:35] VITALS: BP 120/77
[2020-12-09] MEDS: zolPIDEM TARTRATE 5 MG TAB PO SCH (20:08)
[2020-12-09] MEDS: MIRTAZAPINE 15 MG TAB PO SCH (20:08)
[2020-12-10 05:43] VITALS: BP 150/72
[2020-12-10] MEDS: ESCITALOPRAM OXALATE 10 MG TAB (LEXAPRO) PO SCH (08:03)
[2020-12-10] MEDS: ARIPiprazole 15 MG TAB (AbiLIFY) PO SCH (08:03)
[2020-12-10] MEDS: lamoTRIgine 100MG TAB PO SCH (08:03)
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
[2020-12-28] MEDS ORDERED: PALIPERIDONE PALMITATE 234MG/1.5ML INJ (INVEGA)(FREE PSY INPT ONLY) IM SCH (09:00)
== END 2020-12-10 11:32 | disposition home or self-care (01) | DRG 885 ==
LOC: M ED 21:45 → M ED INP 12-06 14:54 → M PSY 12-06 17:24
PROVIDERS: ADMIT Psychiatry & Neurology Psychiatry; ATTEND Psychiatry & Neurology Psychiatry
DX: F25.1 Schizoaffective disorder, depressive type (principal); Z68.41 Body mass index [BMI] 40.0-44.9, adult; Z91.14 Patient's other noncompliance with medication regimen; Z79.899 Other long term (current) drug therapy; Z88.8 Allergy status to other drugs, medicaments and biological substances; G47.33 Obstructive sleep apnea (adult) (pediatric); E66.01 Morbid (severe) obesity due to excess calories

== ENCOUNTER 2021-02-17 14:44 | Outpatient (RCR) | payer MEDICARE ==
[~2021-02-17 14:44] MED LIST changes: +MED REC COMMENT
== END 2021-02-22 ==
LOC: M PT 14:44
PROVIDERS: ATTEND Student in an Organized Health Care Education/Training Program
DX: M54.5 Low back pain (principal)

== ENCOUNTER → 2021-03-07 | Outpatient (CLI) | payer MEDICARE, OTHER ==
[2021-03-07 13:40] LABS: BASO # 0.1 10^3/uL (0.0-0.2); BASO % 1.1 % (0.0-1.0); EOS # 0.2 10^3/uL (0.0-0.5); EOS % 2.6 % (0.0-3.0); HEMATOCRIT 44.6 % (42.0-52.0); HEMOGLOBIN 14.4 g/dl (13.5-17.5); MEAN CORPUSCULAR HEMOGLOBIN 29.2 pg (27.0-33.0); MEAN CORPUSCULAR HGB CONC 32.3 g/dl (32.0-36.5); MEAN CORPUSCULAR VOLUME 90.5 fl (80.0-96.0); MONO # 0.6 10^3/uL (0.0-0.8); MONO % 7.3 % (2.0-8.0); NEUTROPHILS # 5.1 10^3/uL (1.5-8.5); NEUTROPHILS % 62.8 % (36.0-66.0); PLATELET COUNT, AUTOMATED 301 10^3/uL (150-450); RED BLOOD COUNT 4.93 10^6/uL (4.30-6.10); WHITE BLOOD COUNT 8.1 10^3/uL (4.0-10.0)
[2021-03-07 14:40] LABS: BLOOD UREA NITROGEN 15 MG/DL (7-18); CALCIUM LEVEL 9.5 MG/DL (8.5-10.1); CARBON DIOXIDE LEVEL 33 MEQ/L (21-32); CHLORIDE LEVEL 105 MEQ/L (98-107); CREATININE FOR GFR 1.03 MG/DL (0.70-1.30); GLOMERULAR FILTRATION RATE > 60.0 (>60); GLUCOSE, FASTING 121 MG/DL (70-100); POTASSIUM SERUM 4.9 MEQ/L (3.5-5.1); SODIUM LEVEL 140 MEQ/L (136-145)
== END ==
LOC: M PLALAB 11:39
PROVIDERS: ATTEND Student in an Organized Health Care Education/Training Program
DX: L02.91 Cutaneous abscess, unspecified (principal)
CPT/HCPCS: 36415; 80048; 85025; G0463

== ENCOUNTER → 2021-03-07 | Outpatient (REF) | payer MEDICARE, OTHER | LOC: M SFHCPLAZ 11:16 | PROVIDERS: ATTEND Family Medicine | DX: Z53.9 Procedure and treatment not carried out, unspecified reason (principal) ==

== ENCOUNTER 2021-03-22 15:15 | Outpatient (RCR) | payer OTHER, MEDICARE | END 2021-03-24 | LOC: M PT 15:15 | PROVIDERS: ATTEND Student in an Organized Health Care Education/Training Program | DX: M54.5 Low back pain (principal) ==

== ENCOUNTER → 2021-04-25 | Outpatient (CLI) | payer OTHER, MEDICAID ==
[~2021-04-25] MED LIST changes: +ARIP1TAB43 PO; +LEXA1TAB PO; +VITMTA PO; +ZOLP10TA2 PO
[2021-04-25 16:04] LABS: HEMOGLOBIN A1c 6.3 %
[2021-04-25 16:49] LABS: CHOLESTEROL RISK RATIO 6.166 (<5)
== END ==
LOC: M PLALAB 11:02
PROVIDERS: ATTEND Student in an Organized Health Care Education/Training Program
DX: E55.9 Vitamin D deficiency, unspecified (principal); E66.01 Morbid (severe) obesity due to excess calories; F32.89 Other specified depressive episodes; Z65.8 Other specified problems related to psychosocial circumstances; Z79.899 Other long term (current) drug therapy
CPT/HCPCS: 36415; 80061; 82306; 83036; 90834; 96372; G0463

== ENCOUNTER 2021-05-10 18:34 | Inpatient (IN) | payer MEDICAID, OTHER ==
[~2021-05-10] VITALS: Ht 172.7 cm; Wt 141.2 kg
[~2021-05-10 18:34] MED LIST changes: -ARIP1TAB43 PO; -LEXA1TAB PO; -VITMTA PO; -ZOLP10TA2 PO
[2021-05-10 19:49] LABS: HEMATOCRIT 42.2 % (42.0-52.0); HEMOGLOBIN 13.9 g/dl (13.5-17.5); MEAN CORPUSCULAR HEMOGLOBIN 29.4 pg (27.0-33.0); MEAN CORPUSCULAR HGB CONC 32.9 g/dl (32.0-36.5); MEAN CORPUSCULAR VOLUME 89.4 fl (80.0-96.0); PLATELET COUNT, AUTOMATED 279 10^3/uL (150-450); RED BLOOD COUNT 4.72 10^6/uL (4.30-6.10); WHITE BLOOD COUNT 10.5 10^3/uL (4.0-10.0)
[2021-05-10 20:13] LABS: AMPHETAMINES LEVEL URINE NEGATIVE (NEGATIVE); BARBITURATES URINE NEGATIVE (NEGATIVE); BENZODIAZEPINES URINE NEGATIVE (NEGATIVE); CANNABINOIDS URINE NEGATIVE (NEGATIVE); COCAINE METABOLITE URINE NEGATIVE (NEGATIVE); METHADONE URINE NEGATIVE (NEGATIVE); OPIATES URINE NEGATIVE (NEGATIVE); PHENCYCLIDINE URINE NEGATIVE (NEGATIVE)
[2021-05-10 20:33] LABS: ALBUMIN 4.1 GM/DL (3.2-5.2); ALT/SGPT 59 U/L (12-78); BILIRUBIN,DIRECT 0.1 MG/DL (0.0-0.2); BILIRUBIN,TOTAL 0.3 MG/DL (0.2-1.0); BLOOD UREA NITROGEN 12 MG/DL (7-18); CARBON DIOXIDE LEVEL 31 MEQ/L (21-32); CHLORIDE LEVEL 104 MEQ/L (98-107); CREATININE FOR GFR 0.96 MG/DL (0.70-1.30); GLOMERULAR FILTRATION RATE > 60.0 (>60); GLUCOSE, FASTING 173 MG/DL (70-100); POTASSIUM SERUM 3.9 MEQ/L (3.5-5.1); SALICYLATE LEVEL < 1.7 MG/DL (5.0-30.0); SODIUM LEVEL 140 MEQ/L (136-145); TOTAL PROTEIN 7.4 GM/DL (6.4-8.2)
[2021-05-10 20:34] LABS: ACETAMINOPHEN LEVEL < 2.0 UG/ML (10.0-30.0); ETHYL ALCOHOL (ETHANOL) < 0.003 % (0.000-0.010)
[2021-05-10 22:17] LABS: RSV AMPLIFICATION NEGATIVE (NEGATIVE)
[2021-05-10] MEDS ORDERED: LEXA1TAB PO (22:45)
[2021-05-10] MEDS ORDERED: ARIP1TAB43 PO (22:45)
[2021-05-10] MEDS ORDERED: ZOLP10TA2 PO (22:45)
[2021-05-10] MEDS ORDERED: HOME MED LIST COMPLETE! XX SCH (22:45)
[2021-05-10] MEDS ORDERED: VITMTA PO (22:45)
[2021-05-11] MEDS ORDERED: hydrOXYzine 25 MG TAB PO PRN (00:15)
[2021-05-11] MEDS ORDERED: MOM 30ML SUSPENSION UDC PO PRN (00:15)
[2021-05-11] MEDS ORDERED: MAALOX 30 ML SUSP *UDC PO PRN (00:15)
[2021-05-11 01:16] VITALS: BP 134/86
[2021-05-11] MEDS: MULTIVITAMINS/MINERALS THERAP 1 TAB PO SCH ×3 (02:38→20:47)
[2021-05-11] MEDS: lamoTRIgine 100MG TAB PO SCH ×3 (02:39→20:48)
[2021-05-11] MEDS: zolPIDEM TARTRATE 5 MG TAB PO SCH ×2 (02:39→20:48)
[2021-05-11] MEDS: MIRTAZAPINE 15 MG TAB PO SCH ×2 (02:39→20:48)
[2021-05-11] MEDS: ARIPiprazole 10 MG TAB PO SCH (08:05)
[2021-05-11] MEDS: ESCITALOPRAM OXALATE 10 MG TAB (LEXAPRO) PO SCH (08:06)
[2021-05-11] MEDS ORDERED: ESCITALOPRAM OXALATE 10 MG TAB (LEXAPRO) PO SCH (09:00)
[2021-05-11] MEDS: FUROSEMIDE 20 MG TAB PO SCH (13:07)
[2021-05-11 17:57] VITALS: BP 134/83
[2021-05-12 06:56] VITALS: BP 152/92
[2021-05-12] MEDS: FUROSEMIDE 20 MG TAB PO SCH (08:20)
[2021-05-12] MEDS: ESCITALOPRAM OXALATE 10 MG TAB (LEXAPRO) PO SCH (08:20)
[2021-05-12] MEDS: lamoTRIgine 100MG TAB PO SCH ×2 (08:21→20:26)
[2021-05-12] MEDS: MULTIVITAMINS/MINERALS THERAP 1 TAB PO SCH (08:21)
[2021-05-12] MEDS: ARIPiprazole 10 MG TAB PO SCH (08:21)
[2021-05-12] MEDS ORDERED: INFLUENZA QUADRIVALENT PF VACCINE 0.5ML SYRINGE IM ONE (09:00)
[2021-05-12 17:38] VITALS: BP 146/83
[2021-05-12] MEDS: MIRTAZAPINE 15 MG TAB PO SCH (20:25)
[2021-05-12] MEDS: zolPIDEM TARTRATE 5 MG TAB PO SCH (20:26)
[2021-05-13 06:51] VITALS: BP 152/90
[2021-05-13] MEDS: FUROSEMIDE 20 MG TAB PO SCH (08:05)
[2021-05-13] MEDS: ESCITALOPRAM OXALATE 10 MG TAB (LEXAPRO) PO SCH (08:05)
[2021-05-13] MEDS: ARIPiprazole 10 MG TAB PO SCH (08:05)
[2021-05-13] MEDS: lamoTRIgine 100MG TAB PO SCH ×2 (08:06→20:03)
[2021-05-13 17:57] VITALS: BP 116/64
[2021-05-13] MEDS: zolPIDEM TARTRATE 5 MG TAB PO SCH (20:02)
[2021-05-13] MEDS: MIRTAZAPINE 15 MG TAB PO SCH (20:03)
[2021-05-14 06:36] VITALS: BP 136/94
[2021-05-14] MEDS: ARIPiprazole 10 MG TAB PO SCH (08:08)
[2021-05-14] MEDS: lamoTRIgine 100MG TAB PO SCH ×2 (08:08→21:48)
[2021-05-14] MEDS: FUROSEMIDE 20 MG TAB PO SCH (08:08)
[2021-05-14] MEDS: ESCITALOPRAM OXALATE 10 MG TAB (LEXAPRO) PO SCH (08:08)
[2021-05-14 19:09] VITALS: BP 146/63
[2021-05-14] MEDS: zolPIDEM TARTRATE 5 MG TAB PO SCH (21:48)
[2021-05-14] MEDS: MIRTAZAPINE 15 MG TAB PO SCH (21:49)
[2021-05-15 06:46] VITALS: BP 162/88
[2021-05-15] MEDS: FUROSEMIDE 20 MG TAB PO SCH (08:08)
[2021-05-15] MEDS: ARIPiprazole 10 MG TAB PO SCH (08:08)
[2021-05-15] MEDS: ESCITALOPRAM OXALATE 10 MG TAB (LEXAPRO) PO SCH (08:08)
[2021-05-15] MEDS: lamoTRIgine 100MG TAB PO SCH ×2 (08:09→20:34)
[2021-05-15] MEDS: ACETAMINOPHEN TAB 650MG DOSE (2X325MG) PO PRN (08:11)
[2021-05-15 18:52] VITALS: BP 146/86
[2021-05-15] MEDS: MIRTAZAPINE 15 MG TAB PO SCH (20:34)
[2021-05-15] MEDS: zolPIDEM TARTRATE 5 MG TAB PO SCH (20:34)
[2021-05-16 06:40] VITALS: BP 155/74
[2021-05-16] MEDS: ESCITALOPRAM OXALATE 10 MG TAB (LEXAPRO) PO SCH (08:41)
[2021-05-16] MEDS: FUROSEMIDE 20 MG TAB PO SCH (08:41)
[2021-05-16] MEDS: ARIPiprazole 10 MG TAB PO SCH (08:41)
[2021-05-16] MEDS: lamoTRIgine 100MG TAB PO SCH ×2 (08:41→21:09)
[2021-05-16] MEDS ORDERED: PILL CUTTER 1 EACH XX PRN (08:45)
[2021-05-16 16:13] VITALS: BP 135/81
[2021-05-16] MEDS: MIRTAZAPINE 15 MG TAB PO SCH (21:08)
[2021-05-16] MEDS: zolPIDEM TARTRATE 5 MG TAB PO SCH (21:09)
[2021-05-17] MEDS: ACETAMINOPHEN TAB 650MG DOSE (2X325MG) PO PRN (03:17)
[2021-05-17 06:27] VITALS: BP 140/88
[2021-05-17] MEDS: FUROSEMIDE 20 MG TAB PO SCH (08:24)
[2021-05-17] MEDS: ARIPiprazole 10 MG TAB PO SCH (08:25)
[2021-05-17] MEDS: lamoTRIgine 100MG TAB PO SCH ×2 (08:26→20:18)
[2021-05-17] MEDS: ESCITALOPRAM OXALATE 10 MG TAB (LEXAPRO) PO SCH (08:27)
[2021-05-17] MEDS ORDERED: PALIPERIDONE PALMITATE 234MG/1.5ML INJ (INVEGA)(FREE PSY INPT ONLY) IM ONE (14:00)
[2021-05-17 17:26] VITALS: BP 145/88
[2021-05-17] MEDS: zolPIDEM TARTRATE 5 MG TAB PO SCH (20:17)
[2021-05-17] MEDS: MIRTAZAPINE 15 MG TAB PO SCH (20:17)
[2021-05-18] MEDS: ACETAMINOPHEN TAB 650MG DOSE (2X325MG) PO PRN (02:57)
[2021-05-18 06:28] VITALS: BP 146/94
[2021-05-18] MEDS ORDERED: ZOLP10TA2 PO (08:28)
[2021-05-18] MEDS ORDERED: FURO20TA2 PO (08:28)
[2021-05-18] MEDS ORDERED: ARIP1TAB43 PO (08:28)
[2021-05-18] MEDS ORDERED: LEXA1TAB2 PO ×2 (08:28→10:55)
[2021-05-18] MEDS ORDERED: VITMTA PO (08:28)
[2021-05-18] MEDS ORDERED: INVE234I IM (08:28)
[2021-05-18] MEDS ORDERED: HYDR-3363 PO (08:28)
[2021-05-18] MEDS ORDERED: MIRT-62 PO (08:28)
[2021-05-18] MEDS ORDERED: LAMO100T80 PO (08:28)
[2021-05-18] MEDS: ARIPiprazole 10 MG TAB PO SCH (09:27)
[2021-05-18] MEDS: FUROSEMIDE 20 MG TAB PO SCH (09:28)
[2021-05-18] MEDS: lamoTRIgine 100MG TAB PO SCH (09:28)
[2021-05-18] MEDS: ESCITALOPRAM OXALATE 10 MG TAB (LEXAPRO) PO SCH (09:29)
[2021-05-18 09:50] LABS: CHOLESTEROL RISK RATIO 5.694 (<5)
== END 2021-05-18 13:27 | disposition home or self-care (01) | DRG 885 ==
LOC: M ED 18:34 → M ED INP 05-11 00:11 → M PSY 05-11 00:15
PROVIDERS: ADMIT Psychiatry & Neurology Psychiatry; ATTEND Psychiatry & Neurology Psychiatry
DX: F25.1 Schizoaffective disorder, depressive type (principal); R45.851 Suicidal ideations; Z79.899 Other long term (current) drug therapy; Z88.8 Allergy status to other drugs, medicaments and biological substances; E66.01 Morbid (severe) obesity due to excess calories

== ENCOUNTER 2021-05-20 10:36 | Emergency (ER) | payer OTHER, MEDICARE ==
[~2021-05-20] VITALS: Ht 172.7 cm; Wt 142.2 kg
[~2021-05-20 10:36] MED LIST changes: +ARIP1TAB43 PO; +FURO20TA2 PO; +LAMO100T80 PO; +LEXA1TAB PO; +VITMTA PO; +ZOLP10TA2 PO
[2021-05-20 10:39] VITALS: BP 139/89
--- OUTSIDE RECORDS SUMMARY | 2021-05-20 10:47 | CCD ---
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 Care Professor Of Rhetoric Name Role Phone AlexandreMichelle DO Unavailable Unavailable Alexandre, J Israel DO Unavailable Unavailable Alexandre, J Israel DO Unavailable Unavailable Alexandre, J Israel DO Unavailable Unavailable Alexandre, J Israel DO Unavailable Unavailable Alexandre, J Israel DO Unavailable Unavailable Alexandre, J Israel DO Unavailable Unavailable Alexandre, J Israel DO Unavailable Unavailable Alexandre, J Israel DO Unavailable Unavailable Alexandre, J Israel DO Unavailable Unavailable Alexandre, J Israel DO Unavailable Unavailable Alexandre, J Israel DO Unavailable Unavailable Alexandre, J Israel DO Unavailable Unavailable Alexandre, J Israel DO Unavailable Unavailable Alexandre, J Israel DO Unavailable Unavailable Alexandre, J Israel DO Unavailable Unavailable Alexandre, J Israel DO Unavailable Unavailable Alexandre, J Israel DO Unavailable Unavailable Alexandre, J Israel DO Unavailable Unavailable Alexandre, J Israel DO Unavailable Unavailable Alexandre, J Israel DO Unavailable Unavailable Alexandre, J Israel DO Unavailable Unavailable Alexandre, J Israel DO Unavailable Unavailable Alexandre, J Israel DO Unavailable Unavailable Alexandre, J Israel DO Unavailable Unavailable EDWARD SOARES HIDE COOKING OPERATOR-C Unavailable Unavailable FANY, EDWARD RICARDO HIDE COOKING OPERATOR-C Unavailable Unavailable FANY, EDWARD RICARDO HIDE COOKING OPERATOR-C Unavailable Unavailable FANY, EDWARD RICARDO HIDE COOKING OPERATOR-C Unavailable Unavailable FANY, EDWARD RICARDO HIDE COOKING OPERATOR-C Unavailable Unavailable FANY, EDWARD RICARDO HIDE COOKING OPERATOR-C Unavailable Unavailable FANY, EDWARD RICARDO HIDE COOKING OPERATOR-C Unavailable Unavailable FANY, EDWARD RICARDO HIDE COOKING OPERATOR-C Unavailable Unavailable FANY, EDWARD RICARDO HIDE COOKING OPERATOR-C Unavailable Unavailable FANY, EDWARD RICARDO HIDE COOKING OPERATOR-C Unavailable Unavailable FANY, EDWARD RICARDO HIDE COOKING OPERATOR-C Unavailable Unavailable FANY, EDWARD RICARDO HIDE COOKING OPERATOR-C Unavailable Unavailable FANY, EDWARD RICARDO HIDE COOKING OPERATOR-C Unavailable Unavailable FANY, EDWARD RICARDO HIDE COOKING OPERATOR-C Unavailable Unavailable FANY, EDWARD RICARDO HIDE COOKING OPERATOR-C Unavailable Unavailable FANY, EDWARD RICARDO HIDE COOKING OPERATOR-C Unavailable Unavailable FANY, EDWARD RICARDO HIDE COOKING OPERATOR-C Unavailable Unavailable CHANLIECCO, C JORGE MD Unavailable Unavailable CHANLIECCO, C JORGE MD Unavailable Unavailable CHANLIECCO, C JORGE MD Unavailable Unavailable CHANLIECCO, C JORGE MD Unavailable Unavailable CHANLIECCO, C JORGE MD Unavailable Unavailable CHANLIECCO, C JORGE MD Unavailable Unavailable CHANLIECCO, C JORGE MD Unavailable Unavailable CHANLIECCO, C JORGE MD Unavailable Unavailable CHANLIECCO, C JORGE MD Unavailable Unavailable CHANLIECCO, C JORGE MD Unavailable Unavailable CHANLIECCO, C JORGE MD Unavailable Unavailable Re-disclosure Warning The records that you are about to access may contain information from federally-assisted alcohol or drug abuse programs. If such information is present, then the following federally mandated warning applies: This information has been disclosed to you from records protected by federal confidentiality rules (42 CFR part 2). The federal rules prohibit you from making any further disclosure of this information unless further disclosure is expressly permitted by the written consent of the person to whom it pertains or as otherwise permitted by 42 CFR part 2. A general authorization for the release of medical or other information is NOT sufficient for this purpose. The Federal rules restrict any use of the information to criminally investigate or prosecute any alcohol or drug abuse patient.The records that you are about to access may contain highly sensitive health information, the redisclosure of which is protected by Article 27-F of the [facility] Public Health law. If you continue you may have access to information: Regarding HIV / AIDS; Provided by facilities licensed or operated by the [facility] Office of Mental Health; or Provided by the [facility] Office for People With Developmental Disabilities. If such information is present, then the following [facility] mandated warning applies: This information has been disclosed to you from confidential records which are protected by state law. State law prohibits you from making any further disclosure of this information without the specific written consent of the person to whom it pertains, or as otherwise permitted by law. Any unauthorized further disclosure in violation of state law may result in a fine or half-way sentence or both. A general authorization for the release of medical or other information is NOT sufficient authorization for further disc losure. Encounters Encounter Providers Location Date Indications Data Source(s ) [facility] 04/20/2021 12:00:00 AM EDT [facility] ([facility]) Outpatient [address] [facility] [address] 04/11/2021 12:00:00 AM EDT [facility]1 ([facility]) [facility]-billable [facility] 03/28/2021 12:00:00 AM EDT [facility] ([facility]) Outpatient [address] [facility] [address] 03/07/2021 12:00:00 AM EDT [facility]1 [facility]billable [facility] 02/23/2021 12:00:00 AM EDT [facility] ([facility]) Unknown [address] [facility] [address] 01/27/2021 12:00:00 AM EDT [facility]CW1 [facility]billable [facility] 01/21/2021 12:00:00 AM EDT [facility] ([facility]) Outpatient [address] [facility] [address] 12/31/2020 12:00:00 AM EDT [facility]1 [facility]billable [facility] 12/28/2020 12:00:00 AM EDT [facility] ([facility]) Outpatient Attender: RICARDO Lujan/Shaun/Vitaly/R eindl 12/13/2020 11:15:00 AM EDT [facility] ([facility]) non-billable [facility] 11/23/2020 12:00:00 AM EDT [facility] ([facility]) Unknown [address] [facility] [address] 11/08/2020 12:00:00 AM EDT [facility]1 [facility] Emergency Attender: JORGE LEACH MDConsultant: Israel Schroeder DO 10/26/2020 08:00:00 PM EDT - 10/26/2020 09:29:00 PM EDT [facility] Patient discharged. Outpatient Attender: RICARDO Lujan/Shaun/Vitaly/R eindl 10/04/2020 12:45:00 PM EDT [facility] ([facility]) Outpatient [address] [facility] [address] 09/28/2020 12:00:00 AM EDT [facility]CW1 [facility] Outpatient Attender: RICARDO Lujan/Shaun/Vitaly/R eindl 09/24/2020 08:15:00 AM EDT [facility] ([facility]) Unknown [address] [facility] [address] 08/10/2020 12:00:00 AM EST [facility]CW1 ([facility] Outpatient [address] [facility] [address] 08/09/2020 12:00:00 AM EST [facility]CW1 [facility] Unknown [address] [facility] [address] 06/30/2020 12:00:00 AM EST eCW1 [facility] Outpatient [address] [facility] [address] 06/29/2020 12:00:00 AM EST eCW1 ([facility]) Unknown [address] [facility] [address] 05/31/2020 12:00:00 AM EST eCW1 ([facility]) Outpatient [address] [address] [facility] Team 12/05/2019 12:00:00 AM EDT [facility] ([facility]) Patient admitted. Immunizations Vaccine Date Status Description Data Source(s) COVID-19 VACCINE Moderna 09/13/2020 12:00:00 AM EDT completed [facility] Vaccine Series Complete: YESThis Data wa s Submitted to [facility] Via [employer]. COVID-19 VACCINE Moderna 08/16/2020 12:00:00 AM EST completed [facility] Vaccine Series Complete: NOThis Data was Submitted to [facility] [employer]. Medications Medication Brand Name Start Date Product Form Dose Route Admi nistrative Instructions Pharmacy Instructions Status Indications Reaction Description Data Source(s) Sulfamethoxazole 800 MG / Trimethoprim 1 60 MG Oral Tablet [Bactrim] Bactrim DS 800-160 MG Bactrim DS 800-160 MG 03/07/2021 12:00:00 AM EDT 1.0 {table t} suspended Bactrim DS 800-160 MG eCW1 ( [facility]) Bacitracin 0.5 UNT/MG Topical Ointment Bacitracin 500 UNIT/GM Bacitracin 500 UNIT/GM 03/07/2021 12:00:00 AM EDT 1.0 {application} suspended Bacitracin 500 UNIT/GM eCW1 ([facility]) Sulfamethoxazole 800 MG / Trimethoprim 1 60 MG Oral Tablet [Bactrim] Bactrim DS 800-160 MG Bactrim DS 800-160 MG 03/07/2021 12:00:00 AM EDT 1.0 {table t} suspended Bactrim DS 800-160 MG eCW1 ( [facility]) Bacitracin 0.5 UNT/MG Topical Ointment Bacitracin 500 UNIT/GM Bacitracin 500 UNIT/GM 03/07/2021 12:00:00 AM EDT 1.0 {application} suspended Bacitracin 500 UNIT/GM eCW1 ([facility]) Amoxicillin 875 MG / Clavulanate 125 MG Oral Tablet Amoxicillin-Pot Clavulanate 875-125 MG Amoxicillin-Pot Clavulanate 875-125 MG 03/07/2021 12:00:00 AM ED T 1.0 {tablet} suspended Amoxicillin-Pot C lavulanate 875-125 MG eCW1 ([facility]) Amoxicillin 875 MG / Clavulanate 125 MG Oral Tablet Amoxicillin-Pot Clavulanate 875-125 MG Amoxicillin-Pot Clavulanate 875-125 MG 03/07/2021 12:00:00 AM ED T 1.0 {tablet} suspended Amoxicillin-Pot C lavulanate 875-125 MG eCW1 ([facility]) CPAP 10/15/2020 12:00:00 AM EDT active [facility] ([facility]) Covid-19 vaccine, Unspecified 09/13/2020 12:00:00 AM EDT completed [facility] ([facility] ) Medication administered onsite Covid-19 vaccine, Unspecified 08/16/2020 12:00:00 AM EST completed [facility] ([facility] ) Medication administered onsite Insurance Providers Payer name Policy type / Coverage type Policy ID Covered democrat ID Covered democrat's relationship to andino Policy Andino Plan Information MEDICARE A [id number] Self [id number] MEDICARE [id number] SP [id number] [facility] MEDICAID [id number] SP [id number] Y [employer] GOLD [id number] SP [id number] MEDICARE PART A -O/P [id number] 18 [id number] MEDICARE PART A -O/P [id number] 18 [id number] [place] MCRB [id number] S [id number] MEDICARE [id number] S [id number] [id number] Medicare P [id number] S [id number] [place] O [id number] S [id number] MEDICARE C [id number] S [id number] [facility] [id number] SP [id number] MEDICAID [facility] [id number] SP [id number] [place] JL PART B C [id number] S [id number] MEDICARE [id number] SP [id number] A [employer] GOLD [id number] SP [id number] MEDICARE [id number] SP [id number] Problems, Conditions, and Diagnoses Code Display Name Description Problem Type Effective Dates Data Source(s) R0789 Other chest pain Other chest pain Diagnosis 10/26/2020 08 :00:00 PM EDT [facility] Z68.42 [id number] Body mass index [BMI] 45.0-49.9, adult Pr oblem 04/11/2021 12:00:00 AM EDT eCW1 ([facility]) E66.01 [id number] Morbid (severe) obesity due to excess c alories Problem 01/03/2021 12:00:00 AM EDT eCW1 ([facility]) G47.30 [id number] Sleep apnea, unspecified type Problem 07/30/2020 12:00:00 AM EST eCW1 ([facility]) [id number] Schizoaffective disorder, unspecified Sc hizoaffective disorder, unspecified Condition 07/05/2020 12:00:00 AM EST [facility] ([facility]) [id number] Schizoaffective disorder, unspecified Sc hizoaffective disorder, unspecified Condition 07/05/2020 12:00:00 AM EST [facility] ([facility]) [id number] Schizoaffective disorder, unspecified Sc hizoaffective disorder, unspecified Condition 07/05/2020 12:00:00 AM EST [facility] ([facility]) [id number] Schizoaffective disorder, unspecified Sc hizoaffective disorder, unspecified Condition 07/05/2020 12:00:00 AM EST [facility] ([facility]) [id number] Schizoaffective disorder, unspecified Sc hizoaffective disorder, unspecified Condition 07/05/2020 12:00:00 AM EST [facility] ([facility]) [id number] Schizoaffective disorder, unspecified Sc hizoaffective disorder, unspecified Condition 07/05/2020 12:00:00 AM EST [facility] ([facility]) Surgeries/Procedures No Information Results ID Date Data Source [id number] 05/10/2021 08:44:00 PM EST [facility] Name Value Range Interpretation Code Description Data Mei rce(s) Supporting Document(s) SARS coronavirus 2 RNA [Presence] in Res piratory specimen by GRACY with probe detection NEGATIVE [facility] This lab was ordered by [facility] a nd reported by [facility]. ID Date Data Source Basic Metabolic Profile (BMP) 03/07/2021 12:00:00 AM EDT eCW 1 ([facility]) Name Value Range Interpretation Code Description Data Mei rce(s) Supporting Document(s) 121 70-100 GLUCOSE, FASTING eCW1 ([facility]) 1.03 0.70-1.30 CREATININE FOR GFR eCW1 ([facility]) > 60.0 >60 GLOMERULAR FILTRATION RATE eCW 1 ([facility]) 15 7-18 BLOOD UREA NITROGEN eCW1 ([facility]) 33 21-32 CARBON DIOXIDE LEVEL eCW1 ([facility]) 105 98-107 CHLORIDE LEVEL eCW1 ([facility]) 4.9 3.5-5.1 POTASSIUM SERUM eCW1 ([facility]) 140 136-145 SODIUM LEVEL eCW1 ([facility]) 9.5 8.5-10.1 CALCIUM LEVEL eCW1 ([facility]) ID Date Data Source CBC with Differential 03/07/2021 12:00:00 AM EDT eCW1 ([facility]) Name Value Range Interpretation Code Description Data Mei rce(s) Supporting Document(s) 4.93 4.30-6.10 RED BLOOD COUNT eCW1 ([facility]) 8.1 4.0-10.0 WHITE BLOOD COUNT eCW1 ([facility]) 44.6 42.0-52.0 HEMATOCRIT eCW1 ([facility]) 14.4 13.5-17.5 HEMOGLOBIN eCW1 ([facility]) 90.5 80.0-96.0 MEAN CORPUSCULAR VOLUME e CW1 ([facility]) 32.3 32.0-36.5 MEAN CORPUSCULAR HGB CONC eCW1 ([facility]) 29.2 27.0-33.0 MEAN CORPUSCULAR HEMOGLOB IN eCW1 ([facility]) 14.9 11.5-14.5 RED CELL DISTRIBUTION WID TH eCW1 ([facility]) 301 150-450 PLATELET COUNT, AUTOMATED eCW1 ([facility]) 62.8 36.0-66.0 NEUTROPHILS % eCW1 ([facility]) 7.3 2.0-8.0 MONO % eCW1 ([facility]) 25.0 24.0-44.0 LYMPH % eCW1 ([facility]) 1.1 0.0-1.0 BASO % eCW1 ([facility]) 2.6 0.0-3.0 EOS % eCW1 ([facility]) 0.2 0.0-0.5 EOS # eCW1 ([facility]) 5.1 1.5-8.5 NEUTROPHILS # eCW1 ([facility]) 2.0 1.5-5.0 LYMPH # eCW1 ([facility]) 0.6 0.0-0.8 MONO # eCW1 ([facility]) 0.1 0.0-0.2 BASO # eCW1 ([facility]) ID Date Data Source [id number] 12/06/2020 10:47:00 AM EDT [facility] Name Value Range Interpretation Code Description Data Mei rce(s) Supporting Document(s) SARS coronavirus 2 RNA [Presence] in Res piratory specimen by GRACY with probe detection [facility]IVE [facility] This [facility] was ordered by [facility] a nd reported by [facility]. ID Date Data Source [id number] 10/29/2020 11:09:00 AM EDT [facility] [address] [place] [address] PHONE: [phone] FAX: [phone] Name .................. : TRACY SANTAMARIA Acct Number.................. : [id number] ROOM. ................. : TR-05 MR Number ................... : [id number] Stay type ............. : E/R Discharge Date......... ... : 10/26/20 Admit Date ......... : 10/26/20 Admit Phys .................... : [facility] Date of ....... : 1975 Family Phys ................... : ALEXANDRE A Phone .................. : [phone] Age ................................ : 45 Film# .................. .:[id number] Sex ................................. : M Unsigned transcriptions are preliminary reports and do not represent a medical or legal document CHEST PORTABLE [id number] COMPLETE:10/26/20 20:24 RLB 94636 Reason( s): Chest Pain PORTABLE CHEST X-RAY: INDICATION: Chest pain. FINDINGS: The lungs are clear. The cardiac silhouette is normal in size and contour. No acute osseous abnormality. There is a suspected calcified catheter projecting over the left upper chest and neck. IMPRESSION: No acute pulmonary process. Electronically Reviewed and Signed By Prabhu Villalobos M.D. , 10/29/20 11:09, MAY Transcribe Initials: DZ , Transcribe Date: 10/27/20 00:37, Dictation Date: Copy for: BIANCA MAYORGA via fax Copy for: [facility] DISCHARGED Page 1 of 1 Name Value Range Interpretation Code Description Data Mei rce(s) Supporting Document(s) ID Date Data Source [id number] 10/28/2020 05:54:00 [place] [address] RESPIRATORY CARE REPORT ==== ---------NAME------- NUMBER SEX AGE ADMIT DISC. XRAY# F/C TYPESPERLING ROSALIO [id number] M [id number] 10/26/20 10/26/20 [id number] E/R DATE OF : 1975 M/R# [id number] #: [id number] TR-05 LOCATION: EKG [id number] COMPLETE:10/27/20 0 2:52 [place] [id number] PHYSICIAN: HANY ALBRECHT Name Value Range Interpretation Code Description Data Mei rce(s) Supporting Document(s) ID Date Data Source [id number] 10/26/2020 08:00:00 PM EDT [facility] 1 OrderSheet [facility] Emergency Department [address] [place] [address] Phone #: ext- [phone] 10/26/2020 19:54 Patient: ROSALIO ROSS Sex: M : 1975 Age: 45yWEIGHT:131.5 kg HEIGHT:68 inches BMI:44.1ALLERGIES: DepakoteCHIEF COMPLAINT: chest painDIAGNOSIS: Atypical chest painLAB ORDERSOrder Description Priority Entered Acknowledged InitialedCBC w Diff STAT 20:10/26/2020 20:11 Ryan Benitez RN PA;CMP STAT 20:10/26/2020 20:11 Ryan Benitez RN PA;Lipase STAT 20:10/26/2020 20:11 Ryan Benitez RN PA;PT/PTT STAT 20:10/26/2020 20:11 Ryan Benitez RN PA;Troponin-T STAT 20:10/26/2020 20:11 Ryan Benitez RN PA;DIAGNOSTIC STUDY ORDERSOrder Description Priority Entered Acknowledged InitialedChest Portable 1 STAT 20:10/26/2020 20:11 Kavon Benitez RN(Oxygen?(No)) PA; Reason for Study: Chest PainMEDICATION/IV/DRIP/FLUID ORDERSOrder Description Priority Entered Acknowledged InitialedToradol IVP 30 mg 20:09 10/26/2020 20:16 Ryan Benitez RN PA;Ativan IVP 1 mg 20:14 10/26/2020 20:23 Ryan(HIGH ALERT Melvin Benitez RNMEDICATION) PA; 2 OrderSheet [facility] Emergency Department [address] [place] [address] Phone #: ext- [phone] 10/26/2020 19:54 Patient: ROSALIO ROSS Sex: M : 1975 Age: 45yGENERAL ORDERSOrder Description Priority Enter ed Acknowledged InitialedBlood Pressure 20:10/26/2020 20:11 Patsy Benitez RN PA;Senior Geotechnical Engineer 20:10/26/2020 20:11 Ryan(continuous) Melvin Benitez RN PA;EKG 20:10/26/2020 20:11 Ryan Benitez RN PA;NPO 20:10/26/2020 20:11 Ryan Benitez RN PA;Obtain Old EKG 20:10/26/2020 20:11 Ryan Benitez RN PA;Pulse oximeter 20:10/26/2020 20:11 Ryan(Continuous) Melvin Benitez RN PA;Saline Lock 20:10/26/2020 20:11 Ryan Benitez RN PA;Vitals 20:10/26/2020 20:11 Ryan Benitez RN PA;[Electronically signed by Ryan Benitez RN (:10/26/2020)][Electronically signed by Melvin Albrecht (21:35 10/26/2020)][Electronically locked by Ryan Benitez RN (:10/26/2020)] Name Value Range Interpretation Code Description Data Mei rce(s) Supporting Document(s) ID Date Data Source [id number] 10/26/2020 08:00:00 PM EDT [facility] 1 Medication Reconciliation Report [facility] Emergency Department [address] [place] [address] Phone #: ext- [phone] 10/26/2020 19:54 Patient: ROSALIO ROSS Sex: M : 1975 Age: 45yWeight: 131.5 kgHeight/Length: 68 in.BMI: 44.1ALLERGIES: DepakoteThe patient's Home Medications are listed below:CONTINUE TAKING THE FOLLOWING MEDICATIONS: Abilify Oral Ambien Oral hydrOXYzine HCl Oral Invega Oral LaMICtal Oral Lexapro Oral MertazapineThe source(s) of the original Home Medication information:Not obtained.The following Medications were given to the patient in the Emergency Department:Toradol [IVP] IVP 30 mg, administered: 20:15 10/26/2020tivan [IVP] IVP 1 mg, administered: 20:23 10/26/2020The following Medications were prescribed to the patient:None. Name Value Range Interpretation Code Description Data Mei rce(s) Supporting Document(s) ID Date Data Source [id number] 10/26/2020 08:00:00 PM EDT [place] [address] Medication Administration Record [facility] Emergency Department [address] [place] [address] Phone #: ext- [phone] 10/26/2020 19:54 Patient: ROSALIO ROSS Sex: M : 1975 Age: 45yWeight: 131.5 kgHeight/Length: 68 inBMI: 44.1ALLERGIES: Depakote Date/Time Medication Administered Medication OrderedGiven TORADOL [IVP] (KETOROLAC Toradol IVP 30 mg20:15 10/26/2020 TROMETHAMINE)Ryan Benitez RN Dose: 30 mg IVP Site: #1 left ACGiven ATIVAN [IVP] (LORAZEPAM) Ativan IVP 1 mg (HIGH ALERT20:10/26/2020 Dose: 1 mg IVP MEDICATION)Ryan Benitez RN Site: #1 left AC Name Value Range Interpretation Code Description Data Mei rce(s) Supporting Document(s) ID Date Data Source [id number] 10/26/2020 08:00:00 PM EDT [facility] 1 General Instructions [facility] Emergency Department [address] [place] [address] Phone #: ext- [phone] 10/26/2020 19:54 Patient: ROSALIO ROSS Sex: M : 1975 Age: 45yAtypical chest painINSTRUCTIONSWarnings: Further evaluation is necessary in order to conduct further tests. It is very important to follow upwith a healthcare provider.GENERAL WARNINGS: Return or contact your physician immediately if your condition worsens orchanges unexpectedly, if not improving as expected, or if other problems arise. SPECIFICALLY, return fora return of chest pain; or if there is no improvement in the chest pain.Your Current Medications: Your current home medications have been reviewed.CONTINUE TAKING THE FOLLOWING MEDICATIONS:Abilify Oral.Ambien Oral.hydrOXYzine HCl Oral.Invega Oral.LaMICtal Oral.Lexapro Oral.Mertazapine*.Follow-up:Follow up with your doctor. Call for the next available appointment. Reason for referral: evaluation,treatment and refer to cardiology for echocardiogram and stress test. Summary of care provided to patient.Understanding of the discharge instructions verbalized by patient. ADDITIONAL INFORMATIONNoncardiac Chest Pain 2 General Instructions [facility] Emergency Department [address] [place] [address] Phone #: ext- [phone] 10/26/2020 19:54 Patient: ROSALIO ROSS Sex: M : 1975 Age: 45yBased on your visit today, the healthcare provider doesn't know what is causing your chest pain. Inmost cases, people who come to the emergency room with chest pain don't have a problem with theirheart. Instead, the pain is caused by other conditions. It's important for the healthcare team to be sureyou are not having a life-threatening cause for chest pain such as: Heart attack Blood clot in the lungs Collapsed lung Ruptured esophagus Tearing of the aortaOnce these major causes have been ruled out, you may have further evaluation for nonheart causesof chest pain. These may be problems with the lungs, muscles, bones, digestive tract, nerves, ormental health. They include: Inflammation around the lungs (pleurisy) Collapsed lung (pneumothorax) Fluid around the lungs (pleural effusion) Lung cancer (a rare cause of chest pain) Inflamed cartilage between the ribs (costochondritis) Fibromyalgia Rheumatoid arthritis 3 General Instructions [facility] Emergency Department [address] [place] [address] Phone #: ext- [phone] 10/26/2020 19:54 Patient: ROSALIO ROSS Sex: M : 1975 Age: 45y Chest wall strain Reflux Stomach ulcer Spasms of the esophagus Gall stones Gallbladder inflammation Panic or anxiety attacks Emotional distressYour condition doesn't seem serious. And your pain doesn't seem to be coming from your heart. Butsometimes the signs of a serious problem take more time to appear. Watch for the warning signslisted below.Home careFollow these guidelines when caring for yourself at home: Rest today and don't do any strenuous activity. Take any prescribed medicine as directed.Follow-up careFollow up with your healthcare provider, or as advised, if you don't start to feel better in 24 hours.Call [phone] if any of these occur: A change in the type of pain: if it feels different, becomes more severe, lasts longer, or begins to spread into your shoulder, arm, neck, jaw or back Shortness of breath or increased pain with breathing Weakness, dizziness, or fainting Rapid heart beat Crushing sensation in your chestWhen to seek medical advice 4 General Instructions [facility] Emergency Department [address] [place] [address] Phone #: ext- [phone] 10/26/2020 19:54 Patient: ROSALIO ROSS Sex: M : 1975 Age: 45yCall your healthcare provider right away if any of these occur: Cough with dark colored sputum (phlegm) or blood Fever of 100.4F (38C) or higher, or as directed by your healthcare provider Swelling, pain or redness in one leg [phone] [employer] [address] [place] [address]. All rights reserved. This information is not intended as asubstitute for professional medical care. Always follow your healthcare professional's instructions. You have been given the following additional information: Chest Pain, Noncardiac(Electronically signed by NELLI Oropeza 10/26/2020 21:35) Name Value Range Interpretation Code Description Data Mei rce(s) Supporting Document(s) ID Date Data Source [id number] 10/26/2020 08:00:00 PM EDT [facility] 1 Clinical Report - Nurses [facility] Emergency Department [address] [place] [address] Phone #: ext [phone] 10/26/2020 19:54 Patient: ROSALIO ROSS Sex: M : 1975 Age: 45yTRIAGEArrived by EMS. Historian: patient.Acuity: LEVEL 3.Chief Complaint: CHEST PAIN.Alert. No acute distress.Onset. (1300). ( Patient c/o chest pain intermittently since 1300 today, lasting approximately one minuteover sternum. Patient states this happened once before about 2 years ago and he was diagnosed withatypical chest pain. Patient was given sublingual nitro and PO aspirin by EMS and states relief.).Treatment SPANISHER:(Nitro sublingual SPANISHER, Aspirin SPANISHER).SEPSIS SCREEN: SIRS SCREEN NEGATIVE. SEPSIS SCREEN NEGATIVE. No suspected or confirmedsigns of infection present. --20:02 10/26/20 Cameron More9:55 10/26/20. BP: 125/84. HR: 81. RR: 12. O2 saturation: 94%. Temp: 99.0 F. Pain level now 09/01.--20:02 10/26/20 Marianne More.Weight: 131.5 kg. Height/Length: 68 inches. BMI: 44.1. --19:54 10/26/20 Marianne More.MedicationsLaMICtal Oral. --19:59 10/26/20 Marianne More Abilify Oral. -- 19:59 10/26/20 Marianne More Invega Oral. --19:59 10/26/20 Marianne More Ambien Oral. --19:59 10/26/20 Marianne More Lexapro Oral. --19:59 10/26/20 Marianne More hydrOXYzine HCl Oral. --19:59 10/26/20 Marianne More Mertazapine. --19:59 10/26/20 Marianne More.AllergiesDepakote. --20:00 10/26/20 Marianne More.PROBLEMS:Sleep Apnea.Bipolar Disorder.Depression.Hydrocephalus. --20:01 10/26/20 Marianne More. 2 Clinical Report - Nurses [facility] Emergency Department [address] [place] [address] Phone #: ext- [phone] 10/26/2020 19:54 [id number]: [facility] : 1975 Age: 45y ADDITIONAL SURGERIES: Cholecystectomy. Left side shunt- hydrocephalus . --20:10/26/20 Marianne More. History SOCIAL HX: Never smoker. No alcohol use or drug use. He was offered HIV testing but declined. Patient education was provided. He was offered hepatitis C testing but declined. Patient education was provided. He has not traveled outside the [place] Infectious disease exposure: No infectious disease exposure. The patient was not exposed to Coronavirus. Patient is not a known carrier of tuberculosis, hepatitis, HIV, MRSA or VRE. Patient is not a known carrier of CRE. SELF HARM ASSESSMENT: Self harm assessment was performed. The patient answered "no" to the question(s) "Have you recently felt down, depressed, or hopeless?" and "Do you have thoughts of harming or killing yourself?". ABUSE ASSESSMENT: Abuse assessment. The patient had positive responses to the question(s) "Do you feel safe in your home?" and "Are you afraid to go home?". Abuse denied. No suspicion of abuse. No report of abuse. NUTRITIONAL RISK ASSESSMENT: The nutritional risk assessment revealed no deficiencies. FUNCTIONAL ASSESSMENT: Functional assessment: no impairments noted. LEARNING NEEDS ASSESSMENT: The learning needs assessment revealed no barriers. FALL RISK ASSESSMENT: Fall risk assessment completed. No risk factors identified. SKIN INTEGRITY ASSESSMENT: Skin integrity risk assessment completed. No skin integrity risk identified. --20:02 10/26/20 Marianne More. Interventions Identification band on patient. --20:02 10/26/20 Marianne More.PHYSICAL ASSESSMENTTo room via stretcher.GENERAL / NEURO / PSYCH: Alert. Oriented X 4. Appears in pain.HEENT: Mucous membranes are pink.RESPIRATORY: Respirations not labored. Mid- and lower sternal tenderness. Breath sounds withinnormal limits.CVS: Cardiac rhythm: normal sinus rhythm. Heart sounds within normal limits. Pulses within normallimits. Capillary refill less than 2 seconds.GI / : Abdomen soft and nontender.EXTREMITIES: Bilateral non-pitting edema of the lower extremities involving both ankles and both lower 3 Clinical Report - Nurses [facility] Emergency Department [address] [place] [address] Phone #: ext- [phone] 10/26/2020 19:54 Patient: ROSALIO ROSS Sex: M : 1975 Age: 45y legs. SKIN: Skin is warm and dry. Normal skin turgor. Skin is non-tender. --20:10/26/20 Ryan Benitez RN.NURSING PROGRESS NOTESOxygen administered by nasal cannula at 2 liters. Monitoring of patient in place. Patient gowned.Reassurance given. Two patient identifiers checked. Call light placed in reach. Side rails up x 2. Bedplaced in lowest position. Brakes of bed on. Patient ready for evaluation. --20:02 10/26/20 Marianne More 20:03 10/26/2020 Site #1 started prior to arrival by EMS via IV in the left antecubital space with an 20g angiocath. --20:10/26/20 Marianne More surgeon/president, NIBP monitor and pulse oximeter placed on patient; refinery technician- Lead II; monitor alarms on. --20:10/26/20 Ryan Benitez RN 20:15 10/26/2020 Toradol (Ketorolac Tromethamine) IVP 30 mg given via site #1. Allergies verified and confirmed 5 rights. IV patency established. IV site checked: no pain, redness, or swelling. IV flushed thoroughly pre- and post-medication administration. IVP given by RN. Information reviewed with patient including reason for taking this medication. Verbalizes understanding (diluted in 10 ml of nacl). --20:16 10/26/20 Ryan Benitez RN 20:23 10/26/2020 Ativan (LORazepam) IVP 1 mg given over 3 minute(s) via site #1. Allergies verified and confirmed 5 rights. IV patency established. IV site checked: no pain, redness, or swelling. IV flushed thoroughly pre- and post- medication administration. IVP given by RN. Information reviewed with patient including reason for taking this medication and sedative warning. Verbalizes understanding (diluted in 5 ml of nacl). --20:10/26/20 Ryan Benitez RN 20:39 10/26/2020 Toradol IVP Response: pain is improving. Symptoms have improved the patient feels better. Physician transition assistant notified. --20:39 10/26/20 Ryan Benitez RN 20:39 10/26/2020 Ativan IVP Response: symptoms have improved the patient feels better. Physician transition assistant notified. --20:39 10/26/20 Ryan Benitez RN 20:39 10/26/20. BP: 127/95. HR: 84. RR: 18. O2 saturation: 96%. Pain level now 0/10. --20:10/26/20 [place] store shopper, Patrick, ER Tech1 ( pt now states no pain and he is feeling more relaxed after medication administration). --20:40 10/26/20 Ryan Benitez RN 21:10/26/2020 Site #1 removed upon discharge. Catheter intact. Manual pressure and bandage applied. --:10/26/20 Ryan Benitez RN.DISPOSITION / DISCHARGE Condition at departure: improved and stable. Discharge instructions provided and reviewed with the patient. Patient verbalized understanding. Written instructions provided in Wolof. The patient was 4 Clinical Report - Nurses [facility] Emergency Department [address] [place] [address] Phone #: ext- [phone] 10/26/2020 19:54 Patient: ROSALIO ROSS Sex: M : 1975 Age: 45y discharged by the physician transition assistant. He was discharged home. He left ambulatory and via taxi. --:10/26/20 Ryan Benitez RN 21:10/26/20. BP: 108/66. MAP: 80. HR: 84. RR: 16. O2 saturation: 97%. Pain level now: 0/10. --2 1:28 10/26/20 Ryan Benitez RN.Locked/Released at 10/26/2020 21:29 by Ryan Benitez RN Name Value Range Interpretation Code Description Data Mei rce(s) Supporting Document(s) ID Date Data Source [id number] 10/26/2020 08:00:00 PM EDT [facility] 1 Clinical Report - Physicians/Mid Levels [facility] Emergency Department [address] [place] [address] Phone #: ext- [phone] 10/26/2020 19:54 Patient: ROSALIO ROSS Sex: M : 1975 Age: 45y Time Seen: 20:00 10/26/2020. Arrived- By private vehicle. Historian- patient.HISTORY OF PRESENT ILLNESS Chief Complaint: CHEST PAIN. This started today 1300; Patient c/o chest pain intermittently since 1300 today, lasting approximately one minute over sternum. Patient states this happened once before about 2 years ago and he was diagnosed with atypical chest pain. Patient was given sublingual nitro and PO aspirin by EMS and states relief. Pt states pain was constant and occasionally sharp and induced SOB. Pt states that he is under stress at home. and is now gone. It was abrupt in onset and has been intermittent. It is described as sharp and "pain" and it is described as located in the central chest area. At its maximum, severity described as moderate. When seen in the E.D., it was gone. No nausea, vomiting, difficulty breathing or diaphoresis. Similar symptoms previously. Patient has had similar symptoms once (Pt states that he was under stress at this time as well.). Recent medical care: Not recently seen/assessed.REVIEW OF SYSTEMSNo fever, chills, cough, pedal edema or calf pain. No fainting episodes, headache, sore throat, blurredvision or abdominal pain. No black stools, difficulty with urination, skin rash, enlarged lymph nodes or jointpain. No bloody stools.PAST HISTORYProblems:Sleep Apnea.Bipolar Disorder.Depression.Hydrocephalus. Additional Surgeries: Cholecystectomy. Left side shunt-hydrocephalus . Medications: Mertazapine. hydrOXYzine HCl Oral. Lexapro Oral. Ambien Oral. Invega Oral. Abilify Oral. 2 Clinical Report - Physicians/Mid Levels [facility] Emergency Department [address] [place] [address] Phone #: ext- [phone] 10/26/2020 19:54 -------- Patient: ROSALIO ROSS Sex: M : 1975 Age: 45y LaMICtal Oral. Allergies: Depakote.SOCIAL HISTORYNever smoker. No alcohol use or drug use.PHYSICAL EXAMVital Signs: 10/26/2020 19:55 BP: 125/84. MAP: 97. HR: 81. RR: 12. O2 saturation: 94%. Temp: 99.0 F.Have been reviewed. Blood pressure normal. Oxygen saturation normal.Appearance: Alert. Oriented X3. No acute distress.Eyes: Pupils equal, round and reactive to light. Eyes normal inspection.ENT: Ears normal. Nose normal. Pharynx normal.Neck: Normal inspection. Neck supple.CVS: Normal heart rate and rhythm. Heart sounds normal.Respiratory: No respiratory distress. Painless inspiration. Breath sounds normal. Chest nontender.Abdomen: Soft and nontender. No organomegaly. No mass.Back: Normal external inspection.Skin: Skin warm and dry. Normal skin color. Normal skin turgor.Extremities: Extremities exhibit normal ROM. No lower extremity edema.Neuro: Oriented X 3. No motor deficit. No sensory deficit.LABS, X-RAYS, AND EKGChest X-ray: No acute disease. Views: AP (portable). The X-rays were interpreted by the radiologistand contemporaneously by me. Interpretation time: 21:16 10/26/2020.Laboratory Tests: Laboratory tests have been ordered, with results reviewed and considered in themedical decision making process. CBC w Diff: (OMER: 10/26/2020 20:30) ( MsgRcvd 10/26/2020 20:36) Final results Test Result Flag Units (Reference) CBC W/AUTOMATED DIFF COMPLETE BLOOD COUNT WBC 10.2 10/uL (4.2 - 11.0) RBC 4.74 10/uL (4.50 - 6.30) HEMOGLOBIN 14.2 g/dL (14.0 - 16.0) HEMATOCRIT 42.0 % (41.0 - 51.0) MCV 88.6 fL (80.0 - 94.0) MCH 30.0 pg (27.0 - 34.0) MCHC 33.8 g/dL (31.0 - 36.0) RDW 14.0 % (11.5 - 14.8) PLATELETS 271 10/uL (150 - 450) MPV 9.9 fL (7.4 - 10.4) NEUT 58.4 % (37.0 - 80.0) LYMPH 28.8 % (25.0 - 40.0) MONO 7.9 % (3.0 - 8.0) EOS 2.6 % (0.0 - 7.0) BASO 1.1 % (0.0 - 2.0) %IG 1.2 H % (0.0 - 0.0) %NRBC 0.0 % (0.0 - 0.0) #NEUT 5.95 10/uL (2.00 - 6.90) 3 Clinical Report - Physicians/Mid Levels [facility] Emergency Department [address] [place] [address] Phone #: ext- [phone] 10/26/2020 19:54 Patient: ROSALIO ROSS Sex: M : 1975 Age: 45y #LYMPH 2.93 10/uL (0.60 - 3.40) #MONO 0.81 10/uL (0.00 - 0.90) #EOS 0.27 10/uL (0.00 - 0.70) #BASO 0.11 10/uL (0.00 - 0.20) #IG 0.12 H 10/uL (0.00 - 0.10) #NRBC 0.00 10/uL (0.00 - 0.00) MANUAL DIFF NOT INDICATED RBC MORPH NOT INDICATEDCMP: (OMER: 10/26/2020 20:30) ( MsgRcvd 10/26/2020 20:53) Final results Test Result Flag Units (Reference) COMPREHENSIVE METABOLIC PANEL COMPREHENSIVE METABOLIC PANEL SODIUM 137 mEq/L (134 - 153) POTASSIUM 4.1 mEq/L (3.6 - 5.0) CHLORIDE 98 mEq/L (98 - 107) CO2 30 MEQ/L (22 - 30) GLUCOSE 133 H MG/DL (70 - 99) BUN 17 MG/DL (7 - 21) CREATININE 1.0 MG/DL (0.7 - 1.5) BUN/CREAT 17 (8 - 27) TOTAL PROTEIN 7.1 G/DL (6.3 - 8.2) ALBUMIN 4.2 G/DL (3.9 - 5.0) GLOBULIN 2.9 GM/DL (2.4 - 3.2) A/G RATIO 1.4 (0.8 - 2.0) CALCIUM 9.5 MG/DL (8.4 - 10.2) TOTAL BILI <0.7 MG/DL (0.2 - 1.3) ALKALINE PHOS 82 U/L (38 - 126) SGOT/AST 15 U/L (5 - 40) SGPT/ALT 22 U/L (7 - 56) ANION GAP 9.0 mmol/L (8.0 - 16.0) AGE 45 yrs NON-AA GFR >60 mL/min AFR AMER GFR >60 mL/min Male GFR Interprentation 20-49 yrs >60 mL/min [id number] yrs >56 mL/min Normal 60-69 yrs >49 mL/min Normal 70-79yrs>42 mL/min Normal 80 and above >35 mL/min Normal Female GFRInterpretation 20-39 yrs >60 mL/min Normal 40-49 yrs >58 mL/minNormal 50-59 yrs >51 mL/min Normal 60-69 yrs >45 mL/min [id number] yrs >39 mL/min Normal 80 and above >32 mL/min NormalLipase: (OMER: 10/26/2020 20:30) ( FlgRcvd 10/26/2020 20:53) Final results Test Result Flag Units (Reference) LIPASE 23 U/L (13 - 60)PT/PTT: (OMER: 10/26/2020 20:30) ( MsgRcvd 10/26/2020 20:51) Final results Test Result Flag Units (Reference) PROTIME 11.8 SECONDS (11.0 - 15.5) INR 0.83 L (0.93 - 1.23) PTT 27.5 SECONDS (24.8 - 36.7) \\BLDo\\INR INTERPRETATION\\BLDx\\ Therapeutic range for Coumadin andrelated oral anticoagulants. -International Normalized Ratio (INR): 2.0 - 3.0 for VenousThrombosis, Pulmonary Embolus, Tissue heart valves, Acute [place] Atrial Fibrillation, Valvular heart diseaseand recurrent Systemic Embolism. -International Normalized Ratio (INR): 2.5 - 3.5 forMechanical Prosthetic valve. 4 Clinical Report - Physicians/Mid Levels [facility] Emergency Department [address] [place] [address] Phone #: ext- [phone] 10/26/2020 19:54 Patient: ROSALIO ROSS Sex: M : 1975 Age: 45y Troponin-T: (OMER: 10/26/2020 20:30) ( [facility] [place] 10/26/2020 20:53) Final results Test Result Flag Units (Reference) TROPONIN T <0.01 NG/ML (0.00 - 0.10) TROPONIN T0.1 ng/ml Recommended as the clinical threshold value Adalnin T. Chest Portable 1 View: (OMER: 10/26/2020 20:09) ( MsgRcvd 10/26/2020 20:27) In Progress CHEST PORTABLE Reason(s): Chest Pain TRANSPORTATION: IV? O2? Oxygen?(No) Room: ED.PROGRESS AND PROCEDURESCourse of Care: 21:Oct 26 2020. Evaluation after cardiac monitoring and test results returned.(Discussed risks, benefits, options and pt is agreeable with dx and tx plan.). Patient counseled in person regarding the patient's stable condition, test results, diagnosis and need for follow-up. Patient agrees with plan of care. 21:Oct 26 2020. Disposition: Discharged home in good and improved condition (21:Oct 26 2020).CLINICAL IMPRESSION Atypical chest painINSTRUCTIONS Warnings: Further evaluation is necessary in order to conduct further tests. It is very important to follow up with a healthcare provider. GENERAL WARNINGS: Return or contact your physician immediately if your condition worsens or changes unexpectedly, if not improving as expected, or if other problems arise. SPECIFICALLY, return for a return of chest pain; or if there is no improvement in the chest pain. Your Current Medications: Your current home medications have been reviewed. CONTINUE TAKING THE FOLLOWING MEDICATIONS: Abilify Oral. Ambien Oral. hydrOXYzine HCl Oral. Invega Oral. LaMICtal Oral. Lexapro Oral. Mertazapine*. 5 Clinical Report - Physicians/Mid Levels [facility] Emergency Department [address] [place] [address] Phone #: ext- [phone] 10/26/2020 19:54 Patient: ROSALIO ROSS Sex: M : 1975 Age: 45y Follow-up: Follow up with your doctor. Call for the next available appoint ment. Reason for referral: evaluation, treatment and refer to cardiology for echocardiogram and stress test. Summary of care provided to patient. Understanding of the discharge instructions verbalized by patient.(Electronically signed by NELLI Oropeza 10/26/2020 21:35) Name Value Range Interpretation Code Description Data Mei rce(s) Supporting Document(s) ID Date Data Source [id number] 10/26/2020 08:53:00 PM EDT [facility] Name Value Range Interpretation Code Description Data [facility] rce(s) Supporting Document(s) COMPREHENSIVE METABOLIC PANEL [facility] COMPREHENSIVE METABOLIC PANEL Sodium [Moles/volume] in Serum or Plasma 137 mEq/L 134 - 153 [facility] Potassium [Moles/volume] in Serum or Plasma 4.1 mEq/L 3.6 - 5.0 [facility] Chloride [Moles/volume] in Serum or Plasma 98 mEq/L 98 - 107 [facility] Carbon dioxide, total [Moles/volume] in Serum or Plasma 30 MEQ/L 22 - 30 [facility] Glucose [Mass/volume] in Serum or Plasma 133 MG/DL 70 - 99 H [facility] BUN 17 MG/DL 7 - 21 [facility] Creatinine [Mass/volume] in Serum or Plasma 1.0 MG/DL 0.7 - 1.5 [facility] BUN/CREAT 17 8 - 27 [facility] Protein [Mass/volume] in Serum or Plasma 7.1 G/DL 6.3 - 8.2 [facility] Albumin [Mass/volume] in Serum or Plasma 4.2 G/DL 3.9 - 5.0 [facility] Globulin [Mass/volume] in Serum by calculation 2.9 GM/DL 2.4 - 3.2 [facility] A/G RATIO 1.4 0.8 - 2.0 [facility] Calcium [Mass/volume] in Serum or Plasma 9.5 MG/DL 8.4 - 10.2 [facility] Bilirubin.total [Mass/volume] in Serum or Plasma <0.7 MG/DL 0.2 - 1.3 [facility] Alkaline phosphatase [Enzymatic activity/volume] in Serum or Plasma 82 U/L 38 - 126 [facility] Aspartate aminotransferase [Enzymatic activity/volume] in Serum or Plasma 15 U/L 5 - 40 [facility] Alanine aminotransferase [Enzymatic activity/volume] in Seru m or Plasma 22 U/L 7 - 56 [facility] Anion gap 3 in Serum or Plasma 9.0 mmol/L 8.0 - 16.0 [facility] AGE 45 yrs [facility] NON-AA GFR >60 mL/min [facility] AFR AMER GFR >60 mL/min [facility] Male GFR In terprentation 20-49 yrs >60 mL/min Normal 50-59 yrs >56 mL/min Normal 60-69 yrs >49 mL/min Normal 70-79yrs >42 mL/min Normal 80 and above >35 mL/min Normal Female GFR Interpretation 20-39 yrs >60 mL/min Normal 40-49 yrs >58 mL/min Normal 50-59 yrs >51 mL/min Normal 60-69 yrs >45 mL/min Normal 70-79 yrs >39 mL/min Normal 80 and above >32 mL/min Normal ID Date Data Source [id number] 10/26/2020 08:53:00 PM EDT [facility] Name Value Range Interpretation Code Description Data Mei rce(s) Supporting Document(s) TROPONIN T <0.01 NG/ML 0.00 - 0.10 [facility] TROPONIN T0.1 ng/ml Recommended as the c linical threshold value forTroponin T. ID Date Data Source [id number] 10/26/2020 08:51:00 PM EDT [facility] Name Value Range Interpretation Code Description Data Mei rce(s) Supporting Document(s) Prothrombin time (PT) 11.8 SECONDS 11.0 - 15.5 [facility] INR in Platelet poor plasma by Coagulation assay 0.83 0.93 - 1. 23 L [facility] aPTT in Blood by Coagulation assay 27.5 SECONDS 24.8 - 36.7 [facility] \\BLDo\\INR INTERPRETATION\\BLDx\\ Therapeutic range for Coumadin and related oral anticoagulants. - International Normalized Ratio (INR): 2.0 - 3.0 for Venous Thrombosis, Pulmonary Embolus, Tissue heart valves, Acute [place] Atrial Fibrillation, Valvular heart disease and recurrent Systemic Embolism. - International Normalized Ratio (INR): 2.5 - 3.5 for Mechanical Prosthetic valve. ID Date Data Source [id number] 10/26/2020 08:35:00 PM EDT [facility] Name Value Range Interpretation Code Description Data Mei rce(s) Supporting Document(s) CBC W/AUTOMATED DIFF [facility] COMPLETE BLOOD COUNT Leukocytes [#/volume] in Blood by Automated count 10.2 10^3/uL 4.2 - 11.0 [facility] Erythrocytes [#/volume] in Blood by Automated count 4.74 10^6/uL 4. 50 - 6.30 [facility] Hemoglobin [Mass/volume] in Blood 14.2 g/dL 14.0 - 16.0 [facility] Hematocrit [Volume Fraction] of Blood by Automated count 42.0 % 4 1.0 - 51.0 [facility] Erythrocyte mean corpuscular volume [Entitic volume] by Auto mated count 88.6 fL 80.0 - 94.0 [facility] Erythrocyte mean corpuscular hemoglobin [Entitic mass] by Automated count 30.0 pg 27.0 - 34.0 [facility] Erythrocyte mean corpuscular hemoglobin concentration [Mass/volume] by Automated count 33.8 g/dL 31.0 - 36.0 [facility] Erythrocyte distribution width [Ratio] by Automated count 14.0 % 11.5 - 14.8 [facility] Platelets [#/volume] in Blood by Automated count 271 10^3/uL 150 - 45 0 [facility] Platelet mean volume [Entitic volume] in Blood by Automated count 9.9 fL 7.4 - 10.4 [facility] Neutrophils/100 leukocytes in Blood by Automated count 58.4 % 37. 0 - 80.0 [facility] Lymphocytes/100 leukocytes in Blood by Manual count 28.8 % 25.0 - 40.0 [facility] Monocytes/100 leukocytes in Blood by Automated count 7.9 % 3.0 - 8.0 [facility] Eosinophils/100 leukocytes in Blood by Automated count 2.6 % 0.0 - 7.0 [facility] Basophils/100 leukocytes in Blood by Automated count 1.1 % 0.0 - 2.0 [facility] %IG 1.2 % 0.0 - 0.0 H [facility] al %NRBC 0.0 % 0.0 - 0.0 [facility] [#/volume] in Blood by Automated count 5.95 10^3/uL 2.00 - 6.90 [facility] Lymphocytes [#/volume] in Blood by Automated count 2.93 10^3/uL 0.60 - 3.40 [facility] Monocytes [#/volume] in Blood by Automated count 0.81 10^3/uL 0.00 - 0.90 [facility] Eosinophils [#/volume] in Blood by Automated count 0.27 10^3/uL 0.00 - 0.70 [facility] Basophils [#/volume] in Blood by Automated count 0.11 10^3/uL 0.00 - 0.20 [facility] #IG 0.12 10^3/uL 0.00 - 0.10 [facility] #NRBC 0.00 10^3/uL 0.00 - 0.00 [facility] MANUAL DIFF NOT INDICATED [facility] RBC MORPH NOT INDICATED [facility] ID Date Data Source [id number] 10/26/2020 08:53:00 PM EDT [facility] Name Value Range Interpretation Code Description Data Mei rce(s) Supporting Document(s) Lipase [Enzymatic activity/volume] in Serum or Plasma 23 U/L 13 - 60 [facility] ID Date Data Source PLZ KNEE COMPLETE 09/28/2020 12:00:00 AM EDT eCW1 ([facility]) Name Value Range Interpretation Code Description Data Mei rce(s) Supporting Document(s) PLZ KNEE COMPLETE eCW1 ([facility]) ID Date Data Source PLZ SACRUM AND COCCYX 08/09/2020 12:00:00 AM EST eCW1 ([facility]) Name Value Range Interpretation Code Description Data Mei rce(s) Supporting Document(s) PLZ SACRUM AND COCCYX eCW1 ([facility]) Procedure Social History Code Duration Value Status Description Data Source(s ) Smoking 04/11/2021 12:00:00 AM EDT Never Smoker completed Never S moker eCW1 ([facility]) Smoking 04/11/2021 12:00:00 AM EDT Never Smoker completed Never S moker eCW1 ([facility]) Smoking 12/31/2020 12:00:00 AM EDT Never Smoker completed Never S moker eCW1 ([facility]) Smoking 12/31/2020 12:00:00 AM EDT Never Smoker completed Never S moker eCW1 ([facility]) Smoking 11/08/2020 12:00:00 AM EDT Never Smoker completed Never S moker eCW1 ([facility]) Smoking 10/04/2020 12:00:00 AM EDT Patient has never smoked co mpleted Patient has never smoked MEDENT ([facility], ) Smoking 09/28/2020 12:00:00 AM EDT Never Smoker completed Never S moker eCW1 ([facility]) Smoking 08/09/2020 12:00:00 AM EST Never Smoker completed Never S moker eCW1 ([facility]) Smoking 08/09/2020 12:00:00 AM EST Never Smoker completed Never S moker eCW1 ([facility]) Smoking 06/29/2020 12:00:00 AM EST Never Smoker completed Never S moker eCW1 ([facility]) Smoking 06/29/2020 12:00:00 AM EST Never Smoker completed Never S moker eCW1 ([facility]) Smoking 05/31/2020 12:00:00 AM EST Never Smoker completed Never S moker eCW1 ([facility]) Vital Signs ID Date Data Source UNK Name Value Range Interpretation Code Description Data Source(s) Body weight 311.3 [lb_av] 311.3 [lb_av] eCW1 ([facility]) Body weight 141.2 kg 141.2 kg eCW1 ([facility]) Body height 68 [in_i] 68 [in_i] eCW1 ([facility]) Body mass index (BMI) [Ratio] 47.33 kg/m2 47.33 kg/m2 eCW1 ([facility]) Heart rate 100 /min 100 /min eCW1 ([facility]) Respiratory rate 18 /min 18 /min eCW1 ([facility]) Body temperature 96.4 [degF] 96.4 [degF] eCW1 ( [facility]) Systolic blood pressure 120 mm[Hg] 120 mm[Hg] e CW1 ([facility]) Diastolic blood pressure 82 mm[Hg] 82 mm[Hg] eCW1 ([facility]) Body weight 304.4 [lb_av] 304.4 [lb_av] eCW1 ([facility]) Body weight 138.07 kg 138.07 kg eCW1 ([facility]) Body height 68 [in_i] 68 [in_i] eCW1 ([facility]) Body mass index (BMI) [Ratio] 46.28 kg/m2 46.28 kg/m2 eCW1 ([facility]) Heart rate 105 /min 105 /min eCW1 ([facility]) Respiratory rate 18 /min 18 /min eCW1 ([facility]) Body temperature 97.4 [degF] 97.4 [degF] eCW1 ( [facility]) Systolic blood pressure 118 mm[Hg] 118 mm[Hg] e CW1 ([facility]) Diastolic blood pressure 88 mm[Hg] 88 mm[Hg] eCW1 ([facility]) Body weight 310 [lb_av] 310 [lb_av] eCW1 ([facility]) Body height 68 [in_i] 68 [in_i] eCW1 ([facility]) Body mass index (BMI) [Ratio] 47.13 kg/m2 47.13 kg/m2 eCW1 ([facility]) Heart rate 80 /min 80 /min eCW1 ([facility]) Respiratory rate 18 /min 18 /min eCW1 ([facility]) Body temperature 977 [degF] 977 [degF] eCW1 ([facility]) Systolic blood pressure 140 mm[Hg] 140 mm[Hg] e CW1 ([facility]) Diastolic blood pressure 98 mm[Hg] 98 mm[Hg] eCW1 ([facility]) Systolic blood pressure 134 mm[Hg] 134 [facility] Body weight 135.173 kg 135.173 kg [facility] ([facility]) Body surface area Derived from formula 2.42 m2 2.42 m2 [facility] ([facility]) Body mass index (BMI) [Ratio] 45.3 kg/m2 45.3 k g/m2 [facility] ([facility]) Diastolic blood pressure 92 mm[Hg] 92 mm[Hg] [facility] ([facility]) Heart rate 93 /min 93 /min [facility] ([facility]) [place] body weight 154 [lb_av] 154 [lb_av] MEDEN T ([facility]) Oxygen saturation in Arterial blood by Pulse oximetry 94 % 94 % [facility] ([facility]) Body height 68 [in_i] 68 [in_i] [facility] ([facility]) 5'8" Body weight 298.00 [lb_av] 298.00 [lb_av] MEDEN T ([facility]) Systolic blood pressure 136 mm[Hg] 136 mm[Hg] M [facility] ([facility]) Diastolic blood pressure 74 mm[Hg] 74 mm[Hg] [facility] ([facility]) Heart rate 101 /min 101 /min [facility] ([facility]) Oxygen saturation in Arterial blood by Pulse oximetry 92 % 92 % [facility] ([facility]) Body temperature 97.0 [degF] 97.0 [degF] [facility] ([facility]) Body height 68 [in_i] 68 [in_i] [facility] ([facility]) 5'8" Body weight 290.38 [lb_av] 290.38 [lb_av] [facility] T ([facility]) Body mass index (BMI) [Ratio] 44.1 kg/m2 44.1 k g/[facility] [place] body weight 154 [lb_av] 154 [lb_av] MED[facility] T ([facility]) Body weight 131.714 kg 131.714 kg [facility] ([facility]) Body surface area Derived from formula 2.39 m2 2.39 m2 [facility] ([facility]) Body weight 291 [lb_av] 291 [lb_av] eCW1 ([facility]) Diastolic blood pressure 80 mm[Hg] 80 mm[Hg] eCW1 ([facility]) Body height 68 [in_i] 68 [in_i] eCW1 ([facility]) Body mass index (BMI) [Ratio] 44.24 kg/m2 44.24 kg/m2 eCW1 ([facility]) Heart rate 110 /min 110 /min eCW1 ([facility]) Respiratory rate 18 /min 18 /min eCW1 ([facility]) Body temperature 97.0 [degF] 97.0 [degF] eCW1 ( [facility]) Systolic blood pressure 122 mm[Hg] 122 mm[Hg] e CW1 ([facility]) Heart rate 94 /min 94 /min [facility] ([facility]) Diastolic blood pressure 78 mm[Hg] 78 mm[Hg] [facility] ([facility]) Body temperature 97.4 [degF] 97.4 [degF] [facility] ([facility]) Body mass index (BMI) [Ratio] 44.2 kg/m2 44.2 k g/m2 [facility] ([facility]) Systolic blood pressure 136 mm[Hg] 136 mm[Hg] M [facility] ([facility]) Oxygen saturation in Arterial blood by Pulse oximetry 93 % 93 % [facility] ([facility]) Body height 68 [in_i] 68 [in_i] [facility] ([facility]) 5'8" Body weight 290.50 [lb_av] 290.50 [lb_av] MEDEN T ([facility]) [place] body weight 154 [lb_av] 154 [lb_av] MED[facility] T ([facility]) Body weight 131.771 kg 131.771 kg [facility] ([facility]) Body surface area Derived from formula 2.40 m2 2.40 m2 [facility] ([facility]) Body weight 290 [lb_av] 290 [lb_av] eCW1 ([facility]) Body height 68 [in_i] 68 [in_i] eCW1 ([facility]) Body mass index (BMI) [Ratio] 44.09 kg/m2 44.09 kg/m2 eCW1 ([facility]) Systolic blood pressure 134 mm[Hg] 134 mm[Hg] e CW1 ([facility]) Heart rate 97 /min 97 /min eCW1 ([facility]) Diastolic blood pressure 88 mm[Hg] 88 mm[Hg] eCW1 ([facility]) Respiratory rate 18 /min 18 /min eCW1 ([facility]) Body temperature 97.3 [degF] 97.3 [degF] eCW1 ( [facility]) Body weight 292 [lb_av] 292 [lb_av] eCW1 ([facility]) Body height 68 [in_i] 68 [in_i] eCW1 ([facility]) Body mass index (BMI) [Ratio] 44.39 kg/m2 44.39 kg/m2 eCW1 ([facility]) Heart rate 104 /min 104 /min eCW1 ([facility]) Respiratory rate 18 /min 18 /min eCW1 ([facility]) Body temperature 97.5 [degF] 97.5 [degF] eCW1 ( [facility]) Systolic blood pressure 122 mm[Hg] 122 mm[Hg] e CW1 ([facility]) Diastolic blood pressure 86 mm[Hg] 86 mm[Hg] eCW1 ([facility])
--- OUTSIDE RECORDS SUMMARY | 2021-05-20 13:43 | CCD ---
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 [employer] Name Role Phone AlexandreMichelle DO Unavailable Unavailable Alexanrde, J Israel DO Unavailable Unavailable Alexandre, J [...] J Israel DO Unavailable Unavailable EDWARD SOARES PHARMACEUTICAL SALES REPRESENTATIVE-C Unavailable Unavailable FANY, EDWARD RICARDO PHARMACEUTICAL SALES REPRESENTATIVE-C Unavailable Unavailable FANY, EDWARD RICARDO PHARMACEUTICAL SALES REPRESENTATIVE-C Unavailable Unavailable FANY, EDWARD RICARDO PHARMACEUTICAL SALES REPRESENTATIVE-C Unavailable Unavailable FANY, EDWARD RICARDO PHARMACEUTICAL SALES REPRESENTATIVE-C Unavailable Unavailable FANY, EDWARD RICARDO PHARMACEUTICAL SALES REPRESENTATIVE-C Unavailable Unavailable FANY, EDWARD RICARDO PHARMACEUTICAL SALES REPRESENTATIVE-C Unavailable Unavailable FANY, EDWARD RICARDO PHARMACEUTICAL SALES REPRESENTATIVE-C Unavailable Unavailable FANY, EDWARD RICARDO PHARMACEUTICAL SALES REPRESENTATIVE-C Unavailable Unavailable FANY, EDWARD RICARDO PHARMACEUTICAL SALES REPRESENTATIVE-C Unavailable Unavailable FANY, EDWARD RICARDO PHARMACEUTICAL SALES REPRESENTATIVE-C Unavailable Unavailable FANY, EDWARD RICARDO PHARMACEUTICAL SALES REPRESENTATIVE-C Unavailable Unavailable FANY, EDWARD RICARDO PHARMACEUTICAL SALES REPRESENTATIVE-C Unavailable Unavailable FANY, EDWARD RICARDO PHARMACEUTICAL SALES REPRESENTATIVE-C Unavailable Unavailable FANY, EDWARD RICARDO PHARMACEUTICAL SALES REPRESENTATIVE-C Unavailable Unavailable FANY, EDWARD RICARDO PHARMACEUTICAL SALES REPRESENTATIVE-C Unavailable Unavailable FANY, EDWARD RICARDO PHARMACEUTICAL SALES REPRESENTATIVE-C Unavailable Unavailable CHANLIECCO, C JORGE MD Unavailable [...] is protected by Article 27-F of the [facility] Public Health law. If you continue you may have access to information: Regarding HIV / AIDS; Provided by facilities licensed or operated by the [facility] Office of Mental Health; or Provided by the [facility] Office for People With Developmental Disabilities. If such information is present, then the following [facility] mandated warning applies: This information has been [...] law may result in a fine or chcf sentence or both. A general authorization for the release of medical or other information is NOT sufficient authorization for further disc losure. Encounters Encounter Providers Location Date Indications Data Source(s ) [facility]billable [facility] 04/20/2021 12:00:00 AM EDT [facility] ([facility]) Outpatient [address] [facility] [address] 04/11/2021 12:00:00 AM EDT eCW1 ([facility]) non-billable [facility] 03/28/2021 12:00:00 AM EDT [facility] ([facility]) Outpatient [address] [facility] [address] 03/07/2021 12:00:00 AM EDT [facility]CW1 ([facility]-billable [facility] 02/23/2021 12:00:00 AM EDT [facility] ([facility]) Unknown [address] [facility] [address] 01/27/2021 12:00:00 AM EDT eCW1 ([facility]-billable [facility] 01/21/2021 12:00:00 AM EDT [facility] ([facility]) Outpatient [address] [facility] [address] 12/31/2020 12:00:00 AM EDT eCW1 ([facility]) [facility]-billable [facility] 12/28/2020 12:00:00 AM EDT [facility] ([facility]) Outpatient Attender: RICARDO Lujan/Shaun/Vitaly/R eindl 12/13/2020 11:15:00 AM EDT [facility] ([facility]) non-billable [facility] 11/23/2020 12:00:00 AM EDT [facility] ([facility]) Unknown [address] [facility] [address] 11/08/2020 12:00:00 AM EDT eCW1 [facility] Emergency Attender: JORGE LEACH MDConsultant: Israel Schroeder DO 10/26/2020 08:00:00 PM EDT - 10/26/2020 09:29:00 PM EDT [facility] Patient discharged. Outpatient Attender: RICARDO Lujan/Shaun/Vitaly/R eindl 10/04/2020 12:45:00 PM EDT [facility] ([facility]) Outpatient [address] [facility] [address] 09/28/2020 12:00:00 AM EDT [facility]CW1 [facility] Outpatient Attender: RICARDO Lujan/Shaun/Vitaly/R eindl 09/24/2020 08:15:00 AM EDT [facility] ([facility]) Unknown [address] [facility] [address] 08/10/2020 12:00:00 AM EST eCW1 ([facility] Outpatient [address] [facility] [address] 08/09/2020 12:00:00 AM EST [facility]CW1 [facility] Unknown [address] [facility] [address] 06/30/2020 12:00:00 AM EST [facility]CW1 [facility] Outpatient [address] [facility] [address] 06/29/2020 12:00:00 AM EST eCW1 ([facility]) Unknown [address] [facility] [address] 05/31/2020 12:00:00 AM EST eCW1 ([facility]) [address]patient [address] [address] 3669-Mobile Integration Team 12/05/2019 12:00:00 AM EDT [facility] ([facility]) Patient admitted. Immunizations Vaccine Date Status Description Data Source(s) COVID-19 VACCINE Moderna 09/13/2020 12:00:00 AM EDT completed [facility] Vaccine Series Complete: YESThis Data wa s Submitted to [facility] Via [employer]. COVID-19 VACCINE Moderna 08/16/2020 12:00:00 AM EST completed [facility] Vaccine Series Complete: NOThis Data was Submitted to [facility] Via [employer]. Medications Medication Brand Name Start Date Product Form Dose Route Admi nistrative Instructions Pharmacy Instructions Status Indications Reaction Description Data Source(s) Sulfamethoxazole 800 MG / Trimethoprim 1 60 MG Oral Tablet [Bactrim] Bactrim DS 800-160 MG Bactrim DS 800-160 MG 03/07/2021 12:00:00 AM EDT 1.0 {table t} suspended Bactrim DS 800-160 MG eCW1 ( [facility]) Bacitracin 0.5 UNT/MG Topical Ointment Bacitracin 500 UNIT/GM Bacitracin 500 UNIT/GM 03/07/2021 12:00:00 AM EDT 1.0 {application} suspended Bacitracin 500 UNIT/GM eCW1 ([facility]) Sulfamethoxazole 800 MG / Trimethoprim 1 60 MG Oral Tablet [Bactrim] Bactrim DS 800-160 MG Bactrim DS 800-160 MG 03/07/2021 12:00:00 AM EDT 1.0 {table t} suspended Bactrim DS 800-160 MG eCW1 ( [facility]) Bacitracin 0.5 UNT/MG Topical Ointment Bacitracin 500 UNIT/GM Bacitracin 500 UNIT/GM 03/07/2021 12:00:00 AM EDT 1.0 {application} suspended Bacitracin 500 UNIT/GM eCW1 ([facility]) Amoxicillin 875 MG / Clavulanate 125 MG Oral Tablet Amoxicillin-Pot Clavulanate 875-125 MG Amoxicillin-Pot Clavulanate 875-125 MG 03/07/2021 12:00:00 AM ED T 1.0 {tablet} suspended Amoxicillin-Pot C lavulanate 875-125 MG eCW1 ([facility]) Amoxicillin 875 MG / Clavulanate 125 MG Oral Tablet Amoxicillin-Pot Clavulanate 875-125 MG Amoxicillin-Pot Clavulanate 875-125 MG 03/07/2021 12:00:00 AM ED T 1.0 {tablet} suspended Amoxicillin-Pot C lavulanate 875-125 MG eCW1 ([facility]) CPAP 10/15/2020 12:00:00 AM EDT active [facility] ([facility]) Covid-19 vaccine, Unspecified 09/13/2020 12:00:00 AM EDT completed [facility] ([facility] ) Medication administered onsite Covid-19 vaccine, Unspecified 08/16/2020 12:00:00 AM EST completed [facility] ([facility] ) Medication administered onsite Insurance Providers Payer name Policy type / Coverage type Policy ID Covered republican ID Covered republican's relationship to andino Policy Andino Plan Information MEDICARE A [id number] Self [id number] MEDICARE [id number] SP [id number] V08 [facility] MEDICAID [id number] SP [id number] Y [employer] GOLD [id number] SP [id number] MEDICARE PART A -O/P [id number] 18 [id number] MEDICARE PART A -O/P [id number] 18 [id number] [place] MCRB [id number] S [id number] MEDICARE [id number] S [id number] [id number] Medicare P [id number] S [id number] V08 [place] O [id number] S [id number] MEDICARE C [id number] S [id number] V08 UNHC COMMUNITY PLAN [facility] [id number] SP [id number] MEDICAID [facility] [id number] SP [id number] NOVITAS JL PART B C [id number] S [id number] MEDICARE [id number] SP [id number] A [employer] GOLD [id number] SP [id number] MEDICARE [id number] SP [id number] Problems, Conditions, and Diagnoses Code Display Name Description Problem Type Effective Dates Data Source(s) R0789 Other chest pain Other chest pain Diagnosis 10/26/2020 08 :00:00 PM EDT [facility] Z68.42 [id number] Body mass index [BMI] 45.0-49.9, adult Pr oblem 04/11/2021 12:00:00 AM EDT eCW1 ([facility]) E66.01 [id number] Morbid (severe) obesity due to excess c alories Problem 01/03/2021 12:00:00 AM EDT eCW1 ([facility]) G47.30 [id number] Sleep apnea, unspecified type Problem 07/30/2020 12:00:00 AM EST eCW1 ([facility]) [id number] Schizoaffective disorder, unspecified Sc hizoaffective disorder, unspecified Condition 07/05/2020 12:00:00 AM EST [facility] ([facility]) [id number] Schizoaffective disorder, unspecified Sc hizoaffective disorder, unspecified Condition 07/05/2020 12:00:00 AM EST [facility] ([facility]) [id number] Schizoaffective disorder, unspecified Sc hizoaffective disorder, unspecified Condition 07/05/2020 12:00:00 AM EST [facility] ([facility]) [id number] Schizoaffective disorder, unspecified Sc hizoaffective disorder, unspecified Condition 07/05/2020 12:00:00 AM EST [facility] ([facility]) [id number] Schizoaffective disorder, unspecified Sc hizoaffective disorder, unspecified Condition 07/05/2020 12:00:00 AM EST [facility] ([facility]) [id number] Schizoaffective disorder, unspecified Sc hizoaffective disorder, unspecified Condition 07/05/2020 12:00:00 AM EST [facility] ([facility]) Surgeries/Procedures No Information Results ID Date Data Source [id number] 05/10/2021 08:44:00 PM EST [facility] Name Value Range Interpretation Code Description Data Mei rce(s) Supporting Document(s) SARS coronavirus 2 RNA [Presence] in Res piratory specimen by GRACY with probe detection NEGATIVE [facility] This lab was ordered by [facility] a nd reported by [facility]. ID Date Data Source Basic Metabolic Profile (BMP) 03/07/2021 12:00:00 AM EDT eCW 1 ([facility]) Name Value Range Interpretation Code Description Data Mei rce(s) Supporting Document(s) 121 70-100 GLUCOSE, FASTING eCW1 ([facility]) 1.03 0.70-1.30 CREATININE FOR GFR eCW1 ([facility]) > 60.0 >60 GLOMERULAR FILTRATION RATE eCW 1 ([facility]) 15 7-18 BLOOD UREA NITROGEN eCW1 ([facility]) 33 21-32 CARBON DIOXIDE LEVEL eCW1 ([facility]) 105 98-107 CHLORIDE LEVEL eCW1 ([facility]) 4.9 3.5-5.1 POTASSIUM SERUM eCW1 ([facility]) 140 136-145 SODIUM LEVEL eCW1 ([facility]) 9.5 8.5-10.1 CALCIUM LEVEL eCW1 ([facility]) ID Date Data Source CBC with Differential 03/07/2021 12:00:00 AM EDT eCW1 ([facility]) Name Value Range Interpretation Code Description Data Mei rce(s) Supporting Document(s) 4.93 4.30-6.10 RED BLOOD COUNT eCW1 ([facility]) 8.1 4.0-10.0 WHITE BLOOD COUNT eCW1 ([facility]) 44.6 42.0-52.0 HEMATOCRIT eCW1 ([facility]) 14.4 13.5-17.5 HEMOGLOBIN eCW1 ([facility]) 90.5 80.0-96.0 MEAN CORPUSCULAR VOLUME e CW1 ([facility]) 32.3 32.0-36.5 MEAN CORPUSCULAR HGB CONC eCW1 ([facility]) 29.2 27.0-33.0 MEAN CORPUSCULAR HEMOGLOB IN eCW1 ([facility]) 14.9 11.5-14.5 RED CELL DISTRIBUTION WID TH eCW1 ([facility]) 301 150-450 PLATELET COUNT, AUTOMATED eCW1 ([facility]) 62.8 36.0-66.0 NEUTROPHILS % eCW1 ([facility]) 7.3 2.0-8.0 MONO % eCW1 ([facility]) 25.0 24.0-44.0 LYMPH % eCW1 ([facility]) 1.1 0.0-1.0 BASO % eCW1 ([facility]) 2.6 0.0-3.0 EOS % eCW1 ([facility]) 0.2 0.0-0.5 EOS # eCW1 ([facility]) 5.1 1.5-8.5 NEUTROPHILS # eCW1 ([facility]) 2.0 1.5-5.0 LYMPH # eCW1 ([facility]) 0.6 0.0-0.8 MONO # eCW1 ([facility]) 0.1 0.0-0.2 BASO # eCW1 ([facility]) ID Date Data Source [id number] 12/06/2020 10:47:00 AM EDT [facility] Name Value Range Interpretation Code Description Data Mei rce(s) Supporting Document(s) SARS coronavirus 2 RNA [Presence] in Res piratory specimen by GRACY with probe detection [facility]GATIVE [facility] This lab was ordered by [facility] a nd reported by [facility]. ID Date Data Source [id number] 10/29/2020 11:09:00 AM EDT [facility] [address] [place] [address] PHONE: [phone] FAX: [phone] Name .................. : TRACY SANTAMARIA Acct Number.................. : [id number] ROOM. ................. : TR-05 MR Number ................... : [id number] Stay type ............. : E/R Discharge Date......... ... : 10/26/20 Admit Date ......... : 10/26/20 Admit Phys .................... : [facility] Date of ....... : 1975 Family Phys ................... : ALEXANDRE A Phone .................. : [phone] Age ................................ : 45 Film# .................. .:[id number] Sex ................................. : M Unsigned transcriptions are preliminary reports and do not represent a medical or legal document CHEST PORTABLE 13817 COMPLETE:10/26/20 20:24 RLB 54575 Reason( s): Chest Pain PORTABLE CHEST X-RAY: INDICATION: Chest pain. FINDINGS: The lungs are clear. The cardiac silhouette is normal in size and contour. No acute osseous abnormality. There is a suspected calcified catheter projecting over the left upper chest and neck. IMPRESSION: No acute pulmonary process. Electronically Reviewed and Signed By Prabhu Villalobos M.D. , 10/29/20 11:09, VTY Transcribe Initials: DZ , Transcribe Date: 10/27/20 00:37, Dictation Date: Copy for: BIANCA MAYORGA via fax Copy for: [address] [facility] DISCHARGED Page 1 of 1 Name Value Range Interpretation Code Description Data Mei rce(s) Supporting Document(s) ID Date Data Source [id number] 10/28/2020 05:54:00 [place] [address] RESPIRATORY CARE REPORT ==== ---------NAME------- NUMBER SEX AGE ADMIT DISC. XRAY# F/C TYPESPERLING ROSALIO [id number] M 45 10/26/20 10/26/20 [id number] E/R DATE OF : 1975 M/R# [id number] #: [id number] TR-05 LOCATION: EKG 22927 COMPLETE:10/27/20 0 2:52 VMT 11043 PHYSICIAN: HANY ALBRECHT Name Value Range Interpretation Code Description Data Mei rce(s) Supporting Document(s) ID Date Data Source [id number] 10/26/2020 08:00:00 PM EDT [facility] 1 OrderSheet [facility] Emergency Department [address] [place] [address] Phone #: ext- [phone] 10/26/2020 19:54 Patient: [...] ALERT Melvin Benitez RNMEDICATION) PA; 2 OrderSheet [facility] Emergency Department [address] [place] [address] Phone #: ext- [phone] 10/26/2020 19:54 Patient: ROSALIO ROSS Sex: M : 1975 Age: 45yGENERAL ORDERSOrder Description Priority Enter ed Acknowledged InitialedBlood Pressure 20:10/26/2020 20:11 Patsy Benitez RN PA;Automobile Tester 20:10/26/2020 20:11 Ryan(continuous) Melvin Benitez RN PA;EKG 20:10/26/2020 20:11 Ryan Benitez RN PA;NPO 20:10/26/2020 20:11 Ryan Benitez RN PA;Obtain Old EKG 20:10/26/2020 20:11 Ryan Benitez RN PA;Pulse oximeter 20:10/26/2020 20:11 Ryan(Continuous) Melvin Benitez RN PA;Saline Lock 20:10/26/2020 20:11 Ryan Benitez RN PA;Vitals 20:10/26/2020 20:11 Ryan Benitez RN PA;[Electronically signed by yRan Benitez RN (:10/26/2020)][Electronically signed by Melvin Albrecht (21:35 10/26/2020)][Electronically locked by Ryan Benitez RN (:10/26/2020)] Name Value Range Interpretation Code Description Data Mei rce(s) Supporting Document(s) ID Date Data Source [id number] 10/26/2020 08:00:00 PM EDT [facility] 1 Medication Reconciliation Report [facility] Emergency Department [address] [place] [address] Phone #: ext- [phone] 10/26/2020 19:54 Patient: [...] rce(s) Supporting Document(s) ID Date Data Source [id number] 10/26/2020 08:00:00 PM EDT [place] [address] Medication Administration Record [facility] Emergency Department [address] [place] [address] Phone #: ext- [phone] 10/26/2020 19:54 Patient: [...] rce(s) Supporting Document(s) ID Date Data Source [id number] 10/26/2020 08:00:00 PM EDT [facility] 1 General Instructions [facility] Emergency Department [address] [place] [address] Phone #: ext- [phone] 10/26/2020 19:54 Patient: ROSALIO ROSS Sex: M [...] ADDITIONAL INFORMATIONNoncardiac Chest Pain 2 General Instructions [facility] Emergency Department [address] [place] [address] Phone #: ext- [phone] 10/26/2020 19:54 Patient: ROSALIO ROSS Sex: M [...] (costochondritis) Fibromyalgia Rheumatoid arthritis 3 General Instructions [facility] Emergency Department [address] [place] [address] Phone #: ext- [phone] 10/26/2020 19:54 Patient: [...] start to feel better in 24 hours.Call [phone] if any of these occur: A change in the type of pain: if it feels different, becomes more severe, lasts longer, or begins to spread into your shoulder, arm, neck, jaw or back Shortness of breath or increased pain with breathing Weakness, dizziness, or fainting Rapid heart beat Crushing sensation in your chestWhen to seek medical advice 4 General Instructions [facility] Emergency Department [address] [place] [address] Phone #: ext- [phone] 10/26/2020 19:54 Patient: ROSALIO ROSS Sex: M : 1975 Age: 45yCall your healthcare provider right away if any of these occur: Cough with dark colored sputum (phlegm) or blood Fever of 100.4F (38C) or higher, or as directed by your healthcare provider Swelling, pain or redness in one leg [id number] [employer]. [address] [place] [address]. All rights reserved. This information is not intended as asubstitute for professional medical care. Always follow your healthcare professional's instructions. You have been given the following additional information: Chest Pain, Noncardiac(Electronically signed by NELLI Oropeza 10/26/2020 21:35) Name Value Range Interpretation Code Description Data Mei rce(s) Supporting Document(s) ID Date Data Source [id number] 10/26/2020 08:00:00 PM EDT [facility] 1 Clinical Report - Nurses [facility] Emergency Department [address] [place] [address] Phone #: ext [phone] 10/26/2020 19:54 Patient: ROSALIO ROSS Sex: M [...] PO aspirin by EMS and states relief.).Treatment PHARMACY TECH CUSTOMER SERVICE:(Nitro sublingual PHARMACY TECH CUSTOMER SERVICE, Aspirin PHARMACY TECH CUSTOMER SERVICE).SEPSIS SCREEN: SIRS SCREEN NEGATIVE. SEPSIS SCREEN NEGATIVE. [...] Marianne More. 2 Clinical Report - Nurses [facility] Emergency Department [address] [place] [address] Phone #: ext- [phone] 10/26/2020 19:54 [id number] Sex: [facility] : 1975 Age: 45y ADDITIONAL [...] both lower 3 Clinical Report - Nurses [facility] Emergency Department [address] [place] [address] Phone #: ext- [phone] 10/26/2020 19:54 Patient: ROSALIO ROSS Sex: M [...] with an 20g angiocath. --20:10/26/20 Marianne More environmental monitoring specialist, NIBP monitor and pulse oximeter placed on patient; desk monitor- Lead II; monitor alarms on. --20:10/26/20 Ryan [...] have improved the patient feels better. Physician medical receptionist medical assistant notified. --20:39 10/26/20 Ryan Benitez RN 20:39 10/26/2020 Ativan IVP Response: symptoms have improved the patient feels better. Physician medical receptionist medical assistant notified. --20:39 10/26/20 Ryan Benitez RN 20:39 10/26/20. BP: 127/95. HR: 84. RR: 18. O2 saturation: 96%. Pain level now 0/10. --20:10/26/20 [place] power manager, Patrick, ER Tech1 ( pt now states no pain and he is feeling more relaxed after medication administration). --20:40 10/26/20 Ryan Benitez RN 21:10/26/2020 Site #1 removed upon discharge. Catheter intact. Manual pressure and bandage applied. --:10/26/20 Ryan Benitez RN.DISPOSITION / DISCHARGE Condition at departure: improved and stable. Discharge instructions provided and reviewed with the patient. Patient verbalized understanding. Written instructions provided in French. The patient was 4 Clinical Report - Nurses [facility] Emergency Department [address] [place] [address] Phone #: ext- [phone] 10/26/2020 19:54 Patient: ROSALIO ROSS Sex: M : 1975 Age: 45y discharged by the physician medical receptionist medical assistant. He was discharged home. He left ambulatory and via taxi. --:10/26/20 Ryan Benitez RN 21:10/26/20. BP: 108/66. MAP: 80. HR: 84. RR: 16. O2 saturation: 97%. Pain level now: 0/10. --2 1:28 10/26/20 Ryan Benitez RN.Locked/Released at 10/26/2020 21:29 by Ryan Benitez RN Name Value Range Interpretation Code Description Data Mei rce(s) Supporting Document(s) ID Date Data Source [id number] 10/26/2020 08:00:00 PM EDT [facility] 1 Clinical Report - Physicians/Mid Levels [facility] Emergency Department [address] [place] [address] Phone #: ext- [phone] 10/26/2020 19:54 Patient: ROSALIO ROSS Sex: M [...] Oral. 2 Clinical Report - Physicians/Mid Levels [facility] Emergency Department [address] [place] [address] Phone #: ext- [phone] 10/26/2020 19:54 -------- Patient: ROSALIO ROSS Sex: [...] 6.90) 3 Clinical Report - Physicians/Mid Levels [facility] Emergency Department [address] [place] [address] Phone #: ext- [phone] 10/26/2020 19:54 Patient: ROSALIO ROSS Sex: M [...] Male GFR Interprentation 20-49 yrs >60 mL/min Jvzkyc63-36 yrs >56 mL/min Normal 60-69 yrs >49 mL/min Normal 70-79yrs>42 mL/min Normal 80 and above >35 mL/min Normal Female GFRInterpretation 20-39 yrs >60 mL/min Normal 40-49 yrs >58 mL/minNormal 50-59 yrs >51 mL/min Normal 60-69 yrs >45 mL/min Nwpbdn74-04 yrs >39 mL/min Normal 80 and above >32 mL/min NormalLipase: (OMER: 10/26/2020 20:30) ( NegRcvd 10/26/2020 20:53) Final results Test Result Flag [...] VenousThrombosis, Pulmonary Embolus, Tissue heart valves, Acute [place] Atrial Fibrillation, Valvular heart diseaseand recurrent Systemic Embolism. -International Normalized Ratio (INR): 2.5 - 3.5 forMechanical Prosthetic valve. 4 Clinical Report - Physicians/Mid Levels [facility] Emergency Department [address] [place] [address] Phone #: ext- [phone] 10/26/2020 19:54 Patient: ROSALIO ROSS Sex: M : 1975 Age: 45y Troponin-T: (OMER: 10/26/2020 20:30) ( [facility] 10/26/2020 20:53) Final results Test Result Flag [...] Mertazapine*. 5 Clinical Report - Physicians/Mid Levels [facility] Emergency Department [address] [place] [address] Phone #: [phone] 10/26/2020 19:54 Patient: [...] rce(s) Supporting Document(s) ID Date Data Source [id number] 10/26/2020 08:53:00 PM EDT [facility] Name Value Range Interpretation Code Description Data [facility] rce(s) Supporting Document(s) COMPREHENSIVE METABOLIC PANEL [facility] COMPREHENSIVE METABOLIC PANEL Sodium [Moles/volume] in Serum or Plasma 137 mEq/L 134 - 153 [facility] Potassium [Moles/volume] in Serum or Plasma 4.1 mEq/L 3.6 - 5.0 [facility] Chloride [Moles/volume] in Serum or Plasma 98 mEq/L 98 - 107 [facility] Carbon dioxide, total [Moles/volume] in Serum or Plasma 30 MEQ/L 22 - 30 [facility] Glucose [Mass/volume] in Serum or Plasma 133 MG/DL 70 - 99 H [facility] BUN 17 MG/DL 7 - 21 [facility] Creatinine [Mass/volume] in Serum or Plasma 1.0 MG/DL 0.7 - 1.5 [facility] BUN/CREAT 17 8 - 27 [facility] Protein [Mass/volume] in Serum or Plasma 7.1 G/DL 6.3 - 8.2 [facility] Albumin [Mass/volume] in Serum or Plasma 4.2 G/DL 3.9 - 5.0 [facility] Globulin [Mass/volume] in Serum by calculation 2.9 GM/DL 2.4 - 3.2 [facility] A/G RATIO 1.4 0.8 - 2.0 [facility] Calcium [Mass/volume] in Serum or Plasma 9.5 MG/DL 8.4 - 10.2 [facility] Bilirubin.total [Mass/volume] in Serum or Plasma <0.7 MG/DL 0.2 - 1.3 [facility] Alkaline phosphatase [Enzymatic activity/volume] in Serum or Plasma 82 U/L 38 - 126 [facility] Aspartate aminotransferase [Enzymatic activity/volume] in Serum or Plasma 15 U/L 5 - 40 [facility] Alanine aminotransferase [Enzymatic activity/volume] in Seru m or Plasma 22 U/L 7 - 56 [facility] Anion gap 3 in Serum or Plasma 9.0 mmol/L 8.0 - 16.0 [facility] AGE 45 yrs [facility] NON-AA GFR >60 mL/min [facility] AFR AMER GFR >60 mL/min [facility] Male GFR In terprentation 20-49 [...] >32 mL/min Normal ID Date Data Source [id number] 10/26/2020 08:53:00 PM EDT [facility] Name Value Range Interpretation Code Description Data Mei rce(s) Supporting Document(s) TROPONIN T <0.01 NG/ML 0.00 - 0.10 [facility] TROPONIN T0.1 ng/ml Recommended as the c linical threshold value forTroponin T. ID Date Data Source [id number] 10/26/2020 08:51:00 PM EDT [facility] Name Value Range Interpretation Code Description Data Mei rce(s) Supporting Document(s) Prothrombin time (PT) 11.8 SECONDS 11.0 - 15.5 [facility] INR in Platelet poor plasma by Coagulation assay 0.83 0.93 - 1. 23 L [facility] aPTT in Blood by Coagulation assay 27.5 SECONDS 24.8 - 36.7 [facility] \\BLDo\\INR INTERPRETATION\\BLDx\\ Therapeutic range for Coumadin and related oral anticoagulants. - International Normalized Ratio (INR): 2.0 - 3.0 for Venous Thrombosis, Pulmonary Embolus, Tissue heart valves, Acute [place] Atrial Fibrillation, Valvular heart disease and recurrent Systemic Embolism. - International Normalized Ratio (INR): 2.5 - 3.5 for Mechanical Prosthetic valve. ID Date Data Source [id number] 10/26/2020 08:35:00 PM EDT [facility] Name Value Range Interpretation Code Description Data Mei rce(s) Supporting Document(s) CBC W/AUTOMATED DIFF [facility] COMPLETE BLOOD COUNT Leukocytes [#/volume] in Blood by Automated count 10.2 10^3/uL 4.2 - 11.0 [facility] Erythrocytes [#/volume] in Blood by Automated count 4.74 10^6/uL 4. 50 - 6.30 [facility] Hemoglobin [Mass/volume] in Blood 14.2 g/dL 14.0 - 16.0 [facility] Hematocrit [Volume Fraction] of Blood by Automated count 42.0 % 4 1.0 - 51.0 [facility] Erythrocyte mean corpuscular volume [Entitic volume] by Auto mated count 88.6 fL 80.0 - 94.0 [facility] Erythrocyte mean corpuscular hemoglobin [Entitic mass] by Automated count 30.0 pg 27.0 - 34.0 [facility] Erythrocyte mean corpuscular hemoglobin concentration [Mass/volume] by Automated count 33.8 g/dL 31.0 - 36.0 [facility] Erythrocyte distribution width [Ratio] by Automated count 14.0 % 11.5 - 14.8 [facility] Platelets [#/volume] in Blood by Automated count 271 10^3/uL 150 - 45 0 [facility] Platelet mean volume [Entitic volume] in Blood by Automated count 9.9 fL 7.4 - 10.4 [facility] Neutrophils/100 leukocytes in Blood by Automated count 58.4 % 37. 0 - 80.0 [facility] Lymphocytes/100 leukocytes in Blood by Manual count 28.8 % 25.0 - 40.0 [facility] Monocytes/100 leukocytes in Blood by Automated count 7.9 % 3.0 - 8.0 [facility] Eosinophils/100 leukocytes in Blood by Automated count 2.6 % 0.0 - 7.0 [facility] Basophils/100 leukocytes in Blood by Automated count 1.1 % 0.0 - 2.0 [facility] %IG 1.2 % 0.0 - 0.0 H [facility] %NRBC 0.0 % 0.0 - [facility] [#/volume] in Blood by Automated count 5.95 10^3/uL 2.00 - 6.90 [facility] Lymphocytes [#/volume] in Blood by Automated count 2.93 10^3/uL 0.60 - 3.40 [facility] Monocytes [#/volume] in Blood by Automated count 0.81 10^3/uL 0.00 - 0.90 [facility] Eosinophils [#/volume] in Blood by Automated count 0.27 10^3/uL 0.00 - 0.70 [facility] Basophils [#/volume] in Blood by Automated count 0.11 10^3/uL 0.00 - 0.20 [facility] #IG 0.12 10^3/uL 0.00 - 0.10 [facility] #NRBC 0.00 10^3/uL 0.00 - 0.00 [facility] MANUAL DIFF NOT INDICATED [facility] RBC MORPH NOT INDICATED [facility] ID Date Data Source [id number] 10/26/2020 08:53:00 PM EDT [facility] Name Value Range Interpretation Code Description Data Mei rce(s) Supporting Document(s) Lipase [Enzymatic activity/volume] in Serum or Plasma 23 U/L 13 - 60 [facility] ID Date Data Source PLZ KNEE COMPLETE 09/28/2020 12:00:00 AM EDT eCW1 ([facility]) Name Value Range Interpretation Code Description Data Mei rce(s) Supporting Document(s) PLZ KNEE COMPLETE eCW1 ([facility]) ID Date Data Source PLZ SACRUM AND COCCYX 08/09/2020 12:00:00 AM EST eCW1 ([facility]) Name Value Range Interpretation Code Description Data Mei rce(s) Supporting Document(s) PLZ SACRUM AND COCCYX eCW1 ([facility]) Procedure Social History Code Duration Value Status Description Data Source(s ) Smoking 04/11/2021 12:00:00 AM EDT Never Smoker completed Never S moker eCW1 ([facility]) Smoking 04/11/2021 12:00:00 AM EDT Never Smoker completed Never S moker eCW1 ([facility]) Smoking 12/31/2020 12:00:00 AM EDT Never Smoker completed Never S moker eCW1 ([facility]) Smoking 12/31/2020 12:00:00 AM EDT Never Smoker completed Never S moker eCW1 ([facility]) Smoking 11/08/2020 12:00:00 AM EDT Never Smoker completed Never S moker eCW1 ([facility]) Smoking 10/04/2020 12:00:00 AM EDT Patient has never smoked co mpleted Patient has never smoked MEDENT ([facility], ) Smoking 09/28/2020 12:00:00 AM EDT Never Smoker completed Never S moker eCW1 ([facility]) Smoking 08/09/2020 12:00:00 AM EST Never Smoker completed Never S moker eCW1 ([facility]) Smoking 08/09/2020 12:00:00 AM EST Never Smoker completed Never S moker eCW1 ([facility]) Smoking 06/29/2020 12:00:00 AM EST Never Smoker completed Never S moker eCW1 ([facility]) Smoking 06/29/2020 12:00:00 AM EST Never Smoker completed Never S moker eCW1 ([facility]) Smoking 05/31/2020 12:00:00 AM EST Never Smoker completed Never S moker eCW1 ([facility]) Vital Signs ID Date Data Source UNK Name Value Range Interpretation Code Description Data Source(s) Body weight 311.3 [lb_av] 311.3 [lb_av] eCW1 ([facility]) Body weight 141.2 kg 141.2 kg eCW1 ([facility]) Body height 68 [in_i] 68 [in_i] eCW1 ([facility]) Body mass index (BMI) [Ratio] 47.33 kg/m2 47.33 kg/m2 eCW1 ([facility]) Heart rate 100 /min 100 /min eCW1 ([facility]) Respiratory rate 18 /min 18 /min eCW1 ([facility]) Body temperature 96.4 [degF] 96.4 [degF] eCW1 ( [facility]) Systolic blood pressure 120 mm[Hg] 120 mm[Hg] e CW1 ([facility]) Diastolic blood pressure 82 mm[Hg] 82 mm[Hg] eCW1 ([facility]) Body weight 304.4 [lb_av] 304.4 [lb_av] eCW1 ([facility]) Body weight 138.07 kg 138.07 kg eCW1 ([facility]) Body height 68 [in_i] 68 [in_i] eCW1 ([facility]) Body mass index (BMI) [Ratio] 46.28 kg/m2 46.28 kg/m2 eCW1 ([facility]) Heart rate 105 /min 105 /min eCW1 ([facility]) Respiratory rate 18 /min 18 /min eCW1 ([facility]) Body temperature 97.4 [degF] 97.4 [degF] eCW1 ( [facility]) Systolic blood pressure 118 mm[Hg] 118 mm[Hg] e CW1 ([facility]) Diastolic blood pressure 88 mm[Hg] 88 mm[Hg] eCW1 ([facility]) Body weight 310 [lb_av] 310 [lb_av] eCW1 ([facility]) Body height 68 [in_i] 68 [in_i] eCW1 ([facility]) Body mass index (BMI) [Ratio] 47.13 kg/m2 47.13 kg/m2 eCW1 ([facility]) Heart rate 80 /min 80 /min eCW1 ([facility]) Respiratory rate 18 /min 18 /min eCW1 ([facility]) Body temperature 977 [degF] 977 [degF] eCW1 ([facility]) Systolic blood pressure 140 mm[Hg] 140 mm[Hg] e CW1 ([facility]) Diastolic blood pressure 98 mm[Hg] 98 mm[Hg] eCW1 ([facility]) Body weight 135.173 kg 135.173 kg [facility] ([facility]) Body surface area Derived from formula 2.42 m2 2.42 m2 [facility] ([facility]) Systolic blood pressure 134 mm[Hg] 134 mm[Hg] M EDENT ([facility]) Diastolic blood pressure 92 mm[Hg] 92 mm[Hg] [facility] ([facility]) Heart rate 93 /min 93 /min [facility] ([facility]) Oxygen saturation in Arterial blood by Pulse oximetry 94 % 94 % [facility] ([facility]) Body height 68 [in_i] 68 [in_i] [facility] ([facility]) 5'8" Body weight 298.00 [lb_av] 298.00 [lb_av] MEDEN T ([facility]) Body mass index (BMI) [Ratio] 45.3 kg/m2 45.3 k g/m2 [facility] ([facility]) [place] body weight 154 [lb_av] 154 [lb_av] MEDEN T ([facility]) Systolic blood pressure 136 mm[Hg] 136 [facility]Hg] [facility] Diastolic blood pressure 74 mm[Hg] 74 mm[Hg] [facility] ([facility]) Heart rate 101 /min 101 /min [facility] ([facility]) Oxygen saturation in Arterial blood by Pulse oximetry 92 % 92 % [facility] ([facility] Body temperature 97.0 [degF] 97.0 [degF] [facility] ([facility]) Body height 68 [in_i] 68 [in_i] [facility] ([facility]) 5'8" Body weight 290.38 [lb_av] 290.38 [lb_av] MEDEN T ([facility]) Body mass index (BMI) [Ratio] 44.1 kg/m2 44.1 k g/m2 [facility] [place] body weight 154 [lb_av] 154 [lb_av] MEDEN T ([facility]) Body weight 131.714 kg 131.714 kg [facility] ([facility]) Body surface area Derived from formula 2.39 m2 2.39 m2 [facility] ([facility]) Body weight 291 [lb_av] 291 [lb_av] eCW1 ([facility]) Body height 68 [in_i] 68 [in_i] eCW1 ([facility]) Body mass index (BMI) [Ratio] 44.24 kg/m2 44.24 kg/m2 W1 ([facility]) Heart rate 110 /min 110 /min eCW1 ([facility]) Respiratory rate 18 /min 18 /min eCW1 ([facility]) Body temperature 97.0 [degF] 97.0 [degF] eCW1 ( [facility]) Systolic blood pressure 122 mm[Hg] 122 mm[Hg] e CW1 ([facility]) Diastolic blood pressure 80 mm[Hg] 80 mm[Hg] eCW1 ([facility]) Systolic blood pressure 136 mm[Hg] 136 mm[Hg] M EDENT ([facility]) Diastolic blood pressure 78 mm[Hg] 78 mm[Hg] [facility] Heart rate 94 /min 94 /min [facility] ([facility]) Oxygen saturation in Arterial blood by Pulse oximetry 93 % 93 % [facility] ([facility]) Body temperature 97.4 [degF] 97.4 [degF] [facility] ([facility]) Body height 68 [in_i] 68 [in_i] [facility] ([facility]) 5'8" Body weight 290.50 [lb_av] 290.50 [lb_av] MEDEN T ([facility]) Body mass index (BMI) [Ratio] 44.2 kg/m2 44.2 k g/m2 [facility] ([facility]) [place] body weight 154 [lb_av] 154 [lb_av] MEDEN T ([facility]) Body weight 131.771 kg 131.771 kg [facility] Body surface area Derived from formula 2.40 m2 2.40 m2 [facility]) Body weight 290 [lb_av] 290 [lb_av] eCW1 ([facility]) Body height 68 [in_i] 68 [in_i] eCW1 ([facility]) Body mass index (BMI) [Ratio] 44.09 kg/m2 44.09 kg/m2 eCW1 ([facility]) Heart rate 97 /min 97 /min eCW1 ([facility]) Respiratory rate 18 /min 18 /min eCW1 ([facility]) Body temperature 97.3 [degF] 97.3 [degF] eCW1 ( [facility]) Systolic blood pressure 134 mm[Hg] 134 mm[Hg] e CW1 ([facility]) Diastolic blood pressure 88 mm[Hg] 88 mm[Hg] eCW1 ([facility]) Body weight 292 [lb_av] 292 [lb_av] eCW1 ([facility]) Body height 68 [in_i] 68 [in_i] eCW1 ([facility]) Body mass index (BMI) [Ratio] 44.39 kg/m2 44.39 kg/m2 eCW1 ([facility]) Heart rate 104 /min 104 /min eCW1 ([facility]) Respiratory rate 18 /min 18 /min eCW1 ([facility]) Body temperature 97.5 [degF] 97.5 [degF] eCW1 ( [facility]) Systolic blood pressure 122 mm[Hg] 122 mm[Hg] e CW1 ([facility]) Diastolic blood pressure 86 mm[Hg] 86 mm[Hg] eCW1 ([facility])
== END 2021-05-20 13:28 | disposition left against medical advice (07) ==
LOC: M ED 10:36
DX: Z53.21 Procedure and treatment not carried out due to patient leaving prior to being seen by health care provider (principal)

== ENCOUNTER → 2021-06-07 | Outpatient (REF) | payer OTHER, MEDICAID | LOC: M SFHCPLAZ 14:37 | PROVIDERS: ATTEND Family Medicine | DX: R60.9 Edema, unspecified (principal); Z68.42 Body mass index [BMI] 45.0-49.9, adult ==

== ENCOUNTER → 2021-06-10 | Outpatient (CLI) | payer OTHER ==
[2021-06-10 12:46] LABS: HEMOGLOBIN A1c 6.3 %
[2021-06-10 13:00] LABS: CHOLESTEROL RISK RATIO 6.297 (<5)
== END ==
LOC: M PLAIMG 08:07
PROVIDERS: ATTEND Student in an Organized Health Care Education/Training Program
DX: R60.9 Edema, unspecified (principal); Z68.42 Body mass index [BMI] 45.0-49.9, adult; J90 Pleural effusion, not elsewhere classified; J98.11 Atelectasis; Z79.899 Other long term (current) drug therapy

== ENCOUNTER → 2021-06-21 | Outpatient (CLI) | payer OTHER ==
[2021-06-21 10:47] LABS: ALBUMIN 4.1 GM/DL (3.2-5.2); ALT/SGPT 53 U/L (12-78); BILIRUBIN,TOTAL 0.5 MG/DL (0.2-1.0); BLOOD UREA NITROGEN 12 MG/DL (7-18); CALCIUM LEVEL 9.5 MG/DL (8.5-10.1); CARBON DIOXIDE LEVEL 32 MEQ/L (21-32); CHLORIDE LEVEL 104 MEQ/L (98-107); CREATININE FOR GFR 1.14 MG/DL (0.70-1.30); GLOMERULAR FILTRATION RATE > 60.0 (>60); GLUCOSE, FASTING 135 MG/DL (70-100); POTASSIUM SERUM 4.8 MEQ/L (3.5-5.1); SODIUM LEVEL 141 MEQ/L (136-145); TOTAL PROTEIN 7.7 GM/DL (6.4-8.2)
== END ==
LOC: M PLALAB 08:26
PROVIDERS: ATTEND Student in an Organized Health Care Education/Training Program
DX: E78.5 Hyperlipidemia, unspecified (principal)

== ENCOUNTER → 2021-08-01 | Outpatient (CLI) | payer OTHER | LOC: M PLAIMG 07:53 | PROVIDERS: ATTEND Student in an Organized Health Care Education/Training Program | DX: R09.89 Other specified symptoms and signs involving the circulatory and respiratory systems (principal) ==

== ENCOUNTER → 2021-11-04 | Outpatient (REF) | payer OTHER, MEDICAID | LOC: M SFHCPLAZ 13:59 | PROVIDERS: ATTEND Family Medicine | DX: M54.50 Low back pain, unspecified (principal); R73.03 Prediabetes ==

== ENCOUNTER → 2021-11-04 | Outpatient (CLI) | payer OTHER, MEDICAID ==
[2021-11-04 15:40] LABS: BLOOD UREA NITROGEN 8 MG/DL (7-18); CALCIUM LEVEL 9.5 MG/DL (8.5-10.1); CARBON DIOXIDE LEVEL 33 MEQ/L (21-32); CHLORIDE LEVEL 102 MEQ/L (98-107); CREATININE FOR GFR 1.02 MG/DL (0.70-1.30); GLOMERULAR FILTRATION RATE > 60.0 (>60); GLUCOSE, FASTING 110 MG/DL (70-100); HEMOGLOBIN A1c 6.6 %; POTASSIUM SERUM 4.1 MEQ/L (3.5-5.1); SODIUM LEVEL 140 MEQ/L (136-145)
== END ==
LOC: M PLALAB 14:29
PROVIDERS: ATTEND Student in an Organized Health Care Education/Training Program
DX: M54.50 Low back pain, unspecified (principal); R73.03 Prediabetes

== ENCOUNTER 2021-11-19 16:30 | Emergency (ER) | payer OTHER, MEDICAID ==
[2021-11-19] MEDS ORDERED: NAPR-885 PO (19:25)
[2021-11-19 19:41] VITALS: BP 135/79
== END 2021-11-19 19:42 | disposition home or self-care (01) ==
LOC: EDBD 16:30 → M ED 16:30
DX: M25.512 Pain in left shoulder (principal); F20.9 Schizophrenia, unspecified; Z98.2 Presence of cerebrospinal fluid drainage device; Z88.8 Allergy status to other drugs, medicaments and biological substances; Z79.899 Other long term (current) drug therapy

== ENCOUNTER → 2021-11-24 | Outpatient (CLI) | payer OTHER, MEDICAID ==
[~2021-11-24] MED LIST changes: +NAPR-885 PO
== END ==
LOC: M PLAIMG 14:16
PROVIDERS: ATTEND Student in an Organized Health Care Education/Training Program
DX: M79.602 Pain in left arm (principal)

== ENCOUNTER 2022-01-19 08:17 | Outpatient (RCR) | payer OTHER, MEDICAID | END 2022-01-22 | LOC: M PT 08:17 | PROVIDERS: ATTEND Student in an Organized Health Care Education/Training Program | DX: M79.602 Pain in left arm (principal) ==

== ENCOUNTER → 2022-03-08 | Outpatient (CLI) | payer OTHER, MEDICAID ==
[2022-03-08 14:03] LABS: BASO # 0.1 10^3/uL (0.0-0.2); BASO % 0.8 % (0.0-1.0); EOS # 0.2 10^3/uL (0.0-0.5); EOS % 1.7 % (0.0-3.0); HEMATOCRIT 41.7 % (42.0-52.0); HEMATOCRIT 43.2 % (42.0-52.0); HEMOGLOBIN 13.6 g/dl (13.5-17.5); LYMPH % 20.1 % (24.0-44.0); MEAN CORPUSCULAR HEMOGLOBIN 29.2 pg (27.0-33.0); MEAN CORPUSCULAR HGB CONC 31.5 g/dl (32.0-36.5); MEAN CORPUSCULAR VOLUME 92.9 fl (80.0-96.0); MONO # 0.6 10^3/uL (0.0-0.8); MONO % 6.1 % (2.0-8.0); NEUTROPHILS # 6.8 10^3/uL (1.5-8.5); NEUTROPHILS % 70.7 % (36.0-66.0); PLATELET COUNT, AUTOMATED 282 10^3/uL (150-450); RED BLOOD COUNT 4.65 10^6/uL (4.30-6.10); WHITE BLOOD COUNT 9.7 10^3/uL (4.0-10.0)
[2022-03-08 14:25] LABS: ALBUMIN 4.1 GM/DL (3.2-5.2); ALT/SGPT 36 U/L (12-78); BILIRUBIN,TOTAL 0.5 MG/DL (0.2-1.0); BLOOD UREA NITROGEN 19 MG/DL (7-18); CALCIUM LEVEL 9.5 MG/DL (8.5-10.1); CARBON DIOXIDE LEVEL 31 MEQ/L (21-32); CHLORIDE LEVEL 107 MEQ/L (98-107); CHOLESTEROL LEVEL 105 MG/DL (<200); CHOLESTEROL RISK RATIO 2.837 (<5); CREATININE FOR GFR 1.06 MG/DL (0.70-1.30); FREE T4 0.89 NG/DL (0.76-1.46); GLOMERULAR FILTRATION RATE > 60.0 (>60); GLUCOSE, FASTING 95 MG/DL (70-100); HDL CHOLESTEROL 37 MG/DL (>40); LDL CHOLESTEROL 43 MG/DL (<100); NON-HDL-C 68 MG/DL; POTASSIUM SERUM 4.7 MEQ/L (3.5-5.1); SODIUM LEVEL 142 MEQ/L (136-145); TOTAL PROTEIN 7.5 GM/DL (6.4-8.2); TRIGLYCERIDES LEVEL 124 MG/DL (<150)
[2022-03-08 14:36] LABS: HEMOGLOBIN A1c 6.1 %
[2022-03-08 14:43] LABS: TOTAL 25(OH) VITAMIN D 30.1 NG/ML (30.0-100.0)
[2022-03-08 14:44] LABS: VITAMIN B12 LEVEL 549 PG/ML (247-911)
== END ==
LOC: M PLALAB 10:14
PROVIDERS: ATTEND Student in an Organized Health Care Education/Training Program
DX: E11.9 Type 2 diabetes mellitus without complications (principal)

== ENCOUNTER → 2022-04-14 | Outpatient (CLI) | payer OTHER, MEDICAID | LOC: M PLAIMG 09:33 | PROVIDERS: ATTEND Student in an Organized Health Care Education/Training Program | DX: Z98.2 Presence of cerebrospinal fluid drainage device (principal); M50.30 Other cervical disc degeneration, unspecified cervical region ==

== ENCOUNTER 2022-09-11 14:49 | Outpatient (RCR) | payer OTHER, MEDICAID ==
[~2022-09-11 14:49] MED LIST changes: -BENZ-52 PO; +BENZ1TAB5 PO
== END 2022-09-22 ==
LOC: M PT 14:49
PROVIDERS: ATTEND Student in an Organized Health Care Education/Training Program
DX: M25.511 Pain in right shoulder (principal)

== ENCOUNTER → 2022-09-22 | Outpatient (REF) | payer OTHER, MEDICAID | LOC: M SMT 12:55 | PROVIDERS: ATTEND Urology | DX: Z30.2 Encounter for sterilization (principal) ==

== ENCOUNTER → 2023-03-07 | Outpatient (CLI) | payer OTHER, MEDICAID ==
[~2023-03-07] MED LIST changes: +ATOR40TA75; +METF750T36; -MIRT-62 PO; +MIRT-88 PO; +PRED20TA PO
[2023-03-07 17:59] LABS: BASO # 0.1 10^3/uL (0.0-0.2); BASO % 0.7 % (0.0-1.0); EOS # 0.3 10^3/uL (0.0-0.5); EOS % 3.1 % (0.0-3.0); HEMATOCRIT 40.1 % (42.0-52.0); HEMOGLOBIN 12.8 g/dl (13.5-17.5); LYMPH # 1.7 10^3/uL (1.5-5.0); LYMPH % 19.7 % (24.0-44.0); MEAN CORPUSCULAR HEMOGLOBIN 29.6 pg (27.0-33.0); MEAN CORPUSCULAR HGB CONC 31.9 g/dl (32.0-36.5); MEAN CORPUSCULAR VOLUME 92.6 fl (80.0-96.0); MONO # 0.7 10^3/uL (0.0-0.8); MONO % 8.6 % (2.0-8.0); NEUTROPHILS # 5.7 10^3/uL (1.5-8.5); NEUTROPHILS % 66.9 % (36.0-66.0); PLATELET COUNT, AUTOMATED 252 10^3/uL (150-450); RED BLOOD COUNT 4.33 10^6/uL (4.30-6.10); WHITE BLOOD COUNT 8.6 10^3/uL (4.0-10.0)
[2023-03-07 18:48] LABS: ERYTHROCYTE SEDIMENTATION RATE 25 mm/hr (0-15)
== END ==
LOC: M WUC 11:30
PROVIDERS: ATTEND Nurse Practitioner Family
DX: M79.671 Pain in right foot (principal)

== ENCOUNTER 2023-03-11 10:03 | Emergency (ER) | payer OTHER, MEDICAID ==
[~2023-03-11] VITALS: Ht 170.2 cm; Wt 134.2 kg
[~2023-03-11 10:03] MED LIST changes: -ATOR40TA75; -METF750T36; -PRED20TA PO
[2023-03-11] MEDS ORDERED: METF750T36 (10:10)
[2023-03-11] MEDS ORDERED: ATOR40TA75 (10:10)
[2023-03-11] MEDS ORDERED: PRED20TA PO (13:23)
[2023-03-11 13:33] VITALS: BP 140/85; TEMP 97.6; O2SAT 100
== END 2023-03-11 13:36 | disposition home or self-care (01) ==
LOC: M ED 10:03
DX: M79.671 Pain in right foot (principal); E11.9 Type 2 diabetes mellitus without complications; K21.9 Gastro-esophageal reflux disease without esophagitis; Z88.1 Allergy status to other antibiotic agents; Z88.8 Allergy status to other drugs, medicaments and biological substances; Z79.02 Long term (current) use of antithrombotics/antiplatelets; Z79.4 Long term (current) use of insulin; Z79.899 Other long term (current) drug therapy

== ENCOUNTER 2023-05-04 14:38 | Emergency (ER) | payer OTHER, MEDICAID ==
[~2023-05-04] VITALS: Ht 170.2 cm; Wt 133.6 kg
[~2023-05-04 14:38] MED LIST changes: +ATOR40TA75; +METF750T36; +PRED20TA PO
[2023-05-04] MEDS ORDERED: GABA-1171 PO (19:54)
[2023-05-04 20:11] VITALS: BP 132/76; TEMP 98.2; O2SAT 96
== END 2023-05-04 20:18 | disposition home or self-care (01) ==
LOC: M ED 14:38
DX: M54.32 Sciatica, left side (principal); K21.9 Gastro-esophageal reflux disease without esophagitis; M54.50 Low back pain, unspecified; G47.33 Obstructive sleep apnea (adult) (pediatric); F20.0 Paranoid schizophrenia; Z88.1 Allergy status to other antibiotic agents; Z88.8 Allergy status to other drugs, medicaments and biological substances; Z79.02 Long term (current) use of antithrombotics/antiplatelets; Z79.4 Long term (current) use of insulin; Z79.52 Long term (current) use of systemic steroids; Z79.899 Other long term (current) drug therapy

== ENCOUNTER → 2023-05-30 | Outpatient (CLI) | payer OTHER, MEDICAID ==
[~2023-05-30] MED LIST changes: +GABA-1171 PO
== END ==
LOC: M SOG 07:53
PROVIDERS: ATTEND Orthopaedic Surgery
DX: M25.78 Osteophyte, vertebrae (principal); M47.816 Spondylosis without myelopathy or radiculopathy, lumbar region

== ENCOUNTER → 2023-07-12 | Outpatient (CLI) | payer OTHER, MEDICAID | LOC: M PLAIMG 10:08 | PROVIDERS: ATTEND Orthopaedic Surgery | DX: M47.27 Other spondylosis with radiculopathy, lumbosacral region (principal); M51.26 Other intervertebral disc displacement, lumbar region; M51.27 Other intervertebral disc displacement, lumbosacral region; M48.061 Spinal stenosis, lumbar region without neurogenic claudication ==

== ENCOUNTER → 2023-07-25 | Outpatient (REF) | payer OTHER, MEDICAID | LOC: M LAB REF 15:48 | PROVIDERS: ATTEND Surgery | DX: D48.5 Neoplasm of uncertain behavior of skin (principal) ==

== ENCOUNTER → 2023-10-08 | Outpatient (CLI) | payer OTHER, MEDICAID ==
[2023-10-08 15:46] LABS: BASO # 0.1 10^3/uL (0.0-0.2); BASO % 0.8 % (0.0-1.0); EOS # 0.2 10^3/uL (0.0-0.5); EOS % 1.9 % (0.0-3.0); HEMATOCRIT 41.1 % (42.0-52.0); HEMOGLOBIN 13.3 g/dl (13.5-17.5); LYMPH # 1.6 10^3/uL (1.5-5.0); MEAN CORPUSCULAR HEMOGLOBIN 29.5 pg (27.0-33.0); MEAN CORPUSCULAR HGB CONC 32.4 g/dl (32.0-36.5); MEAN CORPUSCULAR VOLUME 91.1 fl (80.0-96.0); MONO # 0.7 10^3/uL (0.0-0.8); MONO % 7.7 % (2.0-8.0); NEUTROPHILS # 6.4 10^3/uL (1.5-8.5); NEUTROPHILS % 71.2 % (36.0-66.0); PLATELET COUNT, AUTOMATED 282 10^3/uL (150-450); RED BLOOD COUNT 4.51 10^6/uL (4.30-6.10); WHITE BLOOD COUNT 8.9 10^3/uL (4.0-10.0)
[2023-10-08 16:19] LABS: ALBUMIN 4.3 G/DL (3.2-5.2); ALKALINE PHOSPHATASE 114 U/L (46-116); ALT/SGPT 26 U/L (7.0-40); AST/SGOT 16 U/L (<34); BILIRUBIN,TOTAL 0.3 MG/DL (0.3-1.2); BLOOD UREA NITROGEN 11 MG/DL (9-23); CALCIUM LEVEL 9.5 MG/DL (8.5-10.1); CARBON DIOXIDE LEVEL 31 MMOL/L (20-31); CHLORIDE LEVEL 104 MMOL/L (98-107); CHOLESTEROL LEVEL 90 MG/DL (<200); CHOLESTEROL RISK RATIO 2.33 (<5); CREATININE FOR GFR 0.82 MG/DL (0.70-1.30); GLOMERULAR FILTRATION RATE > 60.0 (>60); GLUCOSE, FASTING 108 MG/DL (60-100); HDL CHOLESTEROL 38.5 MG/DL (>40); LDL CHOLESTEROL 32.5 MG/DL (<100); NON-HDL-C 51.5 MG/DL; POTASSIUM SERUM 4.6 MMOL/L (3.5-5.1); SODIUM LEVEL 141 MMOL/L (136-145); TOTAL PROTEIN 7.7 G/DL (5.7-8.2); TRIGLYCERIDES LEVEL 95 MG/DL (<150)
[2023-10-08 17:49] LABS: HEMOGLOBIN A1c 5.7 % (4.0-6.0)
== END ==
LOC: M PLALAB 12:42
PROVIDERS: ATTEND Student in an Organized Health Care Education/Training Program
DX: Z00.00 Encounter for general adult medical examination without abnormal findings (principal); E55.9 Vitamin D deficiency, unspecified; Z79.899 Other long term (current) drug therapy

== ENCOUNTER → 2023-10-29 | Outpatient (CLI) | payer OTHER, MEDICAID | LOC: M PAIN 13:00 | PROVIDERS: ATTEND Nurse Practitioner Family | DX: M51.16 Intervertebral disc disorders with radiculopathy, lumbar region (principal); G89.29 Other chronic pain; Z98.2 Presence of cerebrospinal fluid drainage device; Q03.9 Congenital hydrocephalus, unspecified; F20.9 Schizophrenia, unspecified; E11.9 Type 2 diabetes mellitus without complications; G47.33 Obstructive sleep apnea (adult) (pediatric); F32.A Depression, unspecified; F41.9 Anxiety disorder, unspecified; H54.8 Legal blindness, as defined in USA; Z79.84 Long term (current) use of oral hypoglycemic drugs; Z79.899 Other long term (current) drug therapy; Z88.8 Allergy status to other drugs, medicaments and biological substances ==

== ENCOUNTER 2023-11-04 22:28 | Emergency (ER) | payer OTHER, MEDICAID ==
[~2023-11-04] VITALS: Ht 172.7 cm; Wt 127.5 kg
[2023-11-04 22:29] VITALS: TEMP 96.8
[2023-11-05] MEDS ORDERED: ISOVUE-370 76% 100ML VIAL As Ordered ONE (01:53)
[2023-11-05 02:07] LABS: BASO # 0.1 10^3/uL (0.0-0.2); BASO % 0.8 % (0.0-1.0); EOS # 0.4 10^3/uL (0.0-0.5); EOS % 3.1 % (0.0-3.0); HEMATOCRIT 41.6 % (42.0-52.0); HEMOGLOBIN 13.5 g/dl (13.5-17.5); LYMPH # 2.4 10^3/uL (1.5-5.0); LYMPH % 20.8 % (24.0-44.0); MEAN CORPUSCULAR HEMOGLOBIN 29.6 pg (27.0-33.0); MEAN CORPUSCULAR HGB CONC 32.5 g/dl (32.0-36.5); MEAN CORPUSCULAR VOLUME 91.2 fl (80.0-96.0); MONO # 0.9 10^3/uL (0.0-0.8); NEUTROPHILS # 7.7 10^3/uL (1.5-8.5); NEUTROPHILS % 66.6 % (36.0-66.0); PLATELET COUNT, AUTOMATED 278 10^3/uL (150-450); RED BLOOD COUNT 4.56 10^6/uL (4.30-6.10); WHITE BLOOD COUNT 11.6 10^3/uL (4.0-10.0)
[2023-11-05 02:27] LABS: ALBUMIN 3.9 G/DL (3.2-5.2); BILIRUBIN,DIRECT 0.2 MG/DL (<0.4); BILIRUBIN,TOTAL 0.4 MG/DL (0.3-1.2)
[2023-11-05 03:00] VITALS: BP 131/73; O2SAT 94
[2023-11-05] MEDS: ACETAMINOPHEN TAB 650MG DOSE (2X325MG) PO ONE (03:34)
== END 2023-11-05 03:51 | disposition home or self-care (01) ==
LOC: M ED 22:28
DX: S30.1XXA Contusion of abdominal wall, initial encounter (principal); W01.118A Fall on same level from slipping, tripping and stumbling with subsequent striking against other sharp object, initial encounter; E11.9 Type 2 diabetes mellitus without complications; M54.50 Low back pain, unspecified; G47.33 Obstructive sleep apnea (adult) (pediatric); F20.9 Schizophrenia, unspecified; Z88.1 Allergy status to other antibiotic agents; Z88.8 Allergy status to other drugs, medicaments and biological substances; Z79.02 Long term (current) use of antithrombotics/antiplatelets; Z79.52 Long term (current) use of systemic steroids; Z79.899 Other long term (current) drug therapy; Y92.9 Unspecified place or not applicable; Y93.89 Activity, other specified; Y99.9 Unspecified external cause status
CPT/HCPCS: 36415; 71111; 74177; 80047; 80076; 83690; 85025; 99284; Q9967

== ENCOUNTER → 2023-12-05 | Outpatient (CLI) | payer OTHER, MEDICAID ==
[~2023-12-05] MED LIST changes: -ESOM0.1C PO; +ESOM20CA2 PO
== END ==
LOC: M PAIN 15:30
PROVIDERS: ATTEND Anesthesiology
DX: M48.061 Spinal stenosis, lumbar region without neurogenic claudication (principal); M51.16 Intervertebral disc disorders with radiculopathy, lumbar region; G89.29 Other chronic pain; G47.30 Sleep apnea, unspecified; Z99.89 Dependence on other enabling machines and devices; Z79.02 Long term (current) use of antithrombotics/antiplatelets; Z79.84 Long term (current) use of oral hypoglycemic drugs; Z79.899 Other long term (current) drug therapy; Z88.1 Allergy status to other antibiotic agents; Z88.8 Allergy status to other drugs, medicaments and biological substances

== ENCOUNTER → 2024-01-15 | Outpatient (CLI) | payer OTHER, MEDICAID ==
[2024-01-15 11:58] LABS: HEMOGLOBIN A1c 5.8 % (4.0-6.0)
== END ==
LOC: M PLALAB 09:22
PROVIDERS: ATTEND Student in an Organized Health Care Education/Training Program
DX: Z00.00 Encounter for general adult medical examination without abnormal findings (principal); Z79.899 Other long term (current) drug therapy

== ENCOUNTER → 2024-02-12 | Outpatient (REF) | payer OTHER, MEDICAID ==
[~2024-02-12] MED LIST changes: -ARIP1TAB43 PO; +ARIP20TA51 PO
== END ==
LOC: M SFHCPLAZ 12:36
PROVIDERS: ATTEND Student in an Organized Health Care Education/Training Program
DX: K52.9 Noninfective gastroenteritis and colitis, unspecified (principal)

== ENCOUNTER → 2024-02-14 | Outpatient (CLI) | payer OTHER | LOC: M PLAIMG 12:19 | PROVIDERS: ATTEND Nurse Practitioner Family | DX: M48.061 Spinal stenosis, lumbar region without neurogenic claudication (principal) ==

== ENCOUNTER → 2024-02-14 | Outpatient (CLI) | payer MEDICARE, OTHER | LOC: M PLARAD 10:42 | PROVIDERS: ATTEND Nurse Practitioner Family | DX: M48.061 Spinal stenosis, lumbar region without neurogenic claudication (principal); M51.36 Other intervertebral disc degeneration, lumbar region ==

== ENCOUNTER → 2024-02-29 | Outpatient (CLI) | payer OTHER, MEDICAID | LOC: M PAIN 09:45 | PROVIDERS: ATTEND Nurse Practitioner Family | DX: M51.16 Intervertebral disc disorders with radiculopathy, lumbar region (principal); G89.29 Other chronic pain; E11.9 Type 2 diabetes mellitus without complications; G47.33 Obstructive sleep apnea (adult) (pediatric); F32.A Depression, unspecified; F41.9 Anxiety disorder, unspecified; H54.8 Legal blindness, as defined in USA; Z98.2 Presence of cerebrospinal fluid drainage device; Z79.84 Long term (current) use of oral hypoglycemic drugs; Z79.899 Other long term (current) drug therapy; Z88.8 Allergy status to other drugs, medicaments and biological substances ==

== ENCOUNTER → 2024-04-02 | Outpatient (CLI) | payer OTHER, MEDICAID ==
[~2024-04-02] MED LIST changes: -ARIP10TA32 PO; +ARIP10TA63 PO
[2024-04-02 10:30] LABS: HEMOGLOBIN A1c 5.7 % (4.0-6.0)
== END ==
LOC: M PLALAB 06:51
PROVIDERS: ATTEND Student in an Organized Health Care Education/Training Program
DX: E11.9 Type 2 diabetes mellitus without complications (principal)

== ENCOUNTER → 2024-04-23 | Outpatient (CLI) | payer OTHER, MEDICAID | LOC: M PAIN 10:30 | PROVIDERS: ATTEND Anesthesiology | DX: M54.16 Radiculopathy, lumbar region (principal); G89.29 Other chronic pain; E11.9 Type 2 diabetes mellitus without complications; G47.33 Obstructive sleep apnea (adult) (pediatric); F32.A Depression, unspecified; F41.9 Anxiety disorder, unspecified; H54.8 Legal blindness, as defined in USA; Z98.2 Presence of cerebrospinal fluid drainage device; Q03.9 Congenital hydrocephalus, unspecified; Z79.84 Long term (current) use of oral hypoglycemic drugs; Z79.899 Other long term (current) drug therapy; Z88.8 Allergy status to other drugs, medicaments and biological substances ==

== ENCOUNTER → 2024-06-13 | Outpatient (CLI) | payer OTHER, MEDICAID ==
[~2024-06-13] MED LIST changes: +ISOVUE-M 300 61% 15ML VIAL As Ordered ONE; +LIDOCAINE 1% SDV 30ML VIAL As Ordered ONE; +dexAMETHasone 10MG/1ML VIAL PRES.FREE As Ordered ONE
== END ==
LOC: M PAIN 10:00
PROVIDERS: ATTEND Anesthesiology
DX: M51.16 Intervertebral disc disorders with radiculopathy, lumbar region (principal); G89.29 Other chronic pain; E11.9 Type 2 diabetes mellitus without complications; G47.33 Obstructive sleep apnea (adult) (pediatric); F32.A Depression, unspecified; F41.9 Anxiety disorder, unspecified; H54.8 Legal blindness, as defined in USA; Z98.2 Presence of cerebrospinal fluid drainage device; Q03.9 Congenital hydrocephalus, unspecified; Z79.84 Long term (current) use of oral hypoglycemic drugs; Z79.899 Other long term (current) drug therapy; Z88.8 Allergy status to other drugs, medicaments and biological substances
CPT/HCPCS: 62323; J1100; Q9967

== ENCOUNTER → 2024-07-14 | Outpatient (CLI) | payer MEDICARE, MEDICAID ==
[~2024-07-14] MED LIST changes: -ISOVUE-M 300 61% 15ML VIAL As Ordered ONE; -LIDOCAINE 1% SDV 30ML VIAL As Ordered ONE; -dexAMETHasone 10MG/1ML VIAL PRES.FREE As Ordered ONE
== END ==
LOC: M PAIN 10:45
PROVIDERS: ATTEND Nurse Practitioner Family
DX: M51.16 Intervertebral disc disorders with radiculopathy, lumbar region (principal); G89.29 Other chronic pain; E11.9 Type 2 diabetes mellitus without complications; G47.33 Obstructive sleep apnea (adult) (pediatric); F32.A Depression, unspecified; F41.9 Anxiety disorder, unspecified; H54.8 Legal blindness, as defined in USA; Z98.2 Presence of cerebrospinal fluid drainage device; Z79.84 Long term (current) use of oral hypoglycemic drugs; Z79.899 Other long term (current) drug therapy; Z88.8 Allergy status to other drugs, medicaments and biological substances

== ENCOUNTER → 2024-09-05 | Outpatient (CLI) | payer MEDICARE, MEDICAID ==
[2024-09-05 14:30] LABS: BASO # 0.1 10^3/uL (0.0-0.2); EOS # 0.1 10^3/uL (0.0-0.5); EOS % 1.4 % (0.0-3.0); HEMATOCRIT 44.3 % (42.0-52.0); HEMOGLOBIN 14.5 g/dl (13.5-17.5); LYMPH # 1.6 10^3/uL (1.5-5.0); LYMPH % 18.7 % (24.0-44.0); MEAN CORPUSCULAR HEMOGLOBIN 29.5 pg (27.0-33.0); MEAN CORPUSCULAR HGB CONC 32.7 g/dl (32.0-36.5); MEAN CORPUSCULAR VOLUME 90.2 fl (80.0-96.0); MONO # 0.6 10^3/uL (0.0-0.8); MONO % 7.1 % (2.0-8.0); NEUTROPHILS # 6.2 10^3/uL (1.5-8.5); NEUTROPHILS % 71.2 % (36.0-66.0); PLATELET COUNT, AUTOMATED 285 10^3/uL (150-450); RED BLOOD COUNT 4.91 10^6/uL (4.30-6.10); WHITE BLOOD COUNT 8.8 10^3/uL (4.0-10.0)
[2024-09-05 14:31] LABS: C REACTIVE PROTEIN QUANTITATIV 0.62 MG/DL (<1.0)
[2024-09-05 14:32] LABS: ALBUMIN 4.3 G/DL (3.2-5.2); ALKALINE PHOSPHATASE 119 U/L (40-129); ALT/SGPT 31 U/L (7.0-40); AST/SGOT 14 U/L (<34); BILIRUBIN,TOTAL 0.6 MG/DL (0.3-1.2); BLOOD UREA NITROGEN 17 MG/DL (9-23); CALCIUM LEVEL 9.8 MG/DL (8.5-10.1); CARBON DIOXIDE LEVEL 29 MMOL/L (20-31); CHLORIDE LEVEL 103 MMOL/L (98-107); GLOMERULAR FILTRATION RATE > 60.0 (>56); GLUCOSE, FASTING 110 MG/DL (60-100); IRON (FE) 71 UG/DL (65-175); PERCENT SATURATION 19.3 % (19.7-50.0); POTASSIUM SERUM 4.4 MMOL/L (3.5-5.1); SODIUM LEVEL 142 MMOL/L (136-145); TOTAL IRON BINDING CAPACITY 367 UG/DL (250-425); TOTAL PROTEIN 7.8 G/DL (5.7-8.2)
[2024-09-05 14:33] LABS: VITAMIN B12 LEVEL 520 PG/ML (211-911)
[2024-09-05 14:43] LABS: ERYTHROCYTE SEDIMENTATION RATE 34 mm/hr (0-20)
[2024-09-05 14:50] LABS: HEPATITIS B SURFACE ANTIGEN NEGATIVE (NEGATIVE)
== END ==
LOC: M PLALAB 10:34
PROVIDERS: ATTEND Internal Medicine Gastroenterology
DX: K51.00 Ulcerative (chronic) pancolitis without complications (principal); Z11.59 Encounter for screening for other viral diseases

== ENCOUNTER → 2024-09-27 | Outpatient (CLI) | payer MEDICARE, MEDICAID | LOC: M RAD 10:11 | PROVIDERS: ATTEND Physician Assistant | DX: R07.81 Pleurodynia (principal); J98.11 Atelectasis; R91.8 Other nonspecific abnormal finding of lung field ==